=== PATIENT | female | born 1950 | race Caucasian/White ===

== ENCOUNTER 2016-03-10 | Outpatient (CLI) | END 2016-03-10 16:37 | disposition critical access hospital (66) | CPT/HCPCS: A0425; A0427 ==

== ENCOUNTER 2016-03-10 16:52 | Inpatient (IN) | END 2016-03-12 17:11 | disposition home or self-care (01) | DRG 563 ==

== ENCOUNTER 2016-03-27 | Outpatient (CLI) | payer MEDICARE, OTHER | END 2016-03-27 10:39 | disposition critical access hospital (66) | DX: R45.89 Other symptoms and signs involving emotional state (principal) | CPT/HCPCS: A0425; A0429 ==

== ENCOUNTER 2016-03-27 10:45 | Emergency (ER) | payer MEDICARE, OTHER ==
[2016-03-27] MEDS ORDERED: LORazepam 0.5 MG TABLET PO STA (14:26)
[2016-03-27] MEDS ORDERED: LORazepam 0.5 MG TABLET ONE (14:35)
[2016-03-27] MEDS ORDERED: ACETAMINOPHEN 325 MG TABLET PO STA (19:42)
[2016-03-27] MEDS ORDERED: ACETAMINOPHEN 325 MG TABLET PO ONE (19:45)
[2016-03-27] MEDS ORDERED: SUMAtriptan 6 MG/0.5 ML VIAL SUBQ STA (21:10)
[2016-03-27] MEDS ORDERED: SUMAtriptan 6 MG/0.5 ML VIAL SUBQ ONE (21:23)
== END 2016-03-27 21:51 ==
DX: F32.9 Major depressive disorder, single episode, unspecified (principal); F41.0 Panic disorder [episodic paroxysmal anxiety]; D64.9 Anemia, unspecified; I10 Essential (primary) hypertension; J44.9 Chronic obstructive pulmonary disease, unspecified
CPT/HCPCS: 36415; 80048; 80306; 81003; 85025; 93005; 93010; 96372; 99285; A9270; G0480

== ENCOUNTER 2017-05-18 03:41 | Outpatient (CLI) | payer MEDICARE, OTHER | END 2017-05-18 03:42 | disposition critical access hospital (66) | LOC: EMS 03:41 | PROVIDERS: ATTEND Surgery | DX: R06.02 Shortness of breath (principal) | CPT/HCPCS: A0425; A0427 ==

== ENCOUNTER 2017-05-18 03:56 | Inpatient (IN) | payer MEDICARE, OTHER ==
--- NOTE | 2017-05-18 04:50 | XRAY Report ---
EXAM: CHEST RADIOGRAPHY EXAM DATE: 05/18/2017 04:41 AM. CLINICAL HISTORY: Shortness of breath, wheezing. COMPARISON: 03/12/2016. TECHNIQUE: 2 views. FINDINGS: Lungs/Pleura: Scarring at the left costophrenic angle. Mild bilateral atelectasis. No definite alveol ar consolidation or pleural effusion. No pneumothorax. Mediastinum: Heart and mediastinal contours are unremarkable. Other: Osteopenia. Old right rib deformities. Surgical clips are seen bilaterally. IMPRESSION: 1. Mild bilateral atelectasis and left costophrenic angle scarring. 2. Postoperative changes. Old right rib deformities. 3. No acute abnormality seen in the chest. [facility] Referring Provider Line: [phone] SITE ID: [id number]
[2017-05-18 05:28] LABS: BASOPHILS # (AUTO) 0.1 10^3/uL (0.0-0.1); BASOPHILS % (AUTO) 1.1 %; EOSINOPHILS # (AUTO) 0.6 10^3/uL (0.0-0.7); EOSINOPHILS % (AUTO) 8.7 %; LYMPHOCYTES # (AUTO) 2.4 10^3/uL (1.5-3.5); MEAN CORPUSCULAR HEMOGLOBIN 25.8 pg (27.0-31.0); MEAN CORPUSCULAR HGB CONC 31.2 g/dL (32.0-36.0); MEAN CORPUSCULAR VOLUME 82.6 fL (81.0-99.0); MEAN PLATELET VOLUME 8.5 fL (7.9-10.8); MONOCYTES # (AUTO) 0.4 10^3/uL (0.0-1.0); MONOCYTES % (AUTO) 5.7 %; NEUTROPHILS # (AUTO) 3.6 10^3/uL (1.5-6.6); NEUTROPHILS % (AUTO) 50.5 %; PLT - PLATELET COUNT 197 10^3/uL (130-450); RED BLOOD COUNT 5.03 10^6/uL (4.20-5.40); RED CELL DISTRIBUTION WIDTH 14.8 % (12.0-15.0)
[2017-05-18 05:38] LABS: ALBUMIN 3.8 g/dL (3.2-5.5); ALBUMIN/GLOBULIN RATIO 1.3 (1.0-2.2); BILIRUBIN,TOTAL 0.3 mg/dL (0.2-1.0); CALCIUM 8.6 mg/dL (8.5-10.3); CREATININE 0.5 mg/dL (0.4-1.0); TOTAL PROTEIN 6.7 g/dL (6.7-8.2)
--- NOTE | 2017-05-18 06:24 | ED Physician Documentation ---
PD HPI DYSPNEA - Stated complaint Stated Complaint: SOA - Chief complaint Chief Complaint: Resp - History obtained from History obtained from: Patient - History of Present Illness Timing - onset: How many days ago (3-4) Timing - duration: Days Timing - details: Gradual onset Pain level max: 0 Pain level now: 0 Improved by: O2, Rest Worsened by: Exertion, Coughing Associated symptoms: Cough, Wheezing. No: Fever, Hemoptysis, Chest pain / discomfort, Bilateral edema Similar symptoms before: Has not had sx before Recently seen: Not recently seen - Additional information Additional information: c/o 3-4 days of sore throat, gradually becoming associated with coughing which has steadily worsened in intensity and frequency; also c/o increasing shortness of breath, initially with exertion but now even at rest Review of Systems Constitutional: reports: Reviewed and negative Eyes: reports: Reviewed and negative Ears: reports: Reviewed and negative Nose: reports: Reviewed and negative Throat: reports: Sore throat Cardiac: reports: Reviewed and negative Respiratory: reports: Dyspnea, Cough, Wheezing GI: reports: Reviewed and negative : denies: Dysuria, Frequency Skin: reports: Reviewed and negative Musculoskeletal: reports: Reviewed and negative Neurologic: reports: Reviewed and negative PD PAST MEDICAL HISTORY - Past Medical History Cardiovascular: Hypertension Respiratory: COPD Neuro: Headache/migraine Endocrine/Autoimmune: None GI: None : None HEENT: None Psych: Depression, Anxiety, Panic attacks Musculoskeletal: Osteoarthritis Derm: None - Past Surgical History Past Surgical History: Yes General: Cholecystectomy, 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 surgery /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 HEENT: Tonsil/Adenoidectomy - Present Medications Home Medications: Ambulatory Orders Medication Instructions Recorded Confirmed Albuterol Sulfate [Proair Hfa 2 puffs INH Q4H PRN 12/27/15 03/11/16 Inhaler] Carisoprodol [Soma] 350 mg PO QID PRN 12/27/15 03/11/16 Cyanocobalamin [Vitamin B-12] 1,000 mcg SUBQ Q30D 12/27/15 03/11/16 LORazepam [Lorazepam] 2 mg PO TID PRN 12/27/15 03/11/16 Levetiracetam [Keppra] 250 mg PO BID 12/27/15 05/18/17 Loratadine [Claritin] 10 mg PO DAILY 12/27/15 03/11/16 Quetiapine Fumarate [Seroquel] 600,300 mg PO QPM 12/27/15 05/18/17 Sertraline HCl [Zoloft] 100 mg PO DAILY 12/27/15 03/11/16 Sumatriptan Succinate [Imitrex] 50 mg PO .UPTOBID(2HRSAPART) PRN 12/27/15 Tiotropium [place] [Spiriva] 1 inh INH DAILY 12/27/15 03/11/16 Tizanidine HCl [Zanaflex] 2 mg PO QID PRN 12/27/15 03/11/16 Venlafaxine ER [Effexor ER] 150 mg PO DAILY 12/27/15 03/11/16 Zolpidem Tartrate [Ambien Cr] 12.5 mg PO QPM 12/27/15 03/11/16 Aspirin 81 mg PO DAILY 03/11/16 05/18/17 Docusate Sodium [Stool Softener] 100 mg PO QID PRN 03/11/16 03/11/16 Ergocalciferol [Vitamin D2] 50,000 units PO Q7D 03/11/16 03/11/16 Fenofibrate Nanocrystallized 145 mg PO DAILY 03/11/16 03/11/16 [Fenofibrate] Folic Acid 1 mg PO DAILY 03/11/16 03/11/16 amLODIPine [Norvasc] 10 mg PO DAILY 03/11/16 05/18/17 Ferrous Sulfate 325 mg PO BID #60 tablet 03/12/16 Ipratropium/Albuterol [Duoneb] 3 ml INH Q4HR PRN #0 neb 03/12/16 guaiFENesin/CODEINE [Robitussin AC] 5 ml PO Q8H PRN #60 ml 03/12/16 oxyCODONE [Roxicodone] 5 mg PO Q4HR PRN #14 tablet 03/12/16 predniSONE [Deltasone] 2 tab PO DAILY #12 tablet 03/12/16 Cyanocobalamin [Vitamin B-12] 1,000 mcg IM DAILY 05/18/17 05/18/17 Divalproex Sodium [Divalproex 500 mg PO DAILY 05/18/17 05/18/17 Sodium ER] Ginkgo Biloba [place] Extract [Ginkgo 120 mg PO DAILY 05/18/17 05/18/17 Biloba] Tiotropium [place] [Spiriva] 18 mcg IH DAILY 05/18/17 05/18/17 - Allergies Allergies/Adverse Reactions: Allergies Allergy/AdvReac Type Severity Reaction Status Date / Time lidocaine Allergy Mild Itching Verified 05/18/17 04:04 - Social History Does the pt smoke?: No Smoking Status: Never smoker Does the pt drink ETOH?: No Does the pt have substance abuse?: No - Immunizations Immunizations are current?: Yes PD ED PE NORMAL - Vitals Vital signs reviewed: Yes - General General: Alert and oriented X 3, Well developed/nourished, Other (frequent coughing which often interferes with her answers to questions (HPI, ROS)) - HEENT HEENT: Moist mucous membranes, Pharynx benign - Neck Neck: Supple, no meningeal sign - Cardiac Cardiac: RRR, No murmur, No gallop, No rub - Respiratory Respiratory: No respiratory distress, Other (bilateral inspiratory and expiratory wheezing) - Abdomen Abdomen: Soft, Non tender - Derm Derm: Normal color, Warm and dry - Extremities Extremities: No edema - Neuro Neuro: Alert and oriented X 3 Results - Vitals Vitals: Vital Signs - 24 hr 05/18/17 05/18/17 05/18/17 04:03 05:04 06:03 Temperature 36.1 C L Heart Rate 90 77 80 Respiratory 22 18 18 Rate Blood Pressure 137/80 H 137/80 H 130/82 H O2 Saturation 94 90 L 95 05/18/17 07:04 Temperature Heart Rate 92 Respiratory 20 Rate Blood Pressure 111/90 H O2 Saturation 95 Oxygen O2 Source [Without Activity] 1L O2 via NC O2 Source Nasal cannula - EKG (time done) No standard instances Rate: Rate (enter#) (84) Rhythm: NSR [place]: LAD Intervals: Normal [place] QRS: Normal Ischemia: Normal ST segments - Labs Labs: Laboratory Tests 05/18/17 05/18/17 05/18/17 04:09 04:09 04:09 WBC 7.0 RBC 5.03 Hgb 13.0 Hct 41.5 MCV 82.6 MCH 25.8 L MCHC 31.2 L RDW 14.8 Plt Count 197 MPV 8.5 Neut # 3.6 Lymph # 2.4 [place] # 0.4 Eos # 0.6 Baso # 0.1 Absolute Nucleated RBC 0.00 Nucleated RBC % 0.0 Sodium 132 L Potassium 4.4 Chloride 93 L Carbon Dioxide 27 Anion Gap 12.0 BUN 15 Creatinine 0.5 Estimated GFR (MDRD) 123 Glucose 123 H Calcium 8.6 Total Bilirubin 0.3 AST 21 ALT 17 Alkaline Phosphatase 42 Troponin I < 0.04 B-Natriuretic Peptide Total Protein 6.7 Albumin 3.8 Globulin 2.9 Albumin/Globulin Ratio 1.3 Lipase 13 L 05/18/17 04:09 WBC RBC Hgb Hct MCV MCH MCHC RDW Plt Count MPV Neut # Lymph # [place] # Eos # Baso # Absolute Nucleated RBC Nucleated RBC % Sodium Potassium Chloride Carbon Dioxide Anion Gap BUN Creatinine Estimated GFR (MDRD) Glucose Calcium Total Bilirubin AST ALT Alkaline Phosphatase Troponin I B-Natriuretic Peptide 15 Total Protein Albumin Globulin Albumin/Globulin Ratio Lipase - Rads (name of study) chest xray Radiology: Prelim report reviewed, See rad report PD MEDICAL DECISION MAKING - ED course Complexity details: reviewed results, re-evaluated patient, considered differential, d/w patient Departure - Departure Disposition: 66 [facility] DC/Xfer Clinical Impression: COPD with exacerbation Condition: Stable
[2017-05-18] MEDS ORDERED: LEVALBUTEROL 1.25 MG/3 ML NEB INH STA (06:37)
[2017-05-18] MEDS ORDERED: DEXAMETHASONE 10 MG/ML VIAL IVP STA (06:45)
[2017-05-18] MEDS ORDERED: TEMAZEPAM 15 MG CAPSULE PO PRN (07:44)
[2017-05-18] MEDS ORDERED: PROCHLORPERAZINE 10 MG/2 ML VIAL IVP PRN (07:44)
[2017-05-18] MEDS ORDERED: SODIUM CHLORIDE FLUSH 0.9% 10 ML SYRINGE IVP PRN (07:44)
[2017-05-18] MEDS ORDERED: TIZANIDINE HCL 2 MG PO PRN (07:52)
[2017-05-18] MEDS ORDERED: CARISOPRODOL 350 MG PO PRN (07:52)
[2017-05-18] MEDS ORDERED: DOCUSATE SODIUM 100 MG CAPSULE PO PRN (07:52)
[2017-05-18] MEDS ORDERED: IPRATROPIUM/ALBUTEROL 3 ML NEB INH PRN (07:52)
[2017-05-18] MEDS ORDERED: ERGOCALCIFEROL 50,000 UNIT CAPSULE PO SCH (08:00)
--- NOTE | 2017-05-18 08:24 | HISTORY & PHYSICAL EXAMINATION ---
Chief Complaint - Chief Complaint Chief Complaint: Shortness of breath History of Present Illness - Admitted From Admitted From:: [facility] - History Obtained From Records Reviewed: yes History obtained from: patient, Dr. Huddleston, old records Exam Limitations: Pt is confused, very poor historian, possibly confabulates - History of Present Illness HPI Comment/Other: Ms. Lindsey Hutchison is a pleasant 67-year-old female with a history significant for COPD, chronic right shoulder pain, hypertension, seizure disorder, hypertriglyceridemia, allergic rhinitis, anxiety, depression, and possibly schizophrenia who is an extremely poor historian. Unfortunately I have been unable to contact the next of kin noted on the patient's chart, namely James Power and Ortega Cisneros. Ms. Hutchison resides at [facility], and was sent in when she became short of breath and could not catch. She was found to be hypoxic with an oxygen saturation of 92-94% on room air and was wheezing loudly. A chest x-ray was done which did not show any acute exacerbation of CHF or pneumonia and she was given multiple doses of bronchodilators and steroids but still requires 3-1/2 L of oxygen to maintain an oxygen saturation of 95%. She will therefore be admitted to the medical surgical unit for treatment of acute exacerbation of COPD. 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 Living arrangement: Assisted living Living Situation: With caregiver(s) - Substance History Use: Uses substance without health or social issues: Alcohol Abuse: Recurrent use of substance despite neg consequences: NONE Dependence: Experiences withdrawal or developed tolerances: NONE - POLST Patient has POLST: No POLST Status: DNR Meds/Allgy - Home Medications Home Medications: Ambulatory Orders Medication Instructions Recorded Confirmed Albuterol Sulfate [Proair Hfa 2 puffs INH Q4H PRN 12/27/15 03/11/16 Inhaler] Carisoprodol [Soma] 350 mg PO QID PRN 12/27/15 03/11/16 Cyanocobalamin [Vitamin B-12] 1,000 mcg SUBQ Q30D 12/27/15 03/11/16 LORazepam [Lorazepam] 2 mg PO TID PRN 12/27/15 03/11/16 Levetiracetam [Keppra] 250 mg PO BID 12/27/15 05/18/17 Loratadine [Claritin] 10 mg PO DAILY 12/27/15 03/11/16 Quetiapine Fumarate [Seroquel] 600,300 mg PO QPM 12/27/15 05/18/17 Sertraline HCl [Zoloft] 100 mg PO DAILY 12/27/15 03/11/16 Sumatriptan Succinate [Imitrex] 50 mg PO .UPTOBID(2HRSAPART) PRN 12/27/15 Tiotropium [place] [Spiriva] 1 inh INH DAILY 12/27/15 03/11/16 Tizanidine HCl [Zanaflex] 2 mg PO QID PRN 12/27/15 03/11/16 Venlafaxine ER [Effexor ER] 150 mg PO DAILY 12/27/15 03/11/16 Zolpidem Tartrate [Ambien Cr] 12.5 mg PO QPM 12/27/15 03/11/16 Aspirin 81 mg PO DAILY 03/11/16 05/18/17 Docusate Sodium [Stool Softener] 100 mg PO QID PRN 03/11/16 03/11/16 Ergocalciferol [Vitamin D2] 50,000 units PO Q7D 03/11/16 03/11/16 Fenofibrate Nanocrystallized 145 mg PO DAILY 03/11/16 03/11/16 [Fenofibrate] Folic Acid 1 mg PO DAILY 03/11/16 03/11/16 amLODIPine [Norvasc] 10 mg PO DAILY 03/11/16 05/18/17 Ferrous Sulfate 325 mg PO BID #60 tablet 03/12/16 Ipratropium/Albuterol [Duoneb] 3 ml INH Q4HR PRN #0 neb 03/12/16 guaiFENesin/CODEINE [Robitussin AC] 5 ml PO Q8H PRN #60 ml 03/12/16 oxyCODONE [Roxicodone] 5 mg PO Q4HR PRN #14 tablet 03/12/16 predniSONE [Deltasone] 2 tab PO DAILY #12 tablet 03/12/16 Cyanocobalamin [Vitamin B-12] 1,000 mcg IM DAILY 05/18/17 05/18/17 Divalproex Sodium [Divalproex 500 mg PO DAILY 05/18/17 05/18/17 Sodium ER] Ginkgo Biloba [place] Extract [Ginkgo 120 mg PO DAILY 05/18/17 05/18/17 Biloba] Tiotropium [place] [Spiriva] 18 mcg IH DAILY 05/18/17 05/18/17 - Allergies Allergies/Adverse Reactions: Allergies Allergy/AdvReac Type Severity Reaction Status Date / Time lidocaine Allergy Mild Itching Verified 05/18/17 04:04 Review of Systems - Constitutional Constitutional: reports: Weakness, Other (Patient is an extremely poor historian ). denies: Fatigue, Fever, Chills - Eyes Eyes: denies: Pain, Irritation, Blurred vision, Dipolpia - Ears, Nose & Throat Ears, Nose & Throat: reports: Hearing loss. denies: Ear pain, Tinnitus, Vertigo , Nasal pain, Hoarseness - Cardiovascular Cariovascular: denies: Irregular heart rate, Palpitations, Chest pain, Syncope - Respiratory Respiratory: reports: Cough, Wheezing, SOB at rest, SOB with exertion. denies: Sputum production, Snoring, Hemoptysis, Orthopnea - Gastrointestinal Gastrointestinal: denies: Abdominal pain, Abdominal distention, Constipation, Diarrhea, Change in bowel habits, Rectal bleeding - Genitourinary Genitourinary: denies: Dysuria, Frequency, Urgency, Hematuria - Musculoskeletal Musculoskeletal: denies: Muscle pain, Back pain, Muscle aches, Stiffness - Integumentary Integumentary: denies: Rash, Pruritis, Lesions, Dryness - Neurological Neurological: denies: General weakness, Focal weakness, Headache, Dizziness - Psychiatric Psychiatric: reports: Depression, Anxiety, Other (The patient confabulates and does not appear to be a reliable historian. I am unable to obtain any other records at this time.). denies: Suicidal, Hallucinations - Endocrine Endocrine: reports: Polyphagia. denies: Polyuria, Polydypsia - Hematologic/Lymphatic Hematologic/Lymphatic: denies: Anemia, Bruising, Lymphadenopathy - All Other Systems All Other Systems: reports: Reviewed and negative Exam - Vital Signs Reviewed Vital Signs: Yes Vital Signs: Vital Signs x48h Temp Pulse Resp BP Pulse Ox 05/18/17 07:04 92 20 111/90 H 95 05/18/17 06:03 80 18 130/82 H 95 05/18/17 05:04 77 18 137/80 H 90 L 05/18/17 04:03 36.1 C L 90 22 137/80 H 94 - Physical Exam General Appearance: positive: No acute distress, Alert Eyes Bilateral: positive: Normal inspection, PERRL, EOMI, No lid inflammation, Conjunctivae nml, No scleral icterus ENT: positive: ENT inspection nml, Pharynx nml, No signs of dehydration Neck: positive: Nml inspection, Thyroid nml, No JVD, Trachea midline, Thyromegaly Respiratory: positive: Chest non-tender, No respiratory distress, Wheezes. negative: Rales, Rhonchi Cardiovascular: positive: Regular rate & rhythm, No murmur, No gallop. negative : Extrasystoles Peripheral Pulses: positive: 1+ Abdomen: positive: Non-tender, No organomegaly, Nml bowel sounds, No distention. negative: Guarding, Rebound Back: positive: Nml inspection. negative: CVA tenderness (R), CVA tenderness (L ) Skin: positive: Color nml, No rash, Warm, Dry. negative: Cyanosis Extremities: positive: Non-tender. negative: Full ROM (Right shoulder appears to be frozen), Calf tenderness, Joint swelling Neurologic/Psychiatric: positive: Oriented x3, CN's nml (2-12), Motor nml, Sensation nml, Mood/affect nml, Other (Patient confabulates and may have significant memory problems.) Conclusion/Plan - Problem List (1) Acute exacerbation of COPD with asthma Conclusion/Plan: The patient is comfortable at this time on 3-1/2 L of oxygen and saturating at 95%. We will continue with oral and inhaled steroids, bronchodilators around- the-clock, and supplemental oxygen as needed. When the patient is able to comfortably rest on room air she will be discharged back to [facility] on [place]. (2) History of seizure disorder Conclusion/Plan: Continue Depakote and Keppra. It is unknown when the patient's last seizure occurred. When I asked her she started talking about how she got upset when her parents were getting ready to divorce and acted out and pretended to be having a seizure. This seems unlikely to be the reason that the patient is taking Keppra and Depakote. (3) Hypertriglyceridemia Conclusion/Plan: Continue fenofibrate (4) Allergic rhinitis Conclusion/Plan: We will hold loratadine while the patient is inpatient as the steroids and bronchodilators will be much more effective (5) Anxiety and depression Conclusion/Plan: Continue Zoloft and Seroquel. (6) Insomnia Conclusion/Plan: I will place the patient on temazepam and she will continue to receive Seroquel at bedtime. - Lab Results Lab results reviewed: Yes Fish Bones: 05/18/17 04:09 05/18/17 04:09 - Diagnostic Imaging Results Diagnostic Imaging Results: positive: Final report reviewed Diagnostic Imaging Results Comments: EXAM: CHEST RADIOGRAPHY EXAM DATE: 05/18/2017 04:41 AM. CLINICAL HISTORY: Shortness of breath, wheezing. COMPARISON: 03/12/2016. TECHNIQUE: 2 views. FINDINGS: Lungs/Pleura: Scarring at the left costophrenic angle. Mild bilateral atelectasis. No definite alveolar consolidation or pleural effusion. No pneumothorax. Mediastinum: Heart and mediastinal contours are unremarkable. Other: Osteopenia. Old right rib deformities. Surgical clips are seen bilaterally. IMPRESSION: 1. Mild bilateral atelectasis and left costophrenic angle scarring. 2. Postoperative changes. Old right rib deformities. 3. No acute abnormality seen in the chest. - EKG Results EKG Interpreted Independently: Yes EKG Comparison: Old EKG unavailable EKG Findings: Normal sinus rhythm Core Measures - Anticipated LOS I expect patient to be DC'd or transferred within 96 hours.: Yes - DVT/VTE - Prophylaxis VTE/DVT Device ordered at admit?: Yes
[2017-05-18] MEDS ORDERED: VENLAFAXINE ER 75 MG CAPSULE PO SCH (09:00)
[2017-05-18] MEDS ORDERED: NON FORMULARY MED (Sertraline Hcl [Zoloft] 100 MG) PO SCH (09:00)
[2017-05-18] MEDS ORDERED: FOLIC ACID 1 MG TABLET PO SCH (09:00)
[2017-05-18] MEDS ORDERED: predniSONE 20 MG TABLET PO SCH (09:00)
[2017-05-18] MEDS ORDERED: FENOFIBRATE NANOCRYSTALLIZED 145 MG PO SCH (09:00)
[2017-05-18] MEDS ORDERED: TIOTROPIUM INHALER INH SCH ×2 (09:00)
[2017-05-18] MEDS: IPRATROPIUM/ALBUTEROL 3 ML NEB INH SCH ×4 (10:24→21:19)
[2017-05-18] MEDS: BUDESONIDE 0.5 MG/2 ML NEB INH SCH ×2 (10:24→21:18)
[2017-05-18] MEDS: POLYETHYLENE GLYCOL 3350 17 GM PACKET PO SCH (10:24)
[2017-05-18] MEDS: amLODIPine 5 MG TABLET PO SCH (10:30)
[2017-05-18] MEDS: FERROUS SULFATE 325 MG TABLET PO SCH ×2 (10:30→21:46)
[2017-05-18] MEDS: SODIUM CHLORIDE FLUSH 0.9% 10 ML SYRINGE IVP SCH ×2 (10:30→21:48)
[2017-05-18] MEDS: VENLAFAXINE ER 75 MG CAPSULE PO SCH (10:30)
[2017-05-18] MEDS: ASPIRIN CHEW 81 MG TABLET PO SCH (10:30)
[2017-05-18] MEDS: GINKGO BILOBA 120 MG PO SCH (10:46)
[2017-05-18] MEDS ORDERED: SUMAtriptan 25 MG TABLET PO PRN (10:53)
[2017-05-18] MEDS: DIVALPROEX DR 250 MG TABLET PO SCH ×2 (11:11→21:47)
[2017-05-18] MEDS: LORATADINE 10 MG TABLET PO SCH (11:11)
[2017-05-18] MEDS: levETIRAcetam 250 MG TABLET PO SCH ×2 (11:11→21:47)
[2017-05-18] MEDS: guaiFENesin/CODEINE 5 ML UDC PO PRN (12:06)
[2017-05-18] MEDS: predniSONE 20 MG TABLET PO SCH (12:08)
[2017-05-18] MEDS: oxyCODONE 5 MG TABLET PO PRN (19:29)
[2017-05-18] MEDS: QUEtiapine 100 MG TABLET PO SCH (21:46)
[2017-05-19] MEDS: oxyCODONE 5 MG TABLET PO PRN ×5 (00:34→20:05)
[2017-05-19] MEDS: guaiFENesin/CODEINE 5 ML UDC PO PRN (05:34)
[2017-05-19] MEDS: SODIUM CHLORIDE FLUSH 0.9% 10 ML SYRINGE IVP SCH ×3 (05:44→20:15)
[2017-05-19] MEDS: levETIRAcetam 250 MG TABLET PO SCH ×2 (08:38→20:05)
[2017-05-19] MEDS: DIVALPROEX DR 250 MG TABLET PO SCH ×2 (08:38→20:08)
[2017-05-19] MEDS: ASPIRIN CHEW 81 MG TABLET PO SCH (08:38)
[2017-05-19] MEDS: VENLAFAXINE ER 75 MG CAPSULE PO SCH (08:38)
[2017-05-19] MEDS: GINKGO BILOBA 120 MG PO SCH (08:38)
[2017-05-19] MEDS: LORATADINE 10 MG TABLET PO SCH (08:38)
[2017-05-19] MEDS: FERROUS SULFATE 325 MG TABLET PO SCH ×2 (08:38→20:05)
[2017-05-19] MEDS: amLODIPine 5 MG TABLET PO SCH (08:38)
[2017-05-19] MEDS: predniSONE 20 MG TABLET PO SCH (08:38)
[2017-05-19] MEDS: POLYETHYLENE GLYCOL 3350 17 GM PACKET PO SCH (08:38)
[2017-05-19] MEDS ORDERED: LEVALBUTEROL 1.25 MG/3 ML NEB INH PRN (09:25)
[2017-05-19] MEDS: IPRATROPIUM/ALBUTEROL 3 ML NEB INH SCH ×4 (09:26→20:49)
[2017-05-19] MEDS: BUDESONIDE 0.5 MG/2 ML NEB INH SCH ×2 (09:29→20:49)
[2017-05-19] MEDS: guaiFENesin 600 MG TABLET PO SCH ×2 (09:30→20:05)
--- NOTE | 2017-05-19 16:00 | PROVIDER PROGRESS NOTE ---
Subjective - Prog Note Date Prog Note Date: 05/19/17 Prog Note Time: 12:10 - Subjective Pt reports feeling: Improved (The patient is breathing easily on 2 L of oxygen via nasal cannula. She denies any significant shortness of breath at this time. She says she slept well last night and her appetite is good. She last moved her bowels yesterday. She is not having any fevers or chills.) Current Medications - Current Medications Current Medications: Amlodipine, aspirin, budesonide, cyanocobalamin, Depakote, docusate sodium, ferrous sulfate, guaifenesin, DuoNeb, Keppra, Xopenex, loratadine, Keppra, lorazepam, oxycodone, polyethylene glycol, prednisone, Compazine, Seroquel, sodium chloride, Imitrex, temazepam, Effexor Objective - Vital Signs/Intake & Output Reviewed Vital Signs: Yes Vital Signs: Vital Signs x48h Temp Pulse Pulse Resp BP Pulse Ox 05/19/17 12:59 94 20 05/19/17 09:29 135 H 14 05/19/17 08:00 36.4 C L 72 18 137/58 H 95 Intake & Output: Intake & Output 05/16/17 05/17/17 05/18/17 05/19/17 23:59 23:59 23:59 23:59 Intake Total 540 730 Balance 540 730 - Objective General Appearance: positive: No acute distress, Alert, Mild distress Eyes Bilateral: positive: Normal inspection, PERRL, EOMI, No lid inflammation, Conjunctivae nml, No scleral icterus ENT: positive: ENT inspection nml, Pharynx nml, No signs of dehydration Neck: positive: Nml inspection, Thyroid nml, No JVD, Trachea midline. negative : Thyromegaly Respiratory: positive: Chest non-tender, No respiratory distress, Breath sounds nml. negative: Wheezes, Rales, Rhonchi Cardiovascular: positive: Regular rate & rhythm, No murmur, No gallop Abdomen: positive: Non-tender, No organomegaly, Nml bowel sounds, No distention. negative: Guarding, Rebound Back: positive: Nml inspection. negative: CVA tenderness (R), CVA tenderness (L ) Skin: positive: Color nml, No rash, Warm, Dry. negative: Cyanosis Extremities: positive: Non-tender, Full ROM, Nml appearance Neurologic/Psychiatric: positive: Oriented x3, CN's nml (2-12), Motor nml, Sensation nml, Mood/affect nml, Other (The patient is lucid and appropriate today. I do not hear any confabulating or see any signs of any type of delirium.) - Lab Results Fish Bones: 05/18/17 04:09 05/18/17 04:09 Assessment/Plan - Problem List (1) Acute exacerbation of COPD with asthma Impression: The patient is responding well to treatment. She is resting easily on 3 L/min of supplemental oxygen and I will decrease this to 2 L at this time. She still does get dyspneic with exertion but is very comfortable at rest and her mentation has improved significantly. (2) History of seizure disorder Impression: Continue Depakote and Keppra. The patient's last seizure was about 6 years ago. (3) Hypertriglyceridemia Impression: Continue fenofibrate. (4) Allergic rhinitis Impression: We will hold loratadine while the patient is inpatient as the steroids and bronchodilators will be much more effective (5) Anxiety and depression Impression: Continue Zoloft and Seroquel (6) Insomnia Impression: Well-managed, the patient says she slept last night. She is taking temazepam and Seroquel at bedtime.
[2017-05-19] MEDS: QUEtiapine 100 MG TABLET PO SCH (20:05)
[2017-05-20] MEDS: SODIUM CHLORIDE FLUSH 0.9% 10 ML SYRINGE IVP SCH ×3 (00:41→21:06)
[2017-05-20] MEDS: oxyCODONE 5 MG TABLET PO PRN ×4 (00:41→20:12)
[2017-05-20] MEDS: guaiFENesin/CODEINE 5 ML UDC PO PRN (00:42)
[2017-05-20 05:18] LABS: HGB - HEMOGLOBIN 12.5 g/dL (12.0-16.0); MEAN CORPUSCULAR HGB CONC 31.4 g/dL (32.0-36.0); MEAN PLATELET VOLUME 7.7 fL (7.9-10.8); RED BLOOD COUNT 4.8 10^6/uL (4.20-5.40); RED CELL DISTRIBUTION WIDTH 14.9 % (12.0-15.0); WHITE BLOOD COUNT 8.3 x10^3/uL (4.8-10.8)
[2017-05-20 05:26] LABS: CALCIUM 8.6 mg/dL (8.5-10.3); CREATININE 0.6 mg/dL (0.4-1.0)
[2017-05-20] MEDS: IPRATROPIUM/ALBUTEROL 3 ML NEB INH SCH ×4 (07:45→20:44)
[2017-05-20] MEDS: BUDESONIDE 0.5 MG/2 ML NEB INH SCH ×2 (07:45→20:44)
[2017-05-20] MEDS: ASPIRIN CHEW 81 MG TABLET PO SCH (09:45)
[2017-05-20] MEDS: GINKGO BILOBA 120 MG PO SCH (09:45)
[2017-05-20] MEDS: predniSONE 20 MG TABLET PO SCH (09:45)
[2017-05-20] MEDS: DIVALPROEX DR 250 MG TABLET PO SCH ×2 (09:45→20:12)
[2017-05-20] MEDS: amLODIPine 5 MG TABLET PO SCH (09:45)
[2017-05-20] MEDS: POLYETHYLENE GLYCOL 3350 17 GM PACKET PO SCH (09:45)
[2017-05-20] MEDS: FERROUS SULFATE 325 MG TABLET PO SCH ×2 (09:45→20:12)
[2017-05-20] MEDS: guaiFENesin 600 MG TABLET PO SCH ×2 (09:45→20:12)
[2017-05-20] MEDS: VENLAFAXINE ER 75 MG CAPSULE PO SCH (09:45)
[2017-05-20] MEDS: LORATADINE 10 MG TABLET PO SCH (09:45)
[2017-05-20] MEDS: levETIRAcetam 250 MG TABLET PO SCH ×2 (09:45→20:12)
--- NOTE | 2017-05-20 14:03 | PROVIDER PROGRESS NOTE ---
Subjective - Prog Note Date Prog Note Date: 05/20/17 Prog Note Time: 12:25 - Subjective Pt reports feeling: Improved Subjective: The patient's respiratory status continues to improve. She is breathing easily on room air and does get winded when she ambulates. This is markedly better than on admission just 3 days ago when she required 5 L of oxygen. She says she slept well last night she denies any new pain, fever or chills. Current Medications - Current Medications Current Medications: Amlodipine, aspirin, budesonide, cyanocobalamin, Depakote, docusate sodium, ferrous sulfate, guaifenesin, DuoNeb, Keppra, Xopenex, loratadine, Keppra, lorazepam, oxycodone, polyethylene glycol, prednisone, Compazine, Seroquel, sodium chloride, Imitrex, temazepam, Effexor Objective - Vital Signs/Intake & Output Reviewed Vital Signs: Yes Vital Signs: Vital Signs x48h Temp Pulse Pulse Resp BP Pulse Ox 05/20/17 13:00 88 16 05/20/17 11:14 93 05/20/17 08:00 98.5 C H 78 21 140/88 H 98 05/20/17 07:45 79 14 Intake & Output: Intake & Output 05/17/17 05/18/17 05/19/17 05/20/17 23:59 23:59 23:59 23:59 Intake Total 540 1080 700 Balance 540 1080 700 - Objective General Appearance: positive: No acute distress, Alert Eyes Bilateral: positive: Normal inspection, PERRL, EOMI, No lid inflammation, Conjunctivae nml, No scleral icterus ENT: positive: ENT inspection nml, Pharynx nml, No signs of dehydration Neck: positive: Nml inspection, Thyroid nml, No JVD, Trachea midline. negative : Thyromegaly Respiratory: positive: Chest non-tender, No respiratory distress, Breath sounds nml. negative: Wheezes, Rales, Rhonchi Cardiovascular: positive: Regular rate & rhythm, No murmur, No gallop Abdomen: positive: Non-tender, No organomegaly, Nml bowel sounds, No distention. negative: Guarding, Rebound Back: positive: Nml inspection. negative: CVA tenderness (R), CVA tenderness (L ) Skin: positive: Color nml, No rash, Warm, Dry. negative: Cyanosis Extremities: positive: Non-tender, Full ROM, Nml appearance, No pedal edema Neurologic/Psychiatric: positive: Oriented x3, CN's nml (2-12), Motor nml, Sensation nml, Mood/affect nml - Lab Results Fish Bones: 05/20/17 04:58 05/20/17 04:58 Other Labs: Lab Results x24hrs 05/20/17 05/20/17 Range/Units 04:58 04:58 WBC 8.3 (4.8-10.8) x10^3/uL RBC 4.80 (4.20-5.40) 10^6/uL Hgb 12.5 (12.0-16.0) g/dL Hct 39.9 (37.0-47.0) % MCV 83.0 (81.0-99.0) fL MCH 26.0 L (27.0-31.0) pg MCHC 31.4 L (32.0-36.0) g/dL RDW 14.9 (12.0-15.0) % Plt Count 187 (130-450) 10^3/uL MPV 7.7 L (7.9-10.8) fL Sodium 134 L (135-145) mmol/L Potassium 4.0 (3.5-5.0) mmol/L Chloride 92 L (101-111) mmol/L Carbon Dioxide 32 (21-32) mmol/L Anion Gap 10.0 (6-13) BUN 15 (6-20) mg/dL Creatinine 0.6 (0.4-1.0) mg/dL Estimated GFR (MDRD) 100 (>89) Glucose 95 (70-100) mg/dL Calcium 8.6 (8.5-10.3) mg/dL - Diagnostic Imaging Diagnostic Imaging Results: positive: Final report reviewed Diagnostic Imaging Comments: EXAM: CHEST RADIOGRAPHY EXAM DATE: 05/18/2017 04:41 AM. CLINICAL HISTORY: Shortness of breath, wheezing. COMPARISON: 03/12/2016. TECHNIQUE: 2 views. FINDINGS: Lungs/Pleura: Scarring at the left costophrenic angle. Mild bilateral atelectasis. No definite alveolar consolidation or pleural effusion. No pneumothorax. Mediastinum: Heart and mediastinal contours are unremarkable. Other: Osteopenia. Old right rib deformities. Surgical clips are seen bilaterally. IMPRESSION: 1. Mild bilateral atelectasis and left costophrenic angle scarring. 2. Postoperative changes. Old right rib deformities. 3. No acute abnormality seen in the chest. Assessment/Plan - Problem List (1) Acute exacerbation of COPD with asthma Impression: The patient is responding well to treatment. She is resting easily on room air. She still does get dyspneic with exertion but is very comfortable at rest and her mentation has improved significantly. (2) History of seizure disorder Impression: The patient's last seizure was about 6 years ago. Continue Depakote and Keppra. (3) Hypertriglyceridemia Impression: Continue fenofibrate (4) Allergic rhinitis Impression: The patient does not need to be taking her home medication, loratadine, while she is receiving steroids and bronchodilators. Will continue present care. (5) Anxiety and depression Impression: Continue Zoloft and Seroquel. No new complaints of anxiety or depression. (6) Insomnia Impression: Patient says she slept well last night with the use of temazepam and Seroquel. Continue present care.
[2017-05-20] MEDS: LORazepam 0.5 MG TABLET PO PRN (15:55)
[2017-05-20] MEDS: QUEtiapine 100 MG TABLET PO SCH (20:12)
[2017-05-21] MEDS: SODIUM CHLORIDE FLUSH 0.9% 10 ML SYRINGE IVP SCH ×2 (02:24→10:11)
[2017-05-21] MEDS: oxyCODONE 5 MG TABLET PO PRN ×2 (02:24→10:09)
[2017-05-21] MEDS: guaiFENesin/CODEINE 5 ML UDC PO PRN ×2 (02:31→07:43)
[2017-05-21 05:58] LABS: HGB - HEMOGLOBIN 12.6 g/dL (12.0-16.0); MEAN CORPUSCULAR HGB CONC 31.4 g/dL (32.0-36.0); MEAN CORPUSCULAR VOLUME 82.7 fL (81.0-99.0); MEAN PLATELET VOLUME 7.7 fL (7.9-10.8); RED BLOOD COUNT 4.84 10^6/uL (4.20-5.40); RED CELL DISTRIBUTION WIDTH 14.9 % (12.0-15.0); WHITE BLOOD COUNT 7.2 x10^3/uL (4.8-10.8)
[2017-05-21 06:10] LABS: CALCIUM 8.3 mg/dL (8.5-10.3); CREATININE 0.3 mg/dL (0.4-1.0)
[2017-05-21] MEDS: IPRATROPIUM/ALBUTEROL 3 ML NEB INH SCH (07:35)
[2017-05-21] MEDS: BUDESONIDE 0.5 MG/2 ML NEB INH SCH (07:35)
--- NOTE | 2017-05-21 09:07 | Discharge Plan ---
"Discharge Plan for SNF / SANDIP - DC Plan and Transition Orders Disposition: 01 Home, Self Care Condition: Stable SNF Transition Orders: Admit to: [facility] under the care of Ivette Covington Discharge Diagnosis: Acute exacerbation of COPD Medicare Certification: I certify that [facility] long term care is medically necessary on a continuing basis for any of the conditions for which she/he is receiving care during hospitalization. Notify PCP of admission and forward orders to primary provider for signature. Weight on admission and weekly. Call PCP immediately if weight increases by 10 pounds or if patient develops dyspnea, chest pain/tightness or edema. House Bowel Program: yes If no BM after 2 days, nurse may give M.O.M. 30ml PO PRN and /or ducolax Supp 1 WA and /or JEN 250mg P.O., and/or senna 1-2 tabs PO. On day 3 nurse may give repeat above order until residents constipation is resolved. Immunizations: Annual Influenza Vaccine: yes. (between Nov 06 and June 05.) Unless allergy or already given Two-Step PPD: yes per [facility] [id number] or appropriate documentation of approved exceptions Treatments & Other Orders: Douneb nebulizer q6H PRN dyspnea Oxygen Orders: 2L/m PRN dyspnea Medications: PLEASE REFER TO THE DISCHARGE MEDICATION LIST. Allergies and Adverse Reactions: Allergies Allergy/AdvReac Type Severity Reaction Status Date / Time lidocaine Allergy Mild Itching Verified 05/18/17 04:04 - Medications New Prescriptions: guaiFENesin/CODEINE [Robitussin AC] 5 ml PO Q6H PRN #240 ml PRN Reason: cough Ipratropium/Albuterol [Duoneb] 3 ml INH QID #12 amp - Diet Type: Geriatric Texture: Regular Liquids: Thin May have monthly special meal: Yes - Therapies | Activity Rehabilitation Potential: Maintain present ADL Functional Activity: Activity as Tolerated Weight Bearing: Full Weight Follow Up: with primary care provider in next week"
[2017-05-21] MEDS: POLYETHYLENE GLYCOL 3350 17 GM PACKET PO SCH (10:09)
[2017-05-21] MEDS: LORATADINE 10 MG TABLET PO SCH (10:10)
[2017-05-21] MEDS: VENLAFAXINE ER 75 MG CAPSULE PO SCH (10:10)
[2017-05-21] MEDS: DIVALPROEX DR 250 MG TABLET PO SCH (10:10)
[2017-05-21] MEDS: FERROUS SULFATE 325 MG TABLET PO SCH (10:10)
[2017-05-21] MEDS: guaiFENesin 600 MG TABLET PO SCH (10:10)
[2017-05-21] MEDS: levETIRAcetam 250 MG TABLET PO SCH (10:10)
[2017-05-21] MEDS: ASPIRIN CHEW 81 MG TABLET PO SCH (10:10)
[2017-05-21] MEDS: predniSONE 20 MG TABLET PO SCH (10:11)
[2017-05-21] MEDS: GINKGO BILOBA 120 MG PO SCH (10:11)
[2017-05-21] MEDS: amLODIPine 5 MG TABLET PO SCH (10:11)
[2017-05-21] MEDS: LORazepam 0.5 MG TABLET PO PRN (12:56)
[2017-05-21 13:43] VITALS: BP 146/84
--- NOTE | 2017-05-21 13:45 | DISCHARGE SUMMARY ---
Discharge Summary Admit Date: 05/18/17 Discharge Date: 05/21/17 Discharging Provider: Tyesha Castro DO Primary Care Provider: Sumi Covington Code Status: Attempt Resuscitation Condition at Discharge: Stable Discharge Disposition: SNF DC/Xfer Discharge Facility Name: [facility] - DIAGNOSES Admission Diagnoses: 1. Acute exacerbation of COPD with asthma 2. History of seizure disorder 3. Hypertriglyceridemia 4. Allergic rhinitis 5. Anxiety and depression 6. Insomnia Discharge Diagnoses with Status of Each Condition: 1. Acute exacerbation of COPD with asthma -Resolved, unsure of etiology. Patient is breathing easily on room air at this time. 2. History of seizure disorder-No new seizure events during this hospitalization. Continue patient Depakote and Keppra at home. 3. Hypertriglyceridemia - Presumably well-managed. Continue fenofibrate. 4. Allergic [id number]-Bowp-[id number] while inpatient, continue loratadine as an outpatient. 5. Anxiety and depression- Well-managed, continue Zoloft and Seroquel. 6. Insomnia - No new issues during this hospitalization. Continue Seroquel at bedtime. - HPI History of Present Illness: Ms. Lindsey Hutchison is a pleasant 67-year-old female with a history significant for COPD, chronic right shoulder pain, hypertension, seizure disorder, hypertriglyceridemia, allergic rhinitis, anxiety, depression, and possibly schizophrenia who is an extremely poor historian. Unfortunately I have been unable to contact the next of kin noted on the patient's chart, namely James Power and Ortega Cisneros. Ms. Hutchison resides at [facility], and was sent in when she became short of breath and could not catch. She was found to be hypoxic with an oxygen saturation of 92-94% on room air and was wheezing loudly. A chest x-ray was done which did not show any acute exacerbation of CHF or pneumonia and she was given multiple doses of bronchodilators and steroids but still requires 3-1/2 L of oxygen to maintain an oxygen saturation of 95%. She will therefore be admitted to the medical surgical unit for treatment of acute exacerbation of COPD. - HOSPITAL COURSE Hospital Course: The patient was admitted to the hospital and placed in a medical surgical bed. Inhaled steroids and oral steroids were ordered along with bronchodilators and supplemental oxygen. Initially on admission the patient was confused and confabulating however her mentation cleared quickly over the next several days. She has been able to rest comfortably on room air for the last 24 hours. - ALLERGIES Allergies/Adverse Reactions: Allergies Allergy/AdvReac Type Severity Reaction Status Date / Time lidocaine Allergy Mild Itching Verified 05/18/17 04:04 - MEDICATIONS Home Medications: Ambulatory Orders Medication Instructions Recorded Confirmed Albuterol Sulfate [Proair Hfa 2 puffs INH Q4H PRN 12/27/15 05/18/17 Inhaler] Carisoprodol [Soma] 350 mg PO QID PRN 12/27/15 05/18/17 LORazepam [Lorazepam] 1 mg PO Q8H PRN 12/27/15 05/18/17 Levetiracetam [Keppra] 250 mg PO DAILY 12/27/15 05/18/17 Loratadine [Claritin] 10 mg PO DAILY 12/27/15 05/18/17 Quetiapine Fumarate [Seroquel] 300 mg PO QPM 12/27/15 05/18/17 Sumatriptan Succinate [Imitrex] 50 mg PO BID PRN 12/27/15 05/18/17 Venlafaxine ER [Effexor ER] 225 mg PO DAILY 12/27/15 05/18/17 Aspirin 81 mg PO DAILY 03/11/16 05/18/17 Docusate Sodium [Stool Softener] 100 mg PO BID PRN 03/11/16 05/18/17 amLODIPine [Norvasc] 10 mg PO DAILY 03/11/16 05/18/17 Ferrous Sulfate 325 mg PO BID #60 tablet 03/12/16 05/18/17 Cholecalciferol (Vitamin D3) 1,000 unit PO DAILY 05/18/17 05/18/17 [Vitamin D3] Cyanocobalamin [Vitamin B-12] 1,000 mcg IM .QMONTH 05/18/17 05/18/17 Divalproex [Ayad Rivera] 1,000 mg PO QPM 05/18/17 05/18/[address] Kimo Rivera] 250 mg PO DAILY 05/18/17 05/18/17 Ginkgo Biloba [place] Extract [Ginkgo 120 mg PO DAILY 05/18/17 05/18/17 Biloba] Guaifenesin [Mucinex] 600 mg PO BID PRN 05/18/17 05/18/17 Ibuprofen [Motrin] 800 mg PO Q8H PRN 05/18/17 05/18/17 Lysine HCl 400 mg PO DAILY 05/18/17 05/18/17 [place]-3 Fatty Acids/Fish Oil 1,000 mg PO BID 05/18/17 05/18/17 [[place]-3 Fish Oil 1,000 mg Sfgl] Senna [Senokot] 8.6 mg PO BID 05/18/17 05/18/17 Tiotropium [place] [Spiriva] 18 mcg INH DAILY 05/18/17 05/18/17 Zolpidem Tartrate [Ambien] 10 mg PO QPM 05/18/17 05/18/17 levETIRAcetam [Keppra] 500 mg PO QPM 05/18/17 05/18/17 Divalproex [Ayad Rivera] 1,000 mg PO QPM tablet 05/21/17 Divalproex [Ayad Rivera] 250 mg PO DAILY tablet 05/21/17 Ipratropium/Albuterol [Duoneb] 3 ml INH QID #12 amp 05/21/17 guaiFENesin/CODEINE [Robitussin AC] 5 ml PO Q6H PRN #240 ml 05/21/17 - PHYSICAL EXAM AT DISCHARGE General Appearance: positive: No acute distress, Alert Eyes Bilateral: positive: Normal inspection, PERRL, EOMI, No lid inflammation, Conjunctivae nml, No scleral icterus ENT: positive: ENT inspection nml, Pharynx nml, No signs of dehydration Neck: positive: Nml inspection, Thyroid nml, No JVD, Trachea midline. negative : Thyromegaly Respiratory: positive: Chest non-tender, No respiratory distress, Breath sounds nml. negative: Wheezes, Rales, Rhonchi Cardiovascular: positive: Regular rate & rhythm, No murmur, No gallop Peripheral Pulses: positive: 1+ Abdomen: positive: Non-tender, No organomegaly, Nml bowel sounds, No distention. negative: Guarding, Rebound Back: positive: Nml inspection, CVA tenderness (R), CVA tenderness (L) Skin: positive: Color nml, No rash, Warm, Dry. negative: Cyanosis Extremities: positive: Non-tender, Full ROM, Nml appearance Neurologic/Psychiatric: positive: Oriented x3, CN's nml (2-12), Motor nml, Sensation nml, Mood/affect nml - LABS Result Diagrams: 05/21/17 05:38 05/21/17 05:38 - FOLLOW UP Follow Up: With your primary care provider in the next week.
[2017-06-05] MEDS ORDERED: CYANOCOBALAMIN 1,000 MCG/ML VIAL IM SCH (09:00)
== END 2017-05-21 13:30 | disposition home or self-care (01) | DRG 192 ==
LOC: EDUNIT# → ED 03:56 → MS2 07:44
PROVIDERS: ADMIT Hospitalist; ATTEND Hospitalist
DX: J44.1 Chronic obstructive pulmonary disease with (acute) exacerbation (principal); R09.02 Hypoxemia; G40.909 Epilepsy, unspecified, not intractable, without status epilepticus; E78.1 Pure hyperglyceridemia; F41.0 Panic disorder [episodic paroxysmal anxiety]; F32.9 Major depressive disorder, single episode, unspecified; G47.00 Insomnia, unspecified; I10 Essential (primary) hypertension; M25.511 Pain in right shoulder; G89.29 Other chronic pain; Z79.82 Long term (current) use of aspirin
CPT/HCPCS: 36415; 71046; 80048; 80053; 83690; 83880; 84484; 85025; 93005; 94640; 96374; 99284; 99285

== ENCOUNTER 2017-05-28 01:35 | Outpatient (CLI) | payer MEDICARE, OTHER | END 2017-05-28 01:36 | disposition critical access hospital (66) | LOC: EMS 01:35 | PROVIDERS: ATTEND Surgery | DX: R06.00 Dyspnea, unspecified (principal) | CPT/HCPCS: A0425; A0427 ==

== ENCOUNTER 2017-05-28 01:49 | Inpatient (IN) | payer MEDICARE, OTHER ==
[2017-05-28] MEDS ORDERED: IPRATROPIUM/ALBUTEROL 3 ML NEB INH STA (01:54)
[2017-05-28] MEDS ORDERED: methylPREDNISolone SUCCINATE 125 MG/2 ML VIAL IVP STA (01:54)
[2017-05-28 02:12] LABS: BASOPHILS # (AUTO) 0.1 10^3/uL (0.0-0.1); BASOPHILS % (AUTO) 0.8 %; EOSINOPHILS # (AUTO) 0.7 10^3/uL (0.0-0.7); EOSINOPHILS % (AUTO) 9.6 %; HGB - HEMOGLOBIN 13.5 g/dL (12.0-16.0); LYMPHOCYTES # (AUTO) 1.4 10^3/uL (1.5-3.5); LYMPHOCYTES % (AUTO) 18.8 %; MEAN CORPUSCULAR HEMOGLOBIN 27.1 pg (27.0-31.0); MEAN CORPUSCULAR HGB CONC 32.2 g/dL (32.0-36.0); MEAN CORPUSCULAR VOLUME 84.1 fL (81.0-99.0); MEAN PLATELET VOLUME 7.9 fL (7.9-10.8); MONOCYTES # (AUTO) 0.6 10^3/uL (0.0-1.0); NEUTROPHILS # (AUTO) 4.6 10^3/uL (1.5-6.6); NEUTROPHILS % (AUTO) 62.8 %; PLT - PLATELET COUNT 190 10^3/uL (130-450); RED BLOOD COUNT 4.99 10^6/uL (4.20-5.40); RED CELL DISTRIBUTION WIDTH 15.5 % (12.0-15.0); WHITE BLOOD COUNT 7.4 x10^3/uL (4.8-10.8)
[2017-05-28] MEDS ORDERED: TERBUTALINE 1 MG/ML VIAL SUBQ ONE ×2 (02:23→03:06)
[2017-05-28] MEDS ORDERED: MAGNESIUM SULFATE 2 GRAM 2 GM/50 ML BAG IV ONE (02:23)
--- NOTE | 2017-05-28 02:25 | XRAY Report ---
EXAM: CHEST RADIOGRAPHY EXAM DATE: 05/28/2017 02:18 AM. CLINICAL HISTORY: Cough, hypoxia. COMPARISON: 05/18/2017. TECHNIQUE: 1 view. FINDINGS: Lungs/Pleura: Low volumes. No definite pneumonia or edema. No gross pneumothorax or large effusion. Mediastinum: Within exam limitations, cardiomediastinal contour is normal. Other: Old right rib fractures. Prior bilateral chest wall surgery. IMPRESSION: Mildly hypoventilatory single view chest without definite acute process. [facility] Referring Provider Line: [phone] SITE ID: [id number]
[2017-05-28 02:26] LABS: ALBUMIN 3.9 g/dL (3.2-5.5); ALBUMIN/GLOBULIN RATIO 1.3 (1.0-2.2); ALKALINE PHOSPHATASE 41 IU/L (42-121); ALT ALANINE AMINOTRANSFERASE 16 IU/L (10-60); AST ASPARTATE AMINOTRANSFERASE 20 IU/L (10-42); BILIRUBIN,TOTAL 0.3 mg/dL (0.2-1.0); BUN - BLOOD UREA NITROGEN 20 mg/dL (6-20); CALCIUM 8.5 mg/dL (8.5-10.3); CARBON DIOXIDE - CO2 28 mmol/L (21-32); CHLORIDE 101 mmol/L (101-111); CREATININE 0.6 mg/dL (0.4-1.0); GFR - MDRD 100 (>89); GLUCOSE 118 mg/dL (70-100); SODIUM 142 mmol/L (135-145)
--- NOTE | 2017-05-28 02:26 | ED Physician Documentation ---
PD HPI DYSPNEA - Stated complaint Stated Complaint: Difficulty breathing - Chief complaint Chief Complaint: Resp - History obtained from History obtained from: Patient, EMS - History of Present Illness Timing - onset: Today Timing - details: Gradual onset, Still present Improved by: O2, Inhaler/neb, Sitting up Worsened by: Exertion, Laying flat Associated symptoms: Cough Similar symptoms before: Work up / diagnostics, Treatment Recently seen: Admitted - Additional information Additional information: Patient is a 67 year old female with a history of copd who is presenting to the emergency department for worsening shortness of breath. [facility] staff called ems because patient was lying on her back and couldn't breath. When ems arrived they sat the patient up and and her oxygenation was 79% on room air. They started the patient on a duoneb which improved her oxygenation. Review of Systems Constitutional: denies: Fever, Chills Eyes: reports: Reviewed and negative Ears: reports: Reviewed and negative Nose: reports: Reviewed and negative Throat: denies: Sore throat Cardiac: denies: Chest pain / pressure, Palpitations, Calf pain Respiratory: reports: Dyspnea, Cough, Wheezing GI: denies: Nausea, Vomiting : reports: Reviewed and negative Skin: reports: Reviewed and negative Musculoskeletal: denies: Neck pain, Extremity pain, Extremity swelling Neurologic: reports: Reviewed and negative Psychiatric: reports: Reviewed and negative Immunocompromised: denies: Immunocompromised PD PAST MEDICAL HISTORY - Past Medical History Past Medical History: Yes Cardiovascular: Hypertension Respiratory: COPD Neuro: Headache/migraine Endocrine/Autoimmune: None GI: None : None HEENT: None Psych: Depression, Anxiety, Panic attacks Musculoskeletal: Osteoarthritis Derm: None - Past Surgical History Past Surgical History: Yes General: Cholecystectomy, 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 HEENT: Tonsil/Adenoidectomy - Present Medications Home Medications: Ambulatory Orders Medication Instructions Recorded Confirmed Albuterol Sulfate [Proair Hfa 2 puffs INH Q4H PRN 12/27/15 05/18/17 Inhaler] Carisoprodol [Soma] 350 mg PO QID PRN 12/27/15 05/18/17 LORazepam [Lorazepam] 1 mg PO Q8H PRN 12/27/15 05/18/17 Loratadine [Claritin] 10 mg PO DAILY 12/27/15 05/18/17 Quetiapine Fumarate [Seroquel] 300 mg PO QPM 12/27/15 05/18/17 Sumatriptan Succinate [Imitrex] 50 mg PO BID PRN 12/27/15 05/18/17 Venlafaxine ER [Effexor ER] 225 mg PO DAILY 12/27/15 05/18/17 Aspirin 81 mg PO DAILY 03/11/16 05/18/17 Docusate Sodium [Stool Softener] 100 mg PO BID PRN 03/11/16 05/18/17 amLODIPine [Norvasc] 10 mg PO DAILY 03/11/16 05/18/17 Ferrous Sulfate 325 mg PO BID #60 tablet 03/12/16 05/18/17 Cholecalciferol (Vitamin D3) 1,000 unit PO DAILY 05/18/17 05/18/17 [Vitamin D3] Cyanocobalamin [Vitamin B-12] 1,000 mcg IM .QMONTH 05/18/17 05/18/17 Divalproex [Ayad Rivera] 500 mg PO QPM 05/18/17 05/18/17 Ginkgo Biloba [place] Extract [Ginkgo 120 mg PO DAILY 05/18/17 05/18/17 Biloba] Guaifenesin [Mucinex] 600 mg PO BID PRN 05/18/17 05/18/17 Ibuprofen [Motrin] 800 mg PO Q8H PRN 05/18/17 05/18/17 Lysine HCl 400 mg PO DAILY 05/18/17 05/18/17 [place]-3 Fatty Acids/Fish Oil 1,000 mg PO BID 05/18/17 05/18/17 [[place]-3 Fish Oil 1,000 mg Sfgl] Senna [Senokot] 8.6 mg PO BID 05/18/17 05/18/17 Tiotropium [place] [Spiriva] 18 mcg INH DAILY 05/18/17 05/18/17 Zolpidem Tartrate [Ambien] 10 mg PO QPM 05/18/17 05/18/17 levETIRAcetam [Keppra] 500 mg PO BID 05/18/17 05/18/17 Divalproex [Ayad Rivera] 250 mg PO DAILY tablet 05/21/17 Ipratropium/Albuterol [Duoneb] 3 ml INH QID #12 amp 05/21/17 guaiFENesin/CODEINE [Robitussin AC] 5 ml PO Q6H PRN #240 ml 05/21/17 Ipratropium/Albuterol Sulfate 3 ml IH QID 05/28/17 05/28/17 [Iprat-Albut 0.5-3(2.5) mg/3 ml] - Allergies Allergies/Adverse Reactions: Allergies Allergy/AdvReac Type Severity Reaction Status Date / Time lidocaine Allergy Mild Itching Verified 05/28/17 02:24 - Social History Does the pt smoke?: No Smoking Status: Never smoker Does the pt drink ETOH?: No Does the pt have substance abuse?: No - Immunizations Immunizations are current?: Yes - POLST Patient has POLST: Yes POLST Status: DNR PD ED PE NORMAL - Vitals Vital signs reviewed: Yes - General General: Alert and oriented X 3 - HEENT HEENT: Atraumatic - Neck Neck: No JVD - Abdomen Abdomen: Soft, Non distended - Neuro Neuro: Alert and oriented X 3 Eye Opening: To Voice Motor: Obeys Commands Verbal: Oriented GCS Score: 14 - Psych Psych: Normal mood PD ED PE EXPANDED - HEENT HEENT: Dry mucous membranes - Cardiac Cardiac: Tachy - Respiratory Respiratory: Labored, Accessory mm use, Wheezing, Rhonchi, Right upper lobe, Right middle lobe, Right lower lobe, Left upper lobe, Left lower lobe Results - Vitals Vitals: Vital Signs - 24 hr 05/28/17 05/28/17 05/28/17 01:50 02:05 02:18 Temperature 36.5 C Heart Rate 106 H 99 99 Respiratory 21 22 20 Rate Blood Pressure 149/97 H 141/89 H O2 Saturation 99 100 05/28/17 05/28/17 02:35 02:52 Temperature 36.3 C L Heart Rate 96 96 Respiratory 21 20 Rate Blood Pressure 124/55 L 125/76 O2 Saturation 99 95 Oxygen O2 Source [Without Activity] 1L O2 via NC O2 Source Nasal cannula Oxygen Flow Rate 3 - EKG (time done) 0208 Rate: Rate (enter#) (103) Rhythm: Sinus tachycardia [place]: LAD Compare to prior EKG: Unchanged from prior EKG - Labs Labs: Laboratory Tests 05/28/17 05/28/17 05/28/17 02:00 02:00 02:00 WBC 7.4 RBC 4.99 Hgb 13.5 Hct 42.0 MCV 84.1 MCH 27.1 MCHC 32.2 RDW 15.5 H Plt Count 190 MPV 7.9 Neut # 4.6 Lymph # 1.4 L Simpson # 0.6 Eos # 0.7 Baso # 0.1 Absolute Nucleated RBC 0.01 Nucleated RBC % 0.1 Sodium 142 Potassium 4.3 Chloride 101 Carbon Dioxide 28 Anion Gap 13.0 BUN 20 Creatinine 0.6 Estimated GFR (MDRD) 100 Glucose 118 H Lactic Acid Calcium 8.5 Total Bilirubin 0.3 AST 20 ALT 16 Alkaline Phosphatase 41 L Troponin I < 0.04 B-Natriuretic Peptide Total Protein 7.0 Albumin 3.9 Globulin 3.1 Albumin/Globulin Ratio 1.3 Lipase < 10 L Influenza A (Rapid) Influenza B (Rapid) Influenza Types A,B Ag 05/28/17 05/28/17 05/28/17 02:00 02:10 02:27 WBC RBC Hgb Hct MCV MCH MCHC RDW Plt Count MPV Neut # Lymph # Simpson # Eos # Baso # Absolute Nucleated RBC Nucleated RBC % Sodium Potassium Chloride Carbon Dioxide Anion Gap BUN Creatinine Estimated GFR (MDRD) Glucose Lactic Acid 3.7 H* Calcium Total Bilirubin AST ALT Alkaline Phosphatase Troponin I B-Natriuretic Peptide 44 Total Protein Albumin Globulin Albumin/Globulin Ratio Lipase Influenza A (Rapid) Negative Influenza B (Rapid) Negative Influenza Types A,B Ag - - Rads (name of study) chest x-ray Radiology: Final report received (no acute disease process) PD MEDICAL DECISION MAKING - ED course Complexity details: reviewed old records, reviewed results, re-evaluated patient , considered differential, d/w patient, d/w medical cost consultant ED course: Patient was seen and examined at beside. Patient was placed on supplemental oxygen while duoneb was ordered. patient was placed on a monitor, iv access was gained. ekg was performed and showed no acute changes. patient was treated with two additional duonebs, solumedrol. Patient reported that she was feeling better but still had significant diffuse wheezing. Patient was treated with terbutaline and started on magnesium. Patient's chest x-ray showed no acute changes. Patient continued to wheeze and additional albuterol was ordered. Hospitalist was contacted and the case was discussed with her. Patient was admitted for further evaluation and care. Departure - Departure Disposition: [facility] DC/Xfer Clinical Impression: Acute exacerbation of COPD with asthma Condition: Stable
[2017-05-28 02:27] LABS: LIPASE < 10 U/L (22-51)
[2017-05-28] MEDS ORDERED: ALBUTEROL NEB 2.5 MG/3 ML INH STA (03:05)
[2017-05-28 03:12] LABS: BILIRUBIN,URINE NEGATIVE (NEGATIVE); GLUCOSE, URINE (UA) NEGATIVE (NEGATIVE); KETONES,URINE (UA) NEGATIVE (NEGATIVE); LEUKOCYTE ESTERASE, URINE NEGATIVE (NEGATIVE); NITRITE,URINE NEGATIVE (NEGATIVE); OCCULT BLOOD,URINE NEGATIVE (NEGATIVE); PH,URINE 5.5 PH (5.0-7.5); PROTEIN,URINE NEGATIVE (NEGATIVE); UROBILINOGEN,URINE 0.2 (NORMAL) E.U./dL (NORMAL)
[2017-05-28 03:13] LABS: CLARITY,URINE CLEAR (CLEAR)
[2017-05-28] MEDS ORDERED: ONDANSETRON 4 MG/2 ML VIAL IVP PRN (03:38)
[2017-05-28] MEDS ORDERED: ACETAMINOPHEN 325 MG TABLET PO PRN (03:38)
[2017-05-28] MEDS ORDERED: BUDESONIDE/FORMOTEROL 160/4.5 MCG INHALER INH SCH (04:00)
--- NOTE | 2017-05-28 04:23 | XRAY Preliminary Report ---
Exam: XR CHEST 2 VIEW X-RAY IMPRESSION: Hypoventilatory chest without definite acute process. [facility] SITE ID: [id number]
--- NOTE | 2017-05-28 04:24 | XRAY Report ---
EXAM: CHEST RADIOGRAPHY EXAM DATE: 05/28/2017 04:14 AM. CLINICAL HISTORY: Cough, hypoxia earlier same morning. COMPARISON: None. TECHNIQUE: 2 views. FINDINGS: Lungs/Pleura: Low volumes. No definite pneumonia or edema. No gross pneumothorax or large effusion. Mediastinum: Within exam limitations, cardiomediastinal contour is normal. Other: Bilateral chest wall clips. Old right chest wall deformity. IMPRESSION: Hypoventilatory chest without definite acute process. [facility] Referring Provider Line: [phone] SITE ID: [id number]
[2017-05-28] MEDS: SACCHAROMYCES BOULARDII 250 MG CAPSULE PO SCH ×2 (04:44→18:34)
[2017-05-28] MEDS: guaiFENesin/DEXTROMETHORPHAN 10 ML UDC PO PRN ×2 (04:45→23:33)
[2017-05-28] MEDS: methylPREDNISolone SUCCINATE 40 MG/ML VIAL IVP SCH ×3 (05:59→21:57)
[2017-05-28] MEDS: SODIUM CHLORIDE FLUSH 0.9% 10 ML SYRINGE IVP PRN (06:00)
[2017-05-28] MEDS: AMPICILLIN/SULBACTAM 1.5 GM in SODIUM CHLORIDE 0.9% MINIBAG 100 ML IV SCH ×4 (06:00→23:34)
[2017-05-28] MEDS: PANTOPRAZOLE 40 MG TABLET PO SCH (06:07)
[2017-05-28] MEDS ORDERED: SODIUM CHLORIDE 0.9% 500 ML IV SCH (06:18)
--- NOTE | 2017-05-28 06:18 | HISTORY & PHYSICAL EXAMINATION ---
DATE OF SERVICE: 05/28/2017 Physician: Marie Gill MD CHIEF COMPLAINT: Shortness of breath and cough. SOURCE OF HISTORY: History was obtained reviewing medical records, getting sing -outs from the ER. The patient was a poor historian, but she was able to provide basic history as well. HISTORY OF PRESENT ILLNESS: The patient is a 67-year-old, white female with multiple medical problems including [id number] COPD with history of emphysema, status post bullectomy. She was admitted to [facility] multiple times in the past with COPD exacerbation. She required supplemental oxygen during her hospital stays when she had acute exacerbation, but in the past she was always able to discharge without supplemental oxygen. This patient also has extensive psychiatric history and she resides at [facility] on [facility]. 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 Overnight, on May 27 to May 28, the patient was brought to [facility] ER with the chief complaint of cough, dyspnea and hypoxia. Per ER report, the patient arrived using DuoNeb and EMS measured oxygen saturation in the 70s-80s off oxygen. Throughout the ER stay, the patient received [id number] nebulizers. She received supplemental oxygen and remained oxygen dependent. She also received Solu-Medrol, magnesium and terbutaline. Her physical exam was significant for audible wheezes. Chest x-ray was a 1-view study, showed no infiltrate. White blood cell count was normal and laboratories were unremarkable, except for lactic acid of 3.7. Cardiac workup was unremarkable including BNP of 44 and troponin of 0.04. EKG showed no acute ischemic sign. Interviewing the patient, she reported having upper respiratory symptoms including congestion and also having lower respiratory symptoms with cough, sputum production and shortness of breath, which had been ongoing for about a week. She called this "catching a cold". She reported no other trigger for her respiratory symptoms. In particular, she did not report aspiration event; denied having loss of consciousness or seizure-like activity. Notably, the patient takes multiple psychoactive medications, and she does have history of seizure, although in recent medical records the seizure was described not being an active problem. In addition the patient complained of her abdomen and chest hurting due to the constant cough. PAST MEDICAL HISTORY 1. History of COPD/emphysema, status post remote lung resection surgery/ bullectomy. Notably, the patient had never been oxygen dependent except for hospital stays with COPD exacerbation. 2. Hypertension. 3. Osteoarthritis. 4. Bipolar disorder/possible schizophrenia/major depression. 5. History of seizure. 6. Dyslipidemia. 7. Multiple surgeries including cholecystectomy, hysterectomy, breast implant surgery, gastric bypass. OUTPATIENT MEDICATIONS Updated medication list is not yet available. Reviewing the outpatient record, the patient was on: 1. Albuterol inhaler. 2. Amlodipine. 3. Aspirin. 4. Soma. 5. Vitamin D. 6. Vitamin B12. 7. Depakote. 8. Docusate. 9. Ferrous sulfate. 10. Ginkgo biloba. 11. Guaifenesin. 12. Codeine. 13. Ibuprofen 14. DuoNeb. 15. Keppra. 16. Loratadine. 17. Lorazepam. 18. Lysine. 19. Fish oil. 20. Seroquel 21. Senna. 22. Imitrex. 23. Spiriva. 24. Effexor. 25. Ambien. FAMILY HISTORY: Positive for diabetes. SOCIAL HISTORY: The patient is a lifelong nonsmoker. She resides at [facility]. 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 PRIMARY CARE PROVIDER: Denny Soriano and Sumi Quesada. REVIEW OF SYSTEMS: Please see pertinent positives listed above at history of present illness. I completed 12-point review. The patient denied additional complaint. PHYSICAL EXAMINATION VITAL SIGNS: Heart rate between 90 and 100, blood pressure 114/90, respiration rate 22, oxygen saturation 93% on 2 liters nasal cannula. GENERAL: The patient is a well-developed, elderly female who was somnolent, but easily arousable. She appeared with increased work of breathing. NEUROLOGIC: The patient was somnolent, lethargic, but easily arousable, neurologically nonfocal, answered my questions appropriately, had symmetric face and intact speech. PSYCHIATRIC: Somnolent, cooperative. RESPIRATORY: Decreased air entry above all lung zeng with diffuse audible wheezes and increased expiratory/inspiratory ratio. Increased work of breathing with respiratory rate in the mid 20s. CARDIOVASCULAR: S1, S2. Regular tachycardia. I could not hear murmur, rub or gallop in the setting of transmitted airway sounds. ABDOMEN: Obese. No guarding or rebound. Bowel tones hypoactive. LYMPHATIC: No lymphedema. MUSCULOSKELETAL: Truncal obesity, atraumatic. SKIN: No jaundice, no pallor. CODE STATUS: FULL CODE per POLST form sent from [facility] on [facility]. ASSESSMENT/ACTIVE ISSUES/DIAGNOSES 1. Acute hypoxic respiratory failure. 2. Chronic obstructive pulmonary disease exacerbation. 3. Acute bronchitis, possible chronic bronchitis. 4. Encephalopathy/somnolence. The patient is on multiple psychoactive medications, bordering polypharmacy. In the setting of all her medications, considering the sedative effects and her age being above 65, she would have much increased aspiration risk and that could also lead to chronic obstructive pulmonary disease exacerbation. 5. Lactic acidosis in the setting of chronic obstructive pulmonary disease exacerbation and peripheral vasoconstriction. No source of sepsis obvious, but will consider further work up. Blood cultures were sent. 6. Negative cardiac workup, including unremarkable electrocardiogram and negative troponin. 7. Multiple chronic medical issues without acute decompensation. PLAN AND ORDERS 1. Patient is getting admitted as inpatient; she is receiving treatment for COPD exacerbation including IV steroids, bronchodilators, inhaled steroids, proton pump inhibitor , DVT prophylaxis. Regarding bronchitis, I will start antibiotic, given the severity of COPD exacerbation. In addition, we will check 2-view chest x-ray to make sure that there is no developing infiltrate. Regarding aspiration risk, I will request swallow evaluation. In addition, I would probably titrate down psychoactive medications. This is more of an outpatient issue; during this hospital stay initially I will hold all psychoactive medications, given the patient's encephalopathy/somnolence. Some of the medications could be reintroduced depending on the clinical course. Subsequently the psychoactive medications could be appropriately titrated down over a period of time by the primary care physician. 2. Prior to discharge, we will check oxygen saturation on activity. Given the patient's longstanding history of COPD, she might benefit from supplemental oxygen, nightly p.r.n. or as needed after discharge. 3. Regarding the lactic acidosis, we will repeat lactic acid in about 6 hours following the first one, I expect improvement. If does not improve I will order CT abd, considering the patient's complaint of abdominal pain. ATTESTATION: I certify that the reasonable expectation is that this patient will remain hospitalized for more than 48 hours; however, she will likely get discharged back to [facility] or transferred to another facility within 96 hours. Time spent in the care of this patient was 60 minutes. TD: 05/28/2017 06:17 MTDD
[2017-05-28] MEDS: IPRATROPIUM/ALBUTEROL 3 ML NEB INH SCH ×3 (06:25→19:29)
[2017-05-28] MEDS ORDERED: IOPAMIDOL-300 100 ML VIAL ONE (06:42)
[2017-05-28] MEDS ORDERED: IOPAMIDOL-300 100 ML VIAL IVP ONE (07:05)
--- NOTE | 2017-05-28 07:22 | CT Preliminary Report ---
Exam: CT ABDOMEN W/ IMPRESSION: 1. No small bowel or colonic wall thickening or evidence of small bowel obstruction. No mesenteric ed delano. No portal venous gas or pneumatosis. Postsurgical changes involving the proximal stomach. 2. Normal appendix. 3. Status post cholecystectomy. Prominent common bile duct with intra-and extra hepatic ductal dilata tion. No filling defects. 4. Normal CT appearance of the kidneys. No evidence of pyelonephritis. 5. Minimal abdominal aortic atherosclerosis. Patent mesenteric vasculature. [facility] SITE ID: [id number]
--- NOTE | 2017-05-28 07:44 | CT Report ---
EXAM: CT ABDOMEN EXAM DATE: 05/28/2017 07:09 AM. CLINICAL HISTORY: Abdominal pain. Lactic acidosis. COMPARISON: None. TECHNIQUE: Routine helical CT imaging was performed through the abdomen. IV contrast: 100 mL of Isov ue 300 Enteric contrast: No. Reconstruction: Coronal and sagittal. In accordance with CT protocol optimization, one or more of the following dose reduction techniques w ere utilized for this exam: automated exposure control, adjustment of mA and/or KV based on patient s ize, or use of iterative reconstructive technique. FINDINGS: Lung Bases: Linear bibasilar scar/atelectasis. Heart is enlarged. Small hilar hernia containing stoma ch and fat. High-density material is seen within the left upper lobe and lingula and left lower lobe. Contour deformity of the right posterior ribs is evident with adjacent high density foci. Bilateral breast implants are noted. Liver: There is intrahepatic ductal dilatation. No hepatic lesions. Patent portal vein. Patent hepati c veins. Gallbladder/Bile Ducts: Absent gallbladder. Prominent common bile duct with the mid common bile measu ring up to 13-14 mm. No distinct filling defects. Spleen: Normal. Pancreas: Parenchymal volume loss. No peripancreatic edema. Adrenal Glands: Normal. Kidneys: Kidneys enhance symmetrically. No hydronephrosis or nephrolithiasis. No CT evidence of pyelo nephritis. Peritoneal Cavity/Bowel: Stomach is mildly distended with postsurgical changes involving the proximal stomach. Small bowel mildly distended. No small bowel wall thickening. No free air. No portal venous gas or pneumatosis. No focal small bowel wall thickening or dilatation. Small to moderate volume of stool is scattered throughout differing portions of the colon. No diverticulitis. No focal colonic wa ll thickening. No intraabdominal fluid collections. Postsurgical changes with small bowel anastomosis is seen in the midabdomen. There is rectus abdominis musculature is evident particularly on the righ t. Appendix is normal. Vasculature: Calcified plaque. No aneurysm. No aneurysm Patent mesenteric vasculature. No occlusion. No portal venous gas. Bones: Degenerative changes lower thoracic and lumbar spine. Grade one anterolisthesis of L4 on L5. S light levoscoliosis lower lumbar spine. Degenerative changes of both hip joints. No acute osseous abn ormalities. Other: Bladder is mildly distended and unremarkable. Uterus is absent. Left ovary seen in the far lef t lateral pelvis. No pelvic adenopathy. IMPRESSION: 1. No small bowel or colonic wall thickening or evidence of small bowel obstruction. No mesenteric ed delano. No portal venous gas or pneumatosis. Postsurgical changes involving the proximal stomach. 2. Normal appendix. 3. Status post cholecystectomy. Prominent common bile duct with intra- and extrahepatic ductal dilata tion. No filling defects. 4. Normal CT appearance of the kidneys. No evidence of pyelonephritis. 5. Minimal abdominal aortic atherosclerosis. Patent mesenteric vasculature. [facility] Referring Provider Line: [phone] SITE ID: [id number]
[2017-05-28] MEDS: POLYETHYLENE GLYCOL 3350 17 GM PACKET PO SCH (09:28)
[2017-05-28] MEDS: SODIUM CHLORIDE FLUSH 0.9% 10 ML SYRINGE IVP SCH ×3 (09:28→23:38)
[2017-05-28] MEDS: ENOXAPARIN 40 MG/0.4 ML SYRINGE SUBQ SCH (09:28)
[2017-05-28] MEDS ORDERED: CARISOPRODOL 350 MG PO PRN (20:19)
[2017-05-28] MEDS: levETIRAcetam 250 MG TABLET PO SCH (23:00)
[2017-05-29] MEDS: IPRATROPIUM/ALBUTEROL 3 ML NEB INH SCH ×5 (01:38→21:15)
[2017-05-29] MEDS: QUEtiapine 100 MG TABLET PO SCH ×3 (02:02→21:45)
[2017-05-29] MEDS: METHOCARBAMOL 500 MG TABLET PO PRN ×3 (02:06→14:58)
[2017-05-29] MEDS: ZOLPIDEM 5 MG TABLET PO SCH ×2 (02:06→21:46)
[2017-05-29] MEDS: AMPICILLIN/SULBACTAM 1.5 GM in SODIUM CHLORIDE 0.9% MINIBAG 100 ML IV SCH ×3 (05:37→17:46)
[2017-05-29] MEDS: guaiFENesin/DEXTROMETHORPHAN 10 ML UDC PO PRN (05:37)
[2017-05-29] MEDS: SODIUM CHLORIDE FLUSH 0.9% 10 ML SYRINGE IVP PRN ×4 (05:37→18:43)
[2017-05-29] MEDS: PANTOPRAZOLE 40 MG TABLET PO SCH (05:37)
[2017-05-29] MEDS: methylPREDNISolone SUCCINATE 40 MG/ML VIAL IVP SCH ×3 (05:37→21:47)
[2017-05-29 06:41] LABS: BASOPHILS % (AUTO) 0.4 %; EOSINOPHILS % (AUTO) 0.1 %; HGB - HEMOGLOBIN 12.3 g/dL (12.0-16.0); LYMPHOCYTES # (AUTO) 0.7 10^3/uL (1.5-3.5); LYMPHOCYTES % (AUTO) 9.2 %; MEAN CORPUSCULAR HGB CONC 31.4 g/dL (32.0-36.0); MEAN CORPUSCULAR VOLUME 82.7 fL (81.0-99.0); MEAN PLATELET VOLUME 7.8 fL (7.9-10.8); MONOCYTES # (AUTO) 0.3 10^3/uL (0.0-1.0); MONOCYTES % (AUTO) 3.9 %; NEUTROPHILS # (AUTO) 6.3 10^3/uL (1.5-6.6); NEUTROPHILS % (AUTO) 86.4 %; PLT - PLATELET COUNT 189 10^3/uL (130-450); RED BLOOD COUNT 4.74 10^6/uL (4.20-5.40); RED CELL DISTRIBUTION WIDTH 15.2 % (12.0-15.0); WHITE BLOOD COUNT 7.2 x10^3/uL (4.8-10.8)
[2017-05-29 06:54] LABS: CALCIUM 8.6 mg/dL (8.5-10.3); CREATININE 0.4 mg/dL (0.4-1.0)
[2017-05-29] MEDS: ENOXAPARIN 40 MG/0.4 ML SYRINGE SUBQ SCH (08:33)
[2017-05-29] MEDS: levETIRAcetam 250 MG TABLET PO SCH ×2 (08:33→21:47)
[2017-05-29] MEDS: POLYETHYLENE GLYCOL 3350 17 GM PACKET PO SCH (08:34)
[2017-05-29] MEDS: SACCHAROMYCES BOULARDII 250 MG CAPSULE PO SCH ×2 (08:34→18:43)
[2017-05-29] MEDS: SODIUM CHLORIDE FLUSH 0.9% 10 ML SYRINGE IVP SCH ×2 (08:34→18:45)
[2017-05-29] MEDS: VENLAFAXINE ER 75 MG CAPSULE PO SCH (08:39)
[2017-05-29] MEDS: DIVALPROEX DR 250 MG TABLET PO SCH ×2 (08:40→21:57)
--- NOTE | 2017-05-29 14:58 | PROVIDER PROGRESS NOTE ---
Assessment/Plan - Problem List (1) Bronchitis Assessment/Plan: Will stop unasyn, continue methylprednisolone, duonebs. Pt requesting change of cough medicine to one with codeine, will do. (2) COPD with exacerbation Assessment/Plan: Pt denies history of COPD but it is clearly documented throughout the pt's chart. Continue steroids, bronchodilators. (3) Lactic acidosis Assessment/Plan: Resolved, 1.4 today. Still unsure of etiology. - Current Meds Current Meds: Current Medications Generic Name Dose Route Start Last Admin Trade Name Freq PRN Reason Stop Dose Admin Acetaminophen 650 mg 05/28/17 03:38 05/28/17 23:33 Tylenol PO 650 mg Q4HR PRN Administration Pain 1 to 4 Albuterol/Ipratropium 3 ml 05/28/17 06:00 05/29/17 12:51 Duoneb INH 3 ml Q6HR KYLE Administration Divalproex Sodium 250 mg 05/29/17 09:00 05/29/17 08:[address] PO 250 mg DAILY KYLE Administration Enoxaparin Sodium 40 mg 05/28/17 09:00 05/29/17 08:33 Lovenox SUBQ 40 mg DAILY KYLE Administration Ampicillin Sodium/Sulbactam 100 mls @ 200 mls/hr 05/28/17 06:00 05/29/17 12: 58 Sodium 1.5 gm/ Sodium Chloride IV Infused Q6HR KYLE Infusion Levetiracetam 250 mg 05/29/17 09:00 05/29/17 08:33 Keppra PO 250 mg DAILY KYLE Administration Levetiracetam 500 mg 05/28/17 23:00 05/28/17 23:00 Keppra PO 500 mg HS KYLE Administration Methocarbamol 500 mg 05/29/17 01:43 05/29/17 08:40 Robaxin PO 500 mg Q6HR PRN Administration Spasms Methylprednisolone 60 mg 05/28/17 06:00 05/29/17 13:27 Solu-Medrol (40mg Vial) IVP 60 mg Q8HR KYLE Administration Pantoprazole Sodium 40 mg 05/28/17 07:00 05/29/17 05:37 Protonix PO 40 mg QDAC KYLE Administration Polyethylene Glycol 17 gm 05/28/17 09:00 05/29/17 08:34 Miralax PO Not Given DAILY KYLE Quetiapine Fumarate 100 mg 05/29/17 01:43 05/29/17 02:06 Seroquel PO 100 mg QPM KYLE Administration Saccharomyces Boulardii 250 mg 05/28/17 04:00 05/29/17 08:34 Florastor PO 250 mg BIDWM KYLE Administration Sodium Chloride 10 ml 05/28/17 03:38 05/29/17 13:28 Normal Saline Flush 0.9% IVP 10 ml PRN PRN Administration NEEDED PER PROVIDER ORDERS Sodium Chloride 10 ml 05/28/17 09:00 05/29/17 08:34 Normal Saline Flush 0.9% IVP 10 ml 0100,0900,1700 KYLE Administration Venlafaxine HCl 225 mg 05/29/17 09:00 05/29/17 08:39 Effexor Er PO 225 mg DAILY KYLE Administration Zolpidem Tartrate 10 mg 05/29/17 01:42 05/29/17 02:06 Ambien PO 10 mg QPM KYLE Administration - Lab Result Lab results reviewed: Yes Fish Bone Diagrams: 05/29/17 06:27 05/29/17 06:27 - Diagnostic Imaging Results Diagnostic Imaging Results Comments: EXAM: CHEST RADIOGRAPHY EXAM DATE: 05/28/2017 04:14 AM. CLINICAL HISTORY: Cough, hypoxia earlier same morning. COMPARISON: None. TECHNIQUE: 2 views. FINDINGS: Lungs/Pleura: Low volumes. No definite pneumonia or edema. No gross pneumothorax or large effusion. Mediastinum: Within exam limitations, cardiomediastinal contour is normal. Other: Bilateral chest wall clips. Old right chest wall deformity. IMPRESSION: Hypoventilatory chest without definite acute process. - Additional Planning Condition/Complexity: Stable My Orders: My Active Orders 05/29/17 14:49 guaiFENesin/CODEINE [Robitussin AC] 5 ml PO Q6HR PRN 05/29/17 Dinner DIET [Regular Diet] [DIET] Plan Discussed with:: Patient Time Spent: 31-60 minutes Subjective - Subjective Patient Reports: Feeling Better, Cough, Shortness of Breath Nursing Reports: Cough, Shortness of Breath Objective Vital Signs: Vital Signs - 24 hr 05/28/17 05/28/17 05/28/17 16:00 16:21 19:32 Temperature 36.6 C Heart Rate 90 Heart Rate [ 82 Radial] Respiratory 19 20 Rate Blood Pressure 132/66 H [Left Brachial artery] Blood Pressure 149/85 H [Right Brachial artery] Blood Pressure [Right Radial artery] O2 Saturation 95 05/28/17 05/29/17 05/29/17 23:29 01:35 07:36 Temperature 37.4 C Heart Rate 89 70 Heart Rate [ 95 Radial] Respiratory 18 20 20 Rate Blood Pressure [Left Brachial artery] Blood Pressure [Right Brachial artery] Blood Pressure 150/85 H [Right Radial artery] O2 Saturation 95 05/29/17 12:51 Temperature Heart Rate 86 Heart Rate [ Radial] Respiratory 20 Rate Blood Pressure [Left Brachial artery] Blood Pressure [Right Brachial artery] Blood Pressure [Right Radial artery] O2 Saturation Oxygen O2 Source Nasal cannula I&O (Last 24 Hrs): Intake and Output Totals x24h 05/27/17 05/28/17 05/29/17 23:59 23:59 23:59 Intake Total 1790 2000 Output Total 300 Balance 1490 2000 General: Alert, Oriented x3, Cooperative HEENT: Atraumatic, PERRLA, EOMI, Mucous membr. moist/pink Neck: Supple, No JVD, No thyromegaly Lymphatic: no adenopathy Neuro: Alert, CN 2-12 Grossly Intact, Oriented Times 3 Cardiovascular: Regular rate, Normal S1 Respiratory: Chest non-tender, No respiratory distress, Breath sounds nml, Rhonchi Abdomen: Normal bowel sounds, Soft, No tenderness, No hepatospenomegaly, No masses Extremities: No clubbing, No cyanosis, No edema, Normal pulses, No tenderness/ swelling Skin: No rashes, No breakdown, No significant lesion - Results Results: Laboratory Results WBC 7.2 x10^3/uL (4.8-10.8) 05/29/17 06:27 RBC 4.74 10^6/uL (4.20-5.40) 05/29/17 06:27 Hgb 12.3 g/dL (12.0-16.0) 05/29/17 06:27 Hct 39.2 % (37.0-47.0) 05/29/17 06:27 MCV 82.7 fL (81.0-99.0) 05/29/17 06:27 MCH 26.0 pg (27.0-31.0) L 05/29/17 06:27 MCHC 31.4 g/dL (32.0-36.0) L 05/29/17 06:27 RDW 15.2 % (12.0-15.0) H 05/29/17 06:27 Plt Count 189 10^3/uL (130-450) 05/29/17 06:27 MPV 7.8 fL (7.9-10.8) L 05/29/17 06:27 Neut # 6.3 10^3/uL (1.5-6.6) 05/29/17 06:27 Lymph # 0.7 10^3/uL (1.5-3.5) L 05/29/17 06:27 [place] # 0.3 10^3/uL (0.0-1.0) 05/29/17 06: Eos # 0.0 10^3/uL (0.0-0.7) 05/29/17 06:27 Baso # 0.0 10^3/uL (0.0-0.1) 05/29/17 06:27 Absolute Nucleated RBC 0.00 x10^3/uL 05/29/17 06:27 Nucleated RBC % 0.1 /100WBC 05/29/17 06:27 Sodium 136 mmol/L (135-145) 05/29/17 06:27 Potassium 3.8 mmol/L (3.5-5.0) 05/29/17 06: Chloride 99 mmol/L (101-111) L 05/29/17 06:27 Carbon Dioxide 28 mmol/L (21-32) 05/29/17 06:27 Anion Gap 9.0 (6-13) 05/29/17 06:27 BUN 13 mg/dL (6-20) 05/29/17 06:27 Creatinine 0.4 mg/dL (0.4-1.0) 05/29/17 06:27 Estimated GFR (MDRD) 159 (>89) 05/29/17 06:27 Glucose 145 mg/dL (70-100) H 05/29/17 06:27 Lactic Acid 1.4 mmol/L (0.5-2.2) 05/29/17 06:27 Calcium 8.6 mg/dL (8.5-10.3) 05/29/17 06:27 Total Bilirubin 0.3 mg/dL (0.2-1.0) 05/28/17 02:00 AST 20 IU/L (10-42) 05/28/17 02:00 ALT 16 IU/L (10-60) 05/28/17 02:00 Alkaline Phosphatase 41 IU/L (42-121) L 05/28/17 02:00 Troponin I < 0.04 ng/mL (<0.49) 05/28/17 02:00 B-Natriuretic Peptide 44 pg/mL (5-100) 05/28/17 02:00 Total Protein 7.0 g/dL (6.7-8.2) 05/28/17 02:00 Albumin 3.9 g/dL (3.2-5.5) 05/28/17 02:00 Globulin 3.1 g/dL (2.1-4.2) 05/28/17 02:00 Albumin/Globulin Ratio 1.3 (1.0-2.2) 05/28/17 02:00 Lipase < 10 U/L (22-51) L 05/28/17 02:00 Urine Color YELLOW 05/28/17 03:00 Urine Clarity CLEAR (CLEAR) 05/28/17 03:00 Urine pH 5.5 PH (5.0-7.5) 05/28/17 03:00 Ur Specific [place] >=1.030 (1.002-1.030) H 05/28/17 03:00 Urine Protein NEGATIVE mg/dL (NEGATIVE) 05/28/17 03:00 Urine Glucose (UA) NEGATIVE mg/dL (NEGATIVE) 05/28/17 03:00 Urine Ketones NEGATIVE mg/dL (NEGATIVE) 05/28/17 03:00 Urine Occult Blood NEGATIVE (NEGATIVE) 05/28/17 03:00 Urine Nitrite NEGATIVE (NEGATIVE) 05/28/17 03:00 Urine Bilirubin NEGATIVE (NEGATIVE) 05/28/17 03:00 Urine Urobilinogen 0.2 (NORMAL) E.U./dL (NORMAL) 05/28/17 03:00 Ur Leukocyte Esterase NEGATIVE (NEGATIVE) 05/28/17 03:00 Ur Microscopic Review NOT INDICATED 05/28/17 03:00 Urine Culture Comments NOT INDICATED 05/28/17 03:00 Influenza A (Rapid) Negative (Negative) 05/28/17 02:10 Influenza B (Rapid) Negative (Negative) 05/28/17 02:10 Influenza Types A,B Ag - 05/28/17 02:10
[2017-05-29] MEDS: guaiFENesin/CODEINE 5 ML UDC PO PRN ×2 (16:13→21:28)
[2017-05-29] MEDS ORDERED: ZOLPIDEM 5 MG TABLET PO SCH (21:00)
[2017-05-29] MEDS ORDERED: QUEtiapine 100 MG TABLET PO SCH (21:00)
[2017-05-29] MEDS ORDERED: PHENOL THROAT SPRAY 177 ML MM ONE (22:27)
[2017-05-29] MEDS ORDERED: BENZOCAINE/MENTHOL LOZENGE MM ONE (22:27)
[2017-05-30] MEDS: METHOCARBAMOL 500 MG TABLET PO PRN ×3 (00:49→22:43)
[2017-05-30] MEDS: guaiFENesin/CODEINE 5 ML UDC PO PRN ×5 (00:49→20:06)
[2017-05-30] MEDS: ZOLPIDEM 5 MG TABLET PO SCH ×2 (00:54→22:40)
[2017-05-30] MEDS: QUEtiapine 100 MG TABLET PO SCH ×2 (00:54→22:39)
[2017-05-30] MEDS: SODIUM CHLORIDE FLUSH 0.9% 10 ML SYRINGE IVP SCH ×3 (01:02→17:36)
[2017-05-30 05:49] LABS: CALCIUM 8.8 mg/dL (8.5-10.3); CREATININE 0.5 mg/dL (0.4-1.0)
[2017-05-30] MEDS: SODIUM CHLORIDE FLUSH 0.9% 10 ML SYRINGE IVP PRN (06:32)
[2017-05-30] MEDS: PANTOPRAZOLE 40 MG TABLET PO SCH (06:32)
[2017-05-30] MEDS: methylPREDNISolone SUCCINATE 40 MG/ML VIAL IVP SCH ×2 (06:32→14:10)
[2017-05-30] MEDS: IPRATROPIUM/ALBUTEROL 3 ML NEB INH SCH ×4 (07:04→20:31)
[2017-05-30] MEDS: VENLAFAXINE ER 75 MG CAPSULE PO SCH (09:24)
[2017-05-30] MEDS: levETIRAcetam 250 MG TABLET PO SCH ×2 (09:24→20:08)
[2017-05-30] MEDS: SACCHAROMYCES BOULARDII 250 MG CAPSULE PO SCH ×2 (09:24→17:36)
[2017-05-30] MEDS: DIVALPROEX DR 250 MG TABLET PO SCH ×2 (09:24→20:08)
[2017-05-30] MEDS: amLODIPine 5 MG TABLET PO SCH (09:24)
[2017-05-30] MEDS: POLYETHYLENE GLYCOL 3350 17 GM PACKET PO SCH (09:25)
[2017-05-30] MEDS: ENOXAPARIN 40 MG/0.4 ML SYRINGE SUBQ SCH (09:25)
[2017-05-30] MEDS: PHENOL THROAT SPRAY 177 ML MM PRN ×2 (15:54→21:51)
--- NOTE | 2017-05-30 18:30 | PROVIDER PROGRESS NOTE ---
Assessment/Plan - Problem List (1) Acute exacerbation of COPD with asthma Assessment/Plan: With ACUTE HYPOXIA Presents with cough/congestion, dyspnea and sats 70-80s on RA per EMS. CXR without acute pathology. Still hypoxic requring 2.5L -Change solumedrol to prednisone 40mg daily -Duoneb q6 -Robitussin AC prn 0Wean O2 as tolerated (2) Lactic acidosis Assessment/Plan: Lactic acid 3.7-->5.6-->4.3-->1.4. Still no focal cause identified. (3) Bipolar 1 disorder Assessment/Plan: Mood stable, on effexor, seroquel [employer]. -Continue home meds (4) History of seizure disorder Assessment/Plan: Chronic, on keprra & depakote, stable, no recent seizures. -Continue keppra and depakote (5) Hypertension Assessment/Plan: Chronic, normotensive/HTN this AM. On CCB [employer]. -Continue norvasc -Monitor BP routinely and titrate meds as needed - Current Meds Current Meds: Current Medications Generic Name Dose Route Start Last Admin Trade Name Freq PRN Reason Stop Dose Admin Acetaminophen 650 mg 05/28/17 03:38 05/28/17 23:33 Tylenol PO 650 mg Q4HR PRN Administration Pain 1 to 4 Albuterol/Ipratropium 3 ml 05/29/17 17:00 05/30/17 14:35 Duoneb INH 3 ml RTQID KYLE Administration Amlodipine Besylate 10 mg 05/30/17 09:00 05/30/17 09:24 Norvasc PO 10 mg DAILY KYLE Administration Divalproex Sodium 250 mg 05/29/17 09:00 05/30/17 09:[address] PO 250 mg DAILY KYLE Administration Divalproex Sodium 500 mg 05/29/17 21:00 05/29/17 21:[address] PO 500 mg QPM KYLE Administration Enoxaparin Sodium 40 mg 05/28/17 09:00 05/30/17 09:25 Lovenox SUBQ 40 mg DAILY KYLE Administration Guaifenesin/Codeine Phosphate 5 ml 05/30/17 00:01 05/30/17 15:51 Robitussin Ac PO 5 ml Q4H PRN Administration Cough Levetiracetam 250 mg 05/29/17 09:00 05/30/17 09:24 Keppra PO 250 mg DAILY KYLE Administration Levetiracetam 500 mg 05/28/17 23:00 05/29/17 21:47 Keppra PO 500 mg HS KYLE Administration Methocarbamol 500 mg 05/29/17 01:43 05/30/17 06:52 Robaxin PO 500 mg Q6HR PRN Administration Spasms Methylprednisolone 60 mg 05/28/17 06:00 05/30/17 14:10 Solu-Medrol (40mg Vial) IVP 60 mg Q8HR KYLE Administration Pantoprazole Sodium 40 mg 05/28/17 07:00 05/30/17 06:32 Protonix PO 40 mg QDAC KYLE Administration Phenol/Menthol 2 sprays 05/29/17 22:02 05/30/17 15:54 Chloraseptic MM 2 sprays Q2HR PRN Administration Throat Pain Polyethylene Glycol 17 gm 05/28/17 09:00 05/30/17 09:25 Miralax PO Not Given DAILY KYLE Quetiapine Fumarate 100 mg 05/29/17 01:43 05/30/17 00:54 Seroquel PO 100 mg QPM KYLE Administration Saccharomyces Boulardii 250 mg 05/28/17 04:00 05/30/17 17:36 Florastor PO 250 mg BIDWM KYLE Administration Sodium Chloride 10 ml 05/28/17 03:38 05/30/17 06:32 Normal Saline Flush 0.9% IVP 10 ml PRN PRN Administration NEEDED PER PROVIDER ORDERS Sodium Chloride 10 ml 05/28/17 09:00 05/30/17 17:36 Normal Saline Flush 0.9% IVP 10 ml 0100,0900,1700 KYLE Administration Venlafaxine HCl 225 mg 05/29/17 09:00 05/30/17 09:24 Effexor Er PO 225 mg DAILY KYLE Administration Zolpidem Tartrate 10 mg 05/29/17 01:42 05/30/17 00:54 Ambien PO 10 mg QPM KYLE Administration - Lab Result Lab results reviewed: Yes Fish Bone Diagrams: 05/29/17 06:27 05/30/17 05:15 - EKG Results EKG Comparison: Other (EKG obtained for chest pain, reviewed, no ST changes. Troponins negative.) - Diagnostic Imaging Results Diagnostic Imaging Results: Final report reviewed - Additional Planning Condition/Complexity: Guarded My Orders: My Active Orders 05/30/17 22:52 TROPONIN I [IAI] Q6H Plan Discussed with:: Patient Time Spent: 15-30 minutes Subjective - Subjective Patient Reports: Other (Feeling about the same, still very SOB at rest, couging , tight, no fever or chills.) Objective Vital Signs: Vital Signs - 24 hr 05/29/17 05/29/17 05/30/17 21:16 23:46 07:07 Temperature 36.7 C Heart Rate 90 80 Heart Rate [ 94 Radial] Respiratory 20 18 20 Rate Blood Pressure [Left Brachial artery] Blood Pressure 135/98 H [Right Brachial artery] O2 Saturation 94 05/30/17 05/30/17 05/30/17 08:56 10:36 12:00 Temperature 37.1 C Heart Rate 70 Heart Rate [ 88 Radial] Respiratory 19 20 Rate Blood Pressure 152/88 H [Left Brachial artery] Blood Pressure [Right Brachial artery] O2 Saturation 90 L 95 05/30/17 05/30/17 05/30/17 14:34 15:01 15:37 Temperature 37.0 C Heart Rate 80 Heart Rate [ 74 Radial] Respiratory 18 19 Rate Blood Pressure [Left Brachial artery] Blood Pressure 124/83 H [Right Brachial artery] O2 Saturation 92 93 05/30/17 17:42 Temperature Heart Rate Heart Rate [ Radial] Respiratory 16 Rate Blood Pressure [Left Brachial artery] Blood Pressure [Right Brachial artery] O2 Saturation 92 Oxygen O2 Source Room air I&O (Last 24 Hrs): Intake and Output Totals x24h 05/28/17 05/29/17 05/30/17 23:59 23:59 23:59 Intake Total 1790 3190 1250 Output Total 300 600 Balance 1490 3190 650 General: Mild distress (respiratory) HEENT: Atraumatic, PERRLA, EOMI Neck: No JVD Neuro: Alert, Oriented Times 3 Cardiovascular: Regular rate (tachy) Respiratory: Chest non-tender, Wheezes Abdomen: Normal bowel sounds, Soft (obese) Rectal: Other (CT with lots of stool and gas) Extremities: No clubbing, No cyanosis Skin: No rashes Comments/Notes: Trace LE edema - Results Results: Laboratory Results WBC 7.2 x10^3/uL (4.8-10.8) 05/29/17 06: RBC 4.74 10^6/uL (4.20-5.40) 05/29/17 06:27 Hgb 12.3 g/dL (12.0-16.0) 05/29/17 06:27 Hct 39.2 % (37.0-47.0) 05/29/17 06: MCV 82.7 fL (81.0-99.0) 05/29/17 06:27 MCH 26.0 pg (27.0-31.0) L 05/29/17 06: MCHC 31.4 g/dL (32.0-36.0) L 05/29/17 06: RDW 15.2 % (12.0-15.0) H 05/29/17 06:27 Plt Count 189 10^3/uL (130-450) 05/29/17 06:27 MPV 7.8 fL (7.9-10.8) L 05/29/17 06:27 Neut # 6.3 10^3/uL (1.5-6.6) 05/29/17 06:27 Lymph # 0.7 10^3/uL (1.5-3.5) L 05/29/17 06:27 [place] # 0.3 10^3/uL (0.0-1.0) 05/29/17 06: Eos # 0.0 10^3/uL (0.0-0.7) 05/29/17 06: Baso # 0.0 10^3/uL (0.0-0.1) 05/29/17 06:27 Absolute Nucleated RBC 0.00 x10^3/uL 05/29/17 06: Nucleated RBC % 0.1 /100WBC 05/29/17 06:27 Sodium 137 mmol/L (135-145) 05/30/17 05:15 Potassium 3.7 mmol/L (3.5-5.0) 05/30/17 05:15 Chloride 98 mmol/L (101-111) L 05/30/17 05:15 Carbon Dioxide 28 mmol/L (21-32) 05/30/17 05:15 Anion Gap 11.0 (6-13) 05/30/17 05:15 BUN 20 mg/dL (6-20) 05/30/17 05:15 Creatinine 0.5 mg/dL (0.4-1.0) 05/30/17 05:15 Estimated GFR (MDRD) 123 (>89) 05/30/17 05:15 Glucose 128 mg/dL (70-100) H 05/30/17 05:15 Lactic Acid 1.4 mmol/L (0.5-2.2) 05/29/17 06:27 Calcium 8.8 mg/dL (8.5-10.3) 05/30/17 05:15 Total Bilirubin 0.3 mg/dL (0.2-1.0) 05/28/17 02:00 AST 20 IU/L (10-42) 05/28/17 02:00 ALT 16 IU/L (10-60) 05/28/17 02:00 Alkaline Phosphatase 41 IU/L (42-121) L 05/28/17 02:00 Troponin I < 0.04 ng/mL (<0.49) 05/30/17 16:54 B-Natriuretic Peptide 44 pg/mL (5-100) 05/28/17 02:00 Total Protein 7.0 g/dL (6.7-8.2) 05/28/17 02:00 Albumin 3.9 g/dL (3.2-5.5) 05/28/17 02:00 Globulin 3.1 g/dL (2.1-4.2) 05/28/17 02:00 Albumin/Globulin Ratio 1.3 (1.0-2.2) 05/28/17 02:00 Lipase < 10 U/L (22-51) L 05/28/17 02:00 Urine Color YELLOW 05/28/17 03:00 Urine Clarity CLEAR (CLEAR) 05/28/17 03:00 Urine pH 5.5 PH (5.0-7.5) 05/28/17 03:00 Ur Specific [place] >=1.030 (1.002-1.030) H 05/28/17 03:00 Urine Protein NEGATIVE mg/dL (NEGATIVE) 05/28/17 03:00 Urine Glucose (UA) NEGATIVE mg/dL (NEGATIVE) 05/28/17 03:00 Urine Ketones NEGATIVE mg/dL (NEGATIVE) 05/28/17 03:00 Urine Occult Blood NEGATIVE (NEGATIVE) 05/28/17 03:00 Urine Nitrite NEGATIVE (NEGATIVE) 05/28/17 03:00 Urine Bilirubin NEGATIVE (NEGATIVE) 05/28/17 03:00 Urine Urobilinogen 0.2 (NORMAL) E.U./dL (NORMAL) 05/28/17 03:00 Ur Leukocyte Esterase NEGATIVE (NEGATIVE) 05/28/17 03:00 Ur Microscopic Review NOT INDICATED 05/28/17 03:00 Urine Culture Comments NOT INDICATED 05/28/17 03:00 Influenza A (Rapid) Negative (Negative) 05/28/17 02:10 Influenza B (Rapid) Negative (Negative) 05/28/17 02:10 Influenza Types A,B Ag - 05/28/17 02:10
[2017-05-30] MEDS ORDERED: SENNA 8.6 MG TABLET PO PRN (18:36)
[2017-05-30] MEDS: DOCUSATE SODIUM 250 MG CAPSULE PO SCH (20:08)
[2017-05-30] MEDS: BENZOCAINE/MENTHOL LOZENGE MM PRN (21:50)
[2017-05-31] MEDS: guaiFENesin/CODEINE 5 ML UDC PO PRN ×5 (00:19→20:33)
[2017-05-31] MEDS: SODIUM CHLORIDE FLUSH 0.9% 10 ML SYRINGE IVP SCH ×3 (00:20→22:19)
[2017-05-31] MEDS: LORazepam 0.5 MG TABLET PO PRN ×2 (00:24→09:39)
[2017-05-31] MEDS: PANTOPRAZOLE 40 MG TABLET PO SCH (05:55)
[2017-05-31 06:04] LABS: CALCIUM 8.3 mg/dL (8.5-10.3); CREATININE 0.5 mg/dL (0.4-1.0)
[2017-05-31] MEDS: IPRATROPIUM/ALBUTEROL 3 ML NEB INH SCH ×4 (07:30→20:01)
[2017-05-31] MEDS: levETIRAcetam 250 MG TABLET PO SCH ×2 (08:33→20:33)
[2017-05-31] MEDS: DIVALPROEX DR 250 MG TABLET PO SCH ×2 (08:33→20:33)
[2017-05-31] MEDS: DOCUSATE SODIUM 250 MG CAPSULE PO SCH ×2 (08:33→20:33)
[2017-05-31] MEDS: amLODIPine 5 MG TABLET PO SCH (08:34)
[2017-05-31] MEDS: SACCHAROMYCES BOULARDII 250 MG CAPSULE PO SCH ×2 (08:34→16:47)
[2017-05-31] MEDS: predniSONE 20 MG TABLET PO SCH (08:34)
[2017-05-31] MEDS: VENLAFAXINE ER 75 MG CAPSULE PO SCH (08:35)
[2017-05-31] MEDS: POTASSIUM CHLORIDE 20 MEQ TABLET PO SCH ×2 (08:35→16:46)
[2017-05-31] MEDS: POLYETHYLENE GLYCOL 3350 17 GM PACKET PO SCH (08:36)
[2017-05-31] MEDS: ENOXAPARIN 40 MG/0.4 ML SYRINGE SUBQ SCH (08:37)
--- NOTE | 2017-05-31 09:08 | PROVIDER PROGRESS NOTE ---
Assessment/Plan - Problem List (1) Acute exacerbation of COPD with asthma Assessment/Plan: With ACUTE HYPOXIA Presents with cough/congestion, dyspnea and sats 70-80s on RA per EMS. CXR without acute pathology. 05/30 still hypoxic requiring 2.5L, able to wean to RA by 05/31. Still have expiratory wheezing diffusely and having frequent persistent coughing episodes with wet wheezy cough. -Change prednisone 40mg daily -Duoneb q6 -Robitussin AC prn -Add tessalon perles and robitussin DM (still won't max out guaifenesin dose ) (2) Lactic acidosis Assessment/Plan: Lactic acid 3.7-->5.6-->4.3-->1.4. Still no focal cause identified. (3) Bipolar 1 disorder Assessment/Plan: Mood stable, on effexor, seroquel [employer]. -Continue home meds (4) History of seizure disorder Assessment/Plan: Chronic, on keprra & depakote, stable, no recent seizures. -Continue keppra and depakote (5) Hypertension Assessment/Plan: Chronic, normotensive/HTN this AM. On CCB [employer]. -Continue norvasc -Monitor BP routinely and titrate meds as needed (6) Chronic shoulder pain Impression: Takes soma at home which is non-formulary. Pain controlled with codeine in cough syrup. -Heat and ice prn (7) Hypokalemia Impression: Mild, K 3.3 -KCL 40meq PO BID x2 doses DISCHARGE PLAN: I suspect she will continue to have slow improvement, ok to return to [facility] in 1-2d once coughing spells are controlled. Should continue slow pred taper given underlying disease. Will need PCP follow-up in 1 week. - Current Meds Current Meds: Current Medications Generic Name Dose Route Start Last Admin Trade Name Freq PRN Reason Stop Dose Admin Acetaminophen 650 mg 05/28/17 03:38 05/28/17 23:33 Tylenol PO 650 mg Q4HR PRN Administration Pain 1 to 4 Albuterol/Ipratropium 3 ml 05/29/17 17:00 05/31/17 07:30 Duoneb INH 3 ml RTQID KYLE Administration Amlodipine Besylate 10 mg 05/30/17 09:00 05/31/17 08:34 Norvasc PO 10 mg DAILY KYLE Administration Divalproex Sodium 250 mg 05/29/17 09:00 05/31/17 08:[address] PO 250 mg DAILY KYLE Administration Divalproex Sodium 500 mg 05/29/17 21:00 05/30/17 20:[address] PO 500 mg QPM KYLE Administration Docusate Sodium 250 mg 05/30/17 21:00 05/31/17 08:33 Colace 250mg Capsule PO Not Given BID KYLE Enoxaparin Sodium 40 mg 05/28/17 09:00 05/31/17 08:37 Lovenox SUBQ 40 mg DAILY KYLE Administration Guaifenesin/Codeine Phosphate 5 ml 05/30/17 00:01 05/31/17 05:50 Robitussin Ac PO 5 ml Q4H PRN Administration Cough Levetiracetam 250 mg 05/29/17 09:00 05/31/17 08:33 Keppra PO 250 mg DAILY KYLE Administration Levetiracetam 500 mg 05/28/17 23:00 05/30/17 20:08 Keppra PO 500 mg HS KYLE Administration Lorazepam 1 mg 05/28/17 22:06 05/31/17 00:24 Ativan PO 1 mg Q8H PRN Administration Anxiety Methocarbamol 500 mg 05/29/17 01:43 05/30/17 22:43 Robaxin PO 500 mg Q6HR PRN Administration Spasms Pantoprazole Sodium 40 mg 05/28/17 07:00 05/31/17 05:55 Protonix PO 40 mg QDAC KYLE Administration Phenol/Menthol 2 sprays 05/29/17 22:02 05/30/17 21:51 Chloraseptic MM 2 sprays Q2HR PRN Administration Throat Pain Polyethylene Glycol 17 gm 05/28/17 09:00 05/31/17 08:36 Miralax PO Not Given DAILY KYLE Potassium Chloride 40 meq 05/31/17 08:30 05/31/17 08:35 K-Dur PO 05/31/17 17:01 40 meq BIDWM KYLE Administration Prednisone 40 mg 05/31/17 08:00 05/31/17 08:34 Deltasone PO 40 mg DAILYWM KYLE Administration Quetiapine Fumarate 100 mg 05/29/17 01:43 03/25/18 22:39 Seroquel PO 100 mg QPM KYLE Administration Saccharomyces Boulardii 250 mg 05/28/17 04:00 05/31/17 08:34 Florastor PO 250 mg BIDWM KYLE Administration Sodium Chloride 10 ml 05/28/17 03:38 05/30/17 06:32 Normal Saline Flush 0.9% IVP 10 ml PRN PRN Administration NEEDED PER PROVIDER ORDERS Sodium Chloride 10 ml 05/28/17 09:00 05/31/17 08:37 Normal Saline Flush 0.9% IVP 10 ml 0100,0900,1700 KYLE Administration Throat Lozenges 1 lozenge 05/29/17 22:02 05/30/17 21:50 Cepacol MM 1 lozenge Q2HR PRN Administration Throat pain Venlafaxine HCl 225 mg 05/29/17 09:00 05/31/17 08:35 Effexor Er PO 225 mg DAILY KYLE Administration Zolpidem Tartrate 10 mg 05/29/17 01:42 05/30/17 22:40 Ambien PO 10 mg QPM KYLE Administration - Lab Result Lab results reviewed: Yes Fish Bone Diagrams: 05/29/17 06:27 05/31/17 05:39 - Additional Planning My Orders: My Active Orders 05/30/17 18:36 Senna [Senokot] 17.2 mg PO DAILY PRN 05/30/17 21:00 Docusate Sodium 250Mg Capsule [Colace 250Mg Capsule] 250 mg PO BID 05/31/17 08:00 predniSONE [Deltasone] 40 mg PO DAILYWM 05/31/17 08:30 Potassium Chloride [K-Dur] 40 meq PO BIDWM Subjective - Subjective Patient Reports: Feeling Better (but not at baseline, bothered by frequent persistent coughing episodes, difficulty clearing sputum. Coughing triggered by exertion. No SOB at rest.) Objective Vital Signs: Vital Signs - 24 hr 05/30/17 05/30/17 05/30/17 10:36 12:00 14:34 Temperature Heart Rate 70 80 Heart Rate [ Radial] Respiratory 20 18 Rate Blood Pressure [Right Brachial artery] O2 Saturation 95 05/30/17 05/30/17 05/30/17 15:01 15:37 17:42 Temperature 37.0 C Heart Rate Heart Rate [ 74 Radial] Respiratory 19 16 Rate Blood Pressure 124/83 H [Right Brachial artery] O2 Saturation 92 93 92 05/30/17 05/31/17 05/31/17 20:36 00:00 04:30 Temperature 36.7 C Heart Rate 85 Heart Rate [ 112 H 56 L Radial] Respiratory 20 18 18 Rate Blood Pressure 152/98 H 141/81 H [Right Brachial artery] O2 Saturation 93 05/31/17 05/31/17 07:31 08:02 Temperature 36.9 C Heart Rate 67 Heart Rate [ 63 Radial] Respiratory 18 18 Rate Blood Pressure 149/91 H [Right Brachial artery] O2 Saturation 92 Oxygen O2 Source Room air I&O (Last 24 Hrs): Intake and Output Totals x24h 05/29/17 05/30/17 05/31/17 23:59 23:59 23:59 Intake Total 3190 1890 300 Output Total 600 Balance 3190 1290 300 General: Cooperative, Mild distress (respiratory) HEENT: PERRLA, Mucous membr. moist/pink Neck: No JVD Neuro: Alert, Non Focal, Oriented Times 3 Cardiovascular: Regular rate Respiratory: Chest non-tender, Wheezes (diffuse expiratory) Abdomen: Normal bowel sounds, Soft Extremities: No cyanosis, Normal pulses Skin: No rashes - Results Results: Laboratory Results WBC 7.2 x10^3/uL (4.8-10.8) 05/29/17 06:27 RBC 4.74 10^6/uL (4.20-5.40) 05/29/17 06:27 Hgb 12.3 g/dL (12.0-16.0) 05/29/17 06:27 Hct 39.2 % (37.0-47.0) 05/29/17 06:27 MCV 82.7 fL (81.0-99.0) 05/29/17 06:27 MCH 26.0 pg (27.0-31.0) L 05/29/17 06:27 MCHC 31.4 g/dL (32.0-36.0) L 05/29/17 06:27 RDW 15.2 % (12.0-15.0) H 05/29/17 06:27 Plt Count 189 10^3/uL (130-450) 05/29/17 06:27 MPV 7.8 fL (7.9-10.8) L 05/29/17 06: Neut # 6.3 10^3/uL (1.5-6.6) 05/29/17 06:27 Lymph # 0.7 10^3/uL (1.5-3.5) L 05/29/17 06:27 [place] # 0.3 10^3/uL (0.0-1.0) 05/29/17 06: Eos # 0.0 10^3/uL (0.0-0.7) 05/29/17 06: Baso # 0.0 10^3/uL (0.0-0.1) 05/29/17 06:27 Absolute Nucleated RBC 0.00 x10^3/uL 05/29/17 06:27 Nucleated RBC % 0.1 /100WBC 05/29/17 06:27 Sodium 137 mmol/L (135-145) 05/31/17 05:39 Potassium 3.3 mmol/L (3.5-5.0) L 05/31/17 05:39 Chloride 97 mmol/L (101-111) L 05/31/17 05:39 Carbon Dioxide 31 mmol/L (21-32) 05/31/17 05:39 Anion Gap 9.0 (6-13) 05/31/17 05:39 BUN 17 mg/dL (6-20) 05/31/17 05:39 Creatinine 0.5 mg/dL (0.4-1.0) 05/31/17 05:39 Estimated GFR (MDRD) 123 (>89) 05/31/17 05:39 Glucose 91 mg/dL (70-100) 05/31/17 05:39 Lactic Acid 1.4 mmol/L (0.5-2.2) 05/29/17 06:27 Calcium 8.3 mg/dL (8.5-10.3) L 05/31/17 05:39 Total Bilirubin 0.3 mg/dL (0.2-1.0) 05/28/17 02:00 AST 20 IU/L (10-42) 05/28/17 02:00 ALT 16 IU/L (10-60) 05/28/17 02:00 Alkaline Phosphatase 41 IU/L (42-121) L 05/28/17 02:00 Troponin I < 0.04 ng/mL (<0.49) 05/30/17 22:54 B-Natriuretic Peptide 44 pg/mL (5-100) 05/28/17 02:00 Total Protein 7.0 g/dL (6.7-8.2) 05/28/17 02:00 Albumin 3.9 g/dL (3.2-5.5) 05/28/17 02:00 Globulin 3.1 g/dL (2.1-4.2) 05/28/17 02:00 Albumin/Globulin Ratio 1.3 (1.0-2.2) 05/28/17 02:00 Lipase < 10 U/L (22-51) L 05/28/17 02:00 Urine Color YELLOW 05/28/17 03:00 Urine Clarity CLEAR (CLEAR) 05/28/17 03:00 Urine pH 5.5 PH (5.0-7.5) 05/28/17 03:00 Ur Specific [place] >=1.030 (1.002-1.030) H 05/28/17 03:00 Urine Protein NEGATIVE mg/dL (NEGATIVE) 05/28/17 03:00 Urine Glucose (UA) NEGATIVE mg/dL (NEGATIVE) 05/28/17 03:00 Urine Ketones NEGATIVE mg/dL (NEGATIVE) 05/28/17 03:00 Urine Occult Blood NEGATIVE (NEGATIVE) 05/28/17 03:00 Urine Nitrite NEGATIVE (NEGATIVE) 05/28/17 03:00 Urine Bilirubin NEGATIVE (NEGATIVE) 05/28/17 03:00 Urine Urobilinogen 0.2 (NORMAL) E.U./dL (NORMAL) 05/28/17 03:00 Ur Leukocyte Esterase NEGATIVE (NEGATIVE) 05/28/17 03:00 Ur Microscopic Review NOT INDICATED 05/28/17 03:00 Urine Culture Comments NOT INDICATED 05/28/17 03:00 Influenza A (Rapid) Negative (Negative) 05/28/17 02:10 Influenza B (Rapid) Negative (Negative) 05/28/17 02:10 Influenza Types A,B Ag - 05/28/17 02:10
[2017-05-31] MEDS: BENZOCAINE/MENTHOL LOZENGE MM PRN ×2 (09:19→16:46)
[2017-05-31] MEDS: BENZONATATE 100 MG CAPSULE PO PRN ×2 (09:29→16:47)
[2017-05-31] MEDS: guaiFENesin/DEXTROMETHORPHAN 10 ML UDC PO PRN ×2 (09:30→18:21)
[2017-05-31] MEDS: QUEtiapine 100 MG TABLET PO SCH (20:33)
[2017-05-31] MEDS: ZOLPIDEM 5 MG TABLET PO SCH (20:34)
[2017-06-01 05:12] LABS: CALCIUM 8.2 mg/dL (8.5-10.3); CREATININE 0.6 mg/dL (0.4-1.0)
[2017-06-01] MEDS: LORazepam 0.5 MG TABLET PO PRN (06:14)
[2017-06-01] MEDS: guaiFENesin/CODEINE 5 ML UDC PO PRN ×2 (06:14→11:47)
[2017-06-01] MEDS: SODIUM CHLORIDE FLUSH 0.9% 10 ML SYRINGE IVP SCH ×3 (06:21→17:47)
[2017-06-01] MEDS: PANTOPRAZOLE 40 MG TABLET PO SCH (06:25)
[2017-06-01] MEDS: DOCUSATE SODIUM 250 MG CAPSULE PO SCH ×2 (09:05→21:19)
[2017-06-01] MEDS: SACCHAROMYCES BOULARDII 250 MG CAPSULE PO SCH ×2 (09:05→17:47)
[2017-06-01] MEDS: amLODIPine 5 MG TABLET PO SCH (09:05)
[2017-06-01] MEDS: levETIRAcetam 250 MG TABLET PO SCH ×2 (09:05→21:18)
[2017-06-01] MEDS: DIVALPROEX DR 250 MG TABLET PO SCH ×2 (09:06→21:18)
[2017-06-01] MEDS: predniSONE 20 MG TABLET PO SCH (09:06)
[2017-06-01] MEDS: ENOXAPARIN 40 MG/0.4 ML SYRINGE SUBQ SCH (09:06)
[2017-06-01] MEDS: VENLAFAXINE ER 75 MG CAPSULE PO SCH (09:06)
[2017-06-01] MEDS: POLYETHYLENE GLYCOL 3350 17 GM PACKET PO SCH (09:06)
[2017-06-01] MEDS: BENZOCAINE/MENTHOL LOZENGE MM PRN (11:47)
[2017-06-01] MEDS ORDERED: ALBUTEROL NEB 2.5 MG/3 ML INH PRN (12:16)
[2017-06-01] MEDS: IPRATROPIUM/ALBUTEROL 3 ML NEB INH SCH ×4 (14:00→21:37)
--- NOTE | 2017-06-01 14:45 | PROVIDER PROGRESS NOTE ---
Subjective - Prog Note Date Prog Note Date: 06/01/17 - Subjective Pt reports feeling: Improved Subjective: pt state her wheezing and cough is getting better but still present mild to moderate wheezing. No fever, chill, CP. Current Medications - Current Medications Current Medications: Active Medications Acetaminophen (Tylenol) 650 mg PO Q4HR PRN PRN Reason: Pain 1 to 4 Last Admin: 05/28/17 23:33 Dose: 650 mg Albuterol () 2.5 mg INH RTQ4H PRN PRN Reason: Wheezing Albuterol/Ipratropium (Duoneb) 3 ml INH RTQID [facility] Last Admin: 06/01/17 14:00 Dose: 3 ml Amlodipine Besylate (Norvasc) 10 mg PO DAILY [facility] Last Admin: 06/01/17 09:05 Dose: 10 mg Benzonatate (Tessalon) 200 mg PO TID PRN PRN Reason: Cough Last Admin: 05/31/17 16:47 Dose: 200 mg Divalproex Sodium (Depakote Dr) 250 mg PO DAILY [facility] Last Admin: 06/01/17 09:06 Dose: 250 mg Divalproex Sodium (Depakote Dr) 500 mg PO QPM [facility] Last Admin: 05/31/17 20:33 Dose: 500 mg Docusate Sodium (Colace 250mg Capsule) 250 mg PO BID [facility] Last Admin: 06/01/17 09:05 Dose: Not Given Enoxaparin Sodium (Lovenox) 40 mg SUBQ DAILY [facility] Last Admin: 06/01/17 09:06 Dose: 40 mg Guaifenesin (Robitussin Dm) 10 ml PO Q6HR PRN PRN Reason: Cough Last Admin: 05/31/17 18:21 Dose: 10 ml Guaifenesin/Codeine Phosphate (Robitussin Ac) 5 ml PO Q4H PRN PRN Reason: Cough Last Admin: 06/01/17 11:47 Dose: 5 ml Levetiracetam (Keppra) 250 mg PO DAILY [facility] Last Admin: 06/01/17 09:05 Dose: 250 mg Levetiracetam (Keppra) 500 mg PO HS [facility] Last Admin: 05/31/17 20:33 Dose: 500 mg Lorazepam (Ativan) 1 mg PO Q8H PRN PRN Reason: Anxiety Last Admin: 06/01/17 06:14 Dose: 1 mg Methocarbamol (Robaxin) 500 mg PO Q6HR PRN PRN Reason: Spasms Last Admin: 05/30/17 22:43 Dose: 500 mg Methylprednisolone (Solu-Medrol (40mg Vial)) 40 mg IVP TID [facility] Ondansetron HCl (Zofran Inj) 4 mg IVP Q6HR PRN PRN Reason: Nausea / Vomiting Pantoprazole Sodium (Protonix) 40 mg PO QDAC [facility] Last Admin: 06/01/17 06:25 Dose: 40 mg Phenol/Menthol (Chloraseptic) 2 sprays MM Q2HR PRN PRN Reason: Throat Pain Last Admin: 05/30/17 21:51 Dose: 2 sprays Polyethylene Glycol (Miralax) 17 gm PO DAILY [facility] Last Admin: 06/01/17 09:06 Dose: Not Given Quetiapine Fumarate (Seroquel) 100 mg PO QPM [facility] Last Admin: 05/31/17 20:33 Dose: 100 mg Saccharomyces Boulardii (Florastor) 250 mg PO BIDWM [facility] Last Admin: 06/01/17 09:05 Dose: 250 mg Senna (Senokot) 17.2 mg PO DAILY PRN PRN Reason: Constipation Sodium Chloride (Normal Saline Flush 0.9%) 10 ml IVP PRN PRN PRN Reason: NEEDED PER PROVIDER ORDERS Last Admin: 05/30/17 06:32 Dose: 10 ml Sodium Chloride (Normal Saline Flush 0.9%) 10 ml IVP 0100,0900,1700 [facility] Last Admin: 06/01/17 09:06 Dose: 10 ml Throat Lozenges (Cepacol) 1 lozenge MM Q2HR PRN PRN Reason: Throat pain Last Admin: 06/01/17 11:47 Dose: 1 lozenge Venlafaxine HCl (Effexor Er) 225 mg PO DAILY [facility] Last Admin: 06/01/17 09:06 Dose: 225 mg Zolpidem Tartrate (Ambien) 10 mg PO QPM [facility] Last Admin: 05/31/17 20:34 Dose: 10 mg Albuterol Sulfate [Proair Hfa Inhaler] 2 puffs INH Q4H PRN 12/27/15 Carisoprodol [Soma] 350 mg PO QID PRN 12/27/15 LORazepam [Lorazepam] 1 mg PO Q8H PRN 12/27/15 Loratadine [Claritin] 10 mg PO DAILY 12/27/15 Quetiapine Fumarate [Seroquel] 300 mg PO QPM 12/27/15 Sumatriptan Succinate [Imitrex] 50 mg PO BID PRN 12/27/15 Venlafaxine ER [Effexor ER] 225 mg PO DAILY 12/27/15 Aspirin 81 mg PO DAILY 03/11/16 Docusate Sodium [Stool Softener] 100 mg PO BID PRN 03/11/16 amLODIPine [Norvasc] 10 mg PO DAILY 03/11/16 Cholecalciferol (Vitamin D3) [Vitamin D3] 1,000 unit PO DAILY 05/18/17 Cyanocobalamin [Vitamin B-12] 1,000 mcg IM .QMONTH 05/18/[address] [Depakote Dr] 500 mg PO QPM 05/18/17 Ginkgo Biloba [place] Extract [Ginkgo Biloba] 120 mg PO DAILY 05/18/17 Guaifenesin [Mucinex] 600 mg PO BID PRN 05/18/17 Ibuprofen [Motrin] 800 mg PO Q8H PRN 05/18/17 Lysine HCl 400 mg PO DAILY 05/18/17 [place]-3 Fatty Acids/Fish Oil [[place]-3 Fish Oil 1,000 mg Sfgl] 1,000 mg PO BID Senna [Senokot] 8.6 mg PO BID 05/18/17 Tiotropium [place] [Spiriva] 1 puffs INH DAILY 05/18/17 Zolpidem Tartrate [Ambien] 10 mg PO QPM 05/18/17 levETIRAcetam [Keppra] 500 mg PO DAILY PM 05/18/17 Ipratropium/Albuterol Sulfate [Iprat-Albut 0.5-3(2.5) mg/3 ml] 3 ml IH QID 05/28 levETIRAcetam [Keppra] 250 mg PO DAILY 05/28/17 Objective - Vital Signs/Intake & Output Vital Signs: Vital Signs x48h Temp Pulse Pulse Resp BP Pulse Ox 06/01/17 14:00 67 16 06/01/17 09:08 37.1 C 82 20 140/84 H 91 L 06/01/17 07:40 59 L 14 Intake & Output: Intake & Output 05/29/17 05/30/17 05/31/17 06/01/17 23:59 23:59 23:59 23:59 Intake Total 3190 1890 2210 770 Output Total 600 Balance 3190 1290 2210 770 - Objective General Appearance: positive: No acute distress, Alert. negative: Lethargic Eyes Bilateral: positive: Normal inspection, PERRL, No lid inflammation, Conjunctivae nml ENT: positive: ENT inspection nml, Pharynx nml, No signs of dehydration. negative: Purulent nasal drainage, Pharyngeal erythema, Oral lesions Neck: positive: Nml inspection, Thyroid nml, No JVD, Trachea midline. negative : Thyromegaly, Lymphadenopathy (R), Lymphadenopathy (L), Stiff neck, Carotid bruit, Swelling/bruising, Tracheal deviation Respiratory: positive: Chest non-tender, No respiratory distress, Wheezes Cardiovascular: positive: Regular rate & rhythm, No murmur, No gallop. negative : Irregularly irregular, Extrasystoles, Tachycardia, Bradycardia, Systolic murmur, Diastolic murmur Peripheral Pulses: 2+ Radial (R), 2+ Radial (L), 2+ Dorsalis pedis (R), 2+ Dorsalis pedis (L) Abdomen: positive: Non-tender, No organomegaly, Nml bowel sounds. negative: Tenderness, Guarding, Rebound Back: positive: Nml inspection. negative: CVA tenderness (R), CVA tenderness (L ) Skin: positive: Color nml, No rash, Warm, Dry. negative: Cyanosis, Diaphoresis , Pallor Extremities: positive: Non-tender, Full ROM, Nml appearance. negative: Calf tenderness, Joint swelling, Garo's sign/cords Neurologic/Psychiatric: positive: Oriented x3, Motor nml, Sensation nml. negative: Weakness, Sensory loss, Facial droop, Slurred/abnml speech - Lab Results Fish Bones: 05/29/17 06:27 06/01/17 04:48 Other Labs: Lab Results x24hrs 06/01/17 Range/Units 04:48 Sodium 138 (135-145) mmol/L Potassium 3.9 (3.5-5.0) mmol/L Chloride 98 L (101-111) mmol/L Carbon Dioxide 30 (21-32) mmol/L Anion Gap 10.0 (6-13) BUN 19 (6-20) mg/dL Creatinine 0.6 (0.4-1.0) mg/dL Estimated GFR (MDRD) 100 (>89) Glucose 89 (70-100) mg/dL Calcium 8.2 L (8.5-10.3) mg/dL Assessment/Plan - Problem List (1) COPD with exacerbation Impression: (1) Acute exacerbation of COPD with asthma Assessment/Plan: With ACUTE HYPOXIA pt still present mild to moderate wheezing at the rest. pt's Sats of O2 is 91% at room air. pt still has cough but better controlled switch Prednisone to IVP of Solu-medrol add Albuteral PRN Duoneb q6 Robitussin AC prn tessalon perles and robitussin DM Presents with cough/congestion, dyspnea and sats 70-80s on RA per EMS. CXR without acute pathology. 05/30 still hypoxic requiring 2.5L, able to wean to RA by 05/31. Still have expiratory wheezing diffusely and having frequent persistent coughing episodes with wet wheezy cough. -Change prednisone 40mg daily -Duoneb q6 -Robitussin AC prn -Add tessalon perles and robitussin DM (still won't max out guaifenesin dose ) (2) Lactic acidosis Assessment/Plan: stable, will check PRN or ABGs PRN Lactic acid 3.7-->5.6-->4.3-->1.4. Still no focal cause identified. 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 -Continue home meds (4) History of seizure disorder Assessment/Plan: stable, Continue keppra and depakote Ativan PRN Chronic, on keprra & depakote, stable, no recent seizures. -Continue keppra and depakote (5) Hypertension Assessment/Plan: stable, Chronic, normotensive/HTN this AM. On CCB INSPECTOR. -Continue norvasc -Monitor BP routinely and titrate meds as needed (6) Chronic shoulder pain Impression: stable, no new complaints Takes soma at home which is non-formulary. Pain controlled with codeine in cough syrup. -Heat and ice prn (7) Hypokalemia Impression: resolved Mild, K 3.3 -KCL 40meq PO BID x2 doses DISCHARGE PLAN: I suspect she will continue to have slow improvement, ok to return to [facility] in 1-2d once coughing spells are controlled. Should continue slow pred taper given underlying disease. Will need PCP follow-up in 1 week.
[2017-06-01] MEDS: SODIUM CHLORIDE FLUSH 0.9% 10 ML SYRINGE IVP PRN (21:17)
[2017-06-01] MEDS: methylPREDNISolone SUCCINATE 40 MG/ML VIAL IVP SCH (21:18)
[2017-06-01] MEDS: ZOLPIDEM 5 MG TABLET PO SCH (21:18)
[2017-06-01] MEDS: QUEtiapine 100 MG TABLET PO SCH (21:19)
[2017-06-02] MEDS: SODIUM CHLORIDE FLUSH 0.9% 10 ML SYRINGE IVP SCH ×2 (00:31→08:23)
[2017-06-02 04:55] LABS: BASOPHILS % (AUTO) 0.2 %; EOSINOPHILS % (AUTO) 0.1 %; HGB - HEMOGLOBIN 12.8 g/dL (12.0-16.0); LYMPHOCYTES # (AUTO) 1.1 10^3/uL (1.5-3.5); LYMPHOCYTES % (AUTO) 15.5 %; MEAN CORPUSCULAR HEMOGLOBIN 26.1 pg (27.0-31.0); MEAN CORPUSCULAR HGB CONC 31.4 g/dL (32.0-36.0); MEAN PLATELET VOLUME 7.8 fL (7.9-10.8); MONOCYTES # (AUTO) 0.3 10^3/uL (0.0-1.0); MONOCYTES % (AUTO) 3.6 %; NEUTROPHILS # (AUTO) 5.8 10^3/uL (1.5-6.6); NEUTROPHILS % (AUTO) 80.6 %; PLT - PLATELET COUNT 200 10^3/uL (130-450); RED BLOOD COUNT 4.93 10^6/uL (4.20-5.40); RED CELL DISTRIBUTION WIDTH 15.4 % (12.0-15.0); WHITE BLOOD COUNT 7.2 x10^3/uL (4.8-10.8)
[2017-06-02 05:04] LABS: ALBUMIN 3.5 g/dL (3.2-5.5); ALBUMIN/GLOBULIN RATIO 1.3 (1.0-2.2); BILIRUBIN,TOTAL 0.4 mg/dL (0.2-1.0); CALCIUM 8.2 mg/dL (8.5-10.3); CREATININE 0.5 mg/dL (0.4-1.0); TOTAL PROTEIN 6.1 g/dL (6.7-8.2)
[2017-06-02] MEDS: PANTOPRAZOLE 40 MG TABLET PO SCH (06:30)
[2017-06-02] MEDS: IPRATROPIUM/ALBUTEROL 3 ML NEB INH SCH ×2 (07:24→11:49)
[2017-06-02] MEDS: amLODIPine 5 MG TABLET PO SCH (08:22)
[2017-06-02] MEDS: levETIRAcetam 250 MG TABLET PO SCH (08:22)
[2017-06-02] MEDS: DOCUSATE SODIUM 250 MG CAPSULE PO SCH (08:23)
[2017-06-02] MEDS: DIVALPROEX DR 250 MG TABLET PO SCH (08:23)
[2017-06-02] MEDS: POLYETHYLENE GLYCOL 3350 17 GM PACKET PO SCH (08:23)
[2017-06-02] MEDS: ENOXAPARIN 40 MG/0.4 ML SYRINGE SUBQ SCH (08:23)
[2017-06-02] MEDS: SACCHAROMYCES BOULARDII 250 MG CAPSULE PO SCH (08:23)
[2017-06-02] MEDS: VENLAFAXINE ER 75 MG CAPSULE PO SCH (08:23)
[2017-06-02] MEDS: methylPREDNISolone SUCCINATE 40 MG/ML VIAL IVP SCH (09:18)
[2017-06-02] MEDS ORDERED: predniSONE 20 MG TABLET PO SCH (10:00)
--- NOTE | 2017-06-02 15:39 | Discharge Plan ---
Discharge Plan Disposition: Home, Self Care Condition: Stable Prescriptions: guaiFENesin/CODEINE [Robitussin AC] 5 ml PO Q4H PRN #100 udc PRN Reason: Cough predniSONE [Deltasone] 20 mg PO [id number] #21 tab Diet: Regular Activity Restrictions: Activity as Tolerated Shower Restrictions: No Assistance Devices: Walker Weight Bearing: Full Weight Instruction Topics: Prednisone tablets, Codeine Guaifenesin oral solution or syrup, COPD Additional Instructions or Follow Up instructions: May see PCP in 2-3 days. Should symptoms return or worsen, may present ER or call 911 for help. Follow-Up Care: [facility] - Pulmonary No Smoking: If you smoke, Please STOP! Call for help.
[2017-06-02 15:40] VITALS: BP 149/85
--- NOTE | 2017-06-02 16:03 | DISCHARGE SUMMARY ---
Discharge Summary Discharge Date: 06/02/17 Discharging Provider: LYNCH Primary Care Provider: Dr Hansen Condition at Discharge: Stable Discharge Disposition: 01 Home, Self Care Discharge Facility Name: [facility] - DIAGNOSES Admission Diagnoses: (1) Acute exacerbation of COPD with asthma (2) Lactic acidosis (3) Bipolar 1 disorder (4) History of seizure disorder (5) Hypertension Discharge Diagnoses with Status of Each Condition: (1) Acute exacerbation of COPD with asthma pt's wheezing is resolved. 94% of Sats at room air (2) Lactic acidosis resolved (3) Bipolar 1 disorder stable (4) History of seizure disorder stable, no seizure at hospital course (5) Hypertension stable - HPI History of Present Illness: refer from Dr. Gill's HPI on 05/28/17 - HOSPITAL COURSE Hospital Course: pt was admitted for COPD exacerbation. After treatment, pt's wheezing is resolved. 94% Sats at room air. pt state she feel much better and request to be d/c today. There is no fever, chill, chest pain. Pt is prescribed Prednisone Taper and Robitussin. - ALLERGIES Allergies/Adverse Reactions: Allergies Allergy/AdvReac Type Severity Reaction Status Date / Time lidocaine Allergy Mild Itching Verified 05/28/17 02:24 - MEDICATIONS Home Medications: Ambulatory Orders Medication Instructions Recorded Confirmed Albuterol Sulfate [Proair Hfa 2 puffs INH Q4H PRN 12/27/15 05/28/17 Inhaler] Carisoprodol [Soma] 350 mg PO QID PRN 12/27/15 05/28/17 LORazepam [Lorazepam] 1 mg PO Q8H PRN 12/27/15 05/28/17 Loratadine [Claritin] 10 mg PO DAILY 12/27/15 05/28/17 Quetiapine Fumarate [Seroquel] 300 mg PO QPM 12/27/15 05/28/17 Sumatriptan Succinate [Imitrex] 50 mg PO BID PRN 12/27/15 05/28/17 Venlafaxine ER [Effexor ER] 225 mg PO DAILY 12/27/15 05/28/17 Aspirin 81 mg PO DAILY 03/11/16 05/28/17 Docusate Sodium [Stool Softener] 100 mg PO BID PRN 03/11/16 05/28/17 amLODIPine [Norvasc] 10 mg PO DAILY 03/11/16 05/28/17 Ferrous Sulfate 325 mg PO BID #60 tablet 03/12/16 05/28/17 Cholecalciferol (Vitamin D3) 1,000 unit PO DAILY 05/18/17 05/28/17 [Vitamin D3] Cyanocobalamin [Vitamin B-12] 1,000 mcg IM .QMONTH 05/18/17 05/28/17 Jasonproandrey Rivera [Ayad Rivera] 500 mg PO QPM 05/18/17 05/28/17 Ginkgo Biloba [place] Extract [Ginkgo 120 mg PO DAILY 05/18/17 05/28/17 Biloba] Guaifenesin [Mucinex] 600 mg PO BID PRN 05/18/17 05/28/17 Ibuprofen [Motrin] 800 mg PO Q8H PRN 05/18/17 05/28/17 Lysine HCl 400 mg PO DAILY 05/18/17 05/28/17 [place]-3 Fatty Acids/Fish Oil 1,000 mg PO BID 05/18/17 05/28/17 [[place]-3 Fish Oil 1,000 mg Sfgl] Senna [Senokot] 8.6 mg PO BID 05/18/17 05/28/17 Tiotropium [place] [Spiriva] 1 puffs INH DAILY 05/18/17 05/28/17 Zolpidem Tartrate [Ambien] 10 mg PO QPM 05/18/17 05/28/17 levETIRAcetam [Keppra] 500 mg PO DAILY PM 05/18/17 05/28/17 Jasonproandrey Rivera [Ayad Rivera] 250 mg PO DAILY tablet 05/21/17 05/28/17 Ipratropium/Albuterol Sulfate 3 ml IH QID 05/28/17 05/28/17 [Iprat-Albut 0.5-3(2.5) mg/3 ml] levETIRAcetam [Keppra] 250 mg PO DAILY 05/28/17 05/28/17 guaiFENesin/CODEINE [Robitussin AC] 5 ml PO Q4H PRN #100 udc 06/02/17 predniSONE [Deltasone] 20 mg PO [id number] #21 tab 06/02/17 - PHYSICAL EXAM AT DISCHARGE General Appearance: positive: No acute distress, Alert. negative: Lethargic Eyes Bilateral: positive: Normal inspection, PERRL, No lid inflammation, Conjunctivae nml ENT: positive: ENT inspection nml, Pharynx nml, No signs of dehydration. negative: Purulent nasal drainage, Pharyngeal erythema, Oral lesions, Dry mucous membranes Neck: positive: Nml inspection, Thyroid nml, No JVD, Trachea midline. negative : Thyromegaly, Lymphadenopathy (R), Lymphadenopathy (L), Stiff neck, Carotid bruit, Swelling/bruising, Tracheal deviation Respiratory: positive: Chest non-tender, No respiratory distress, Breath sounds nml. negative: Wheezes, Rales, Rhonchi Cardiovascular: positive: Regular rate & rhythm, No murmur, No gallop. negative : Irregularly irregular, Extrasystoles, Tachycardia, Bradycardia, Systolic murmur, Diastolic murmur Peripheral Pulses: positive: 2+ Abdomen: positive: Non-tender, No organomegaly, Nml bowel sounds, No distention. negative: Tenderness, Guarding, Rebound Back: positive: Nml inspection. negative: CVA tenderness (R), CVA tenderness (L ) Skin: positive: Color nml, No rash, Warm, Dry. negative: Cyanosis, Diaphoresis , Pallor Extremities: positive: Non-tender, Full ROM, Nml appearance. negative: Calf tenderness, Joint swelling, Garo's sign/cords Neurologic/Psychiatric: positive: Oriented x3, Motor nml, Sensation nml. negative: Weakness, Sensory loss, Facial droop, Slurred/abnml speech, Depressed mood/affect - LABS Result Diagrams: 06/02/17 04:37 06/02/17 04:37 - FOLLOW UP Follow Up: May see PCP in 2-3 days. Should symptoms return or worsen, may present ER or call 911 for help. - TIME SPENT Time Spent in Discharge (Minutes): 40
== END 2017-06-02 15:50 | disposition home or self-care (01) | DRG 190 ==
LOC: EDUNIT# → ED 01:49 → MS3 03:38
PROVIDERS: ADMIT Internal Medicine; ATTEND Nurse Practitioner Gerontology
DX: J44.0 Chronic obstructive pulmonary disease with (acute) lower respiratory infection (principal); J96.01 Acute respiratory failure with hypoxia; F32.9 Major depressive disorder, single episode, unspecified; F41.0 Panic disorder [episodic paroxysmal anxiety]; G93.40 Encephalopathy, unspecified; E87.2 Acidosis; F31.89 Other bipolar disorder; Z68.41 Body mass index [BMI] 40.0-44.9, adult; J20.9 Acute bronchitis, unspecified; J44.1 Chronic obstructive pulmonary disease with (acute) exacerbation; E87.6 Hypokalemia; I10 Essential (primary) hypertension; G40.909 Epilepsy, unspecified, not intractable, without status epilepticus; E78.5 Hyperlipidemia, unspecified; M19.90 Unspecified osteoarthritis, unspecified site; M25.519 Pain in unspecified shoulder; E66.9 Obesity, unspecified; R40.0 Somnolence; Z66 Do not resuscitate; Z79.51 Long term (current) use of inhaled steroids; Z79.82 Long term (current) use of aspirin; Z79.891 Long term (current) use of opiate analgesic; Z79.899 Other long term (current) drug therapy; Z98.84 Bariatric surgery status; Z90.79 Acquired absence of other genital organ(s); Z90.49 Acquired absence of other specified parts of digestive tract
CPT/HCPCS: 36415; 51701; 71045; 71046; 74160; 80048; 80053; 81001; 81003; 83605; 83690; 83880; 84484; 85025; 87040; 87086; 87275; 87276; 93005; 94640; 96365; 96372; 96375; 99285

== ENCOUNTER 2017-06-12 21:33 | Outpatient (CLI) | payer MEDICARE, OTHER | END 2017-06-12 21:34 | disposition critical access hospital (66) | LOC: EMS 21:33 | PROVIDERS: ATTEND Surgery | DX: R41.0 Disorientation, unspecified (principal); R03.0 Elevated blood-pressure reading, without diagnosis of hypertension | CPT/HCPCS: A0425; A0429 ==

== ENCOUNTER 2017-06-12 21:48 | Emergency (ER) | payer MEDICARE, OTHER ==
--- NOTE | 2017-06-12 22:14 | ED Physician Documentation ---
PD HPI LOWER EXT INJURY - Stated complaint Stated Complaint: Bilat knee pain, increased confusion - Chief complaint Chief Complaint: Ext Problem - History obtained from History obtained from: Patient, EMS - History of Present Illness PD HPI LOW EXT INJURY LOCATION: Right, Knee Type of injury: Twist Where injury occurred: Home Timing - onset: Today Timing - details: Abrupt onset, Still present Improved by: Immobilization Worsened by: Moving Associated symptoms: Weakness Similar symptoms before: Has not had sx before Recently seen: Not recently seen - Additional information Additional information: Patient is a 67 year old female presenting to the emergency department for knee pain and shoulder pain. halfway staff originally called the ambulance because the patient was hypertensive and had knee pain. They stated that the patient seemed altered. Upon initial evaluation in the emergency department patient stated that she twisted her left knee earlier and had generalized weakness in that knee. Patient is also complaining of right shoulder pain, but patient states that has been going on for a long time. patient denies any chest pain or shortness of breath. Review of Systems Constitutional: denies: Fever, Chills Eyes: reports: Reviewed and negative Ears: reports: Reviewed and negative Nose: reports: Reviewed and negative Throat: reports: Reviewed and negative Cardiac: denies: Chest pain / pressure, Palpitations, Calf pain Respiratory: denies: Dyspnea, Cough, Wheezing GI: denies: Nausea, Vomiting : reports: Reviewed and negative Musculoskeletal: reports: Extremity pain, Joint pain. 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 HEENT: Tonsil/Adenoidectomy - Present Medications Home Medications: Ambulatory Orders Medication Instructions Recorded Confirmed Albuterol Sulfate [Proair Hfa 2 puffs INH Q4H PRN 12/27/15 05/28/17 Inhaler] Carisoprodol [Soma] 350 mg PO QID PRN 12/27/15 05/28/17 LORazepam [Lorazepam] 1 mg PO Q8H PRN 12/27/15 05/28/17 Loratadine [Claritin] 10 mg PO DAILY 12/27/15 05/28/17 Quetiapine Fumarate [Seroquel] 300 mg PO QPM 12/27/15 05/28/17 Sumatriptan Succinate [Imitrex] 50 mg PO BID PRN 12/27/15 05/28/17 Venlafaxine ER [Effexor ER] 225 mg PO DAILY 12/27/15 05/28/17 Aspirin 81 mg PO DAILY 03/11/16 05/28/17 Docusate Sodium [Stool Softener] 100 mg PO BID PRN 03/11/16 05/28/17 amLODIPine [Norvasc] 10 mg PO DAILY 03/11/16 05/28/17 Ferrous Sulfate 325 mg PO BID #60 tablet 03/12/16 05/28/17 Cholecalciferol (Vitamin D3) 1,000 unit PO DAILY 05/18/17 05/28/17 [Vitamin D3] Cyanocobalamin [Vitamin B-12] 1,000 mcg IM .QMONTH 05/18/17 05/28/17 Divalproex [Ayad Rivera] 500 mg PO QPM 05/18/17 05/28/17 Ginkgo Biloba [place] Extract [Ginkgo 120 mg PO DAILY 05/18/17 05/28/17 Biloba] Guaifenesin [Mucinex] 600 mg PO BID PRN 05/18/17 05/28/17 Ibuprofen [Motrin] 800 mg PO Q8H PRN 05/18/17 05/28/17 Lysine HCl 400 mg PO DAILY 05/18/17 05/28/17 [place] Fatty Acids/Fish Oil 1,000 mg PO BID 05/18/17 05/28/17 [[place] Fish Oil 1,000 mg Sfgl] Senna [Senokot] 8.6 mg PO BID 05/18/17 05/28/17 Tiotropium [place] [Spiriva] 1 puffs INH DAILY 05/18/17 05/28/17 Zolpidem Tartrate [Ambien] 10 mg PO QPM 05/18/17 05/28/17 levETIRAcetam [Keppra] 500 mg PO DAILY PM 05/18/17 05/28/17 Divalproex [Ayad Rivera] 250 mg PO DAILY tablet 05/21/17 05/28/17 Ipratropium/Albuterol Sulfate 3 ml IH QID 05/28/17 05/28/17 [Iprat-Albut 0.5-3(2.5) mg/3 ml] levETIRAcetam [Keppra] 250 mg PO DAILY 05/28/17 05/28/17 guaiFENesin/CODEINE [Robitussin AC] 5 ml PO Q4H PRN #100 udc 06/02/17 predniSONE [Deltasone] 20 mg PO [id number] #21 tab 06/02/17 - Allergies Allergies/Adverse Reactions: Allergies Allergy/AdvReac Type Severity Reaction Status Date / Time lidocaine Allergy Mild Itching Verified 06/12/17 22:04 diphenhydramine Allergy Unknown Verified 06/12/17 22:05 [From Benadryl] - Social History Does the pt smoke?: No Smoking Status: Never smoker Does the pt drink ETOH?: No Does the pt have substance abuse?: No - Immunizations Immunizations are current?: Yes - POLST Patient has POLST: Yes POLST Status: DNR PD ED PE EXPANDED - Extremities Extremities: Right shoulder (tenderness to palpation of right shoulder), Left knee (mild tenderness to palpation of left knee) Results - Vitals Vitals: Vital Signs - 24 hr 06/12/17 06/12/17 21:50 22:53 Temperature 36.5 C 36.8 C Heart Rate 94 89 Respiratory 18 16 Rate Blood Pressure 149/106 H 147/75 H O2 Saturation 95 93 Oxygen O2 Source [Without Activity] 1L O2 via NC O2 Source Room air - Rads (name of study) right shoulder Radiology: Final report received knee x-ray Radiology: Final report received (no acute fracture or dislocation) PD MEDICAL DECISION MAKING - ED course Complexity details: reviewed old records, reviewed results, re-evaluated patient , considered differential, d/w patient ED course: Patient was seen and examined at bedside. Patient was well appearing and in no distress. imaging was ordered. when patient returned from imaging the results were reviewed. there was no acute fracture or dislocation. Patient's elevated blood pressure resolved without intervention. Patient required no further work up and was stable for discharge with outpatient follow up. Departure - Departure Disposition: 01 Home, Self Care Clinical Impression: Knee pain, left Condition: Good Instructions: Knee Pain Follow-Up: primary,care provider [Other] - As Needed Comments: Your diagnostics today were within normal limits. there is no acute fracture or dislocation. You should follow up with your doctor for further care. You may return to the emergency department at any time for new, worsening or uncontrollable symptoms.
--- NOTE | 2017-06-12 22:45 | XRAY Report ---
EXAM: LEFT KNEE RADIOGRAPHY EXAM DATE: 06/12/2017 10:26 PM. CLINICAL HISTORY: Fall, shoulder and knee pain. COMPARISON: None. TECHNIQUE: 3 views. FINDINGS: Bones: No evidence of acute fracture. There is linear sclerosis through the proximal tibial diaphysis which could represent remote trauma or bone infarct. Joints: No evidence of dislocation. No significant joint effusion. There is moderate tricompartment d egenerative disease. Soft Tissues: No unexpected soft tissue findings. IMPRESSION: No evidence of fracture or dislocation. [facility] Referring Provider Line: [phone] SITE ID: [id number]
--- NOTE | 2017-06-12 22:46 | XRAY Report ---
EXAM: RIGHT SHOULDER RADIOGRAPHY EXAM DATE: 06/12/2017 10:27 PM. CLINICAL HISTORY: Fall, shoulder and knee pain. COMPARISON: None. TECHNIQUE: 3 views. FINDINGS: Bones: No acute fracture or focal bony lesion. There is bony irregularity of the proximal right wilian ral diaphysis which is probably from prior fracture. Joints: No evidence of dislocation. There is moderate acromioclavicular joint degenerative disease. Soft Tissues: No unexpected soft tissue findings. IMPRESSION: No evidence of acute fracture or dislocation. [facility] Referring Provider Line: [phone] SITE ID: [id number]
[2017-06-13 02:11] VITALS: BP 148/94
== END 2017-06-13 02:24 | disposition home or self-care (01) ==
LOC: EDUNIT# → ED 21:48
DX: M25.562 Pain in left knee (principal); I10 Essential (primary) hypertension
CPT/HCPCS: 99283; 99284

== ENCOUNTER 2017-06-17 21:00 | Outpatient (CLI) | payer MEDICARE, OTHER | END 2017-06-17 21:01 | disposition critical access hospital (66) | LOC: EMS 21:00 | PROVIDERS: ATTEND Surgery | DX: R53.83 Other fatigue (principal); R41.0 Disorientation, unspecified | CPT/HCPCS: A0425; A0429 ==

== ENCOUNTER 2017-06-17 21:17 | Observation (INO) | payer MEDICARE, OTHER ==
[2017-06-17] MEDS ORDERED: SODIUM CHLORIDE 0.9% 1,000 ML IV ONE (21:25)
--- NOTE | 2017-06-17 21:29 | ED Physician Documentation ---
History of Present Illness - Stated complaint Stated Complaint: CONFUSION, WEAKNESS - History obtained from History obtained from: Patient, EMS - History of Present Illness Timing: Other (67-year-old woman lives at [facility], I guess she is declining steadily over the last few days, she was diagnosed with UTI and started on Macrobid without improvement. She has been lethargic and confused and not walking normally. History is somewhat limited because of altered mental status. 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: Breast implants HEENT: Tonsil/Adenoidectomy - Present Medications Home Medications: Ambulatory Orders Medication Instructions Recorded Confirmed Albuterol Sulfate [Proair Hfa 2 puffs INH Q4H PRN 12/27/15 05/28/17 Inhaler] Carisoprodol [Soma] 350 mg PO QID PRN 12/27/15 05/28/17 LORazepam [Lorazepam] 2 mg PO Q8H 12/27/15 05/28/17 Loratadine [Claritin] 10 mg PO DAILY 12/27/15 05/28/17 Quetiapine Fumarate [Seroquel] 300 mg PO QPM 12/27/15 05/28/17 Sumatriptan Succinate [Imitrex] 50 mg PO BID PRN 12/27/15 05/28/17 Venlafaxine ER [Effexor ER] 225 mg PO DAILY 12/27/15 05/28/17 Aspirin 81 mg PO DAILY 03/11/16 05/28/17 Docusate Sodium [Stool Softener] 100 mg PO BID PRN 03/11/16 05/28/17 amLODIPine [Norvasc] 10 mg PO DAILY 03/11/16 05/28/17 Ferrous Sulfate 325 mg PO BID #60 tablet 03/12/16 05/28/17 Cholecalciferol (Vitamin D3) 1,000 unit PO DAILY 05/18/17 05/28/17 [Vitamin D3] Cyanocobalamin [Vitamin B-12] 1,000 mcg IM .QMONTH 05/18/17 05/28/17 Divalproandrey Rivera [Ayad Rivera] 500 mg PO QPM 05/18/17 05/28/17 Ginkgo Biloba [place] Extract [Ginkgo 120 mg PO DAILY 05/18/17 05/28/17 Biloba] Guaifenesin [Mucinex] 600 mg PO BID PRN 05/18/17 05/28/17 Ibuprofen [Motrin] 800 mg PO Q8H PRN 05/18/17 05/28/17 Lysine HCl 400 mg PO DAILY 05/18/17 05/28/17 [place]-3 Fatty Acids/Fish Oil 1,000 mg PO BID 05/18/17 05/28/17 [[place]-3 Fish Oil 1,000 mg Sfgl] Senna [Senokot] 8.6 mg PO BID 05/18/17 05/28/17 Tiotropium [place] [Spiriva] 1 puffs INH DAILY 05/18/17 05/28/17 Zolpidem Tartrate [Ambien] 10 mg PO QPM 05/18/17 05/28/17 levETIRAcetam [Keppra] 500 mg PO DAILY PM 05/18/17 05/28/17 Divalproex [Ayad Rivera] 250 mg PO DAILY tablet 05/21/17 05/28/17 Ipratropium/Albuterol Sulfate 3 ml IH QID 05/28/17 05/28/17 [Iprat-Albut 0.5-3(2.5) mg/3 ml] levETIRAcetam [Keppra] 250 mg PO DAILY 05/28/17 05/28/17 guaiFENesin/CODEINE [Robitussin AC] 5 ml PO Q4H PRN #100 udc 06/02/17 Acetylcysteine [Nac] 1,500 mg PO DAILY 06/17/17 06/17/17 Lysine HCl 400 mg PO 06/17/17 Nitrofurantoin [Macrobid] 100 mg PO BID 06/17/17 06/17/17 - Allergies Allergies/Adverse Reactions: Allergies Allergy/AdvReac Type Severity Reaction Status Date / Time lidocaine Allergy Mild Itching Verified 06/12/17 22:04 diphenhydramine Allergy Unknown Verified 06/17/17 21:28 [From Benadryl] - Social History Does the pt smoke?: No Smoking Status: Never smoker Does the pt drink ETOH?: No Does the pt have substance abuse?: No - Immunizations Immunizations are current?: Yes - POLST Patient has POLST: Yes POLST Status: DNR PD ED PE NORMAL - Vitals Vital signs reviewed: Yes - General General: No acute distress, Well developed/nourished, Other (She knows the month but cannot come up with a year) - HEENT HEENT: PERRL, EOMI, Other (She has horizontal nystagmus) - Neck Neck: Supple, no meningeal sign, No bony TTP - Cardiac Cardiac: RRR, No murmur - Respiratory Respiratory: No respiratory distress, Clear bilaterally - Abdomen Abdomen: Normal bowel sounds, Soft, Non tender - Back Back: No CVA TTP, No spinal TTP - Derm Derm: Normal color, Warm and dry - Extremities Extremities: No edema, No calf tenderness / cord - Neuro Neuro: ramp manager 2-12 intact, Normal speech Eye Opening: Spontaneous Motor: Obeys Commands Verbal: Confused GCS Score: 14 - Psych Psych: Normal mood, Normal affect Results - Vitals Vitals: Vital Signs - 24 hr 06/17/17 06/17/17 21:25 22:17 Temperature 36 C L Heart Rate 80 80 Respiratory 16 18 Rate Blood Pressure 126/113 H 155/100 H O2 Saturation 97 96 Oxygen O2 Source [Without Activity] 1L O2 via NC O2 Source Room air - Labs Labs: Laboratory Tests 06/17/17 06/17/17 06/17/17 12:40 21:51 21:51 WBC 7.5 RBC 4.92 Hgb 13.2 Hct 41.5 MCV 84.4 MCH 26.9 L MCHC 31.9 L RDW 16.0 H Plt Count 173 MPV 7.8 L Neut # 5.2 Lymph # 1.6 [place] # 0.5 Eos # 0.2 Baso # 0.0 Absolute Nucleated RBC 0.00 Nucleated RBC % 0.0 Sodium 141 Potassium 4.2 Chloride 102 Carbon Dioxide 31 Anion Gap 8.0 BUN 16 Creatinine 0.6 Estimated GFR (MDRD) 100 Glucose 102 H Lactic Acid Calcium 8.7 Magnesium 2.0 Total Bilirubin 0.5 AST 19 ALT 23 Alkaline Phosphatase 34 L Total Protein 6.5 L Albumin 3.7 Globulin 2.8 Albumin/Globulin Ratio 1.3 Lipase 16 L Urine Color YELLOW Urine Clarity CLEAR Urine pH 7.0 Ur Specific [place] 1.015 Urine Protein NEGATIVE Urine Glucose (UA) NEGATIVE Urine Ketones NEGATIVE Urine Occult Blood NEGATIVE Urine Nitrite NEGATIVE Urine Bilirubin NEGATIVE Urine Urobilinogen 1 (NORMAL) Ur Leukocyte Esterase NEGATIVE Ur Microscopic Review NOT INDICATED Urine Culture Comments NOT INDICATED Last Dose Date 06/16/17 Last Dose Time 1600 Valproic Acid 27.2 Ethyl Alcohol < 5.0 06/17/17 21:51 WBC RBC Hgb Hct MCV MCH MCHC RDW Plt Count MPV Neut # Lymph # [place] # Eos # Baso # Absolute Nucleated RBC Nucleated RBC % Sodium Potassium Chloride Carbon Dioxide Anion Gap BUN Creatinine Estimated GFR (MDRD) Glucose Lactic Acid 1.0 Calcium Magnesium Total Bilirubin AST ALT Alkaline Phosphatase Total Protein Albumin Globulin Albumin/Globulin Ratio Lipase Urine Color Urine Clarity Urine pH Ur Specific [place] Urine Protein Urine Glucose (UA) Urine Ketones Urine Occult Blood Urine Nitrite Urine Bilirubin Urine Urobilinogen Ur Leukocyte Esterase Ur Microscopic Review Urine Culture Comments Last Dose Date Last Dose Time Valproic Acid Ethyl Alcohol PD MEDICAL DECISION MAKING - ED course ED course: 67-year-old woman presents by ambulance with altered mental status, initially billed as being a potential UTI, her urine is clean tonight though. Given everything, I think she is probably altered because of polypharmacy. Looks like her Ativan dose was recently increased and she is still being given it per the MAR despite being fairly altered. She is also on a number of other medications that are sedating, these include: Depakote, Ambien, Seroquel, Soma. I spoke with Sumi Covington on-call for Denny Soriano who knew this patient and says that in the past the patient becomes quite needy when her medications are weaned and she will let Dr. Soriano know that polypharmacy is probably a problem. Spoke with Dr Carlin for obs at 1030pm Departure - Departure Disposition: ED Place in Observation Clinical Impression: Polypharmacy Altered mental status Qualifiers: Altered mental status type: delirium Qualified Code(s): R41.0 - Disorientation , unspecified Condition: Stable
[2017-06-17 21:57] LABS: BILIRUBIN,URINE NEGATIVE (NEGATIVE); GLUCOSE, URINE (UA) NEGATIVE (NEGATIVE); KETONES,URINE (UA) NEGATIVE (NEGATIVE); LEUKOCYTE ESTERASE, URINE NEGATIVE (NEGATIVE); NITRITE,URINE NEGATIVE (NEGATIVE); OCCULT BLOOD,URINE NEGATIVE (NEGATIVE); PROTEIN,URINE NEGATIVE (NEGATIVE); UROBILINOGEN,URINE 1 (NORMAL) E.U./dL (NORMAL)
[2017-06-17 22:02] LABS: CLARITY,URINE CLEAR (CLEAR)
[2017-06-17 22:06] LABS: BASOPHILS % (AUTO) 0.5 %; EOSINOPHILS # (AUTO) 0.2 10^3/uL (0.0-0.7); EOSINOPHILS % (AUTO) 2.3 %; HGB - HEMOGLOBIN 13.2 g/dL (12.0-16.0); LYMPHOCYTES # (AUTO) 1.6 10^3/uL (1.5-3.5); LYMPHOCYTES % (AUTO) 21.4 %; MEAN CORPUSCULAR HEMOGLOBIN 26.9 pg (27.0-31.0); MEAN CORPUSCULAR HGB CONC 31.9 g/dL (32.0-36.0); MEAN CORPUSCULAR VOLUME 84.4 fL (81.0-99.0); MEAN PLATELET VOLUME 7.8 fL (7.9-10.8); MONOCYTES # (AUTO) 0.5 10^3/uL (0.0-1.0); MONOCYTES % (AUTO) 6.4 %; NEUTROPHILS # (AUTO) 5.2 10^3/uL (1.5-6.6); NEUTROPHILS % (AUTO) 69.4 %; PLT - PLATELET COUNT 173 10^3/uL (130-450); RED BLOOD COUNT 4.92 10^6/uL (4.20-5.40); WHITE BLOOD COUNT 7.5 x10^3/uL (4.8-10.8)
[2017-06-17 22:14] LABS: ALBUMIN 3.7 g/dL (3.2-5.5); ALBUMIN/GLOBULIN RATIO 1.3 (1.0-2.2); ALKALINE PHOSPHATASE 34 IU/L (42-121); ALT ALANINE AMINOTRANSFERASE 23 IU/L (10-60); AST ASPARTATE AMINOTRANSFERASE 19 IU/L (10-42); BILIRUBIN,TOTAL 0.5 mg/dL (0.2-1.0); BUN - BLOOD UREA NITROGEN 16 mg/dL (6-20); CALCIUM 8.7 mg/dL (8.5-10.3); CARBON DIOXIDE - CO2 31 mmol/L (21-32); CHLORIDE 102 mmol/L (101-111); CREATININE 0.6 mg/dL (0.4-1.0); GFR - MDRD 100 (>89); GLUCOSE 102 mg/dL (70-100); LIPASE 16 U/L (22-51); SODIUM 141 mmol/L (135-145); TOTAL PROTEIN 6.5 g/dL (6.7-8.2); VALPROIC ACID (DEPAKOTE) 27.2 ug/mL
--- NOTE | 2017-06-17 22:23 | XRAY Report ---
EXAM: CHEST RADIOGRAPHY EXAM DATE: 06/17/2017 10:11 PM. CLINICAL HISTORY: Altered mental status COMPARISON: Chest 05/28/2017. TECHNIQUE: 1 view. FINDINGS: Lungs/Pleura: No focal opacities evident. No pleural effusion. No pneumothorax. Underpenetration of t he bilateral mid and lower lungs at the lateral aspects, appears similar compared to the prior. A lat eral view could further evaluate as clinically indicated. No definite acute findings seen. Mediastinum: Within exam limitations, the cardiomediastinal contour is normal. Other: Bilateral breast surgical clips again noted. IMPRESSION: Underpenetration of the bilateral mid and lower lungs at the lateral aspects, appears sim ilar compared to the prior. A lateral view could further evaluate as clinically indicated. No definit e acute findings seen. [facility] Referring Provider Line: [phone] SITE ID: [id number]
--- NOTE | 2017-06-17 22:23 | XRAY Preliminary Report ---
Exam: XR CHEST 1 VIEW X-RAY IMPRESSION: Underpenetration of the bilateral mid and lower lungs at the lateral aspects, appears sim ilar compared to the prior. A lateral view could further evaluate as clinically indicated. No definit e acute findings seen. [facility] SITE ID: [id number]
--- NOTE | 2017-06-17 22:32 | CT Preliminary Report ---
Exam: CT HEAD W/O IMPRESSION: No acute intra-cranial process. [facility] SITE ID: [id number]
--- NOTE | 2017-06-17 22:33 | CT Report ---
EXAM: CT HEAD EXAM DATE: 06/17/2017 10:11 PM. CLINICAL HISTORY: Decreased mental status COMPARISON: None. TECHNIQUE: Multiaxial CT images were obtained from the foramen magnum to the vertex. Reformats: Coron al. IV contrast: None. In accordance with CT protocol optimization, one or more of the following dose reduction techniques w ere utilized for this exam: automated exposure control, adjustment of mA and/or KV based on patient s ize, or use of iterative reconstructive technique. FINDINGS: Parenchyma: No intraparenchymal hemorrhage. No evidence of mass, midline shift, or CT findings of inf arction. There are several foci of low density involving the white matter bilateral cerebral hemisphe res. Extraaxial Spaces: Normal for age. No subdural or epidural collections identified. Ventricles: Mild enlargement of lateral and third ventricles. No mass effect. No midline shift. Sinuses and Orbits: Imaged paranasal sinuses, orbits, and mastoids show no significant abnormality. Bones: No evidence of fracture or calvarial defect. Other: None. IMPRESSION: No acute intra-cranial process. [facility] Referring Provider Line: [phone] SITE ID: [id number]
[2017-06-17] MEDS ORDERED: SODIUM CHLORIDE FLUSH 0.9% 10 ML SYRINGE IVP PRN (23:18)
[2017-06-17] MEDS ORDERED: IBUPROFEN 800 MG TABLET PO PRN (23:21)
[2017-06-17] MEDS ORDERED: DOCUSATE SODIUM 100 MG CAPSULE PO PRN (23:21)
[2017-06-17] MEDS ORDERED: SUMAtriptan 25 MG TABLET PO PRN (23:21)
[2017-06-17] MEDS ORDERED: ALBUTEROL 6.7 GM INHALER INH PRN (23:21)
[2017-06-17] MEDS ORDERED: levETIRAcetam 250 MG TABLET PO SCH (23:45)
[2017-06-17] MEDS ORDERED: D5NS W/20 MEQ KCL 1,000 ML IV SCH (23:45)
[2017-06-18] MEDS ORDERED: LORazepam 0.5 MG TABLET PO PRN (00:06)
[2017-06-18] MEDS: SODIUM CHLORIDE FLUSH 0.9% 10 ML SYRINGE IVP SCH ×2 (01:31→08:20)
--- NOTE | 2017-06-18 01:43 | HISTORY & PHYSICAL EXAMINATION ---
DATE OF SERVICE: 06/17/2017 Physician: Jessica Mario MD HISTORY OF PRESENT ILLNESS: This is a 67-year-old white female who lives at [facility]. She has a history of COPD, bipolar disorder, headaches, arthritis, seizure disorder and hypertension. The patient was recently here 2 weeks ago for a COPD exacerbation. The patient was recently started on Macrodantin for a UTI. The patient was sent from [facility] by staff because of altered mental status, lethargy and confusion and not walking around normally. In the emergency room, the history was limited, as well as to me, because of her disorientation. In the past, she has also been noted to be a poor historian and maybe even confabulates. The emergency room doctor reached out to her providers who stated that the patient keeps requesting anxiolytics and her doses of Ativan keep getting increased despite prior consultations with her psychiatrist to get her on proper doses in order to prevent oversedation. The patient denies any pain anywhere and does not appear short of breath. PAST MEDICAL HISTORY 1. Hypertension. 2. COPD. 3. Migraines. 4. Bipolar disorder. 5. Seizure disorder. 6. Recent UTI. 7. Breast implants. 8. Cholecystectomy. 9. Prior gastric surgery. ALLERGIES 1. LIDOCAINE. 2. DIPHENHYDRAMINE. MEDICATIONS 1. Soma 350 mg q.i.d. p.r.n. 2. Vitamin D3 1000 units daily. 3. Vitamin B12 1000 mcg IM monthly. 4. Ginkgo biloba leaf orally daily. 5. Mucinex 600 p.o. b.i.d. p.r.n. cough. 6. Robitussin-AC liquid p.r.n. cough. 7. Claritin 10 mg p.o. daily. 8. Lorazepam 2 mg p.o. every 8 hours scheduled, not p.r.n. 9. Lysine unknown dose daily. 10. [place] 3 fish oil 1000 mg b.i.d. 11. Ambien 10 mg every evening. 12. Acetylcysteine 1500 mg orally daily. 13. Albuterol inhaler. 14. Ipratropium/albuterol sulfate inhaler. 15. Amlodipine 5 mg p.o. daily. 16. Aspirin 81 mg p.o. daily. 17. Depakote 250 mg in the a.m. and 500 mg in the p.m. 18. Keppra 250 mg in the a.m. and 500 mg in the p.m. 19. Colace 100 mg b.i.d. 20. Iron 325 mg b.i.d. 21. Motrin 800 mg every 8 hours p.r.n. pain. 22. Nitrofurantoin 100 mg p.o. b.i.d., which was recently started. 23. Seroquel 300 mg p.o. every evening. 24. Senokot b.i.d. 25. Imitrex 50 mg b.i.d. 26. Effexor ER 225 mg daily. FAMILY HISTORY: No inherited diseases (from review of old charts). SOCIAL HISTORY: Ex-smoker. No alcohol use. No illicit drug use. Lives at [facility]. REVIEW OF SYSTEMS: A comprehensive review of systems was attempted and is documented above. PHYSICAL EXAMINATION GENERAL: A white female who is lethargic but awakens and is appropriate, but falls back asleep. VITAL SIGNS: Blood pressure 126/100. Pulse is 80 in sinus rhythm. Afebrile , 97 % on room air saturation. HEENT: Unremarkable with moist oral mucosa. NECK: Without JVD or carotid bruits. CHEST: Clear. HEART: Sounds normal. ABDOMEN: Soft. EXTREMITIES: No clubbing, cyanosis or edema. NEUROLOGIC: Intact except her somnolence and disorientation. HEAD CT: Unremarkable. CHEST X-RAY: No opacities. LABS: Normal electrolytes. Normal BUN and creatinine. Normal lactic acid. Normal liver tests. Normal lipase. Normal CBC. Urine without leukocyte esterase or ketones and toxicology showed a valproic acid level present and no alcohol. IMPRESSION 1. Altered mental status/disorientation, which is possibly from polypharmacy, using sedatives and anxiolytics and seizure medications. 2. Polypharmacy 3. Recent partially treated urinary tract infection. 4. Chronic obstructive pulmonary disease history with recent exacerbation. 5. Bipolar disorder, on treatment. 6. History of seizures, on 2 medications. 7. Hypertension with poor control. PLAN: Place the patient in Observation status. Decrease her frequency of Ativan use, and the other anxiolytics and sedatives. Continue with her seizure medication, UTI medication, bipolar and hypertensive medications. She may be too somnolent to eat, start low dose IV for hydration. DEEP VENOUS THROMBOSIS PROPHYLAXIS: Sequential compression devices. CODE STATUS: FULL CODE. ATTESTATION: The patient is expected to be discharged or transferred to another facility within 96 hours: Yes. TD: 06/18/2017 01:42 MTDMarty
[2017-06-18] MEDS ORDERED: ALBUTEROL NEB 2.5 MG/3 ML INH PRN (07:15)
[2017-06-18] MEDS: IPRATROPIUM/ALBUTEROL 3 ML NEB INH SCH ×2 (07:31→11:15)
[2017-06-18 07:44] VITALS: BP 127/73
[2017-06-18] MEDS ORDERED: SENNA 8.6 MG TABLET PO SCH (09:00)
[2017-06-18] MEDS ORDERED: POLYETHYLENE GLYCOL 3350 17 GM PACKET PO SCH (09:00)
[2017-06-18] MEDS ORDERED: ACETYLCYSTEINE 500 MG PO SCH (09:00)
[2017-06-18] MEDS ORDERED: IPRATROPIUM/ALBUTEROL 3 ML NEB INH SCH (09:00)
[2017-06-18] MEDS ORDERED: ASPIRIN CHEW 81 MG TABLET PO SCH (09:00)
[2017-06-18] MEDS ORDERED: NITROFURANTOIN MACRO 100 MG CAPSULE PO SCH (09:00)
[2017-06-18] MEDS ORDERED: DIVALPROEX DR 250 MG TABLET PO SCH ×2 (09:00→21:00)
[2017-06-18] MEDS ORDERED: levETIRAcetam 250 MG TABLET PO SCH (09:00)
[2017-06-18] MEDS ORDERED: FERROUS SULFATE 325 MG TABLET PO SCH (09:00)
[2017-06-18] MEDS ORDERED: VENLAFAXINE ER 75 MG CAPSULE PO SCH (09:00)
[2017-06-18] MEDS ORDERED: TIOTROPIUM INHALER INH SCH (09:00)
[2017-06-18] MEDS ORDERED: amLODIPine 5 MG TABLET PO SCH (09:00)
--- NOTE | 2017-06-18 10:37 | Discharge Plan ---
"Discharge Plan for SNF / [facility] - DC Plan and Transition Orders Disposition: 01 Home, Self Care Condition: Stable SNF Transition Orders: Admit to: [Facility] under the care of [Doctor Name] Discharge Diagnosis: [] Medicare Certification: I certify that [facility] residential care is medically necessary on a continuing basis for any of the conditions for which she/he is receiving care during hospitalization. Notify PCP of admission and forward orders to primary provider for signature. Weight on admission and [Daily/Weekly/Monthly]. Call PCP immediately if weight increases by [Number] pounds or if patient develops dyspnea, chest pain/ tightness or edema. House Bowel Program: [Yes/No] If no BM after 2 days, nurse may give M.O.M. 30ml PO PRN and /or ducolax Supp 1 [place] and /or JEN 250mg P.O., and/or senna 1-2 tabs PO. On day 3 nurse may give repeat above order until residents constipation is resolved. Immunizations: Annual Influenza Vaccine: [Yes/No]. (between Nov 06 and June 05.) Unless allergy or already given Two-Step PPD: [Yes/No] per [facility] [id number] or appropriate documentation of approved exceptions Treatments & Other Orders: [] Oxygen Orders: [] Lab Tests or X-Rays Orders: [] Orthopedic Orders: [Remove Sutures/Taylor and Comment]. Medications: PLEASE REFER TO THE DISCHARGE MEDICATION LIST. Insulin Orders? [Yes/No] Diagnosis: Diabetes Initiate hypo and hyperglycemia protocols for BG <70 and BG >375. May check BG prn for signs/symptoms of dysglycemia. Frequency of BG checks: [AC/Meal/HS] Basal Insulin: [] Lantus 100 units / ml inject subq as follows: [] [] Other: [] Correction Insulin: - Select the type of insulin below [Choose: Novolog/Humalog]100 units /ml insulin inject subq per orders indicate below [] LOW DOSE [] MODERATE DOSE [] MODERATE/HIGH DOSE [] HIGH DOSE GB UNITS GB UNITS GB UNITS GB UNITS 61-140 0 UNITS 61-140 0 UNITS 61-140 0 UNITS 61-140 0 UNITS 141-175 1 UNITS 141-175 1 UNITS 141-175 2 UNITS 141-175 3 UNITS 176-225 2 UNITS 176-225 3 UNITS 176-225 4 UNITS 176-225 5 UNITS 226-275 3 UNITS 226-275 5 UNITS 226-275 6 UNITS 226-275 7 UNITS 276-325 4 UNITS 276-325 7 UNITS 276-325 8 UNITS 276-325 9 UNITS 326-375 5 UNITS 326-375 9 UNITS 326-375 10 UNITS 326-375 11 UNITS >375 CONTACT MD >375 CONTACT MD >375 CONTACT MD >375 CONTACT MD Custom Dosing: [Choose: None/Novolog/Humalog] 100 units/ml Insulin inject subq as follows: GB Units 61-140 [] Units 141-175 [] Units 176-225 [] Units 226-275 [] Units 276-325 []Units 326-375 [] Units >375 Contact MD Allergies and Adverse Reactions: Allergies Allergy/AdvReac Type Severity Reaction Status Date / Time lidocaine Allergy Mild Itching Verified 06/12/17 22:04 diphenhydramine Allergy Unknown Verified 06/17/17 21:28 [From Benadryl] - Medications New Prescriptions: LORazepam [Ativan] 0.5 mg PO Q6H PRN #20 tablet PRN Reason: Anxiety Nitrofurantoin [Macrobid] 100 mg PO BID 5 Days #10 capsule - Diet Type: Geriatric Texture: Regular Liquids: Thin May have monthly special meal: Yes - Therapies | Activity Rehabilitation Potential: Maximize functional status Activity: Activity as Tolerated Weight Bearing: Full Weight Additional Instructions: The patient was brought to the [facility] emergency department oversedated with polypharmacy. Strongly recommend stopping Soma, and reducing her Lorazepam dose to 0.5 mg every 6 hours as needed only. Follow Up: Follow-up with Dr. Soriano next week."
--- NOTE | 2017-06-18 14:29 | DISCHARGE SUMMARY ---
Discharge Summary Admit Date: 06/17/17 Discharge Date: 06/18/17 Discharging Provider: Tyesha Castro DO Primary Care Provider: Denny Soriano MD Code Status: Attempt Resuscitation Condition at Discharge: Stable Discharge Disposition: 01 Home, Self Care Discharge Facility Name: [facility] diana Betancur - DIAGNOSES Admission Diagnoses: 1. Altered mental status, secondary to polypharmacy and overuse of anxiolytics. 2. Polypharmacy 3. Recent partially treated urinary tract infection 4. Chronic obstructive pulmonary disease with recent exacerbation 5. Bipolar disorder, on medications 6. History of seizures, on medications for control 7. Hypertension with poor control Discharge Diagnoses with Status of Each Condition: 1. Altered mental status, secondary to polypharmacy and overuse of anxiolytics. The patient woke up this morning back to her baseline. I strongly recommend that the patient has her outpatient Ativan dose reduced from 2mg TID to 1/2 mg every 4-6 hours as needed for anxiety. 2. Polypharmacy. Recommend the above-noted charges changes to the patient's Ativan regimen. Recommend patient stop her Soma. 3. Recent partially treated urinary tract infection- No evidence of UTI at this time. 4. Chronic obstructive pulmonary disease with recent exacerbation-The patient is breathing easily and does not appear to be experiencing an exacerbation of her COPD. 5. Bipolar disorder, on medications- Well-managed, continue present care 6. History of seizures, on medications for control -Well-managed, continue present care 7. Hypertension with poor control- Blood pressure is fairly well controlled at this time, most recent reading 127/73 - HPI History of Present Illness: From Dr Hoang's H&P: The patient is a 67-year-old white female who lives at [facility]. She has a history of COPD, bipolar disorder, headaches, arthritis, associated disorder, and hypertension. The patient was recently here 2 weeks ago for a COPD exacerbation. The patient was recently started on Macrodantin for a UTI. Patient was sent from [facility] by staff because of altered mental status, lethargy and confusion, and not walking around normally. The emergency room, the patient was unable to provide a thorough history. In the past she has been able to make some wants and needs known but is always been a poor historian. She has a history of confabulating. She became very lethargic at the facility and so was sent over for evaluation and treatment. - HOSPITAL COURSE Hospital Course: The patient came to the [facility] emergency department last night and was lethargic. It was not felt that she was stable to be discharged due to her lethargy. She was admitted to a telemetry bed and this morning she has "slept it off" she appears to be comfortable she is not lethargic she is able answer simple questions and make her wants and needs known.Since she is back to her baseline she will be discharged home. - ALLERGIES Allergies/Adverse Reactions: Allergies Allergy/AdvReac Type Severity Reaction Status Date / Time lidocaine Allergy Mild Itching Verified 06/12/17 22:04 diphenhydramine Allergy Unknown Verified 06/17/17 21:28 [From Benadryl] - MEDICATIONS Home Medications: Ambulatory Orders Medication Instructions Recorded Confirmed Albuterol Sulfate [Proair Hfa 2 puffs INH Q4H PRN 12/27/15 06/18/17 Inhaler] Carisoprodol [Soma] 350 mg PO Q6H PRN 12/27/15 06/18/17 LORazepam [Lorazepam] 2 mg PO TID 12/27/15 06/18/17 Loratadine [Claritin] 10 mg PO DAILY PRN 12/27/15 06/18/17 Quetiapine Fumarate [Seroquel] 300 mg PO QPM 12/27/15 06/18/17 Sumatriptan Succinate [Imitrex] 50 mg PO BID PRN 12/27/15 06/18/17 Venlafaxine ER [Effexor ER] 225 mg PO DAILY 12/27/15 06/18/17 Aspirin 81 mg PO DAILY 03/11/16 06/18/17 Docusate Sodium [Stool Softener] 100 mg PO BID PRN 03/11/16 06/18/17 amLODIPine [Norvasc] 10 mg PO DAILY 03/11/16 06/18/17 Ferrous Sulfate 325 mg PO BID #60 tablet 03/12/16 06/18/17 Cholecalciferol (Vitamin D3) 1,000 unit PO DAILY 05/18/17 06/18/17 [Vitamin D3] Cyanocobalamin [Vitamin B-12] 1,000 mcg IM Q30D 05/18/17 06/18/17 Divalproex [Ayad Rivera] 500 mg PO QPM 05/18/17 06/18/17 Ginkgo Biloba [place] Extract [Ginkgo 120 mg PO DAILY 05/18/17 06/18/17 Biloba] Guaifenesin [Mucinex] 600 mg PO BID PRN 05/18/17 06/18/17 Ibuprofen [Motrin] 800 mg PO Q8H PRN 05/18/17 06/18/17 Thicket-3 Fatty Acids/Fish Oil 1,000 mg PO BID 05/18/17 06/18/17 [Thicket-3 Fish Oil 1,000 mg Sfgl] Senna [Senokot] 8.6 mg PO BID PRN 05/18/17 06/18/17 Tiotropium [place] [Spiriva] 1 puffs INH DAILY 05/18/17 06/18/17 Zolpidem Tartrate [Ambien] 10 mg PO QPM 05/18/17 06/18/17 levETIRAcetam [Keppra] 500 mg PO DAILY PM 05/18/17 06/18/17 Divalproex [Ayad Rivera] 250 mg PO DAILY tablet 05/21/17 06/18/17 Ipratropium/Albuterol Sulfate 3 ml IH QID 05/28/17 06/18/17 [Iprat-Albut 0.5-3(2.5) mg/3 ml] levETIRAcetam [Keppra] 250 mg PO DAILY 05/28/17 06/18/17 guaiFENesin/CODEINE [Robitussin AC] 5 ml PO Q4H PRN #100 udc 06/02/17 06/18/17 Lysine HCl 400 mg PO DAILY 06/17/17 06/18/17 Acetylcarnitine [Cyto Carn] 1,500 mg PO TID 06/18/17 06/18/17 LORazepam [Ativan] 0.5 mg PO Q6H PRN #20 tablet 06/18/17 Nitrofurantoin [Macrobid] 100 mg PO BID 5 Days #10 capsule 06/18/17 - PHYSICAL EXAM AT DISCHARGE General Appearance: positive: No acute distress, Alert Eyes Bilateral: positive: Normal inspection, PERRL, EOMI, No lid inflammation, Conjunctivae nml, No scleral icterus ENT: positive: ENT inspection nml, Pharynx nml, No signs of dehydration Neck: positive: Nml inspection, Thyroid nml, No JVD, Trachea midline. negative : Thyromegaly Respiratory: positive: Chest non-tender, No respiratory distress, Breath sounds nml. negative: Wheezes, Rales, Rhonchi Cardiovascular: positive: Regular rate & rhythm, No murmur, No gallop Peripheral Pulses: positive: 1+ Abdomen: positive: Non-tender, No organomegaly, Nml bowel sounds, No distention. negative: Guarding, Rebound Back: positive: Nml inspection. negative: CVA tenderness (R), CVA tenderness (L ) Skin: positive: Color nml, No rash, Warm, Dry. negative: Cyanosis Extremities: positive: Non-tender, Full ROM, Nml appearance, No pedal edema Neurologic/Psychiatric: positive: Oriented x3, CN's nml (2-12), Motor nml, Sensation nml, Mood/affect nml - LABS Result Diagrams: 06/17/17 21:51 06/17/17 21:51 - FOLLOW UP Follow Up: With Dr. Soriano next week - TIME SPENT Time Spent in Discharge (Minutes): 40
[2017-06-18] MEDS ORDERED: QUEtiapine 100 MG TABLET PO SCH (21:00)
== END 2017-06-18 12:13 | disposition home or self-care (01) ==
LOC: EDUNIT# → EDBD → ED 21:17 → MS2 23:18
PROVIDERS: ADMIT Internal Medicine; ATTEND Hospitalist
DX: R41.82 Altered mental status, unspecified (principal); T42.4X5A Adverse effect of benzodiazepines, initial encounter; T42.8X5A Adverse effect of antiparkinsonism drugs and other central muscle-tone depressants, initial encounter; N39.0 Urinary tract infection, site not specified; J44.9 Chronic obstructive pulmonary disease, unspecified; F31.9 Bipolar disorder, unspecified; R56.9 Unspecified convulsions; I10 Essential (primary) hypertension; F41.9 Anxiety disorder, unspecified; G43.909 Migraine, unspecified, not intractable, without status migrainosus; M19.90 Unspecified osteoarthritis, unspecified site; Y92.099 Unspecified place in other non-institutional residence as the place of occurrence of the external cause; Z79.51 Long term (current) use of inhaled steroids; Z79.82 Long term (current) use of aspirin; Z79.899 Other long term (current) drug therapy; Z66 Do not resuscitate
CPT/HCPCS: 51701; 70450; 71045; 80053; 80164; 81003; 83605; 83690; 83735; 85025; 87040; 94640; 96361; 99284; 99285; A9270; G0378; G0480; 80320; 81001; 87086; 96365; 96366

== ENCOUNTER 2017-10-14 02:22 | Outpatient (CLI) | payer MEDICARE, OTHER | END 2017-10-14 02:23 | disposition critical access hospital (66) | LOC: EMS 02:22 | PROVIDERS: ATTEND Surgery | DX: S99.911A Unspecified injury of right ankle, initial encounter (principal); W06.XXXA Fall from bed, initial encounter; Y92.092 Bedroom in other non-institutional residence as the place of occurrence of the external cause | CPT/HCPCS: A0425; A0429 ==

== ENCOUNTER 2017-10-14 02:36 | Inpatient (IN) | payer MEDICARE, OTHER ==
--- NOTE | 2017-10-14 02:46 | ED Physician Documentation ---
PD HPI LOWER EXT INJURY - Stated complaint Stated Complaint: ANKLE INJURY - History obtained from History obtained from: Patient, EMS - History of Present Illness PD HPI LOW EXT INJURY LOCATION: Right, Lower leg, Ankle Type of injury: Fall (getting up from chair to go to the bathroom, lost footing and twisted ankle, fell. Denies injury to head/chest/abdomen. Injury is right ankle. 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 No: Weakness, Numbness Contributing factors: No: Anticoagulated Similar symptoms before: Has not had sx before Review of Systems Constitutional: denies: Fever Nose: denies: Rhinorrhea / runny nose, Congestion Throat: denies: Sore throat Cardiac: denies: Chest pain / pressure Respiratory: denies: Dyspnea, Cough GI: denies: Abdominal Pain, Vomiting, Diarrhea Skin: reports: Abrasion (s) (dorsum of foot). denies: Laceration (s) Neurologic: reports: Generalized weakness. 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: Breast implants HEENT: Tonsil/Adenoidectomy - Present Medications Home Medications: Ambulatory Orders Medication Instructions Recorded Confirmed Albuterol Sulfate [Proair Hfa 2 puffs INH Q4H PRN 12/27/15 06/18/17 Inhaler] Carisoprodol [Soma] 350 mg PO Q6H PRN 12/27/15 06/18/17 LORazepam [Lorazepam] 2 mg PO TID 12/27/15 06/18/17 Loratadine [Claritin] 10 mg PO DAILY PRN 12/27/15 06/18/17 Quetiapine Fumarate [Seroquel] 300 mg PO QPM 12/27/15 06/18/17 Sumatriptan Succinate [Imitrex] 50 mg PO BID PRN 12/27/15 06/18/17 Venlafaxine ER [Effexor ER] 225 mg PO DAILY 12/27/15 06/18/17 Aspirin 81 mg PO DAILY 03/11/16 06/18/17 Docusate Sodium [Stool Softener] 100 mg PO BID PRN 03/11/16 06/18/17 amLODIPine [Norvasc] 10 mg PO DAILY 03/11/16 06/18/17 Ferrous Sulfate 325 mg PO BID #60 tablet 03/12/16 06/18/17 Cholecalciferol (Vitamin D3) 1,000 unit PO DAILY 05/18/17 06/18/17 [Vitamin D3] Cyanocobalamin [Vitamin B-12] 1,000 mcg IM Q30D 05/18/17 06/18/17 Divalproandrey Rivera [Ayad Rivera] 500 mg PO QPM 05/18/17 06/18/17 Ginkgo Biloba [place] Extract [Ginkgo 120 mg PO DAILY 05/18/17 06/18/17 Biloba] Guaifenesin [Mucinex] 600 mg PO BID PRN 05/18/17 06/18/17 Ibuprofen [Motrin] 800 mg PO Q8H PRN 05/18/17 06/18/17 [place]ner-3 Fatty Acids/Fish Oil 1,000 mg PO BID 05/18/17 06/18/17 [Tyner-3 Fish Oil 1,000 mg Sfgl] Senna [Senokot] 8.6 mg PO BID PRN 05/18/17 06/18/17 Tiotropium [place] [Spiriva] 1 puffs INH DAILY 05/18/17 06/18/17 Zolpidem Tartrate [Ambien] 10 mg PO QPM 05/18/17 06/18/17 levETIRAcetam [Keppra] 500 mg PO DAILY PM 05/18/17 06/18/17 Divalproex [Ayda Rivera] 250 mg PO DAILY tablet 05/21/17 06/18/17 Ipratropium/Albuterol Sulfate 3 ml IH QID 05/28/17 06/18/17 [Iprat-Albut 0.5-3(2.5) mg/3 ml] levETIRAcetam [Keppra] 250 mg PO DAILY 05/28/17 06/18/17 guaiFENesin/CODEINE [Robitussin AC] 5 ml PO Q4H PRN #100 udc 06/02/17 06/18/17 Lysine HCl 400 mg PO DAILY 06/17/17 06/18/17 Acetylcarnitine [Cyto Carn] 1,500 mg PO TID 06/18/17 06/18/17 LORazepam [Ativan] 0.5 mg PO Q6H PRN #20 tablet 06/18/17 Nitrofurantoin [Macrobid] 100 mg PO BID 5 Days #10 capsule 06/18/17 - Allergies Allergies/Adverse Reactions: Allergies Allergy/AdvReac Type Severity Reaction Status Date / Time lidocaine Allergy Mild Itching Verified 06/12/17 22:04 diphenhydramine Allergy Unknown Verified 06/17/17 21:28 [From Benadryl] - Living Situation Living Situation: reports: Alone Living Arrangement: reports: Assisted living - Social History Does the pt smoke?: No Smoking Status: Never smoker Does the pt drink ETOH?: No Does the pt have substance abuse?: No - Immunizations Immunizations are current?: Yes - POLST Patient has POLST: Yes POLST Status: DNR PD ED PE NORMAL - Vitals Vital signs reviewed: Yes - General General: No acute distress, Well developed/nourished, Other (sleepy/drowsy, but rousable to tactile and verbal. ) - HEENT HEENT: Atraumatic, Moist mucous membranes, Pharynx benign - Neck Neck: Supple, no meningeal sign, No bony TTP, No adenopathy - Cardiac Cardiac: RRR, No murmur - Respiratory Respiratory: Clear bilaterally, Other (no chestwall tenderness) - Abdomen Abdomen: Soft, Non tender - Back Back: No CVA TTP, No spinal TTP - Derm Derm: Normal color, Warm and dry - Extremities Extremities: Other (right knee with slight tenderness but no effusion. Right ankle with mild swelling and tenderness medial and laterally. Pain with ROM even slight. Good color and cap refill distally. ) - Neuro Neuro: No motor deficit, No sensory deficit, Normal speech Eye Opening: To Voice Motor: Obeys Commands Verbal: Oriented GCS Score: 14 Results - Vitals Vitals: Vital Signs - 24 hr 10/14/17 02:45 Temperature 36.2 C L Heart Rate 82 Respiratory 14 Rate Blood Pressure 110/77 O2 Saturation 94 Oxygen O2 Source [Without Activity] 1L O2 via NC O2 Source Room air - Rads (name of study) right ankle Radiology: Prelim report reviewed, EMP read contemporaneously (bimalleolar fracture with partial dislocation. ) right knee Radiology: Prelim report reviewed (no fractures. ) Procedures - Splint (location) right ankle Splint applied by: Physician Type of splint: Fiberglass, Posterior, Stirrup Other: Patient tolerated well (mild traction forward done prior to splint application for better alignment.), No complications, Neurovascular intact, Good alignment PD MEDICAL DECISION MAKING - ED course Complexity details: reviewed results (bimalleolar fracture partial dislocation.) , considered differential, d/w patient, d/w food consultant (Dr. Durand, ortho - who defers to Hospitalist for the admission, but will surgically repair the ankle.) , other (s/w Dr. Villarreal, hospitalist, for admission/care of patient. ) - Sepsis Event Vital Signs: Vital Signs - 24 hr 10/14/17 02:45 Temperature 36.2 C L Heart Rate 82 Respiratory 14 Rate Blood Pressure 110/77 O2 Saturation 94 Oxygen O2 Source [Without Activity] 1L O2 via NC O2 Source Room air Departure - Departure Disposition: 66 [facility] DC/Xfer Clinical Impression: Fall from slip, trip, or stumble Qualifiers: Encounter type: initial encounter Qualified Code(s): W01.0XXA - Fall on same level from slipping, tripping and stumbling without subsequent striking against object, initial encounter Bimalleolar ankle fracture Qualifiers: Encounter type: initial encounter Fracture type: closed Laterality: right Qualified Code(s): S82.841A - Displaced bimalleolar fracture of right lower leg , initial encounter for closed fracture Condition: Stable Record reviewed to determine appropriate education?: Yes
[2017-10-14] MEDS ORDERED: ACETAMINOPHEN 325 MG TABLET PO STA (03:28)
[2017-10-14] MEDS ORDERED: ONDANSETRON 4 MG/2 ML VIAL IVP PRN (04:09)
--- NOTE | 2017-10-14 04:10 | XRAY Report ---
Procedure Date: 10/14/2017 Accession Number: [id number] / [id number] Procedure: XR - Knee 3 View RT CPT Code: FULL RESULT: EXAM: RIGHT KNEE RADIOGRAPHY EXAM DATE: 10/14/2017 03:41 AM. CLINICAL HISTORY: Fall tonight. COMPARISON: KNEE 2 VIEW LT 06/12/2017. TECHNIQUE: 3 views. FINDINGS: Bones: No acute displaced fracture or suspicious lesion demonstrated at this time. Bones are osteopenic. Joints: No dislocation. No significant effusion. There is moderate tricompartmental degenerative change about the knee. Soft Tissues: No significant soft tissue swelling. IMPRESSION: No acute osseous abnormality demonstrated. RADIA
--- NOTE | 2017-10-14 04:12 | XRAY Report ---
Procedure Date: 10/14/2017 Accession Number: [id number] / [id number] Procedure: XR - Ankle 3 View RT CPT Code: FULL RESULT: EXAM: RIGHT ANKLE RADIOGRAPHY EXAM DATE: 10/14/2017 03:40 AM. CLINICAL HISTORY: Fall tonight. COMPARISON: None. TECHNIQUE: 3 views. FINDINGS: Bones: Unstable ankle fracture. There is a transverse medial malleolus fracture with moderate lateral displacement. Subtle nondisplaced posterior malleolus fracture. Comminuted distal fibular shaft fracture is present, just proximal to the tibiofibular syndesmosis, approximately 2 cm proximal. Disruption of the tibiofibular syndesmosis distally is present. Small plantar calcaneal spur present. Equivocal nondisplaced fracture at the base of the fifth metatarsal versus artifact from an old injury. Joints: Disruption of the ankle mortise. Soft Tissues: Moderate localized soft tissue swelling. IMPRESSION: 1. Unstable ankle fracture as described above. 2. Artifact versus a subtle nondisplaced fracture at the base of the fifth metatarsal. Further assessment recommended with a dedicated foot radiograph series. RADIA
[2017-10-14 04:47] LABS: BASOPHILS % (AUTO) 0.6 %; EOSINOPHILS # (AUTO) 0.1 10^3/uL (0.0-0.7); EOSINOPHILS % (AUTO) 1.6 %; HGB - HEMOGLOBIN 13.3 g/dL (12.0-16.0); LYMPHOCYTES # (AUTO) 1.7 10^3/uL (1.5-3.5); LYMPHOCYTES % (AUTO) 28.3 %; MEAN CORPUSCULAR HEMOGLOBIN 27.1 pg (27.0-31.0); MEAN CORPUSCULAR HGB CONC 33.4 g/dL (32.0-36.0); MEAN CORPUSCULAR VOLUME 81.1 fL (81.0-99.0); MEAN PLATELET VOLUME 8.1 fL (7.9-10.8); MONOCYTES # (AUTO) 0.3 10^3/uL (0.0-1.0); MONOCYTES % (AUTO) 4.7 %; NEUTROPHILS # (AUTO) 3.9 10^3/uL (1.5-6.6); NEUTROPHILS % (AUTO) 64.8 %; PLT - PLATELET COUNT 196 10^3/uL (130-450)
[2017-10-14 04:53] LABS: ALBUMIN 3.4 g/dL (3.2-5.5); ALBUMIN/GLOBULIN RATIO 1.1 (1.0-2.2); ALKALINE PHOSPHATASE 43 IU/L (42-121); ALT ALANINE AMINOTRANSFERASE 44 IU/L (10-60); AST ASPARTATE AMINOTRANSFERASE 54 IU/L (10-42); BILIRUBIN,TOTAL 0.3 mg/dL (0.2-1.0); BUN - BLOOD UREA NITROGEN 13 mg/dL (6-20); CALCIUM 8.5 mg/dL (8.5-10.3); CARBON DIOXIDE - CO2 26 mmol/L (21-32); CHLORIDE 97 mmol/L (101-111); CREATININE 0.5 mg/dL (0.4-1.0); GFR - MDRD 123 (>89); GLUCOSE 113 mg/dL (70-100); LIPASE 26 U/L (22-51); MAGNESIUM 1.9 mg/dL (1.7-2.8); SODIUM 137 mmol/L (135-145); TOTAL PROTEIN 6.4 g/dL (6.7-8.2); VALPROIC ACID (DEPAKOTE) 66.4 ug/mL
[2017-10-14 05:08] LABS: INR 1.2 (0.8-1.2); PT - PROTHROMBIN TIME 13.6 secs (9.9-12.6)
--- NOTE | 2017-10-14 05:22 | XRAY Report ---
Procedure Date: 10/14/2017 Accession Number: [id number] / [id number] Procedure: XR - Ankle 2 View RT CPT Code: FULL RESULT: EXAMS: RIGHT FOOT AND ANKLE RADIOGRAPHY EXAM DATE: 10/14/2017 04:57 AM. CLINICAL HISTORY: Postreduction. COMPARISON: ANKLE 3 VIEW RT 10/14/2017, FOOT 2 VIEW RT 10/14/2017 4:44 AM. TECHNIQUE: 2 views each foot and ankle. FINDINGS IMPRESSION: 1. Presence of cast obscures bony detail. 2. Alignment of the unstable ankle fracture is significantly improved, near-anatomic in appearance. 3. There is a suspected subtle abnormality at the base of the fifth metatarsal, possibly an avulsion fracture at the base of the fifth metatarsal. Due to the cast, this is difficult to identify with certainty. 4. At least mild first MTP degenerative joint disease. RADIA
--- NOTE | 2017-10-14 05:22 | XRAY Report ---
Procedure Date: 10/14/2017 Accession Number: [id number] / [id number] Procedure: XR - Foot 2 View RT CPT Code: FULL RESULT: EXAMS: RIGHT FOOT AND ANKLE RADIOGRAPHY EXAM DATE: 10/14/2017 04:57 AM. CLINICAL HISTORY: Postreduction. COMPARISON: ANKLE 3 VIEW RT 10/14/2017, FOOT 2 VIEW RT 10/14/2017 4:44 AM. TECHNIQUE: 2 views each foot and ankle. FINDINGS IMPRESSION: 1. Presence of cast obscures bony detail. 2. Alignment of the unstable ankle fracture is significantly improved, near-anatomic in appearance. 3. There is a suspected subtle abnormality at the base of the fifth metatarsal, possibly an avulsion fracture at the base of the fifth metatarsal. Due to the cast, this is difficult to identify with certainty. 4. At least mild first MTP degenerative joint disease. RADIA
[2017-10-14] MEDS: SODIUM CHLORIDE FLUSH 0.9% 10 ML SYRINGE IVP PRN (05:30)
[2017-10-14] MEDS: SODIUM CHLORIDE 0.9% 1,000 ML IV SCH ×2 (05:30→14:52)
[2017-10-14] MEDS: HYDROmorphone 0.5 MG/0.5 ML SYRINGE IVP PRN ×5 (05:31→20:57)
--- NOTE | 2017-10-14 07:08 | HISTORY & PHYSICAL EXAMINATION ---
DATE OF SERVICE: 10/14/2017 Physician: Radha Villarreal MD PRIMARY CARE PROVIDER: Dr. Soriano ADMITTING PROVIDER: Radha Villarreal MD CHIEF COMPLAINT: Sliding off the bed and falling onto the floor with immediate right ankle pain. HISTORY OF PRESENT ILLNESS: The patient is a pleasant, 67-year-old, morbidly obese female who is a long-term resident of an assisted living facility. Her obesity and psychiatric disorders have led to less mobility and more dependence on care for her activities of daily living. With her last 2 admissions for altered mental status and COPD exacerbation, it has been strongly recommended that some of her psychoactive medications be reduced in dose, if not some of them eliminated completely. She is still on: 1. Soma. 2. Depakote 3. Keppra. 4. Lorazepam 2 mg 3 times a day. 5. Lorazepam at night 6. Venlafaxine. 7. Ambien. 8. Seroquel 300 mg at night. She has not had any recent change in cardiovascular status. Her last hospitalization was 06/25/2012, and she was discharged for altered mental status from polypharmacy. Between June and now there have been no fevers, change in abdominal status, or cardiac status. She got up to go to the bathroom tonight. She says that her bed is "a high bed." Getting out of bed, she missed her footing and slowly slid to the floor, with her ankle twisting from underneath her. She says that she did not trip. There was no loss of consciousness. She just slid out of the bed because it was too high. She was brought to the emergency room, where she was evaluated by Dr. Rouse, and she has a right transverse medial malleolus fracture with moderate lateral displacement. Subtle nondisplaced posterior malleolus fracture. Comminuted distal fibular shaft fracture is present just proximal to the tibiofibular syndesmosis. Disruption of tibiofibular syndesmosis distally is present. Equivocal nondisplaced fracture at the base of the fifth metatarsal. The patient is sleepy, but awake and alert enough to provide me with a review of systems. I told her that I needed to know if there have been any cardiac problems since the last time we saw her. It is important to know this before she undergoes surgery. She states that she has not had a heart attack in the last 6 months. She does not have chest pain or unstable angina. To her knowledge, she does not have valvular heart disease, nor has she ever had atrial fibrillation. She does not have chronic kidney disease, but does have stable COPD. In the past, she has had a bullectomy. Right now, there has been no change in that status. While she does get wheezing, shortness of breath, she is not on oxygen. She denies coughing, chest congestion, fever, URI symptoms. PAST MEDICAL HISTORY 1. COPD/emphysema. Status post remote lung resection surgery with bullectomy. 2. Hypertension. 3. Osteoarthritis. 4. History of seizure disorder. 5. Dyslipidemia. 6. Morbid obesity, status post gastric bypass surgery. 7. Bipolar disorder with possible schizophrenic thought process and history of major depressive episodes. 8. She is G3, P3, status post hysterectomy. 9. Cholelithiasis with a cholecystectomy. 10. Breast implant surgery. 11. Lung nodule seen incidentally on CT of the abdomen, 03/11/2016. She has had subsequent chest x-rays, but no CT of the chest. 10. Migraine headaches. ALLERGIES: BENADRYL. MEDICATIONS 1. Acetylcarnitine 1500 mg p.o. t.i.d. 2. ProAir inhaler 2 puffs every 4 hours as needed. 3. DuoNeb via nebulizer 4 times a day as needed. 4. Norvasc 10 mg daily. 5. Aspirin 81 mg daily. 6. Carisoprodol 350 mg every 6 hours as needed. 7. Vitamin D 1000 units daily. 8. Vitamin B12 1000 IM q. month. 9. Depakote 500 mg in the evening with 250 mg in the morning. 10. Motrin 800 mg every 8 hours as needed. 11. Keppra 750 mg daily. 12. Claritin 10 mg daily. 13. Lorazepam 2 mg p.o. t.i.d. and 0.5 mg p.o. q.6 hours. 14. Seroquel 300 mg nightly. 15. Imitrex 50 mg p.o. b.i.d. p.r.n. migraine headaches. 16. Spiriva inhalation capsule 1 puff daily. 17. Venlafaxine 225 mg daily. 18. Ambien 10 mg at night as needed. SOCIAL HISTORY: She was born and raised in [place]. She moved [facility] at the age of 19. She her first , but is and has had 3 sons. She lives in an assisted living facility at [facility]. 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 She used to smoke, and quit at the time of her lobectomy and bullectomy. She has never had a problem with alcohol abuse. She requires help with dressing, meds, and is sedentary. FAMILY HISTORY 1. Mother in her 70s with coronary artery disease and diabetes. 2. Dad of old age. 3. Sister is alive and well. 4. Brother is alive and well. 5. Two children are healthy. REVIEW OF SYSTEMS CONSTITUTIONAL: Negative for fatigue, fever, sweats, unexpected weight changes or appetite changes. ENT: She denies blurred vision, loss of vision, amaurosis. She has no problems with teeth. She denies problems with swallowing. No facial dysesthesia. PULMONARY: Denies coughing, wheezing. Does get easily short of breath with just trying to walk and move. She attributes that to the fact that she does not do very much, spends most of her time sitting, and does not exercise. She says that there are no URI symptoms. She does not have a sore throat, coughing , sneezing, runny nose. There is no change in sputum. She says that she does not have obstructive sleep apnea. CARDIOVASCULAR: She denies valvular heart disease, angina, orthopnea, new edema. She always has chronic edema around her ankles and legs. GASTROINTESTINAL: She denies any change in bowel habits. No diarrhea. No blood in her stool. GENITOURINARY: She always has urinary incontinence. Denies urgency, frequency , dysuria. No flank pain. SKIN: She has a tendency to get a heat rash in her folds of her belly and groin. Denies any new body lesions, new moles, new rashes. PSYCHIATRIC: She denies suicidal ideation, but she also denies her history of depression, anxiety. ENDOCRINE: She denies polyphagia, polyuria, polydipsia. HEMATOLOGIC: She feels that she bruises too easily, but she says she takes aspirin. She denies any anemia, swollen glands. CENTRAL NERVOUS SYSTEM: She denies memory loss, focal neurological changes, syncope. She cannot remember when her last seizure was. PHYSICAL EXAMINATION VITAL SIGNS: Temperature is 36.8, pulse is 80, blood pressure 113/81, respirations 16 and unlabored. She is 95% on room air. GENERAL: She is a short statured, morbidly obese female, completely dependent on the nursing aides and nurses to move her in the bed and transfer her from [facility] to her bed in the room. She grimaces with pain when you move her right ankle. HEAD AND NECK: No facial asymmetry. She has circles under her eyes. Lips are dry, oral mucosa normal color. Voice is low and hoarse. NECK: Supple. I really cannot assess her for JVD because of the thickness and her obesity. I do not palpate any goiters. LUNGS: Diminished breath sounds at the bases. Poor air movement overall with slightly prolonged end exhalation phase of breathing but really no crackles, rhonchi or wheezing and no increased respiratory effort. HEART: PMI is not palpable. Distant cardiac tones with a regular rate and rhythm. No murmurs, rubs, or gallop. ABDOMEN: Hugely obese, soft, nontender. Hypoactive bowel sounds. No masses palpable, but with such a large pannus it would be difficult to assess for organomegaly completely. She does have resolving christen underneath the intertriginous folds. EXTREMITIES: Large tree trunk legs with trace edema. The right ankle is now in a boot, and fracture has been reduced by Dr. Rouse. Left foot has cankles , trace edema. NEUROLOGIC: She is alert to person and place, just not time. She is able to tell me how she fell out of bed. She spontaneously moves both extremities to rub her nose, help the aides help her transition in bed. Hand grasp strength is not very strong, but intact and symmetrical bilaterally. She is able to lift her left leg off the bed slightly, and plantar and dorsiflex her left foot. I do not ask her to move her right ankle or her right leg. There are no tremors. Right now, there are no hallucinations. She is not voicing any severe abnormal ideations. LABORATORY DATA: Sodium 137, potassium 4.3, BUN 13, creatinine 0.5, GFR 123, random glucose 113. AST is 54, otherwise liver enzymes normal. White cell count 6, hemoglobin 13.3, hematocrit 39.8. INR 1.2. Valproic acid level 66.4. Ankle x-ray as above. Right foot shows the possible avulsion fracture at the base of the fifth metatarsal. Knee x-ray without acute osseous abnormality. ASSESSMENT/PLAN 1. Displaced Right ankle bimalleolar fracture with distal fibula fracture. First encounter. Closed. Due to a mechanical fall. Plan: a. Attestation that this patient will be in the hospital less than 96 hours, but greater than 2 midnights. She is morbidly obese, diminished mobility to begin with, and now with an ankle fracture, I think her mobility will be reduced even further with slow progress with PT. b. Orthopedic consult already called by ER doctor adn the case discussed. Dr. Durand will see the patient tomorrow morning with anticipation of OR in am. c. Post op DVT prophylaxis per Dr. Durand with pain management per Dr. Durand. 2. Preoperative Cardiovascular exam: Revised Cardiovascular index is 0 points with 0.4% risk of major cardiac event. However, her poor performance status predicts a very slow postoperative recovery. U anticipate a postop PT evaluation and that will predict if she can safely return to [facility] or if she will need temporary rehab at a SNF. 2. Chronic obstructive pulmonary disease. No acute exacerbation at this time. Continue inhalers in the form of DuoNeb p.r.n. 3. Hypertension. Continue her usual blood pressure medications without any change at this time. At this time, blood pressure appears controlled. 4. Personality disorder. Multiple types. Would recommend decreasing Ativan dose slowly over time and avoid hypnotics at night. Continue her venlafaxine, seroquel (consider reducing that dose as well). 5. History of seizure disorder. On 2 medications in the form of Depakote and Keppra. Continue in the postoperative setting. 6. FULL CODE status. We are to attempt CPR, with limited interventions. This was signed by Dr. Soriano from 12/10/2016. 7. Deep venous thrombosis prophylaxis. With a lady her size and increased immobility, should most likely be Lovenox. We will leave to the discretion of Orthopedic Surgery of what they would like us to start in the postoperative setting. TD: 10/14/2017 06:15 DHARMESH
--- NOTE | 2017-10-14 09:00 | CONSULTATION NOTE ---
Referring Provider Name of Referring Provider:: Rouse Consult Date: 10/14/17 Chief Complaint - Chief Complaint Chief Complaint: Bimalleolar Ankle fracture right History of Present Illness - Admitted From Admitted From:: ER - History of Present Illness HPI Comment/Other: 67 year old female with a history of mental health disorders fell at the assisted living facility and sustained a bimalleolar ankle fracture. She presented to the ER. She has been placed in a splint and is here for orthopedic evaluation and treatment. History - Past Medical History Cardiovascular: reports: Hypertension Respiratory: reports: Asthma, COPD Neuro: reports: Migraines, Seizure disorder Endocrine/Autoimmune: reports: None GI: reports: None : reports: None HEENT: reports: None Psych: reports: Depression, Anxiety, Bipolar disorder, Schizophrenia Musculoskeletal: reports: Osteoarthritis Derm: reports: None MRSA Hx?: No - Past Surgical History General: reports: Cholecystectomy, Gastric surgery /[employer]: reports: Breast implants HEENT: reports: Tonsil/Adenoidectomy - Family & Social History Living arrangement: Assisted living Living Situation: Alone - Substance History Use: Uses substance without health or social issues: Alcohol - POLST Patient has POLST: Yes POLST Status: DNR Meds/Allgy - Home Medications Home Medications: Ambulatory Orders Medication Instructions Recorded Confirmed Albuterol Sulfate [Proair Hfa 2 puffs INH Q4H PRN 12/27/15 10/14/17 Inhaler] Carisoprodol [Soma] 350 mg PO TID 12/27/15 10/14/17 Loratadine [Claritin] 10 mg PO DAILY PRN 12/27/15 10/14/17 Quetiapine Fumarate [Seroquel] 300 mg PO QPM 12/27/15 10/14/17 Sumatriptan Succinate [Imitrex] 50 mg PO BID PRN 12/27/15 10/14/17 Venlafaxine ER [Effexor ER] 225 mg PO DAILY 12/27/15 10/14/17 Aspirin 81 mg PO DAILY 03/11/16 10/14/17 Docusate Sodium [Stool Softener] 100 mg PO BID PRN 03/11/16 10/14/17 amLODIPine [Norvasc] 10 mg PO DAILY 03/11/16 10/14/17 Ferrous Sulfate 325 mg PO BID #60 tablet 03/12/16 10/14/17 Cholecalciferol (Vitamin D3) 1,000 unit PO DAILY 05/18/17 10/14/17 [Vitamin D3] Cyanocobalamin [Vitamin B-12] 1,000 mcg IM Q30D 05/18/17 10/14/17 Divalproandrey Rivera [Ayad Rivera] 1,000 mg PO QPM 05/18/17 10/14/17 Ginkgo Biloba [place] Extract [Ginkgo 120 mg PO DAILY 05/18/17 10/14/17 Biloba] Guaifenesin [Mucinex] 600 mg PO BID PRN 05/18/17 10/14/17 Ibuprofen [Motrin] 800 mg PO Q8H PRN 05/18/17 10/14/17 [place]-3 Fatty Acids/Fish Oil 1,000 mg PO BID 05/18/17 10/14/17 [[place]-3 Fish Oil 1,000 mg Sfgl] Senna [Senokot] 8.6 mg PO BID PRN 05/18/17 10/14/17 Tiotropium [place] [Spiriva] 18 mcg INH DAILY 05/18/17 10/14/17 Zolpidem Tartrate [Ambien] 10 mg PO QPM 05/18/17 10/14/17 levETIRAcetam [Keppra] 500 mg PO QPM 05/18/17 10/14/17 Danni Rivera [Ayad Rivera] 250 mg PO DAILY tablet 05/21/17 10/14/17 Ipratropium/Albuterol Sulfate 3 ml IH QID 05/28/17 10/14/17 [Iprat-Albut 0.5-3(2.5) mg/3 ml] levETIRAcetam [Keppra] 250 mg PO DAILY 05/28/17 10/14/17 Lysine HCl 400 mg PO DAILY 06/17/17 10/14/17 Acetylcarnitine [Cyto Carn] 1,500 mg PO DAILY 06/18/17 10/14/17 LORazepam [Ativan] 0.5 mg PO Q6H PRN #20 tablet 06/18/17 10/14/17 Buspirone HCl 7.5 mg PO BID 10/14/17 10/14/17 Carisoprodol [Soma] 350 mg PO QPM PRN 10/14/17 10/14/17 Levothyroxine [Synthroid] 100 mcg PO QDAC 10/14/17 10/14/17 - Allergies Allergies/Adverse Reactions: Allergies Allergy/AdvReac Type Severity Reaction Status Date / Time lidocaine Allergy Mild Itching Verified 06/12/17 22:04 diphenhydramine Allergy Unknown Verified 06/17/17 21:28 [facility] Exam - Vital Signs Vital Signs: Vital Signs x48h Temp Pulse Pulse Resp BP BP Pulse Ox 10/14/17 07:40 36.3 C L 76 20 150/82 H 98 10/14/17 05:05 36.8 C 80 16 124/73 96 10/14/17 04:44 80 16 113/81 H 95 - Physical Exam General Appearance: positive: No acute distress Extremities: positive: Other (Splint in place. Toes are pink. Sensation is good. EHL+) Conclusion/Plan - Diagnosis Diagnosis: Bilmalleolar ankle fracture right - Will need an ORIF. The risks involved in the surgery including bleeding, infection and neurovascular damage have been explained and she agrees and wishes to proceed. Will schedule. - Lab Results Fish Bones: 10/14/17 04:20 10/14/17 04:20
[2017-10-14] MEDS: POLYETHYLENE GLYCOL 3350 17 GM PACKET PO SCH (09:02)
[2017-10-14] MEDS: DIVALPROEX DR 250 MG TABLET PO SCH ×2 (09:02→20:55)
[2017-10-14] MEDS: amLODIPine 5 MG TABLET PO SCH (09:02)
[2017-10-14] MEDS: levETIRAcetam 250 MG TABLET PO SCH ×2 (09:02→20:51)
[2017-10-14] MEDS: VENLAFAXINE ER 75 MG CAPSULE PO SCH (09:02)
[2017-10-14] MEDS: SODIUM CHLORIDE FLUSH 0.9% 10 ML SYRINGE IVP SCH ×2 (09:03→17:34)
[2017-10-14 16:37] LABS: BILIRUBIN,URINE NEGATIVE (NEGATIVE); GLUCOSE, URINE (UA) NEGATIVE (NEGATIVE); KETONES,URINE (UA) NEGATIVE (NEGATIVE); LEUKOCYTE ESTERASE, URINE NEGATIVE (NEGATIVE); NITRITE,URINE NEGATIVE (NEGATIVE); OCCULT BLOOD,URINE NEGATIVE (NEGATIVE); PROTEIN,URINE NEGATIVE (NEGATIVE); UROBILINOGEN,URINE 0.2 (NORMAL) E.U./dL (NORMAL)
[2017-10-14 16:45] LABS: CLARITY,URINE CLEAR (CLEAR)
--- NOTE | 2017-10-14 17:32 | PROVIDER PROGRESS NOTE ---
Subjective - Prog Note Date Prog Note Date: 10/14/17 - Subjective Pt reports feeling: No change Subjective: pt report some pain at right ankle. denies fever, chill, CP, SOB, cough Current Medications - Current Medications Current Medications: Active Medications Albuterol/Ipratropium (Duoneb) 3 ml INH Q4HR PRN PRN Reason: Wheezing Amlodipine Besylate (Norvasc) 10 mg PO DAILY [facility] Last Admin: 10/14/17 09:02 Dose: 10 mg Divalproex Sodium (Depakote Dr) 250 mg PO DAILY [facility] Last Admin: 10/14/17 09:02 Dose: 250 mg Divalproex Sodium (Depakote Dr) 500 mg PO QPM [facility] Hydromorphone HCl (Dilaudid Inj Syringe) 0.5 mg IVP Q2H PRN PRN Reason: Pain 8 to 10 Last Admin: 10/14/17 14:52 Dose: 0.5 mg Sodium Chloride (Normal Saline 0.9%) 1,000 mls @ 100 mls/hr IV .Q10H [facility] Last Admin: 10/14/17 14:52 Dose: 100 mls/hr Levetiracetam (Keppra) 250 mg PO DAILY [facility] Last Admin: 10/14/17 09:02 Dose: 250 mg Levetiracetam (Keppra) 500 mg PO QPM [facility] Ondansetron HCl (Zofran Inj) 4 mg IVP Q6HR PRN PRN Reason: Nausea / Vomiting Ondansetron HCl (Zofran Odt) 4 mg TL Q6HR PRN PRN Reason: Nausea / Vomiting Polyethylene Glycol (Miralax) 17 gm PO DAILY [facility] Last Admin: 10/14/17 09:02 Dose: 17 gm Sodium Chloride (Normal Saline Flush 0.9%) 10 ml IVP PRN PRN PRN Reason: NEEDED PER PROVIDER ORDERS Last Admin: 10/14/17 05:30 Dose: 10 ml Sodium Chloride (Normal Saline Flush 0.9%) 10 ml IVP 0100,0900,1700 [facility] Last Admin: 10/14/17 17:34 Dose: Not Given Venlafaxine HCl (Effexor Er) 225 mg PO DAILY [facility] Last Admin: 10/14/17 09:02 Dose: 225 mg Albuterol Sulfate [Proair Hfa Inhaler] 2 puffs INH Q4H PRN 12/27/15 Carisoprodol [Soma] 350 mg PO TID 12/27/15 Loratadine [Claritin] 10 mg PO DAILY PRN 12/27/15 Quetiapine Fumarate [Seroquel] 300 mg PO QPM 12/27/15 Sumatriptan Succinate [Imitrex] 50 mg PO BID PRN 12/27/15 Venlafaxine ER [Effexor ER] 225 mg PO DAILY 12/27/15 Aspirin 81 mg PO DAILY 03/11/16 Docusate Sodium [Stool Softener] 100 mg PO BID PRN 03/11/16 amLODIPine [Norvasc] 10 mg PO DAILY 03/11/16 Cholecalciferol (Vitamin D3) [Vitamin D3] 1,000 unit PO DAILY 05/18/17 Cyanocobalamin [Vitamin B-12] 1,000 mcg IM Q30D 05/18/[address] [Depakote Dr] 1,000 mg PO QPM 05/18/17 Ginkgo Biloba [place] Extract [Ginkgo Biloba] 120 mg PO DAILY 05/18/17 Guaifenesin [Mucinex] 600 mg PO BID PRN 05/18/17 Ibuprofen [Motrin] 800 mg PO Q8H PRN 05/18/17 [place]-3 Fatty Acids/Fish Oil [[place]-3 Fish Oil 1,000 mg Sfgl] 1,000 mg PO BID Senna [Senokot] 8.6 mg PO BID PRN 05/18/17 Tiotropium [place] [Spiriva] 18 mcg INH DAILY 05/18/17 Zolpidem Tartrate [Ambien] 10 mg PO QPM 05/18/17 levETIRAcetam [Keppra] 500 mg PO QPM 05/18/17 Ipratropium/Albuterol Sulfate [Iprat-Albut 0.5-3(2.5) mg/3 ml] 3 ml IH QID 05/28 levETIRAcetam [Keppra] 250 mg PO DAILY 05/28/17 Lysine HCl 400 mg PO DAILY 06/17/17 Acetylcarnitine [Cyto Carn] 1,500 mg PO DAILY 06/18/17 Buspirone HCl 7.5 mg PO BID 10/14/17 Carisoprodol [Soma] 350 mg PO QPM PRN 10/14/17 Levothyroxine [Synthroid] 100 mcg PO QDAC 10/14/17 Objective - Vital Signs/Intake & Output Reviewed Vital Signs: Yes Vital Signs: Vital Signs x48h Temp Pulse Resp BP Pulse Ox 10/14/17 15:43 37.1 C 92 20 147/85 H 93 Intake & Output: Intake & Output 10/11/17 10/12/17 10/13/17 10/14/17 23:59 23:59 23:59 23:59 Intake Total 1380 Balance 1380 - Objective General Appearance: positive: No acute distress, Alert. negative: Lethargic Eyes Bilateral: positive: Normal inspection, PERRL, No lid inflammation, Conjunctivae nml ENT: positive: ENT inspection nml, Pharynx nml, No signs of dehydration. negative: Purulent nasal drainage, Pharyngeal erythema, Oral lesions Neck: positive: Nml inspection, Thyroid nml, No JVD, Trachea midline. negative : Thyromegaly, Lymphadenopathy (R), Lymphadenopathy (L), Stiff neck, Swelling/ bruising, Tracheal deviation Respiratory: positive: Chest non-tender, No respiratory distress, Breath sounds nml. negative: Wheezes Cardiovascular: positive: Regular rate & rhythm, No murmur, No gallop. negative : Irregularly irregular, Extrasystoles, Tachycardia, Bradycardia, JVD present, Systolic murmur, Diastolic murmur Peripheral Pulses: 2+ Radial (R), 2+ Radial (L), 2+ Dorsalis pedis (R), 2+ Dorsalis pedis (L) Abdomen: positive: Non-tender, No organomegaly, Nml bowel sounds, No distention. negative: Tenderness, Guarding, Rebound Back: positive: Nml inspection. negative: CVA tenderness (R), CVA tenderness (L ) Skin: positive: Color nml, No rash, Warm, Dry. negative: Cyanosis, Diaphoresis , Pallor Extremities: positive: Non-tender, Full ROM, Nml appearance. negative: Calf tenderness, Joint swelling, Garo's sign/cords Neurologic/Psychiatric: positive: Sensation nml, Mood/affect nml. negative: Weakness, Sensory loss, Facial droop, Slurred/abnml speech, Depressed mood/ affect - Lab Results Fish Bones: 10/14/17 04:20 10/14/17 04:20 Other Labs: Lab Results x24hrs 10/14/17 10/14/17 10/14/17 Range/Units 16:20 04:40 04:20 WBC (4.8-10.8) x10^3/uL RBC (4.20-5.40) 10^6/uL Hgb (12.0-16.0) g/dL Hct (37.0-47.0) % MCV (81.0-99.0) fL MCH (27.0-31.0) pg MCHC (32.0-36.0) g/dL RDW (12.0-15.0) % Plt Count (130-450) 10^3/uL MPV (7.9-10.8) fL Neut # (Auto) (1.5-6.6) 10^3/uL Lymph # (Auto) (1.5-3.5) 10^3/uL [place] # (Auto) (0.0-1.0) 10^3/uL Eos # (Auto) (0.0-0.7) 10^3/uL Baso # (Auto) (0.0-0.1) 10^3/uL Absolute Nucleated RBC x10^3/uL Nucleated RBC % /100WBC PT 13.6 H (9.9-12.6) secs INR 1.2 (0.8-1.2) APTT 26.4 (24.9-33.3) secs Sodium 137 (135-145) mmol/L Potassium 4.3 (3.5-5.0) mmol/L Chloride 97 L (101-111) mmol/L Carbon Dioxide 26 (21-32) mmol/L Anion Gap 14.0 H (6-13) BUN 13 (6-20) mg/dL Creatinine 0.5 (0.4-1.0) mg/dL Estimated GFR (MDRD) 123 (>89) Glucose 113 H (70-100) mg/dL Calcium 8.5 (8.5-10.3) mg/dL Magnesium 1.9 (1.7-2.8) mg/dL Total Bilirubin 0.3 (0.2-1.0) mg/dL AST 54 H (10-42) IU/L ALT 44 (10-60) IU/L Alkaline Phosphatase 43 (42-121) IU/L Total Protein 6.4 L (6.7-8.2) g/dL Albumin 3.4 (3.2-5.5) g/dL Globulin 3.0 (2.1-4.2) g/dL Albumin/Globulin Ratio 1.1 (1.0-2.2) Lipase 26 (22-51) U/L Urine Color YELLOW Urine Clarity CLEAR (CLEAR) Urine pH 6.0 (5.0-7.5) PH Ur Specific [place] 1.025 (1.002-1.030) Urine Protein NEGATIVE (NEGATIVE) mg/dL Urine Glucose (UA) NEGATIVE (NEGATIVE) mg/dL Urine Ketones NEGATIVE (NEGATIVE) mg/dL Urine Occult Blood NEGATIVE (NEGATIVE) Urine Nitrite NEGATIVE (NEGATIVE) Urine Bilirubin NEGATIVE (NEGATIVE) Urine Urobilinogen 0.2 (NORMAL) (NORMAL) E.U./dL Ur Leukocyte Esterase NEGATIVE (NEGATIVE) Ur Microscopic Review NOT INDICATED Urine Culture Comments NOT INDICATED Last Dose Date UNKNOWN Last Dose Time UNKNOWN Valproic Acid 66.4 ug/mL 10/14/17 Range/Units 04:20 WBC 6.0 (4.8-10.8) x10^3/uL RBC 4.90 (4.20-5.40) 10^6/uL Hgb 13.3 (12.0-16.0) g/dL Hct 39.8 (37.0-47.0) % MCV 81.1 (81.0-99.0) fL MCH 27.1 (27.0-31.0) pg MCHC 33.4 (32.0-36.0) g/dL RDW 15.0 (12.0-15.0) % Plt Count 196 (130-450) 10^3/uL MPV 8.1 (7.9-10.8) fL Neut # (Auto) 3.9 (1.5-6.6) 10^3/uL Lymph # (Auto) 1.7 (1.5-3.5) 10^3/uL [place] # (Auto) 0.3 (0.0-1.0) 10^3/uL Eos # (Auto) 0.1 (0.0-0.7) 10^3/uL Baso # (Auto) 0.0 (0.0-0.1) 10^3/uL Absolute Nucleated RBC 0.01 x10^3/uL Nucleated RBC % 0.1 /100WBC PT (9.9-12.6) secs INR (0.8-1.2) APTT (24.9-33.3) secs Sodium (135-145) mmol/L Potassium (3.5-5.0) mmol/L Chloride (101-111) mmol/L Carbon Dioxide (21-32) mmol/L Anion Gap (6-13) BUN (6-20) mg/dL Creatinine (0.4-1.0) mg/dL Estimated GFR (MDRD) (>89) Glucose (70-100) mg/dL Calcium (8.5-10.3) mg/dL Magnesium (1.7-2.8) mg/dL Total Bilirubin (0.2-1.0) mg/dL AST (10-42) IU/L ALT (10-60) IU/L Alkaline Phosphatase (42-121) IU/L Total Protein (6.7-8.2) g/dL Albumin (3.2-5.5) g/dL Globulin (2.1-4.2) g/dL Albumin/Globulin Ratio (1.0-2.2) Lipase (22-51) U/L Urine Color Urine Clarity (CLEAR) Urine pH (5.0-7.5) PH Ur Specific [place] (1.002-1.030) Urine Protein (NEGATIVE) mg/dL Urine Glucose (UA) (NEGATIVE) mg/dL Urine Ketones (NEGATIVE) mg/dL Urine Occult Blood (NEGATIVE) Urine Nitrite (NEGATIVE) Urine Bilirubin (NEGATIVE) Urine Urobilinogen (NORMAL) E.U./dL Ur Leukocyte Esterase (NEGATIVE) Ur Microscopic Review Urine Culture Comments Last Dose Date Last Dose Time Valproic Acid ug/mL ABX Reporting Has patient been on IV antibiotics over the past 48 hours?: No Assessment/Plan - Problem List (1) Bimalleolar ankle fracture Impression: pt will have operation, per orthopedics pain control Qualifiers: Encounter type: initial encounter Fracture type: closed Laterality: right Qualified Code(s): S82.841A - Displaced bimalleolar fracture of right lower leg, initial encounter for closed fracture (2) Chronic obstructive pulmonary disease (COPD) Impression: stable, continue home meds (3) HTN (hypertension) Impression: stable, continue home meds (4) Hx of seizure disorder Impression: stable, continue home meds (5) Depression Impression: stable, continue home meds
[2017-10-14] MEDS ORDERED: CALAMINE/ZINC OXIDE 118 ML BOTTLE TOP PRN (23:42)
[2017-10-15] MEDS: HYDROmorphone 0.5 MG/0.5 ML SYRINGE IVP PRN ×5 (00:43→20:49)
[2017-10-15] MEDS: SODIUM CHLORIDE 0.9% 1,000 ML IV SCH ×2 (00:43→14:38)
[2017-10-15] MEDS: SODIUM CHLORIDE FLUSH 0.9% 10 ML SYRINGE IVP SCH ×3 (01:17→16:25)
[2017-10-15 05:55] LABS: BASOPHILS % (AUTO) 0.5 %; EOSINOPHILS # (AUTO) 0.2 10^3/uL (0.0-0.7); EOSINOPHILS % (AUTO) 2.8 %; HGB - HEMOGLOBIN 12.5 g/dL (12.0-16.0); LYMPHOCYTES # (AUTO) 1.6 10^3/uL (1.5-3.5); LYMPHOCYTES % (AUTO) 23.8 %; MEAN CORPUSCULAR HEMOGLOBIN 27.1 pg (27.0-31.0); MEAN CORPUSCULAR VOLUME 82.2 fL (81.0-99.0); MEAN PLATELET VOLUME 8.2 fL (7.9-10.8); MONOCYTES # (AUTO) 0.7 10^3/uL (0.0-1.0); MONOCYTES % (AUTO) 10.3 %; NEUTROPHILS # (AUTO) 4.3 10^3/uL (1.5-6.6); NEUTROPHILS % (AUTO) 62.6 %; PLT - PLATELET COUNT 190 10^3/uL (130-450); RED BLOOD COUNT 4.63 10^6/uL (4.20-5.40); WHITE BLOOD COUNT 6.9 x10^3/uL (4.8-10.8)
[2017-10-15 06:00] LABS: CREATININE 0.5 mg/dL (0.4-1.0)
[2017-10-15] MEDS ORDERED: ceFAZolin 2 GM/50 ML 2 GM/50 ML BAG IV ONE (08:15)
[2017-10-15] MEDS ORDERED: BUPIVACAINE 0.25% PF 30 ML VIAL ONE (08:40)
--- NOTE | 2017-10-15 09:32 | PROVIDER PROGRESS NOTE ---
Subjective - Prog Note Date Prog Note Date: 10/15/17 Prog Note Time: 09:30 - Subjective Pt reports feeling: No change Objective - Vital Signs/Intake & Output Vital Signs: Vital Signs x48h Temp Pulse Resp BP Pulse Ox 10/15/17 07:33 36.8 C 95 16 152/95 H 92 Intake & Output: Intake & Output 10/12/17 10/13/17 10/14/17 10/15/17 23:59 23:59 23:59 23:59 Intake Total 1580 1535 Output Total 875 625 Balance 705 910 - Lab Results Fish Bones: 10/15/17 05:30 10/15/17 05:30 Other Labs: Lab Results x24hrs 10/15/17 10/15/17 10/14/17 Range/Units 05:30 05:30 16:20 WBC 6.9 (4.8-10.8) x10^3/uL RBC 4.63 (4.20-5.40) 10^6/uL Hgb 12.5 (12.0-16.0) g/dL Hct 38.0 (37.0-47.0) % MCV 82.2 (81.0-99.0) fL MCH 27.1 (27.0-31.0) pg MCHC 33.0 (32.0-36.0) g/dL RDW 15.0 (12.0-15.0) % Plt Count 190 (130-450) 10^3/uL MPV 8.2 (7.9-10.8) fL Neut # (Auto) 4.3 (1.5-6.6) 10^3/uL Lymph # (Auto) 1.6 (1.5-3.5) 10^3/uL [place] # (Auto) 0.7 (0.0-1.0) 10^3/uL Eos # (Auto) 0.2 (0.0-0.7) 10^3/uL Baso # (Auto) 0.0 (0.0-0.1) 10^3/uL Absolute Nucleated RBC 0.01 x10^3/uL Nucleated RBC % 0.1 /100WBC Sodium 139 (135-145) mmol/L Potassium 3.8 (3.5-5.0) mmol/L Chloride 102 (101-111) mmol/L Carbon Dioxide 29 (21-32) mmol/L Anion Gap 8.0 (6-13) BUN 13 (6-20) mg/dL Creatinine 0.5 (0.4-1.0) mg/dL Estimated GFR (MDRD) 123 (>89) Glucose 123 H (70-100) mg/dL Calcium 8.0 L (8.5-10.3) mg/dL Urine Color YELLOW Urine Clarity CLEAR (CLEAR) Urine pH 6.0 (5.0-7.5) PH Ur Specific [place] 1.025 (1.002-1.030) Urine Protein NEGATIVE (NEGATIVE) mg/dL Urine Glucose (UA) NEGATIVE (NEGATIVE) mg/dL Urine Ketones NEGATIVE (NEGATIVE) mg/dL Urine Occult Blood NEGATIVE (NEGATIVE) Urine Nitrite NEGATIVE (NEGATIVE) Urine Bilirubin NEGATIVE (NEGATIVE) Urine Urobilinogen 0.2 (NORMAL) (NORMAL) E.U./dL Ur Leukocyte Esterase NEGATIVE (NEGATIVE) Ur Microscopic Review NOT INDICATED Urine Culture Comments NOT INDICATED - Diagnostic Imaging Diagnostic Imaging Comments: XR show bimalleolar ankle fracture - Other Results/Comments Other Results/Comments: EXAM: Short leg splint in place. Moving toes well. Sensation intact. Good cap filling Assessment/Plan - Problem List (1) Bimalleolar ankle fracture Impression: Closed unstable bimalleolar ankle fracture PLAN: To OR for ORIF of ankle fracture this AM. Complications discussed and questrions answered for patient and her son, James. They wish to proceed. Consent signed. Leg marked. Qualifiers: Encounter type: initial encounter Fracture type: closed Laterality: right Qualified Code(s): S82.841A - Displaced bimalleolar fracture of right lower leg, initial encounter for closed fracture
[2017-10-15] MEDS ORDERED: LACTATED RINGERS 1,000 ML IV ONE ×2 (09:37→12:18)
[2017-10-15] MEDS: amLODIPine 5 MG TABLET PO SCH (09:45)
[2017-10-15] MEDS: POLYETHYLENE GLYCOL 3350 17 GM PACKET PO SCH (09:46)
[2017-10-15] MEDS: levETIRAcetam 250 MG TABLET PO SCH ×2 (09:46→20:52)
[2017-10-15] MEDS: VENLAFAXINE ER 75 MG CAPSULE PO SCH (09:46)
[2017-10-15] MEDS: DIVALPROEX DR 250 MG TABLET PO SCH ×2 (09:46→20:52)
[2017-10-15] MEDS ORDERED: ACETAMINOPHEN 1,000 MG/100 ML 100 ML IV ONE (10:30)
[2017-10-15] MEDS ORDERED: ceFAZolin 1 GM VIAL IV ONE (10:30)
[2017-10-15] MEDS ORDERED: fentaNYL 250 MCG/5 ML VIAL IVP ONE (10:30)
[2017-10-15] MEDS ORDERED: MORPHINE 10 MG/ML VIAL IVP ONE (10:30)
[2017-10-15] MEDS ORDERED: ONDANSETRON 4 MG/2 ML VIAL IVP ONE (10:30)
[2017-10-15] MEDS ORDERED: PROPOFOL 200 MG/20 ML VIAL IVP ONE (10:30)
[2017-10-15] MEDS ORDERED: ROCURONIUM 50 MG/5 ML VIAL IVP ONE (10:30)
--- NOTE | 2017-10-15 10:37 | CONSULTATION NOTE ---
DATE OF SERVICE: 10/15/2017 Physician: Naveed Juarez MD ORTHOPEDIC CONSULTATION CHIEF COMPLAINT: "My right ankle hurts." HISTORY OF PRESENT ILLNESS: Patient is a 67-year-old, female who previously was living in an assisted living facility locally who also has a history of a mental health disorder. She apparent ly had a fall yesterday at her care facility and sustained a closed displaced right bimalleolar ankle fracture. She was ambulatory at her care center. No other associated injuries. She had a closed r eduction and splinting performed in the emergency room. She is essentially waiting for surgical fixa tion of her fracture. PHYSICAL EXAMINATION: Patient's right ankle is in a short leg posterior splint. She is able to move her toes well. Sensation intact in the exposed portion of her toes. Good capillary filling noted a t the digits as well. X-RAYS: Show a reduced right bimalleolar ankle fracture. The reduction shows much improved position compared to her injury x-rays. Her fracture involves the distal fibula and medial malleolar ankle c omponents. ASSESSMENT 1. Closed unstable right bimalleolar ankle fracture. 2. History of a mental health disorder--currently is living in an assisted living facility. 3. History of chronic obstructive pulmonary disease. 4. History of hypertension. PLAN: I have discussed with the patient the need for surgical intervention. This also was discussed in the past by Dr. Durand, who I am covering. Consent has been signed. Questions were answered inc luding possible complications such as anesthesia risks, infection, blood loss, malunion, nonunion, bl ood clots, etc. Patient's questions have been answered, and she understands the complications and wh at the procedure should allow her to do in the future. She has consented for surgery. Leg has been marked. TD: 10/15/2017 08:49
[2017-10-15] MEDS ORDERED: SODIUM CHLORIDE FLUSH 0.9% 10 ML SYRINGE IVP PRN (11:39)
[2017-10-15] MEDS ORDERED: ONDANSETRON 4 MG/2 ML VIAL IVP PRN (11:39)
[2017-10-15] MEDS ORDERED: MORPHINE 2 MG/ML SYRINGE IVP PRN (11:39)
[2017-10-15] MEDS ORDERED: DOCUSATE SODIUM 100 MG CAPSULE PO PRN (11:39)
[2017-10-15] MEDS ORDERED: PROCHLORPERAZINE 10 MG/2 ML VIAL IVP PRN (11:39)
[2017-10-15] MEDS ORDERED: ACETAMINOPHEN 1,000 MG/100 ML 100 ML IV PRN (11:39)
--- NOTE | 2017-10-15 11:44 | OPERATIVE REPORT ---
Operative Report - General Admit Date: 10/14/17 Procedure Date: 10/15/17 Planned Procedure: ORIF of right ankle fracture Pre-Op Diagnosis: Closed right bimalleolar ankle fracture Procedure Performed: ORIF of right ankle fracture Post Op Diagnosis: Same - Procedure Note Primary Surgeon: Fariha Juarez MD Anesthesia Provider: Dr. Dhaliwal Anesthesia Technique: General ET tube IV Fluids (mL): 800 Estimated Blood Loss (mL): 100 Complications: None
[2017-10-15] MEDS: HYDROmorphone 1 MG/ML CARPUJECT ONE ×2 (11:59→12:06)
[2017-10-15] MEDS ORDERED: SODIUM CHLORIDE 0.9% 1,000 ML IV SCH (12:00)
[2017-10-15] MEDS ORDERED: SODIUM CHLORIDE FLUSH 0.9% 10 ML SYRINGE ONE (12:03)
[2017-10-15] MEDS ORDERED: HYDROmorphone 0.5 MG/0.5 ML SYRINGE ONE (12:13)
--- NOTE | 2017-10-15 12:54 | PROVIDER PROGRESS NOTE ---
Subjective - Prog Note Date Prog Note Date: 10/15/17 - Subjective Pt reports feeling: No change Subjective: pt report she had pain when she move her leg. No fever, chill, cough, SOB, CP. pt will have ortho operation today morning. Current Medications - Current Medications Current Medications: Active Medications Acetaminophen (Tylenol) 650 - 975 mg PO Q4HR PRN PRN Reason: PAIN Albuterol/Ipratropium (Duoneb) 3 ml INH Q4HR PRN PRN Reason: Wheezing Amlodipine Besylate (Norvasc) 10 mg PO DAILY [facility] Last Admin: 10/15/17 09:45 Dose: Not Given Aspirin (Sergei) 325 mg PO BIDWM [facility] Calamine (Calamine) 0 applic TOP PRN PRN PRN Reason: ITCHING Divalproex Sodium (Depakote Dr) 250 mg PO DAILY [facility] Last Admin: 10/15/17 09:46 Dose: Not Given Divalproex Sodium (Depakote Dr) 500 mg PO QPM [facility] Last Admin: 10/14/17 20:55 Dose: 500 mg Docusate Sodium (Colace 100mg Capsule) 100 mg PO BID PRN PRN Reason: Constipation Hydromorphone HCl (Dilaudid Inj Syringe) 0.5 mg IVP Q2H PRN PRN Reason: Pain 8 to 10 Last Admin: 10/15/17 05:43 Dose: 0.5 mg Hydroxyzine HCl (Vistaril Inj) 25 mg IM Q6HR PRN PRN Reason: ITCHING Sodium Chloride (Normal Saline 0.9%) 1,000 mls @ 100 mls/hr IV .Q10H [facility] Last Infusion: 10/15/17 06:04 Dose: 100 mls/hr Acetaminophen (Ofirmev) 100 mls @ 400 mls/hr IV Q6HR PRN PRN Reason: PAIN Cefazolin Sodium/Dextrose (Ancef 2 Gm/50 Ml) 2 gm in 50 mls @ 100 mls/hr IV Q8H [facility] Stop: 10/16/17 02:29 Levetiracetam (Keppra) 250 mg PO DAILY [facility] Last Admin: 10/15/17 09:46 Dose: Not Given Levetiracetam (Keppra) 500 mg PO QPM [facility] Last Admin: 10/14/17 20:51 Dose: 500 mg Morphine Sulfate (Morphine) 2 mg IVP Q2HR PRN PRN Reason: PAIN Ondansetron HCl (Zofran Inj) 4 mg IVP Q6HR PRN PRN Reason: Nausea / Vomiting Ondansetron HCl (Zofran Odt) 4 mg TL Q6HR PRN PRN Reason: Nausea / Vomiting Oxycodone HCl (Roxicodone) 5 mg PO Q4HR PRN PRN Reason: PAIN Polyethylene Glycol (Miralax) 17 gm PO DAILY [facility] Last Admin: 10/15/17 09:46 Dose: Not Given Prochlorperazine Edisylate (Compazine Inj) 10 mg IVP Q6HR PRN PRN Reason: Nausea / Vomiting Senna (Senokot) 17.2 mg PO Q12H PRN PRN Reason: Constipation Sodium Chloride (Normal Saline Flush 0.9%) 10 ml IVP PRN PRN PRN Reason: NEEDED PER PROVIDER ORDERS Last Admin: 10/14/17 05:30 Dose: 10 ml Sodium Chloride (Normal Saline Flush 0.9%) 10 ml IVP 0100,0900,1700 [facility] Last Admin: 10/15/17 09:46 Dose: Not Given Venlafaxine HCl (Effexor Er) 225 mg PO DAILY [facility] Last Admin: 10/15/17 09:46 Dose: Not Given Albuterol Sulfate [Proair Hfa Inhaler] 2 puffs INH Q4H PRN 12/27/15 Carisoprodol [Soma] 350 mg PO TID 12/27/15 Loratadine [Claritin] 10 mg PO DAILY PRN 12/27/15 Quetiapine Fumarate [Seroquel] 300 mg PO QPM 12/27/15 Sumatriptan Succinate [Imitrex] 50 mg PO BID PRN 12/27/15 Venlafaxine ER [Effexor ER] 225 mg PO DAILY 12/27/15 Aspirin 81 mg PO DAILY 03/11/16 Docusate Sodium [Stool Softener] 100 mg PO BID PRN 03/11/16 amLODIPine [Norvasc] 10 mg PO DAILY 03/11/16 Cholecalciferol (Vitamin D3) [Vitamin D3] 1,000 unit PO DAILY 05/18/17 Cyanocobalamin [Vitamin B-12] 1,000 mcg IM Q30D 05/18/17 Divalproex [Deprigoberto Rivera] 1,000 mg PO QPM 05/18/17 Ginkgo Biloba [place] Extract [Ginkgo Biloba] 120 mg PO DAILY 05/18/17 Guaifenesin [Mucinex] 600 mg PO BID PRN 05/18/17 Ibuprofen [Motrin] 800 mg PO Q8H PRN 05/18/17 [place]-3 Fatty Acids/Fish Oil [[place]-3 Fish Oil 1,000 mg Sfgl] 1,000 mg PO BID Senna [Senokot] 8.6 mg PO BID PRN 05/18/17 Tiotropium [place] [Spiriva] 18 mcg INH DAILY 05/18/17 Zolpidem Tartrate [Ambien] 10 mg PO QPM 05/18/17 levETIRAcetam [Keppra] 500 mg PO QPM 05/18/17 Ipratropium/Albuterol Sulfate [Iprat-Albut 0.5-3(2.5) mg/3 ml] 3 ml IH QID 05/28 levETIRAcetam [Keppra] 250 mg PO DAILY 05/28/17 Lysine HCl 400 mg PO DAILY 06/17/17 Acetylcarnitine [Cyto Carn] 1,500 mg PO DAILY 06/18/17 Buspirone HCl 7.5 mg PO BID 10/14/17 Carisoprodol [Soma] 350 mg PO QPM PRN 10/14/17 Levothyroxine [Synthroid] 100 mcg PO QDAC 10/14/17 Objective - Vital Signs/Intake & Output Reviewed Vital Signs: Yes Vital Signs: Vital Signs x48h Temp Pulse Pulse Resp BP BP Pulse Ox 10/15/17 12:41 36.5 C 103 H 14 135/89 H 93 10/15/17 12:24 37.4 C 14 156/68 H 95 10/15/17 12:20 13 151/84 H 93 10/15/17 12:15 12 152/75 H 92 10/15/17 12:10 12 149/82 H 92 10/15/17 12:04 37.6 C H 12 155/70 H 94 10/15/17 12:00 14 160/73 H 10/15/17 11:55 14 161/76 H 99 08/10/18 11:50 12 168/76 H 99 10/15/17 11:45 13 164/75 H 99 10/15/17 11:40 37.7 C H 14 161/85 H 99 10/15/17 07:33 36.8 C 95 16 152/95 H 92 10/15/17 07:30 95 16 Intake & Output: Intake & Output 10/12/17 10/13/17 10/14/17 10/15/17 23:59 23:59 23:59 23:59 Intake Total 1580 1585 Output Total 875 625 Balance 705 960 - Objective General Appearance: positive: No acute distress, Alert. negative: Lethargic Eyes Bilateral: positive: Normal inspection, PERRL, No lid inflammation, Conjunctivae nml ENT: positive: ENT inspection nml, Pharynx nml, No signs of dehydration. negative: Purulent nasal drainage, Pharyngeal erythema, Oral lesions Neck: positive: Nml inspection, Thyroid nml, No JVD, Trachea midline. negative : Thyromegaly, Lymphadenopathy (R), Lymphadenopathy (L), Stiff neck, Swelling/ bruising, Tracheal deviation Respiratory: positive: Chest non-tender, No respiratory distress, Breath sounds nml. negative: Wheezes, Rales, Rhonchi Cardiovascular: positive: Regular rate & rhythm, No murmur, No gallop. negative : Irregularly irregular, Extrasystoles, Tachycardia, Bradycardia, JVD present, Systolic murmur, Diastolic murmur Peripheral Pulses: 2+ Radial (R), 2+ Radial (L), 2+ Dorsalis pedis (R), 2+ Dorsalis pedis (L) Abdomen: positive: Non-tender, No organomegaly, Nml bowel sounds, No distention. negative: Tenderness, Guarding, Rebound Back: positive: Nml inspection. negative: CVA tenderness (R), CVA tenderness (L ) Skin: positive: Color nml, No rash, Warm, Dry. negative: Cyanosis, Diaphoresis , Pallor Extremities: positive: Nml appearance. negative: Calf tenderness, Joint swelling, Garo's sign/cords Neurologic/Psychiatric: positive: Oriented x3, Sensation nml, Mood/affect nml. negative: Weakness, Sensory loss, Facial droop, Slurred/abnml speech, Depressed mood/affect - Lab Results Fish Bones: 10/15/17 05:30 10/15/17 05:30 Other Labs: Lab Results x24hrs 10/15/17 10/15/17 10/14/17 Range/Units 05:30 05:30 16:20 WBC 6.9 (4.8-10.8) x10^3/uL RBC 4.63 (4.20-5.40) 10^6/uL Hgb 12.5 (12.0-16.0) g/dL Hct 38.0 (37.0-47.0) % MCV 82.2 (81.0-99.0) fL MCH 27.1 (27.0-31.0) pg MCHC 33.0 (32.0-36.0) g/dL RDW 15.0 (12.0-15.0) % Plt Count 190 (130-450) 10^3/uL MPV 8.2 (7.9-10.8) fL Neut # (Auto) 4.3 (1.5-6.6) 10^3/uL Lymph # (Auto) 1.6 (1.5-3.5) 10^3/uL [place] # (Auto) 0.7 (0.0-1.0) 10^3/uL Eos # (Auto) 0.2 (0.0-0.7) 10^3/uL Baso # (Auto) 0.0 (0.0-0.1) 10^3/uL Absolute Nucleated RBC 0.01 x10^3/uL Nucleated RBC % 0.1 /100WBC Sodium 139 (135-145) mmol/L Potassium 3.8 (3.5-5.0) mmol/L Chloride 102 (101-111) mmol/L Carbon Dioxide 29 (21-32) mmol/L Anion Gap 8.0 (6-13) BUN 13 (6-20) mg/dL Creatinine 0.5 (0.4-1.0) mg/dL Estimated GFR (MDRD) 123 (>89) Glucose 123 H (70-100) mg/dL Calcium 8.0 L (8.5-10.3) mg/dL Urine Color YELLOW Urine Clarity CLEAR (CLEAR) Urine pH 6.0 (5.0-7.5) PH Ur Specific Rew 1.025 (1.002-1.030) Urine Protein NEGATIVE (NEGATIVE) mg/dL Urine Glucose (UA) NEGATIVE (NEGATIVE) mg/dL Urine Ketones NEGATIVE (NEGATIVE) mg/dL Urine Occult Blood NEGATIVE (NEGATIVE) Urine Nitrite NEGATIVE (NEGATIVE) Urine Bilirubin NEGATIVE (NEGATIVE) Urine Urobilinogen 0.2 (NORMAL) (NORMAL) E.U./dL Ur Leukocyte Esterase NEGATIVE (NEGATIVE) Ur Microscopic Review NOT INDICATED Urine Culture Comments NOT INDICATED ABX Reporting Has patient been on IV antibiotics over the past 48 hours?: Yes Assessment/Plan - Problem List (1) Bimalleolar ankle fracture Impression: Impression: 10/15 pt will have operation on today morning, will follow up pain control PT/OT H&H pt will have operation, per orthopedics pain control (2) Chronic obstructive pulmonary disease (COPD) Impression: 10/15 stable, continue home meds INH treatment as needed O2 supplement as needed (3) HTN (hypertension) Impression: stable, continue home meds (4) Hx of seizure disorder Impression: stable, continue home meds (5) Depression Impression: stable, continue home meds Qualifiers: Encounter type: initial encounter Fracture type: closed Laterality: right Qualified Code(s): S82.841A - Displaced bimalleolar fracture of right lower leg, initial encounter for closed fracture
--- NOTE | 2017-10-15 13:23 | OPERATIVE REPORT ---
DATE OF SERVICE: 10/15/2017 Physician: Naveed Juarez MD PREOPERATIVE DIAGNOSIS: Closed right bimalleolar ankle fracture. POSTOPERATIVE DIAGNOSIS: Closed right bimalleolar ankle fracture. PROCEDURE PERFORMED: Open reduction internal fixation of right bimalleolar ankle fracture utilizing a 6 hole, 1/3 tubular lateral buttress plate of the fibula; two 36 mm cannulated cancellous screws fo r fixation of the medial malleolar fragment. SURGEON: Naveed Juarez MD ANESTHESIA: General. OPERATIVE NOTE: The patient was taken to the operating room in the morning of 10/15/2017, where she was placed under a general anesthetic in the supine position without any complications. We apply th e thigh pneumatic tourniquet to the right lower extremity, but this was not inflated during the proce dure. We also placed a sandbag under the right hip to help with the positioning of her ankle. We th en prepped and draped the ankle free in the usual fashion for our procedure. Through a lateral skin incision, we approached the lateral distal fibula fracture. The fracture was essentially reduced, required minimal manipulation, was out to length. After freeing the periosteum off of the distal fibula, we were able to apply a 6 hole, 1/3 tubular buttress plate over the lateral portion of the distal fibula. Holding this in place with two lobster claw clamps to the plate, fluo roscopic views showed good reduction of our fracture. The fracture appeared to be out to length. With standard protocol, we then proceeded to fill the screws and our 6 hole, 1/3 tubular plate with t he appropriate length, 3.5 mm cortical screws. After our plate fixation, fluoroscopic views of the a nkle showed again the fracture to be out to length, and with a good reduction of the fibular fracture . The ankle mortise appeared to be reestablished as well. Next, our attention was directed medially where a curvilinear longitudinal skin incision was made ove r the lateral malleolar fragment. We attempted to avoid entering the fracture blister medially, thou gh it did rupture during the course of our procedure. We dissected down to the medial malleolar frag ment. A periosteal elevator was used to strip the periosteum about the fracture edge both proximally and distally. With towel clip reduction clamps, we were able to reduce the fracture and hold it in place. Fluoroscopic views showed a good reduction of our medial malleolar fragment, and also showed christianity of the ankle mortise as well. We then proceeded to drill threaded tipped guidewires from the 4.0 cannulated screw set up in an oblique fashion, crossing our medial malleolar fragment. Dire ct measuring guide determined a 36 mm length. 4.0 cannulated cancellous screws would be utilized. We perforated the medial cortical surface with our cannulated 3.5 mm drill. This was then followed by the two selected 4.0 cannulated cancellous screws. We obtained reasonable purchase in view of the os teoporotic bone the patient had. We then removed our guidewires. Final fluoroscopic views were then obtained of the ankle, showing satisfactory placement of all the hardware. Ankle mortise was reesta blished. No gross instability noted when using a bone hook to attempt to sublux the distal fibular l aterally. Satisfied with this, we then irrigated both wounds out thoroughly with saline. We then closed the wo und in layers using buried simple stitches of 2-0 Vicryl to approximate the subcutaneous tissues, fol lowed by skin shivani to approximate the skin edge. We then washed the ankle and the wounds, and germaine lied Vaseline gauze, 4 x 4s, sterile Webril, and a short-leg posterior splint with stirrups was appli ed to the lower extremity with the ankle in essentially neutral position. The patient was then trans ported off the operating room table, to the recovery room in satisfactory condition. ESTIMATED BLOOD LOSS: 100 mL. REPLACEMENT: 100 mL crystalloid. INTRAOPERATIVE COMPLICATIONS: None. PLAN: The patient will be nonweightbearing in her splint in the extremity using a walker as needed. Once stable, will be discharged from the hospital, and will follow up in Orthopedic Clinic in 10-14 days. TD: 10/15/2017 12:01
[2017-10-15] MEDS: ASPIRIN 325 MG TABLET PO SCH (16:24)
[2017-10-15] MEDS ORDERED: SODIUM CHLORIDE FLUSH 0.9% 10 ML SYRINGE IVP SCH (17:00)
[2017-10-15] MEDS: ceFAZolin 2 GM/50 ML 2 GM/50 ML BAG IV SCH (20:51)
[2017-10-16] MEDS: SODIUM CHLORIDE FLUSH 0.9% 10 ML SYRINGE IVP SCH ×4 (00:09→16:27)
[2017-10-16] MEDS: HYDROmorphone 0.5 MG/0.5 ML SYRINGE IVP PRN ×3 (00:45→21:55)
[2017-10-16] MEDS: SODIUM CHLORIDE 0.9% 1,000 ML IV SCH ×3 (00:46→21:47)
[2017-10-16] MEDS: oxyCODONE 5 MG TABLET PO PRN ×3 (01:58→18:06)
[2017-10-16] MEDS: ACETAMINOPHEN 1,000 MG/100 ML 100 ML IV PRN ×3 (01:59→23:37)
[2017-10-16] MEDS: ceFAZolin 2 GM/50 ML 2 GM/50 ML BAG IV SCH (02:41)
[2017-10-16] MEDS: ONDANSETRON ODT 4 MG TABLET TL PRN (04:15)
[2017-10-16 05:32] LABS: BASOPHILS % (AUTO) 0.7 %; EOSINOPHILS # (AUTO) 0.1 10^3/uL (0.0-0.7); EOSINOPHILS % (AUTO) 1.5 %; HGB - HEMOGLOBIN 11.1 g/dL (12.0-16.0); LYMPHOCYTES # (AUTO) 1.8 10^3/uL (1.5-3.5); LYMPHOCYTES % (AUTO) 25.5 %; MEAN CORPUSCULAR HEMOGLOBIN 26.7 pg (27.0-31.0); MEAN CORPUSCULAR HGB CONC 31.9 g/dL (32.0-36.0); MEAN CORPUSCULAR VOLUME 83.7 fL (81.0-99.0); MEAN PLATELET VOLUME 8.1 fL (7.9-10.8); MONOCYTES # (AUTO) 0.6 10^3/uL (0.0-1.0); MONOCYTES % (AUTO) 8.6 %; NEUTROPHILS # (AUTO) 4.5 10^3/uL (1.5-6.6); NEUTROPHILS % (AUTO) 63.7 %; PLT - PLATELET COUNT 162 10^3/uL (130-450); RED BLOOD COUNT 4.15 10^6/uL (4.20-5.40); RED CELL DISTRIBUTION WIDTH 14.8 % (12.0-15.0); WHITE BLOOD COUNT 7.1 x10^3/uL (4.8-10.8)
[2017-10-16 05:41] LABS: ALBUMIN 2.8 g/dL (3.2-5.5); ALBUMIN/GLOBULIN RATIO 0.9 (1.0-2.2); BILIRUBIN,TOTAL 0.9 mg/dL (0.2-1.0); CALCIUM 7.6 mg/dL (8.5-10.3); CREATININE 0.5 mg/dL (0.4-1.0); TOTAL PROTEIN 5.9 g/dL (6.7-8.2)
[2017-10-16] MEDS ORDERED: CALCIUM GLUCONATE 1,000 MG in SODIUM CHLORIDE 0.9% 50 ML IV ONE (07:24)
[2017-10-16] MEDS: VENLAFAXINE ER 75 MG CAPSULE PO SCH (08:23)
[2017-10-16] MEDS: ASPIRIN 325 MG TABLET PO SCH ×2 (08:24→16:58)
[2017-10-16] MEDS: DIVALPROEX DR 250 MG TABLET PO SCH ×2 (08:26→21:05)
[2017-10-16] MEDS: amLODIPine 5 MG TABLET PO SCH (08:27)
[2017-10-16] MEDS: FERROUS SULFATE 325 MG TABLET PO SCH (08:27)
[2017-10-16] MEDS: POLYETHYLENE GLYCOL 3350 17 GM PACKET PO SCH (08:28)
[2017-10-16] MEDS: levETIRAcetam 250 MG TABLET PO SCH ×2 (08:31→21:05)
[2017-10-16] MEDS: IPRATROPIUM/ALBUTEROL 3 ML NEB INH PRN (09:19)
[2017-10-16] MEDS: SODIUM CHLORIDE FLUSH 0.9% 10 ML SYRINGE IVP PRN ×3 (09:56→21:55)
[2017-10-16] MEDS: ACETAMINOPHEN 325 MG TABLET PO PRN (10:39)
--- NOTE | 2017-10-16 11:19 | PROVIDER PROGRESS NOTE ---
Subjective - Prog Note Date Prog Note Date: 10/16/17 - Subjective Pt reports feeling: Improved Subjective: pt report her ankle pain is better. pt denies fever, chill, cough, no chest pain. Current Medications - Current Medications Current Medications: Active Medications Acetaminophen (Tylenol) 650 - 975 mg PO Q4HR PRN PRN Reason: PAIN Last Admin: 10/16/17 10:39 Dose: 650 mg Albuterol/Ipratropium (Duoneb) 3 ml INH Q4HR PRN PRN Reason: Wheezing Last Admin: 10/16/17 09:19 Dose: 3 ml Amlodipine Besylate (Norvasc) 10 mg PO DAILY [facility] Last Admin: 10/16/17 08:27 Dose: 10 mg Aspirin (Sergei) 325 mg PO BIDWM [facility] Last Admin: 10/16/17 08:24 Dose: 325 mg Calamine (Calamine) 0 applic TOP PRN PRN PRN Reason: ITCHING Last Admin: 10/15/17 20:59 Dose: 1 applic Calcium Citrate () 250 mg PO 1200 [facility] Divalproex Sodium (Depakote Dr) 250 mg PO DAILY [facility] Last Admin: 10/16/17 08:26 Dose: 250 mg Divalproex Sodium (Depakote Dr) 500 mg PO QPM [facility] Last Admin: 10/15/17 20:52 Dose: 500 mg Docusate Sodium (Colace 100mg Capsule) 100 mg PO BID PRN PRN Reason: Constipation Ferrous Sulfate (Feosol) 325 mg PO DAILYWM [facility] Last Admin: 10/16/17 08:27 Dose: 325 mg Hydromorphone HCl (Dilaudid Inj Syringe) 0.5 mg IVP Q2H PRN PRN Reason: Pain 8 to 10 Last Admin: 10/16/17 00:45 Dose: 0.5 mg Hydroxyzine HCl (Vistaril Inj) 25 mg IM Q6HR PRN PRN Reason: ITCHING Sodium Chloride (Normal Saline 0.9%) 1,000 mls @ 100 mls/hr IV .Q10H [facility] Last Admin: 10/16/17 00:46 Dose: 100 mls/hr Acetaminophen (Ofirmev) 100 mls @ 400 mls/hr IV Q6HR PRN PRN Reason: PAIN Last Infusion: 10/16/17 02:40 Dose: Infused Levetiracetam (Keppra) 250 mg PO DAILY [facility] Last Admin: 10/16/17 08:31 Dose: 250 mg Levetiracetam (Keppra) 500 mg PO QPM [facility] Last Admin: 10/15/17 20:52 Dose: 500 mg Morphine Sulfate (Morphine) 2 mg IVP Q2HR PRN PRN Reason: PAIN Ondansetron HCl (Zofran Inj) 4 mg IVP Q6HR PRN PRN Reason: Nausea / Vomiting Last Admin: 10/16/17 09:56 Dose: 4 mg Ondansetron HCl (Zofran Odt) 4 mg TL Q6HR PRN PRN Reason: Nausea / Vomiting Last Admin: 10/16/17 04:15 Dose: 4 mg Oxycodone HCl (Roxicodone) 5 mg PO Q4HR PRN PRN Reason: PAIN Last Admin: 10/16/17 08:21 Dose: 5 mg Polyethylene Glycol (Miralax) 17 gm PO DAILY [facility] Last Admin: 10/16/17 08:28 Dose: 17 gm Prochlorperazine Edisylate (Compazine Inj) 10 mg IVP Q6HR PRN PRN Reason: Nausea / Vomiting Senna (Senokot) 17.2 mg PO Q12H PRN PRN Reason: Constipation Sodium Chloride (Normal Saline Flush 0.9%) 10 ml IVP PRN PRN PRN Reason: NEEDED PER PROVIDER ORDERS Last Admin: 10/16/17 10:00 Dose: 10 ml Sodium Chloride (Normal Saline Flush 0.9%) 10 ml IVP 0100,0900,1700 [facility] Last Admin: 10/16/17 08:38 Dose: Not Given Venlafaxine HCl (Effexor Er) 225 mg PO DAILY [facility] Last Admin: 10/16/17 08:23 Dose: 225 mg Albuterol Sulfate [Proair Hfa Inhaler] 2 puffs INH Q4H PRN 12/27/15 Carisoprodol [Soma] 350 mg PO TID 12/27/15 Loratadine [Claritin] 10 mg PO DAILY PRN 12/27/15 Quetiapine Fumarate [Seroquel] 300 mg PO QPM 12/27/15 Sumatriptan Succinate [Imitrex] 50 mg PO BID PRN 12/27/15 Venlafaxine ER [Effexor ER] 225 mg PO DAILY 12/27/15 Aspirin 81 mg PO DAILY 03/11/16 Docusate Sodium [Stool Softener] 100 mg PO BID PRN 03/11/16 amLODIPine [Norvasc] 10 mg PO DAILY 03/11/16 Cholecalciferol (Vitamin D3) [Vitamin D3] 1,000 unit PO DAILY 05/18/17 Cyanocobalamin [Vitamin B-12] 1,000 mcg IM Q30D 05/18/[address] [Depakote Dr] 1,000 mg PO QPM 05/18/17 Ginkgo Biloba Bray Extract [Ginkgo Biloba] 120 mg PO DAILY 05/18/17 Guaifenesin [Mucinex] 600 mg PO BID PRN 05/18/17 Ibuprofen [Motrin] 800 mg PO Q8H PRN 05/18/17 [place]-3 Fatty Acids/Fish Oil [[place]-3 Fish Oil 1,000 mg Sfgl] 1,000 mg PO BID Senna [Senokot] 8.6 mg PO BID PRN 05/18/17 Tiotropium [place] [Spiriva] 18 mcg INH DAILY 05/18/17 Zolpidem Tartrate [Ambien] 10 mg PO QPM 05/18/17 levETIRAcetam [Keppra] 500 mg PO QPM 05/18/17 Ipratropium/Albuterol Sulfate [Iprat-Albut 0.5-3(2.5) mg/3 ml] 3 ml IH QID 05/28 levETIRAcetam [Keppra] 250 mg PO DAILY 05/28/17 Lysine HCl 400 mg PO DAILY 06/17/17 Acetylcarnitine [Cyto Carn] 1,500 mg PO DAILY 06/18/17 Buspirone HCl 7.5 mg PO BID 10/14/17 Carisoprodol [Soma] 350 mg PO QPM PRN 10/14/17 Levothyroxine [Synthroid] 100 mcg PO QDAC 10/14/17 Objective - Vital Signs/Intake & Output Reviewed Vital Signs: Yes Vital Signs: Vital Signs x48h Temp Pulse Pulse Resp BP Pulse Ox 10/16/17 09:21 88 20 10/16/17 08:00 37.1 C 90 18 144/61 H 96 Intake & Output: Intake & Output 10/13/17 10/14/17 10/15/17 10/16/17 23:59 23:59 23:59 23:59 Intake Total 1580 3550 1330 Output Total 875 1050 1100 Balance 705 2500 230 - Objective General Appearance: positive: No acute distress, Alert. negative: Lethargic Eyes Bilateral: positive: Normal inspection, PERRL, No lid inflammation, Conjunctivae nml ENT: positive: ENT inspection nml, Pharynx nml, No signs of dehydration. negative: Purulent nasal drainage, Pharyngeal erythema, Oral lesions Neck: positive: Nml inspection, Thyroid nml, No JVD, Trachea midline. negative : Thyromegaly, Lymphadenopathy (R), Lymphadenopathy (L), Stiff neck, Swelling/ bruising, Tracheal deviation Respiratory: positive: Chest non-tender, No respiratory distress, Breath sounds nml. negative: Wheezes, Rales, Rhonchi Cardiovascular: positive: Regular rate & rhythm, No murmur, No gallop. negative : Irregularly irregular, Extrasystoles, Tachycardia, Bradycardia, JVD present, Systolic murmur, Diastolic murmur Peripheral Pulses: 2+ Radial (R), 2+ Radial (L), 2+ Dorsalis pedis (R), 2+ Dorsalis pedis (L) Abdomen: positive: Non-tender, No organomegaly, Nml bowel sounds, No distention. negative: Tenderness, Guarding, Rebound Back: positive: Nml inspection. negative: CVA tenderness (R), CVA tenderness (L ) Skin: positive: Color nml, No rash, Warm, Dry. negative: Cyanosis, Diaphoresis , Pallor Extremities: positive: Non-tender, Full ROM, Nml appearance. negative: Calf tenderness, Joint swelling, Garo's sign/cords Neurologic/Psychiatric: positive: Oriented x3, Sensation nml, Mood/affect nml. negative: Weakness, Sensory loss, Facial droop, Slurred/abnml speech, Depressed mood/affect - Lab Results Fish Bones: 10/16/17 05:15 10/16/17 05:15 Other Labs: Lab Results x24hrs 10/16/17 10/16/17 10/15/17 Range/Units 05:15 05:15 20:01 WBC 7.1 (4.8-10.8) x10^3/uL RBC 4.15 L (4.20-5.40) 10^6/uL Hgb 11.1 L 12.0 (12.0-16.0) g/dL Hct 34.8 L 37.8 (37.0-47.0) % MCV 83.7 (81.0-99.0) fL MCH 26.7 L (27.0-31.0) pg MCHC 31.9 L (32.0-36.0) g/dL RDW 14.8 (12.0-15.0) % Plt Count 162 (130-450) 10^3/uL MPV 8.1 (7.9-10.8) fL Neut # (Auto) 4.5 (1.5-6.6) 10^3/uL Lymph # (Auto) 1.8 (1.5-3.5) 10^3/uL [place] # (Auto) 0.6 (0.0-1.0) 10^3/uL Eos # (Auto) 0.1 (0.0-0.7) 10^3/uL Baso # (Auto) 0.0 (0.0-0.1) 10^3/uL Absolute Nucleated RBC 0.01 x10^3/uL Nucleated RBC % 0.1 /100WBC Sodium 140 (135-145) mmol/L Potassium 3.6 (3.5-5.0) mmol/L Chloride 102 (101-111) mmol/L Carbon Dioxide 30 (21-32) mmol/L Anion Gap 8.0 (6-13) BUN 10 (6-20) mg/dL Creatinine 0.5 (0.4-1.0) mg/dL Estimated GFR (MDRD) 123 (>89) Glucose 129 H (70-100) mg/dL Calcium 7.6 L (8.5-10.3) mg/dL Total Bilirubin 0.9 (0.2-1.0) mg/dL AST 72 H (10-42) IU/L ALT 80 H (10-60) IU/L Alkaline Phosphatase 81 (42-121) IU/L Total Protein 5.9 L (6.7-8.2) g/dL Albumin 2.8 L (3.2-5.5) g/dL Globulin 3.1 (2.1-4.2) g/dL Albumin/Globulin Ratio 0.9 L (1.0-2.2) ABX Reporting Has patient been on IV antibiotics over the past 48 hours?: No Assessment/Plan - Problem List (1) Bimalleolar ankle fracture Impression: Impression: 10/16, PT report pt get up from bed, and evaluated and treated by PT continue PT/OT continue pain control [id number], will lab monitor 10/15 pt will have operation on today morning, will follow up pain control PT/OT H&H pt will have operation, per orthopedics pain control (2) Chronic obstructive pulmonary disease (COPD) Impression: 10/16, stable 10/15 stable, continue home meds INH treatment as needed O2 supplement as needed (3) HTN (hypertension) Impression: stable, continue home meds (4) Hx of seizure disorder Impression: stable, continue home meds (5) Depression Impression: stable, continue home meds Qualifiers: Encounter type: initial encounter Fracture type: closed Laterality: right Qualified Code(s): S82.841A - Displaced bimalleolar fracture of right lower leg, initial encounter for closed fracture
[2017-10-16] MEDS: CALCIUM CITRATE 250 MG TABLET PO SCH (12:03)
--- NOTE | 2017-10-16 14:15 | PROVIDER PROGRESS NOTE ---
Subjective - Prog Note Date Prog Note Date: 10/16/17 Prog Note Time: 14:13 - Subjective Pt reports feeling: Improved Objective - Vital Signs/Intake & Output Vital Signs: Vital Signs x48h Temp Pulse Pulse Pulse Resp BP BP 10/16/17 12:11 87 147/68 H 10/16/17 10:00 87 147/68 H 10/16/17 09:21 88 20 10/16/17 08:00 37.1 C 90 18 144/61 H Pulse Ox Pulse Ox 10/16/17 12:11 98 10/16/17 10:00 96 10/16/17 09:21 10/16/17 08:00 96 Intake & Output: Intake & Output 10/13/17 10/14/17 10/15/17 10/16/17 23:59 23:59 23:59 23:59 Intake Total 1580 3550 2570 Output Total 875 1050 1100 Balance 705 2500 1470 - Lab Results Fish Bones: 10/16/17 05:15 10/16/17 05:15 Other Labs: Lab Results x24hrs 10/16/17 10/16/17 10/15/17 Range/Units 05:15 05:15 20:01 WBC 7.1 (4.8-10.8) x10^3/uL RBC 4.15 L (4.20-5.40) 10^6/uL Hgb 11.1 L 12.0 (12.0-16.0) g/dL Hct 34.8 L 37.8 (37.0-47.0) % MCV 83.7 (81.0-99.0) fL MCH 26.7 L (27.0-31.0) pg MCHC 31.9 L (32.0-36.0) g/dL RDW 14.8 (12.0-15.0) % Plt Count 162 (130-450) 10^3/uL MPV 8.1 (7.9-10.8) fL Neut # (Auto) 4.5 (1.5-6.6) 10^3/uL Lymph # (Auto) 1.8 (1.5-3.5) 10^3/uL [place] # (Auto) 0.6 (0.0-1.0) 10^3/uL Eos # (Auto) 0.1 (0.0-0.7) 10^3/uL Baso # (Auto) 0.0 (0.0-0.1) 10^3/uL Absolute Nucleated RBC 0.01 x10^3/uL Nucleated RBC % 0.1 /100WBC Sodium 140 (135-145) mmol/L Potassium 3.6 (3.5-5.0) mmol/L Chloride 102 (101-111) mmol/L Carbon Dioxide 30 (21-32) mmol/L Anion Gap 8.0 (6-13) BUN 10 (6-20) mg/dL Creatinine 0.5 (0.4-1.0) mg/dL Estimated GFR (MDRD) 123 (>89) Glucose 129 H (70-100) mg/dL Calcium 7.6 L (8.5-10.3) mg/dL Total Bilirubin 0.9 (0.2-1.0) mg/dL AST 72 H (10-42) IU/L ALT 80 H (10-60) IU/L Alkaline Phosphatase 81 (42-121) IU/L Total Protein 5.9 L (6.7-8.2) g/dL Albumin 2.8 L (3.2-5.5) g/dL Globulin 3.1 (2.1-4.2) g/dL Albumin/Globulin Ratio 0.9 L (1.0-2.2) - Other Results/Comments Other Results/Comments: EXAM: Splint intact. Moving toes well. Sensation intact. Good cap filling. Up in chair without pain Assessment/Plan - Problem List (1) Bimalleolar ankle fracture Impression: Satis post op PLAN: Mobilize as tolerated - NWB on right. When transfered to SNF< continue PT - NWB on right. Follow up in 2 weeks for staple removal and new XR and casting. Qualifiers: Encounter type: initial encounter Fracture type: closed Laterality: right Qualified Code(s): S82.841A - Displaced bimalleolar fracture of right lower leg, initial encounter for closed fracture
[2017-10-17] MEDS: SODIUM CHLORIDE FLUSH 0.9% 10 ML SYRINGE IVP SCH ×3 (00:17→15:34)
[2017-10-17 04:33] LABS: BASOPHILS % (AUTO) 0.7 %; EOSINOPHILS # (AUTO) 0.2 10^3/uL (0.0-0.7); EOSINOPHILS % (AUTO) 3.9 %; HGB - HEMOGLOBIN 10.1 g/dL (12.0-16.0); LYMPHOCYTES # (AUTO) 1.7 10^3/uL (1.5-3.5); LYMPHOCYTES % (AUTO) 35.1 %; MEAN CORPUSCULAR HEMOGLOBIN 27.2 pg (27.0-31.0); MEAN CORPUSCULAR HGB CONC 32.7 g/dL (32.0-36.0); MEAN CORPUSCULAR VOLUME 83.2 fL (81.0-99.0); MEAN PLATELET VOLUME 8.1 fL (7.9-10.8); MONOCYTES # (AUTO) 0.4 10^3/uL (0.0-1.0); MONOCYTES % (AUTO) 8.4 %; NEUTROPHILS # (AUTO) 2.6 10^3/uL (1.5-6.6); NEUTROPHILS % (AUTO) 51.9 %; PLT - PLATELET COUNT 150 10^3/uL (130-450); RED BLOOD COUNT 3.72 10^6/uL (4.20-5.40); RED CELL DISTRIBUTION WIDTH 14.8 % (12.0-15.0); WHITE BLOOD COUNT 4.9 x10^3/uL (4.8-10.8)
[2017-10-17 05:19] LABS: ALBUMIN 2.6 g/dL (3.2-5.5); ALBUMIN/GLOBULIN RATIO 0.8 (1.0-2.2); ALKALINE PHOSPHATASE 62 IU/L (42-121); ALT ALANINE AMINOTRANSFERASE 47 IU/L (10-60); AST ASPARTATE AMINOTRANSFERASE 30 IU/L (10-42); BILIRUBIN,TOTAL 0.7 mg/dL (0.2-1.0); BUN - BLOOD UREA NITROGEN < 5 mg/dL (6-20); CARBON DIOXIDE - CO2 33 mmol/L (21-32); CHLORIDE 101 mmol/L (101-111); CREATININE 0.4 mg/dL (0.4-1.0); GFR - MDRD 159 (>89); GLUCOSE 117 mg/dL (70-100); SODIUM 141 mmol/L (135-145); TOTAL PROTEIN 5.7 g/dL (6.7-8.2)
[2017-10-17] MEDS: oxyCODONE 5 MG TABLET PO PRN ×2 (05:45→22:39)
[2017-10-17] MEDS: HYDROmorphone 0.5 MG/0.5 ML SYRINGE IVP PRN ×2 (06:19→13:52)
[2017-10-17] MEDS: SODIUM CHLORIDE 0.9% 1,000 ML IV SCH (08:08)
[2017-10-17 08:15] LABS: MEAN RETIC VALUE 114.7; RED BLOOD COUNT 3.71 10^6/uL (4.20-5.40)
[2017-10-17] MEDS: FERROUS SULFATE 325 MG TABLET PO SCH (08:16)
[2017-10-17] MEDS: ASPIRIN 325 MG TABLET PO SCH ×2 (08:16→17:16)
[2017-10-17] MEDS: amLODIPine 5 MG TABLET PO SCH (08:16)
[2017-10-17] MEDS: levETIRAcetam 250 MG TABLET PO SCH ×2 (08:17→20:24)
[2017-10-17] MEDS: VENLAFAXINE ER 75 MG CAPSULE PO SCH (08:17)
[2017-10-17] MEDS: DIVALPROEX DR 250 MG TABLET PO SCH ×2 (08:17→20:24)
[2017-10-17] MEDS: POLYETHYLENE GLYCOL 3350 17 GM PACKET PO SCH (08:20)
[2017-10-17 08:28] LABS: FERRITIN 179.4 ng/mL (11.0-306.8)
[2017-10-17 08:29] LABS: % IRON SATURATION 11 % (20-50); IRON 24 ug/dL (28-170); TOTAL IRON BINDING CAPACITY 228 ug/dL (250-450); TRANSFERRIN 163 mg/dL (192-382)
--- NOTE | 2017-10-17 09:44 | PROVIDER PROGRESS NOTE ---
Subjective - Prog Note Date Prog Note Date: 10/17/17 Prog Note Time: 09:40 - Subjective Pt reports feeling: Improved Objective - Vital Signs/Intake & Output Vital Signs: Vital Signs x48h Temp Pulse Resp BP Pulse Ox 10/17/17 08:00 36.8 C 74 14 108/75 94 Intake & Output: Intake & Output 10/14/17 10/15/17 10/16/17 10/17/17 23:59 23:59 23:59 23:59 Intake Total 1580 3550 4043.333 1460 Output Total 875 1050 2450 125 Balance 705 2500 6087.279 6917 - Lab Results Fish Bones: 10/17/17 04:20 10/17/17 04:20 Other Labs: Lab Results x24hrs 10/17/17 10/17/17 10/17/17 Range/Units 04:20 04:20 04:20 WBC (4.8-10.8) x10^3/uL RBC (4.20-5.40) 10^6/uL Hgb (12.0-16.0) g/dL Hct (37.0-47.0) % MCV (81.0-99.0) fL MCH (27.0-31.0) pg MCHC (32.0-36.0) g/dL RDW (12.0-15.0) % Plt Count (130-450) 10^3/uL MPV (7.9-10.8) fL Reticulocyte % (Auto) (0.5-2.3) % Neut # (Auto) (1.5-6.6) 10^3/uL Lymph # (Auto) (1.5-3.5) 10^3/uL [place] # (Auto) (0.0-1.0) 10^3/uL Eos # (Auto) (0.0-0.7) 10^3/uL Baso # (Auto) (0.0-0.1) 10^3/uL Absolute Nucleated RBC x10^3/uL Nucleated RBC % /100WBC Absolute Retic (0.020-0.110) 10^6/uL Sodium (135-145) mmol/L Potassium (3.5-5.0) mmol/L Chloride (101-111) mmol/L Carbon Dioxide (21-32) mmol/L Anion Gap (6-13) BUN (6-20) mg/dL Creatinine (0.4-1.0) mg/dL Estimated GFR (MDRD) (>89) Glucose (70-100) mg/dL Calcium (8.5-10.3) mg/dL Iron 24 L (28-170) ug/dL TIBC 228 L (250-450) ug/dL % Saturation 11 L (20-50) % Transferrin 163 L (192-382) mg/dL Ferritin 179.4 (11.0-306.8) ng/mL Total Bilirubin (0.2-1.0) mg/dL AST (10-42) IU/L ALT (10-60) IU/L Alkaline Phosphatase (42-121) IU/L Lactate Dehydrogenase 128 (91-225) IU/L Total Protein (6.7-8.2) g/dL Albumin (3.2-5.5) g/dL Globulin (2.1-4.2) g/dL Albumin/Globulin Ratio (1.0-2.2) Vitamin B12 1150 H (180-914) pg/mL 10/17/17 10/17/17 10/17/17 Range/Units 04:20 04:20 04:20 WBC 4.9 (4.8-10.8) x10^3/uL RBC 3.71 L 3.72 L (4.20-5.40) 10^6/uL Hgb 10.1 L (12.0-16.0) g/dL Hct 31.0 L (37.0-47.0) % MCV 83.2 (81.0-99.0) fL MCH 27.2 (27.0-31.0) pg MCHC 32.7 (32.0-36.0) g/dL RDW 14.8 (12.0-15.0) % Plt Count 150 (130-450) 10^3/uL MPV 8.1 (7.9-10.8) fL Reticulocyte % (Auto) 1.74 (0.5-2.3) % Neut # (Auto) 2.6 (1.5-6.6) 10^3/uL Lymph # (Auto) 1.7 (1.5-3.5) 10^3/uL [place] # (Auto) 0.4 (0.0-1.0) 10^3/uL Eos # (Auto) 0.2 (0.0-0.7) 10^3/uL Baso # (Auto) 0.0 (0.0-0.1) 10^3/uL Absolute Nucleated RBC 0.00 x10^3/uL Nucleated RBC % 0.0 /100WBC Absolute Retic 0.065 (0.020-0.110) 10^6/uL Sodium 141 (135-145) mmol/L Potassium 3.8 (3.5-5.0) mmol/L Chloride 101 (101-111) mmol/L Carbon Dioxide 33 H (21-32) mmol/L Anion Gap 7.0 (6-13) BUN < 5 L (6-20) mg/dL Creatinine 0.4 (0.4-1.0) mg/dL Estimated GFR (MDRD) 159 (>89) Glucose 117 H (70-100) mg/dL Calcium 8.0 L (8.5-10.3) mg/dL Iron (28-170) ug/dL TIBC (250-450) ug/dL % Saturation (20-50) % Transferrin (192-382) mg/dL Ferritin (11.0-306.8) ng/mL Total Bilirubin 0.7 (0.2-1.0) mg/dL AST 30 (10-42) IU/L ALT 47 (10-60) IU/L Alkaline Phosphatase 62 (42-121) IU/L Lactate Dehydrogenase (91-225) IU/L Total Protein 5.7 L (6.7-8.2) g/dL Albumin 2.6 L (3.2-5.5) g/dL Globulin 3.1 (2.1-4.2) g/dL Albumin/Globulin Ratio 0.8 L (1.0-2.2) Vitamin B12 (180-914) pg/mL - Other Results/Comments Other Results/Comments: EXAM: Right ankle: In posterior splint - intact. Moves toes well. Sensation intact. Good cap filling. Up in chair without problems Assessment/Plan - Problem List (1) Bimalleolar ankle fracture Impression: Satis post op PLAN: Ready for transfer to SNF, if ok with medicine. Continue PT: NWB on right with transfers and walker ambulation. Follow up in 2 weeks for shivani out, casting, and new XR. Due to osteoportic bone, keep NWB on right for 6-8 weeks. Qualifiers: Encounter type: initial encounter Fracture type: closed Laterality: right Qualified Code(s): S82.841A - Displaced bimalleolar fracture of right lower leg, initial encounter for closed fracture
--- NOTE | 2017-10-17 10:12 | PROVIDER PROGRESS NOTE ---
Subjective - Prog Note Date Prog Note Date: 10/17/17 - Subjective Pt reports feeling: Improved Subjective: pt state her pain is good control, to work with PT, plan to d/c tomorrow. no other complaints Current Medications - Current Medications Current Medications: Active Medications Acetaminophen (Tylenol) 650 - 975 mg PO Q4HR PRN PRN Reason: PAIN Last Admin: 10/16/17 10:39 Dose: 650 mg Albuterol/Ipratropium (Duoneb) 3 ml INH Q4HR PRN PRN Reason: Wheezing Last Admin: 10/16/17 09:19 Dose: 3 ml Amlodipine Besylate (Norvasc) 10 mg PO DAILY [facility] Last Admin: 10/17/17 08:16 Dose: 10 mg Aspirin (Sergei) 325 mg PO BIDWM [facility] Last Admin: 10/17/17 08:16 Dose: 325 mg Calamine (Calamine) 0 applic TOP PRN PRN PRN Reason: ITCHING Last Admin: 10/15/17 20:59 Dose: 1 applic Calcium Citrate () 250 mg PO 1200 [facility] Last Admin: 10/16/17 12:03 Dose: 250 mg Divalproex Sodium (Depakote Dr) 250 mg PO DAILY [facility] Last Admin: 10/17/17 08:17 Dose: 250 mg Divalproex Sodium (Depakote Dr) 500 mg PO QPM [facility] Last Admin: 10/16/17 21:05 Dose: 500 mg Docusate Sodium (Colace 100mg Capsule) 100 mg PO BID PRN PRN Reason: Constipation Ferrous Sulfate (Feosol) 325 mg PO DAILYWM [facility] Last Admin: 10/17/17 08:16 Dose: 325 mg Hydromorphone HCl (Dilaudid Inj Syringe) 0.5 mg IVP Q2H PRN PRN Reason: Pain 8 to 10 Last Admin: 10/17/17 06:19 Dose: 0.5 mg Hydroxyzine HCl (Vistaril Inj) 25 mg IM Q6HR PRN PRN Reason: ITCHING Sodium Chloride (Normal Saline 0.9%) 1,000 mls @ 100 mls/hr IV .Q10H [facility] Last Admin: 10/17/17 08:08 Dose: 100 mls/hr Acetaminophen (Ofirmev) 100 mls @ 400 mls/hr IV Q6HR PRN PRN Reason: PAIN Last Infusion: 10/17/17 00:29 Dose: Infused Levetiracetam (Keppra) 250 mg PO DAILY [facility] Last Admin: 10/17/17 08:17 Dose: 250 mg Levetiracetam (Keppra) 500 mg PO QPM [facility] Last Admin: 10/16/17 21:05 Dose: 500 mg Morphine Sulfate (Morphine) 2 mg IVP Q2HR PRN PRN Reason: PAIN Ondansetron HCl (Zofran Inj) 4 mg IVP Q6HR PRN PRN Reason: Nausea / Vomiting Last Admin: 10/16/17 09:56 Dose: 4 mg Ondansetron HCl (Zofran Odt) 4 mg TL Q6HR PRN PRN Reason: Nausea / Vomiting Last Admin: 10/16/17 04:15 Dose: 4 mg Oxycodone HCl (Roxicodone) 5 mg PO Q4HR PRN PRN Reason: PAIN Last Admin: 10/17/17 05:45 Dose: 5 mg Polyethylene Glycol (Miralax) 17 gm PO DAILY [facility] Last Admin: 10/17/17 08:20 Dose: 17 gm Prochlorperazine Edisylate (Compazine Inj) 10 mg IVP Q6HR PRN PRN Reason: Nausea / Vomiting Senna (Senokot) 17.2 mg PO Q12H PRN PRN Reason: Constipation Sodium Chloride (Normal Saline Flush 0.9%) 10 ml IVP PRN PRN PRN Reason: NEEDED PER PROVIDER ORDERS Last Admin: 10/16/17 21:55 Dose: 10 ml Sodium Chloride (Normal Saline Flush 0.9%) 10 ml IVP 0100,0900,1700 [facility] Last Admin: 10/17/17 08:17 Dose: Not Given Venlafaxine HCl (Effexor Er) 225 mg PO DAILY [facility] Last Admin: 10/17/17 08:17 Dose: 225 mg Albuterol Sulfate [Proair Hfa Inhaler] 2 puffs INH Q4H PRN 12/27/15 Carisoprodol [Soma] 350 mg PO TID 12/27/15 Loratadine [Claritin] 10 mg PO DAILY PRN 12/27/15 Quetiapine Fumarate [Seroquel] 300 mg PO QPM 12/27/15 Sumatriptan Succinate [Imitrex] 50 mg PO BID PRN 12/27/15 Venlafaxine ER [Effexor ER] 225 mg PO DAILY 12/27/15 Aspirin 81 mg PO DAILY 03/11/16 Docusate Sodium [Stool Softener] 100 mg PO BID PRN 03/11/16 amLODIPine [Norvasc] 10 mg PO DAILY 03/11/16 Cholecalciferol (Vitamin D3) [Vitamin D3] 1,000 unit PO DAILY 05/18/17 Cyanocobalamin [Vitamin B-12] 1,000 mcg IM Q30D 05/18/[address] [Depakote Dr] 1,000 mg PO QPM 05/18/17 Ginkgo Biloba [place] Extract [Ginkgo Biloba] 120 mg PO DAILY 05/18/17 Guaifenesin [Mucinex] 600 mg PO BID PRN 05/18/17 Ibuprofen [Motrin] 800 mg PO Q8H PRN 05/18/17 [place]-3 Fatty Acids/Fish Oil [[place]-3 Fish Oil 1,000 mg Sfgl] 1,000 mg PO BID Senna [Senokot] 8.6 mg PO BID PRN 05/18/17 Tiotropium White [Spiriva] 18 mcg INH DAILY 05/18/17 Zolpidem Tartrate [Ambien] 10 mg PO QPM 05/18/17 levETIRAcetam [Keppra] 500 mg PO QPM 05/18/17 Ipratropium/Albuterol Sulfate [Iprat-Albut 0.5-3(2.5) mg/3 ml] 3 ml IH QID 05/28 levETIRAcetam [Keppra] 250 mg PO DAILY 05/28/17 Lysine HCl 400 mg PO DAILY 06/17/17 Acetylcarnitine [Cyto Carn] 1,500 mg PO DAILY 06/18/17 Buspirone HCl 7.5 mg PO BID 10/14/17 Carisoprodol [Soma] 350 mg PO QPM PRN 10/14/17 Levothyroxine [Synthroid] 100 mcg PO QDAC 10/14/17 Objective - Vital Signs/Intake & Output Reviewed Vital Signs: Yes Vital Signs: Vital Signs x48h Temp Pulse Resp BP Pulse Ox 10/17/17 08:00 36.8 C 74 14 108/75 94 Intake & Output: Intake & Output 10/14/17 10/15/17 10/16/17 10/17/17 23:59 23:59 23:59 23:59 Intake Total 1580 3550 4043.333 1460 Output Total 875 1050 2450 125 Balance 705 2500 5213.725 1282 - Objective General Appearance: positive: No acute distress, Alert. negative: Lethargic Eyes Bilateral: positive: Normal inspection, PERRL, No lid inflammation, Conjunctivae nml ENT: positive: ENT inspection nml, Pharynx nml, No signs of dehydration. negative: Purulent nasal drainage, Pharyngeal erythema, Oral lesions Neck: positive: Nml inspection, Thyroid nml, No JVD, Trachea midline. negative : Thyromegaly, Lymphadenopathy (R), Lymphadenopathy (L), Stiff neck, Carotid bruit, Swelling/bruising, Tracheal deviation Respiratory: positive: Chest non-tender, No respiratory distress, Breath sounds nml. negative: Wheezes, Rales, Rhonchi Cardiovascular: positive: Regular rate & rhythm, No murmur, No gallop. negative : Irregularly irregular, Extrasystoles, Tachycardia, Bradycardia, JVD present, Systolic murmur, Diastolic murmur Peripheral Pulses: 2+ Radial (R), 2+ Radial (L), 2+ Dorsalis pedis (R), 2+ Dorsalis pedis (L) Abdomen: positive: Non-tender, No organomegaly, Nml bowel sounds, No distention. negative: Tenderness, Guarding, Rebound Back: positive: Nml inspection. negative: CVA tenderness (R), CVA tenderness (L ) Skin: positive: Color nml, No rash, Warm, Dry. negative: Cyanosis, Diaphoresis , Pallor Extremities: positive: Non-tender. negative: Calf tenderness, Joint swelling, Garo's sign/cords Neurologic/Psychiatric: positive: Oriented x3, Sensation nml, Mood/affect nml. negative: Weakness, Sensory loss, Facial droop, Slurred/abnml speech, Depressed mood/affect - Lab Results Fish Bones: 10/17/17 04:20 10/17/17 04:20 Other Labs: Lab Results x24hrs 10/17/17 10/17/17 10/17/17 Range/Units 04:20 04:20 04:20 WBC (4.8-10.8) x10^3/uL RBC (4.20-5.40) 10^6/uL Hgb (12.0-16.0) g/dL Hct (37.0-47.0) % MCV (81.0-99.0) fL MCH (27.0-31.0) pg MCHC (32.0-36.0) g/dL RDW (12.0-15.0) % Plt Count (130-450) 10^3/uL MPV (7.9-10.8) fL Reticulocyte % (Auto) (0.5-2.3) % Neut # (Auto) (1.5-6.6) 10^3/uL Lymph # (Auto) (1.5-3.5) 10^3/uL [place] # (Auto) (0.0-1.0) 10^3/uL Eos # (Auto) (0.0-0.7) 10^3/uL Baso # (Auto) (0.0-0.1) 10^3/uL Absolute Nucleated RBC x10^3/uL Nucleated RBC % /100WBC Absolute Retic (0.020-0.110) 10^6/uL Sodium (135-145) mmol/L Potassium (3.5-5.0) mmol/L Chloride (101-111) mmol/L Carbon Dioxide (21-32) mmol/L Anion Gap (6-13) BUN (6-20) mg/dL Creatinine (0.4-1.0) mg/dL Estimated GFR (MDRD) (>89) Glucose (70-100) mg/dL Calcium (8.5-10.3) mg/dL Iron 24 L (28-170) ug/dL TIBC 228 L (250-450) ug/dL % Saturation 11 L (20-50) % Transferrin 163 L (192-382) mg/dL Ferritin 179.4 (11.0-306.8) ng/mL Total Bilirubin (0.2-1.0) mg/dL AST (10-42) IU/L ALT (10-60) IU/L Alkaline Phosphatase (42-121) IU/L Lactate Dehydrogenase 128 (91-225) IU/L Total Protein (6.7-8.2) g/dL Albumin (3.2-5.5) g/dL Globulin (2.1-4.2) g/dL Albumin/Globulin Ratio (1.0-2.2) Vitamin B12 1150 H (180-914) pg/mL 10/17/17 10/17/17 10/17/17 Range/Units 04:20 04:20 04:20 WBC 4.9 (4.8-10.8) x10^3/uL RBC 3.71 L 3.72 L (4.20-5.40) 10^6/uL Hgb 10.1 L (12.0-16.0) g/dL Hct 31.0 L (37.0-47.0) % MCV 83.2 (81.0-99.0) fL MCH 27.2 (27.0-31.0) pg MCHC 32.7 (32.0-36.0) g/dL RDW 14.8 (12.0-15.0) % Plt Count 150 (130-450) 10^3/uL MPV 8.1 (7.9-10.8) fL Reticulocyte % (Auto) 1.74 (0.5-2.3) % Neut # (Auto) 2.6 (1.5-6.6) 10^3/uL Lymph # (Auto) 1.7 (1.5-3.5) 10^3/uL [place] # (Auto) 0.4 (0.0-1.0) 10^3/uL Eos # (Auto) 0.2 (0.0-0.7) 10^3/uL Baso # (Auto) 0.0 (0.0-0.1) 10^3/uL Absolute Nucleated RBC 0.00 x10^3/uL Nucleated RBC % 0.0 /100WBC Absolute Retic 0.065 (0.020-0.110) 10^6/uL Sodium 141 (135-145) mmol/L Potassium 3.8 (3.5-5.0) mmol/L Chloride 101 (101-111) mmol/L Carbon Dioxide 33 H (21-32) mmol/L Anion Gap 7.0 (6-13) BUN < 5 L (6-20) mg/dL Creatinine 0.4 (0.4-1.0) mg/dL Estimated GFR (MDRD) 159 (>89) Glucose 117 H (70-100) mg/dL Calcium 8.0 L (8.5-10.3) mg/dL Iron (28-170) ug/dL TIBC (250-450) ug/dL % Saturation (20-50) % Transferrin (192-382) mg/dL Ferritin (11.0-306.8) ng/mL Total Bilirubin 0.7 (0.2-1.0) mg/dL AST 30 (10-42) IU/L ALT 47 (10-60) IU/L Alkaline Phosphatase 62 (42-121) IU/L Lactate Dehydrogenase (91-225) IU/L Total Protein 5.7 L (6.7-8.2) g/dL Albumin 2.6 L (3.2-5.5) g/dL Globulin 3.1 (2.1-4.2) g/dL Albumin/Globulin Ratio 0.8 L (1.0-2.2) Vitamin B12 (180-914) pg/mL ABX Reporting Has patient been on IV antibiotics over the past 48 hours?: No Assessment/Plan - Problem List (1) Bimalleolar ankle fracture Impression: Impression: 10/17, continue PT/OT continue pain control follow up orthopedics 10/16, PT report pt get up from bed, and evaluated and treated by PT continue PT/OT continue pain control [id number], will lab monitor 10/15 pt will have operation on today morning, will follow up pain control PT/OT H&H pt will have operation, per orthopedics pain control (2) Chronic obstructive pulmonary disease (COPD) Impression: 10/16, stable 10/15 stable, continue home meds INH treatment as needed O2 supplement as needed (3) HTN (hypertension) Impression: stable, continue home meds (4) Hx of seizure disorder Impression: stable, continue home meds (5) Depression Impression: stable, continue home meds Qualifiers: Encounter type: initial encounter Fracture type: closed Laterality: right Qualified Code(s): S82.841A - Displaced bimalleolar fracture of right lower leg, initial encounter for closed fracture
[2017-10-17] MEDS: ACETAMINOPHEN 1,000 MG/100 ML 100 ML IV PRN (10:33)
[2017-10-17] MEDS: CALCIUM CITRATE 250 MG TABLET PO SCH (11:54)
[2017-10-18] MEDS ORDERED: TEMAZEPAM 7.5 MG CAPSULE PO PRN (00:03)
[2017-10-18] MEDS: SODIUM CHLORIDE FLUSH 0.9% 10 ML SYRINGE IVP SCH ×3 (00:53→16:38)
[2017-10-18 05:31] LABS: BASOPHILS % (AUTO) 0.6 %; EOSINOPHILS # (AUTO) 0.2 10^3/uL (0.0-0.7); EOSINOPHILS % (AUTO) 4.6 %; HGB - HEMOGLOBIN 9.9 g/dL (12.0-16.0); LYMPHOCYTES # (AUTO) 1.7 10^3/uL (1.5-3.5); LYMPHOCYTES % (AUTO) 34.6 %; MEAN CORPUSCULAR HEMOGLOBIN 26.8 pg (27.0-31.0); MEAN CORPUSCULAR HGB CONC 32.2 g/dL (32.0-36.0); MEAN CORPUSCULAR VOLUME 83.2 fL (81.0-99.0); MEAN PLATELET VOLUME 8.2 fL (7.9-10.8); MONOCYTES # (AUTO) 0.4 10^3/uL (0.0-1.0); MONOCYTES % (AUTO) 8.7 %; NEUTROPHILS # (AUTO) 2.5 10^3/uL (1.5-6.6); NEUTROPHILS % (AUTO) 51.5 %; PLT - PLATELET COUNT 178 10^3/uL (130-450); RED BLOOD COUNT 3.67 10^6/uL (4.20-5.40); RED CELL DISTRIBUTION WIDTH 15.1 % (12.0-15.0); WHITE BLOOD COUNT 4.9 x10^3/uL (4.8-10.8)
[2017-10-18 05:45] LABS: ALBUMIN 2.6 g/dL (3.2-5.5); ALBUMIN/GLOBULIN RATIO 0.9 (1.0-2.2); BILIRUBIN,TOTAL 0.6 mg/dL (0.2-1.0); CALCIUM 8.4 mg/dL (8.5-10.3); CREATININE 0.3 mg/dL (0.4-1.0); TOTAL PROTEIN 5.5 g/dL (6.7-8.2)
[2017-10-18] MEDS: ASPIRIN 325 MG TABLET PO SCH ×2 (08:31→16:38)
[2017-10-18] MEDS: oxyCODONE 5 MG TABLET PO PRN ×3 (08:31→20:50)
[2017-10-18] MEDS: DIVALPROEX DR 250 MG TABLET PO SCH ×2 (08:32→20:54)
[2017-10-18] MEDS: levETIRAcetam 250 MG TABLET PO SCH ×2 (08:32→20:49)
[2017-10-18] MEDS: FERROUS SULFATE 325 MG TABLET PO SCH (08:32)
[2017-10-18] MEDS: amLODIPine 5 MG TABLET PO SCH (08:32)
[2017-10-18] MEDS: VENLAFAXINE ER 75 MG CAPSULE PO SCH (08:32)
--- NOTE | 2017-10-18 11:20 | PROVIDER PROGRESS NOTE ---
Subjective - Prog Note Date Prog Note Date: 10/18/17 - Subjective Pt reports feeling: Improved Subjective: pt's mobility and pain control are better. PT/OT recommend pt go to SNF for further training. I discussed with pt, pt agree to go to SNF. Now insurance authorization is pending for d/c SNF. pt denies other complaints. Current Medications - Current Medications Current Medications: Active Medications Acetaminophen (Tylenol) 650 - 975 mg PO Q4HR PRN PRN Reason: PAIN Last Admin: 10/16/17 10:39 Dose: 650 mg Albuterol/Ipratropium (Duoneb) 3 ml INH Q4HR PRN PRN Reason: Wheezing Last Admin: 10/16/17 09:19 Dose: 3 ml Amlodipine Besylate (Norvasc) 10 mg PO DAILY [facility] Last Admin: 10/18/17 08:32 Dose: 10 mg Aspirin (Sergei) 325 mg PO BIDWM [facility] Last Admin: 10/18/17 08:31 Dose: 325 mg Calamine (Calamine) 0 applic TOP PRN PRN PRN Reason: ITCHING Last Admin: 10/15/17 20:59 Dose: 1 applic Calcium Citrate () 250 mg PO 1200 [facility] Last Admin: 10/17/17 11:54 Dose: 250 mg Divalproex Sodium (Depakote Dr) 250 mg PO DAILY [facility] Last Admin: 10/18/17 08:32 Dose: 250 mg Divalproex Sodium (Depakote Dr) 500 mg PO QPM [facility] Last Admin: 10/17/17 20:24 Dose: 500 mg Docusate Sodium (Colace 100mg Capsule) 100 mg PO BID PRN PRN Reason: Constipation Ferrous Sulfate (Feosol) 325 mg PO DAILYWM [facility] Last Admin: 10/18/17 08:32 Dose: 325 mg Hydromorphone HCl (Dilaudid Inj Syringe) 0.5 mg IVP Q2H PRN PRN Reason: Pain 8 to 10 Last Admin: 10/17/17 13:52 Dose: 0.5 mg Hydroxyzine HCl (Vistaril Inj) 25 mg IM Q6HR PRN PRN Reason: ITCHING Acetaminophen (Ofirmev) 100 mls @ 400 mls/hr IV Q6HR PRN PRN Reason: PAIN Last Infusion: 10/17/17 10:50 Dose: Infused Levetiracetam (Keppra) 250 mg PO DAILY [facility] Last Admin: 10/18/17 08:32 Dose: 250 mg Levetiracetam (Keppra) 500 mg PO QPM [facility] Last Admin: 10/17/17 20:24 Dose: 500 mg Morphine Sulfate (Morphine) 2 mg IVP Q2HR PRN PRN Reason: PAIN Ondansetron HCl (Zofran Inj) 4 mg IVP Q6HR PRN PRN Reason: Nausea / Vomiting Last Admin: 10/16/17 09:56 Dose: 4 mg Ondansetron HCl (Zofran Odt) 4 mg TL Q6HR PRN PRN Reason: Nausea / Vomiting Last Admin: 10/16/17 04:15 Dose: 4 mg Oxycodone HCl (Roxicodone) 5 mg PO Q4HR PRN PRN Reason: PAIN Last Admin: 10/18/17 08:31 Dose: 5 mg Polyethylene Glycol (Miralax) 17 gm PO DAILY [facility] Last Admin: 10/17/17 08:20 Dose: 17 gm Prochlorperazine Edisylate (Compazine Inj) 10 mg IVP Q6HR PRN PRN Reason: Nausea / Vomiting Senna (Senokot) 17.2 mg PO Q12H PRN PRN Reason: Constipation Sodium Chloride (Normal Saline Flush 0.9%) 10 ml IVP PRN PRN PRN Reason: NEEDED PER PROVIDER ORDERS Last Admin: 10/16/17 21:55 Dose: 10 ml Sodium Chloride (Normal Saline Flush 0.9%) 10 ml IVP 0100,0900,1700 [facility] Last Admin: 10/18/17 08:33 Dose: 10 ml Temazepam (Restoril) 7.5 mg PO QPM PRN PRN Reason: Insomnia Last Admin: 10/18/17 00:14 Dose: 7.5 mg Venlafaxine HCl (Effexor Er) 225 mg PO DAILY [facility] Last Admin: 10/18/17 08:32 Dose: 225 mg Albuterol Sulfate [Proair Hfa Inhaler] 2 puffs INH Q4H PRN 12/27/15 Carisoprodol [Soma] 350 mg PO TID 12/27/15 Loratadine [Claritin] 10 mg PO DAILY PRN 12/27/15 Quetiapine Fumarate [Seroquel] 300 mg PO QPM 12/27/15 Sumatriptan Succinate [Imitrex] 50 mg PO BID PRN 12/27/15 Venlafaxine ER [Effexor ER] 225 mg PO DAILY 12/27/15 Aspirin 81 mg PO DAILY 03/11/16 Docusate Sodium [Stool Softener] 100 mg PO BID PRN 03/11/16 amLODIPine [Norvasc] 10 mg PO DAILY 03/11/16 Cholecalciferol (Vitamin D3) [Vitamin D3] 1,000 unit PO DAILY 05/18/17 Cyanocobalamin [Vitamin B-12] 1,000 mcg IM Q30D 05/18/[address] [Depakote Dr] 1,000 mg PO QPM 05/18/17 Ginkgo Biloba [place] Extract [Ginkgo Biloba] 120 mg PO DAILY 05/18/17 Guaifenesin [Mucinex] 600 mg PO BID PRN 05/18/17 Ibuprofen [Motrin] 800 mg PO Q8H PRN 05/18/17 [place]-3 Fatty Acids/Fish Oil [[place] Fish Oil 1,000 mg Sfgl] 1,000 mg PO BID Senna [Senokot] 8.6 mg PO BID PRN 05/18/17 Tiotropium [place] [Spiriva] 18 mcg INH DAILY 05/18/17 Zolpidem Tartrate [Ambien] 10 mg PO QPM 05/18/17 levETIRAcetam [Keppra] 500 mg PO QPM 05/18/17 Ipratropium/Albuterol Sulfate [Iprat-Albut 0.5-3(2.5) mg/3 ml] 3 ml IH QID 05/28 levETIRAcetam [Keppra] 250 mg PO DAILY 05/28/17 Lysine HCl 400 mg PO DAILY 06/17/17 Acetylcarnitine [Cyto Carn] 1,500 mg PO DAILY 06/18/17 Buspirone HCl 7.5 mg PO BID 10/14/17 Carisoprodol [Soma] 350 mg PO QPM PRN 10/14/17 Levothyroxine [Synthroid] 100 mcg PO QDAC 10/14/17 Objective - Vital Signs/Intake & Output Reviewed Vital Signs: Yes Vital Signs: Vital Signs x48h Temp Pulse Resp BP Pulse Ox 10/18/17 08:00 36.6 C 78 14 146/75 H 97 Intake & Output: Intake & Output 10/15/17 10/16/17 10/17/17 10/18/17 23:59 23:59 23:59 23:59 Intake Total 3550 4043.333 3874 360 Output Total 1050 2450 750 700 Balance 2500 4731.914 0623 340 - Objective General Appearance: positive: No acute distress, Alert. negative: Lethargic Eyes Bilateral: positive: Normal inspection, PERRL, No lid inflammation, Conjunctivae nml ENT: positive: ENT inspection nml, Pharynx nml, No signs of dehydration. negative: Purulent nasal drainage, Pharyngeal erythema, Oral lesions Neck: positive: Nml inspection, Thyroid nml, No JVD, Trachea midline. negative : Thyromegaly, Lymphadenopathy (R), Lymphadenopathy (L), Stiff neck, Carotid bruit, Swelling/bruising, Tracheal deviation Respiratory: positive: Chest non-tender, No respiratory distress, Breath sounds nml. negative: Wheezes, Rales, Rhonchi Cardiovascular: positive: Regular rate & rhythm, No murmur, No gallop. negative : Irregularly irregular, Extrasystoles, Tachycardia, Bradycardia, JVD present, Systolic murmur, Diastolic murmur Peripheral Pulses: 2+ Radial (R), 2+ Radial (L), 2+ Dorsalis pedis (R), 2+ Dorsalis pedis (L) Abdomen: positive: Non-tender, No organomegaly, Nml bowel sounds, No distention. negative: Tenderness, Guarding, Rebound Back: positive: Nml inspection. negative: CVA tenderness (R), CVA tenderness (L ) Skin: positive: Color nml, No rash, Warm, Dry. negative: Cyanosis, Diaphoresis , Pallor Extremities: positive: Non-tender. negative: Calf tenderness, Joint swelling, Garo's sign/cords Neurologic/Psychiatric: positive: Oriented x3, Sensation nml, Mood/affect nml. negative: Weakness, Sensory loss, Facial droop, Slurred/abnml speech, Depressed mood/affect - Lab Results Fish Bones: 10/18/17 05:08 10/18/17 05:08 Other Labs: Lab Results x24hrs 10/18/17 10/18/17 Range/Units 05:08 05:08 WBC 4.9 (4.8-10.8) x10^3/uL RBC 3.67 L (4.20-5.40) 10^6/uL Hgb 9.9 L (12.0-16.0) g/dL Hct 30.6 L (37.0-47.0) % MCV 83.2 (81.0-99.0) fL MCH 26.8 L (27.0-31.0) pg MCHC 32.2 (32.0-36.0) g/dL RDW 15.1 H (12.0-15.0) % Plt Count 178 (130-450) 10^3/uL MPV 8.2 (7.9-10.8) fL Neut # (Auto) 2.5 (1.5-6.6) 10^3/uL Lymph # (Auto) 1.7 (1.5-3.5) 10^3/uL [place] # (Auto) 0.4 (0.0-1.0) 10^3/uL Eos # (Auto) 0.2 (0.0-0.7) 10^3/uL Baso # (Auto) 0.0 (0.0-0.1) 10^3/uL Absolute Nucleated RBC 0.00 x10^3/uL Nucleated RBC % 0.1 /100WBC Sodium 140 (135-145) mmol/L Potassium 3.7 (3.5-5.0) mmol/L Chloride 100 L (101-111) mmol/L Carbon Dioxide 35 H (21-32) mmol/L Anion Gap 5.0 L (6-13) BUN 7 (6-20) mg/dL Creatinine 0.3 L (0.4-1.0) mg/dL Estimated GFR (MDRD) 222 (>89) Glucose 100 (70-100) mg/dL Calcium 8.4 L (8.5-10.3) mg/dL Total Bilirubin 0.6 (0.2-1.0) mg/dL AST 23 (10-42) IU/L ALT 35 (10-60) IU/L Alkaline Phosphatase 53 (42-121) IU/L Total Protein 5.5 L (6.7-8.2) g/dL Albumin 2.6 L (3.2-5.5) g/dL Globulin 2.9 (2.1-4.2) g/dL Albumin/Globulin Ratio 0.9 L (1.0-2.2) ABX Reporting Has patient been on IV antibiotics over the past 48 hours?: No Assessment/Plan - Problem List (1) Bimalleolar ankle fracture Impression: Impression: 10/18. pt continue to improve on mobility and pain control. PT/OT recommend pt to go to SNF first. Pt agree to go SNF. Now insurance authorization is pending for d/c to SNF continue PT/OT continue pain control 10/17, continue PT/OT continue pain control follow up orthopedics 10/16, PT report pt get up from bed, and evaluated and treated by PT continue PT/OT continue pain control HGB11.1, will lab monitor 10/15 pt will have operation on today morning, will follow up pain control PT/OT H&H pt will have operation, per orthopedics pain control (2) Chronic obstructive pulmonary disease (COPD) Impression: 10/18, stable 10/16, stable 10/15 stable, continue home meds INH treatment as needed O2 supplement as needed (3) HTN (hypertension) Impression: stable, continue home meds (4) Hx of seizure disorder Impression: stable, continue home meds (5) Depression Impression: stable, continue home meds Qualifiers: Encounter type: initial encounter Fracture type: closed Laterality: right Qualified Code(s): S82.841A - Displaced bimalleolar fracture of right lower leg, initial encounter for closed fracture
[2017-10-18] MEDS: POLYETHYLENE GLYCOL 3350 17 GM PACKET PO SCH (11:59)
[2017-10-18] MEDS: CALCIUM CITRATE 250 MG TABLET PO SCH (11:59)
[2017-10-18] MEDS: ACETAMINOPHEN 1,000 MG/100 ML 100 ML IV PRN (12:21)
[2017-10-18] MEDS: HYDROmorphone 0.5 MG/0.5 ML SYRINGE IVP PRN (18:39)
[2017-10-18] MEDS: SODIUM CHLORIDE FLUSH 0.9% 10 ML SYRINGE IVP PRN (18:40)
[2017-10-18] MEDS: ACETAMINOPHEN 325 MG TABLET PO PRN (20:49)
[2017-10-18] MEDS: SENNA 8.6 MG TABLET PO PRN (20:49)
[2017-10-18] MEDS: DOCUSATE SODIUM 250 MG CAPSULE PO SCH (20:49)
[2017-10-19] MEDS: SODIUM CHLORIDE FLUSH 0.9% 10 ML SYRINGE IVP SCH ×3 (01:41→16:14)
[2017-10-19] MEDS: oxyCODONE 5 MG TABLET PO PRN ×4 (04:47→19:37)
[2017-10-19 06:09] LABS: BASOPHILS % (AUTO) 0.7 %; EOSINOPHILS # (AUTO) 0.2 10^3/uL (0.0-0.7); EOSINOPHILS % (AUTO) 5.3 %; HGB - HEMOGLOBIN 10.7 g/dL (12.0-16.0); LYMPHOCYTES # (AUTO) 1.2 10^3/uL (1.5-3.5); LYMPHOCYTES % (AUTO) 29.3 %; MEAN CORPUSCULAR HGB CONC 32.6 g/dL (32.0-36.0); MEAN CORPUSCULAR VOLUME 82.8 fL (81.0-99.0); MONOCYTES # (AUTO) 0.4 10^3/uL (0.0-1.0); MONOCYTES % (AUTO) 9.5 %; NEUTROPHILS # (AUTO) 2.3 10^3/uL (1.5-6.6); NEUTROPHILS % (AUTO) 55.2 %; PLT - PLATELET COUNT 189 10^3/uL (130-450); RED BLOOD COUNT 3.96 10^6/uL (4.20-5.40); WHITE BLOOD COUNT 4.2 x10^3/uL (4.8-10.8)
[2017-10-19 06:23] LABS: ALBUMIN 2.7 g/dL (3.2-5.5); ALBUMIN/GLOBULIN RATIO 0.8 (1.0-2.2); BILIRUBIN,TOTAL 0.7 mg/dL (0.2-1.0); CALCIUM 8.5 mg/dL (8.5-10.3); CREATININE 0.5 mg/dL (0.4-1.0)
--- NOTE | 2017-10-19 07:22 | Discharge Plan ---
"Discharge Plan for SNF / SANDIP - DC Plan and Transition Orders Disposition: 03 SNF DC/Xfer Condition: Good SNF Transition Orders: Admit to: [facility] under the care of Denny Soriano Discharge Diagnosis: Displaced bimalleolar fracture of right ankle, distal fibula fracture, COPD, essential HTN, personality disorder, epilepsy, and morbid obesity. Medicare Certification: I certify that [facility] care is medically necessary on a continuing basis for any of the conditions for which she/he is receiving care during hospitalization. Notify PCP of admission and forward orders to primary provider for signature. Weight on admission and weekly. Call PCP immediately if weight increases by 10 pounds or if patient develops dyspnea, chest pain/tightness or edema. House Bowel Program: yes; If no BM after 2 days, nurse may give M.O.M. 30ml PO PRN and /or ducolax Supp 1 [place] and /or JEN 250mg P.O., and/or senna 1-2 tabs PO. On day 3 nurse may give repeat above order until residents constipation is resolved. Immunizations: Annual Influenza Vaccine: yes; (between Nov 06 and June 05. ) Unless allergy or already given Two-Step PPD: yes; per [facility] [phone] or appropriate documentation of approved exceptions Treatments & Other Orders: Ongoing physical therapy, and give medications as prescribed. Oxygen Orders: 1-2L via nasal cannula to keep oxygen saturation greater than 92% , PRN. Lab Tests or X-Rays Orders: weekly CMP, CBC. Orthopedic Orders: Continue physical therapy- NWB on right with transfers and walker ambulation. Follow up in 2 weeks for shivani out, casting, and new imaging. Due to osteoportic bone, keep NWB on right for 6-8 weeks. Medications: PLEASE REFER TO THE DISCHARGE MEDICATION LIST. Allergies and Adverse Reactions: Allergies Allergy/AdvReac Type Severity Reaction Status Date / Time lidocaine Allergy Mild Itching Verified 06/12/17 22:04 diphenhydramine Allergy Unknown Verified 06/17/17 21:28 [From Benadryl] - Medications New Prescriptions: oxyCODONE [Roxicodone] 5 mg PO Q4HR PRN #20 tablet PRN Reason: Pain Aspirin [Aspirin EC] 325 mg PO DAILY #30 tablet.dr [place] [Senokot] 17.2 mg PO Q12H PRN #60 tablet PRN Reason: Constipation - Diet Type: Geriatric Texture: Regular Liquids: Thin May have monthly special meal: Yes - Therapies | Activity Therapy: Evaluation | Treat if indicated: Speech, PT, OT Rehabilitation Potential: Maximize functional status Activity: Activity as Tolerated Weight Bearing: Toe Touch Extremities: NWBRLE Assistance Devices: Walker"
[2017-10-19] MEDS: POLYETHYLENE GLYCOL 3350 17 GM PACKET PO SCH (08:10)
[2017-10-19] MEDS: DOCUSATE SODIUM 250 MG CAPSULE PO SCH (08:10)
[2017-10-19] MEDS: ONDANSETRON ODT 4 MG TABLET TL PRN (08:10)
[2017-10-19] MEDS: FERROUS SULFATE 325 MG TABLET PO SCH (08:11)
[2017-10-19] MEDS: ASPIRIN 325 MG TABLET PO SCH ×2 (08:11→16:14)
[2017-10-19] MEDS: amLODIPine 5 MG TABLET PO SCH (08:11)
[2017-10-19] MEDS: VENLAFAXINE ER 75 MG CAPSULE PO SCH (08:12)
[2017-10-19] MEDS: DIVALPROEX DR 250 MG TABLET PO SCH ×2 (08:12→20:22)
--- NOTE | 2017-10-19 08:12 | DISCHARGE SUMMARY ---
Discharge Summary Admit Date: 10/14/17 Discharge Date: 10/21/17 Discharging Provider: ADOLFO De Los Santos Primary Care Provider: Denny Soriano Code Status: Attempt Resuscitation Condition at Discharge: Good Discharge Disposition: 03 SNF DC/Xfer Discharge Facility Name: [facility] - DIAGNOSES Admission Diagnoses: Displaced bimalleolar fracture of unspecified lower leg, initial encounter for closed fracture (S82.843A) Encounter for preprocedural cardiovascular examination (Z01.810) Chronic obstructive pulmonary disease, unspecified (J44.9) Essential (primary) hypertension (I10) Personality disorder, unspecified (F60.9) Epilepsy, unspecified, not intractable, without status epilepticus (G40.909) Discharge Diagnoses with Status of Each Condition: Closed bimalleolar fracture with fracture of distal fibula (S82.843A) new on this admission, stable. SNF rehab. COPD (chronic obstructive pulmonary disease) (J44.9) chronic, stable. HTN (hypertension) (I10) chronic,stable. Depression (F32.9)chronic, stable. Seizure disorder (G40.909) chronic, stable. - HPI History of Present Illness: Lindsey Hutchison is a 67-year old female with a past medical history of COPD, status post lung resection surgery with bullectomy, hypertension, osteoarthritis , seizure disorder, hyperlipidemia, seizure disorder, morbid obesity, status post gastric bypass, bipolar disorder, status post breast implant surgery, lung nodules seen on 03/2016, and migraine headaches. She is a detention resident at an assisted living facility. Her obesity and psychiatric disorders have led to less mobility and more dependence on care for her ADLs. During her last 2 hospital admissions, for AMS and COPD exacerbations, it has been strongly recommended that some of her psychoactive medications be reduced to falls. Prior to presentation to the ED, she had reportedly gotten up from her bed to use the bathroom, lost her footing and fell. This led to her ankle twisting underneath of her. She denies tripping, and slowly lowered to the floor, and did not loose consciousness. Once in the ED imaging confirmed a right transverse medial malleoulus fracture with moderate lateral displacement/subtle nondisplaced posterior malleolus fracture, communicated distal fibular shaft fracture is present just proximal to the tibiofibular syndesmosis. Disruption of the tibiofibular syndesmosis distally is present. Equivical nondisplaced fracture at the base of the fifth metatarsal. She denies any recent cardiac insults including a recent AK, chest pain, nausea, vomiting, a new cough, palpitations, dizziness, high blood pressure, or syncope. Vital signs and Labs reveal no worrisome findings. The admitting hospitalist completed a preoperative cardiovascular exam, putting the patient at a 0.4% risk of major cardiac event. Orthopedic surgery was contacted who will plan for upcoming surgical intervention. - HOSPITAL COURSE Hospital Course: The following diagnoses were prevalent during this hospital stay: (1) Bimalleolar ankle fracture- right, closed The patient suffered from a right ankle fracture on 10/14/17 after a fall and was confirmed on imaging of her right ankle and right knee. Orthopedic surgery was consulted who recommends waiting until the AM to perform this right ankle repair. Surgery was performed by Dr. Juarez on 10/15/17, ORIF of right ankle fracture for a Closed right bimalleolar ankle fracture. The Primary Surgeon was Fariha Juarez MD, Anesthesia Provider was Dr. Dhaliwal. Anesthesia Technique- General ET tube; IV Fluids (mL) 800; Estimated Blood Loss (mL) 100; NO Complications. The patient has been participating in PT/OT therapies. The patient continued to improve, and was medically cleared to be discharged to SNF on 10/18/17, although insurance authorization was pending, and today a lack of accepting facility is the issue. (2) Chronic obstructive pulmonary disease (COPD) The patient has a known history of this and is prescribed ProAir, Spiriva, Duonebs, claritin and mucinex at home. These have been continued while in the hospital and this condition is considered stable. She continues on budesinide, and duo-nebs PRN. I have also resumed her mucinex and claritin. Plan: Continue to monitor respiratory status and provide supplemental oxygen as needed. (3) Depression The patient has a long history of this and has been refused placement due to this, mixed with personality disorders. She is prescribed buspirone-low dose, B12, ativan, soma and seroquel for insomnia and is continued here, with the exception of the soma. Upon exam, she is appropriate, conversational and demonstrates a flat affect. (4) HTN (hypertension) The patient has a known history of this and is prescribed Norvasc at home, and this is continued here. Today she has a charted blood pressure of 142/75. (5) Seizure disorder The patient is prescribed both depekote and Keppra, which continued during her hospital stay. She was not found to have any witnessed seizure activity while in patient and this condition is stable upon discharge. Disposition: The patient's length of stay was extended as there were placement issues due to the patient's insurance. She is medically stable at the time of discharge, and will be transported via wheelchair van. She does not require continuous oxygen, and is coming along nicely with her rehab. - ALLERGIES Allergies/Adverse Reactions: Allergies Allergy/AdvReac Type Severity Reaction Status Date / Time lidocaine Allergy Mild Itching Verified 06/12/17 22:04 diphenhydramine Allergy Unknown Verified 06/17/17 21:28 [From Benadryl] - MEDICATIONS Home Medications: Ambulatory Orders Medication Instructions Recorded Confirmed Carisoprodol [Soma] 350 mg PO TID 12/27/15 10/14/17 Docusate Sodium [Stool Softener] 100 mg PO BID PRN 03/11/16 10/14/17 Ferrous Sulfate 325 mg PO BID #60 tablet 03/12/16 10/14/17 LORazepam [Ativan] 0.5 mg PO Q6H PRN #20 tablet 06/18/17 10/14/17 Acetaminophen [Tylenol] 650 - 975 mg PO Q4HR PRN #90 tablet 10/21/17 Acetylcarnitine [Cyto Carn] 1,500 mg PO DAILY #30 10/21/17 10/14/17 Albuterol Sulfate [Proair Hfa 2 puffs INH Q4H PRN #120 10/21/17 10/14/17 Inhaler] Aspirin [Aspirin EC] 325 mg PO DAILY #30 tablet. 10/21/17 Buspirone HCl 7.5 mg PO BID #60 10/21/17 10/14/17 Carisoprodol [Soma] 350 mg PO QPM PRN #30 10/21/17 10/14/17 Cholecalciferol (Vitamin D3) 1,000 unit PO DAILY #30 10/21/17 10/14/17 [Vitamin D3] Cyanocobalamin [Vitamin B-12] 1,000 mcg IM Q30D #1 10/21/17 10/14/17 Divalproex [Ayad Rivera] 1,000 mg PO QPM #30 10/21/17 10/14/17 Divalproex [Ayad Rivera] 250 mg PO DAILY #30 tablet 10/21/17 10/14/17 Ginkgo Biloba [place] Extract [Ginkgo 120 mg PO DAILY #30 10/21/17 10/14/17 Biloba] Guaifenesin [Mucinex] 600 mg PO BID PRN #60 10/21/17 10/14/17 Ibuprofen [Motrin] 800 mg PO Q8H PRN #60 10/21/17 10/14/17 Ipratropium/Albuterol Sulfate 3 ml IH QID #120 10/21/17 10/14/17 [Iprat-Albut 0.5-3(2.5) mg/3 ml] Levothyroxine [Synthroid] 100 mcg PO QDAC #30 10/21/17 10/14/17 Loratadine [Claritin] 10 mg PO DAILY PRN #30 10/21/17 10/14/17 Lysine HCl 400 mg PO DAILY #30 10/21/17 10/14/17 [place]-3 Fatty Acids/Fish Oil 1,000 mg PO BID #60 10/21/17 10/14/17 [[place]-3 Fish Oil 1,000 mg Sfgl] Quetiapine Fumarate [Seroquel] 300 mg PO QPM #30 10/21/17 10/14/17 Senna [Senokot] 8.6 mg PO BID PRN #60 10/21/17 10/14/17 Senna [Senokot] 17.2 mg PO Q12H PRN #60 tablet 10/21/17 Sumatriptan Succinate [Imitrex] 50 mg PO BID PRN #60 10/21/17 10/14/17 Tiotropium [place] [Spiriva] 18 mcg INH DAILY #30 10/21/17 10/14/17 Venlafaxine ER [Effexor ER] 225 mg PO DAILY #30 10/21/17 10/14/17 Zolpidem Tartrate [Ambien] 10 mg PO QPM #30 10/21/17 10/14/17 amLODIPine [Norvasc] 10 mg PO DAILY #30 10/21/17 10/14/17 levETIRAcetam [Keppra] 250 mg PO DAILY #30 10/21/17 10/14/17 levETIRAcetam [Keppra] 500 mg PO QPM #30 10/21/17 10/14/17 oxyCODONE [Roxicodone] 5 mg PO Q4HR PRN #20 tablet 10/21/17 - PHYSICAL EXAM AT DISCHARGE General Appearance: positive: No acute distress, Alert Eyes Bilateral: positive: Normal inspection, PERRL ENT: positive: ENT inspection nml, Pharynx nml, No signs of dehydration Neck: positive: Nml inspection, Thyroid nml, No JVD, Trachea midline Respiratory: positive: Chest non-tender, No respiratory distress, Other ( diminshed) Cardiovascular: positive: Regular rate & rhythm, No gallop, Systolic murmur Peripheral Pulses: positive: 1+ Abdomen: positive: Non-tender, Nml bowel sounds, Other (rounded, obese, soft) Back: positive: Nml inspection Skin: positive: No rash, Warm, Dry Extremities: positive: Non-tender, Full ROM, Nml appearance Neurologic/Psychiatric: positive: Oriented x3, CN's nml (2-12), Motor nml, Sensation nml, Depressed mood/affect (baseline flat affect due to bipolar disorder) Reflexes: Bicep (R): 3+, Bicep (L): 3+ - LABS Result Diagrams: 10/20/17 05:25 10/20/17 05:25 - DIAGNOSTIC IMAGING Diagnostic Imaging Results: Final report reviewed Diagnostic Imaging Results Comments: EXAM: RIGHT KNEE RADIOGRAPHY EXAM DATE: 10/14/2017 03:41 AM. COMPARISON: KNEE 2 VIEW LT 06/12/2017. IMPRESSION: No acute osseous abnormality demonstrated. EXAM: RIGHT ANKLE RADIOGRAPHY EXAM DATE: 10/14/2017 03:40 AM. IMPRESSION: 1. Unstable ankle fracture as described above. 2. Artifact versus a subtle nondisplaced fracture at the base of the fifth metatarsal. Further assessment recommended with a dedicated foot radiograph series. EXAMS: RIGHT FOOT AND ANKLE RADIOGRAPHY EXAM DATE: 10/14/2017 04:57 AM. IMPRESSION: 1. Presence of cast obscures bony detail. 2. Alignment of the unstable ankle fracture is significantly improved, near-anatomic in appearance. 3. There is a suspected subtle abnormality at the base of the fifth metatarsal, possibly an avulsion fracture at the base of the fifth metatarsal. Due to the cast, this is difficult to identify with certainty. 4. At least mild first MTP degenerative joint disease. EXAMS: RIGHT FOOT AND ANKLE RADIOGRAPHY EXAM DATE: 10/14/2017 04:57 AM. IMPRESSION: 1. Presence of cast obscures bony detail. 2. Alignment of the unstable ankle fracture is significantly improved, near-anatomic in appearance. 3. There is a suspected subtle abnormality at the base of the fifth metatarsal, possibly an avulsion fracture at the base of the fifth metatarsal. Due to the cast, this is difficult to identify with certainty. 4. At least mild first MTP degenerative joint disease. - FOLLOW UP Follow Up: Disposition: 03 [facility] DC/Xfer Condition: Good SNF Transition Orders: Admit to: [facility] under the care of Denny Sroiano Discharge Diagnosis: Displaced bimalleolar fracture of right ankle, distal fibula fracture, COPD, essential HTN, personality disorder, epilepsy, and morbid obesity. - TIME SPENT Time Spent in Discharge (Minutes): 55
[2017-10-19] MEDS: levETIRAcetam 250 MG TABLET PO SCH ×2 (08:13→20:23)
[2017-10-19] MEDS: CALCIUM CITRATE 250 MG TABLET PO SCH (11:40)
--- NOTE | 2017-10-19 19:44 | PROVIDER PROGRESS NOTE ---
Subjective - Prog Note Date Prog Note Date: 10/19/17 Prog Note Time: 12:00 - Subjective Pt reports feeling: No change Subjective: Lindsey has no complaints and is ready for discharge, although there continues to be no accepting facility. She denies any new symptoms such as shortness of breath, nausea, vomiting, chest pain or a new cough. Current Medications - Current Medications Current Medications: Active Medications Acetaminophen (Tylenol) 650 - 975 mg PO Q4HR PRN PRN Reason: PAIN Last Admin: 10/18/17 20:49 Dose: 650 mg Albuterol/Ipratropium (Duoneb) 3 ml INH Q4HR PRN PRN Reason: Wheezing Last Admin: 10/16/17 09:19 Dose: 3 ml Amlodipine Besylate (Norvasc) 10 mg PO DAILY [facility] Last Admin: 10/19/17 08:11 Dose: 10 mg Aspirin (Sergei) 325 mg PO BIDWM [facility] Last Admin: 10/19/17 16:14 Dose: 325 mg Calamine (Calamine) 0 applic TOP PRN PRN PRN Reason: ITCHING Last Admin: 10/15/17 20:59 Dose: 1 applic Calcium Citrate () 250 mg PO 1200 [facility] Last Admin: 10/19/17 11:40 Dose: 250 mg Divalproex Sodium (Depakote Dr) 250 mg PO DAILY [facility] Last Admin: 10/19/17 08:12 Dose: 250 mg Divalproex Sodium (Depakote Dr) 500 mg PO QPM [facility] Last Admin: 10/18/17 20:54 Dose: 500 mg Docusate Sodium (Colace 100mg Capsule) 100 mg PO BID PRN PRN Reason: Constipation Docusate Sodium (Colace 250mg Capsule) 250 - 500 mg PO DAILY [facility] Last Admin: 10/19/17 08:10 Dose: 250 mg Ferrous Sulfate (Feosol) 325 mg PO DAILYWM [facility] Last Admin: 10/19/17 08:11 Dose: 325 mg Hydromorphone HCl (Dilaudid Inj Syringe) 0.5 mg IVP Q2H PRN PRN Reason: Pain 8 to 10 Last Admin: 10/18/17 18:39 Dose: 0.5 mg Hydroxyzine HCl (Vistaril Inj) 25 mg IM Q6HR PRN PRN Reason: ITCHING Acetaminophen (Ofirmev) 100 mls @ 400 mls/hr IV Q6HR PRN PRN Reason: PAIN Last Infusion: 10/18/17 13:18 Dose: Infused Levetiracetam (Keppra) 250 mg PO DAILY [facility] Last Admin: 10/19/17 08:13 Dose: 250 mg Levetiracetam (Keppra) 500 mg PO QPM [facility] Last Admin: 10/18/17 20:49 Dose: 500 mg Morphine Sulfate (Morphine) 2 mg IVP Q2HR PRN PRN Reason: PAIN Ondansetron HCl (Zofran Inj) 4 mg IVP Q6HR PRN PRN Reason: Nausea / Vomiting Last Admin: 10/16/17 09:56 Dose: 4 mg Ondansetron HCl (Zofran Odt) 4 mg TL Q6HR PRN PRN Reason: Nausea / Vomiting Last Admin: 10/19/17 08:10 Dose: 4 mg Oxycodone HCl (Roxicodone) 5 mg PO Q4HR PRN PRN Reason: PAIN Last Admin: 10/19/17 19:37 Dose: 5 mg Polyethylene Glycol (Miralax) 17 gm PO DAILY [facility] Last Admin: 10/19/17 08:10 Dose: 17 gm Prochlorperazine Edisylate (Compazine Inj) 10 mg IVP Q6HR PRN PRN Reason: Nausea / Vomiting Senna (Senokot) 17.2 mg PO Q12H PRN PRN Reason: Constipation Last Admin: 10/18/17 20:49 Dose: 17.2 mg Sodium Chloride (Normal Saline Flush 0.9%) 10 ml IVP PRN PRN PRN Reason: NEEDED PER PROVIDER ORDERS Last Admin: 10/18/17 18:40 Dose: 10 ml Sodium Chloride (Normal Saline Flush 0.9%) 10 ml IVP 0100,0900,1700 [facility] Last Admin: 10/19/17 16:14 Dose: 10 ml Temazepam (Restoril) 7.5 mg PO QPM PRN PRN Reason: Insomnia Last Admin: 10/18/17 00:14 Dose: 7.5 mg Venlafaxine HCl (Effexor Er) 225 mg PO DAILY [facility] Last Admin: 10/19/17 08:12 Dose: 225 mg Albuterol Sulfate [Proair Hfa Inhaler] 2 puffs INH Q4H PRN 12/27/15 Carisoprodol [Soma] 350 mg PO TID 12/27/15 Loratadine [Claritin] 10 mg PO DAILY PRN 12/27/15 Quetiapine Fumarate [Seroquel] 300 mg PO QPM 12/27/15 Sumatriptan Succinate [Imitrex] 50 mg PO BID PRN 12/27/15 Venlafaxine ER [Effexor ER] 225 mg PO DAILY 12/27/15 Aspirin 81 mg PO DAILY 03/11/16 Docusate Sodium [Stool Softener] 100 mg PO BID PRN 03/11/16 amLODIPine [Norvasc] 10 mg PO DAILY 03/11/16 Cholecalciferol (Vitamin D3) [Vitamin D3] 1,000 unit PO DAILY 05/18/17 Cyanocobalamin [Vitamin B-12] 1,000 mcg IM Q30D 05/18/[address] [Depakote Dr] 1,000 mg PO QPM 05/18/17 Ginkgo Biloba [place] Extract [Ginkgo Biloba] 120 mg PO DAILY 05/18/17 Guaifenesin [Mucinex] 600 mg PO BID PRN 05/18/17 Ibuprofen [Motrin] 800 mg PO Q8H PRN 05/18/17 [place]-3 Fatty Acids/Fish Oil [[place]-3 Fish Oil 1,000 mg Sfgl] 1,000 mg PO BID Senna [Senokot] 8.6 mg PO BID PRN 05/18/17 Tiotropium [place] [Spiriva] 18 mcg INH DAILY 05/18/17 Zolpidem Tartrate [Ambien] 10 mg PO QPM 05/18/17 levETIRAcetam [Keppra] 500 mg PO QPM 05/18/17 Ipratropium/Albuterol Sulfate [Iprat-Albut 0.5-3(2.5) mg/3 ml] 3 ml IH QID 05/28 levETIRAcetam [Keppra] 250 mg PO DAILY 05/28/17 Lysine HCl 400 mg PO DAILY 06/17/17 Acetylcarnitine [Cyto Carn] 1,500 mg PO DAILY 06/18/17 Buspirone HCl 7.5 mg PO BID 10/14/17 Carisoprodol [Soma] 350 mg PO QPM PRN 10/14/17 Levothyroxine [Synthroid] 100 mcg PO QDAC 10/14/17 Objective - Vital Signs/Intake & Output Reviewed Vital Signs: Yes Vital Signs: Vital Signs x48h Temp Pulse Resp BP Pulse Ox 10/19/17 15:35 36.6 C 72 20 135/70 H 94 Intake & Output: Intake & Output 10/16/17 10/17/17 10/18/17 10/19/17 23:59 23:59 23:59 23:59 Intake Total 4043.333 3874 1340 1387 Output Total 2450 750 1950 1800 Balance 6822.492 [id number] -533 -791 - Objective General Appearance: positive: No acute distress, Alert, Lethargic Eyes Bilateral: positive: Normal inspection, PERRL ENT: positive: ENT inspection nml, Pharynx nml, No signs of dehydration Neck: positive: Nml inspection, Thyroid nml, No JVD Respiratory: positive: Chest non-tender, No respiratory distress, Other ( diminished) Cardiovascular: positive: Regular rate & rhythm, No gallop, Systolic murmur Peripheral Pulses: 1+ Radial (R), 1+ Radial (L) Abdomen: positive: Non-tender, Nml bowel sounds, Other (rounded, soft) Back: positive: Nml inspection Skin: positive: No rash, Warm, Dry Extremities: positive: Pedal edema, Joint swelling Neurologic/Psychiatric: positive: Disoriented to time, Weakness, Sensory loss, Slurred/abnml speech, Depressed mood/affect Reflexes: Bicep (R): 2+, Bicep (L): 2+ - Lab Results Fish Bones: 10/20/17 05:25 10/20/17 05:25 Other Labs: Lab Results x24hrs 10/19/17 10/19/17 10/16/17 Range/Units 05:47 05:47 11:34 WBC 4.2 L (4.8-10.8) x10^3/uL RBC 3.96 L (4.20-5.40) 10^6/uL Hgb 10.7 L (12.0-16.0) g/dL Hct 32.8 L (37.0-47.0) % MCV 82.8 (81.0-99.0) fL MCH 27.0 (27.0-31.0) pg MCHC 32.6 (32.0-36.0) g/dL RDW 15.0 (12.0-15.0) % Plt Count 189 (130-450) 10^3/uL MPV 8.0 (7.9-10.8) fL Neut # (Auto) 2.3 (1.5-6.6) 10^3/uL Lymph # (Auto) 1.2 L (1.5-3.5) 10^3/uL [place] # (Auto) 0.4 (0.0-1.0) 10^3/uL Eos # (Auto) 0.2 (0.0-0.7) 10^3/uL Baso # (Auto) 0.0 (0.0-0.1) 10^3/uL Absolute Nucleated RBC 0.00 x10^3/uL Nucleated RBC % 0.1 /100WBC Sodium 135 (135-145) mmol/L Potassium 3.6 (3.5-5.0) mmol/L Chloride 95 L (101-111) mmol/L Carbon Dioxide 34 H (21-32) mmol/L Anion Gap 6.0 (6-13) BUN 10 (6-20) mg/dL Creatinine 0.5 (0.4-1.0) mg/dL Estimated GFR (MDRD) 123 (>89) Glucose 103 H (70-100) mg/dL POC Whole Bld Glucose 127 H (70 - 100) mg/dL Calcium 8.5 (8.5-10.3) mg/dL Total Bilirubin 0.7 (0.2-1.0) mg/dL AST 37 (10-42) IU/L ALT 38 (10-60) IU/L Alkaline Phosphatase 61 (42-121) IU/L Total Protein 6.0 L (6.7-8.2) g/dL Albumin 2.7 L (3.2-5.5) g/dL Globulin 3.3 (2.1-4.2) g/dL Albumin/Globulin Ratio 0.8 L (1.0-2.2) - Diagnostic Imaging Diagnostic Imaging Results: positive: Final report reviewed ABX Reporting Has patient been on IV antibiotics over the past 48 hours?: No Assessment/Plan - Problem List (1) Bimalleolar ankle fracture Impression: The patient suffered from a right ankle fracture on 10/14/17 after a fall and was confirmed on imaging of her right ankle and right knee. Orthopedic surgery was consulted who recommends waiting until the AM to perform this right ankle repair. Surgery was performed by Dr. Juarez on 10/15/17, ORIF of right ankle fracture for a Closed right bimalleolar ankle fracture. The Primary Surgeon was Fariha Juarez MD, Anesthesia Provider was Dr. Dhaliwal. Anesthesia Technique- General ET tube; IV Fluids (mL) 800; Estimated Blood Loss (mL) 100; NO Complications. The patient has been participating in PT/OT therapies. The patient continued to improve, and was medically cleared to be discharged to SNF on 10/18/17, although insurance authorization was pending, and today a lack of accepting facility is the issue. Plan: continue therapies, pain control and await placement. Qualifiers: Encounter type: initial encounter Fracture type: closed Laterality: right Qualified Code(s): S82.841A - Displaced bimalleolar fracture of right lower leg, initial encounter for closed fracture (2) Chronic obstructive pulmonary disease (COPD) Impression: The patient has a known history of this and is prescribed ProAir, Spiriva, Duonebs, claritin and mucinex at home. These have been continued while in the hospital and this condition is considered stable. Since we do not carry inhalers, I have ordered budesinide, and duo-nebs PRN. I have also resumed her mucinex and claritin. Plan: Continue to monitor respiratory status and provide supplemental oxygen as needed. (3) Depression Impression: The patient has a long history of this and has been refused placement due to this, mixed with personality disorders. She is prescribed buspirone-low dose, B12, ativan, soma and seroquel for insomnia and is continued here, with the exception of the soma. Upon exam, she is thought to be in fairly good spirits. Plan: Continue to monitor mental status. Qualifiers: Depression Type: major depressive disorder (4) HTN (hypertension) Impression: The patient has a known history of this and is prescribed Norvasc at home, and this is continued here. Today she has a charted blood pressure of 135/70. Plan: continue to monitor and consider a second agent if needed. Qualifiers: Hypertension type: essential hypertension Qualified Code(s): I10 - Essential (primary) hypertension
[2017-10-20] MEDS: SODIUM CHLORIDE FLUSH 0.9% 10 ML SYRINGE IVP SCH ×3 (00:40→17:54)
[2017-10-20] MEDS: oxyCODONE 5 MG TABLET PO PRN ×4 (00:44→14:46)
[2017-10-20 05:59] LABS: BASOPHILS % (AUTO) 0.8 %; EOSINOPHILS # (AUTO) 0.2 10^3/uL (0.0-0.7); EOSINOPHILS % (AUTO) 4.6 %; HGB - HEMOGLOBIN 10.7 g/dL (12.0-16.0); LYMPHOCYTES # (AUTO) 1.9 10^3/uL (1.5-3.5); MEAN CORPUSCULAR HGB CONC 32.9 g/dL (32.0-36.0); MEAN CORPUSCULAR VOLUME 81.9 fL (81.0-99.0); MEAN PLATELET VOLUME 7.9 fL (7.9-10.8); MONOCYTES # (AUTO) 0.5 10^3/uL (0.0-1.0); MONOCYTES % (AUTO) 8.3 %; NEUTROPHILS # (AUTO) 2.9 10^3/uL (1.5-6.6); NEUTROPHILS % (AUTO) 52.3 %; PLT - PLATELET COUNT 250 10^3/uL (130-450); RED BLOOD COUNT 3.98 10^6/uL (4.20-5.40); RED CELL DISTRIBUTION WIDTH 15.2 % (12.0-15.0); WHITE BLOOD COUNT 5.4 x10^3/uL (4.8-10.8)
[2017-10-20 06:22] LABS: ALBUMIN 2.8 g/dL (3.2-5.5); ALBUMIN/GLOBULIN RATIO 0.8 (1.0-2.2); BILIRUBIN,TOTAL 0.4 mg/dL (0.2-1.0); CALCIUM 8.3 mg/dL (8.5-10.3); CREATININE 0.4 mg/dL (0.4-1.0); TOTAL PROTEIN 6.1 g/dL (6.7-8.2)
[2017-10-20] MEDS ORDERED: LORATADINE 10 MG TABLET PO PRN (09:00)
[2017-10-20] MEDS ORDERED: SENNA 8.6 MG TABLET PO PRN (09:09)
[2017-10-20] MEDS ORDERED: LORazepam 0.5 MG TABLET PO PRN (09:09)
[2017-10-20] MEDS ORDERED: guaiFENesin 600 MG TABLET PO PRN (09:09)
[2017-10-20] MEDS ORDERED: DOCUSATE SODIUM 100 MG CAPSULE PO PRN (09:09)
[2017-10-20] MEDS: ASPIRIN 325 MG TABLET PO SCH ×2 (09:18→17:54)
[2017-10-20] MEDS: FERROUS SULFATE 325 MG TABLET PO SCH ×3 (09:18→21:52)
[2017-10-20] MEDS: amLODIPine 5 MG TABLET PO SCH (09:18)
[2017-10-20] MEDS: DOCUSATE SODIUM 250 MG CAPSULE PO SCH (09:19)
[2017-10-20] MEDS: levETIRAcetam 250 MG TABLET PO SCH ×2 (09:19→21:52)
[2017-10-20] MEDS: DIVALPROEX DR 250 MG TABLET PO SCH ×2 (09:19→21:52)
[2017-10-20] MEDS: POLYETHYLENE GLYCOL 3350 17 GM PACKET PO SCH (09:19)
[2017-10-20] MEDS: VENLAFAXINE ER 75 MG CAPSULE PO SCH (09:20)
[2017-10-20] MEDS ORDERED: CYANOCOBALAMIN 1,000 MCG/ML VIAL IM SCH (10:00)
[2017-10-20] MEDS: IPRATROPIUM/ALBUTEROL 3 ML NEB INH PRN ×2 (10:04→19:16)
[2017-10-20] MEDS: BUDESONIDE 0.5 MG/2 ML NEB INH SCH ×2 (10:04→19:16)
[2017-10-20] MEDS ORDERED: SUMAtriptan 25 MG TABLET PO PRN (10:23)
[2017-10-20] MEDS: busPIRone 5 MG TABLET PO SCH ×2 (10:39→21:52)
[2017-10-20] MEDS: CHOLECALCIFEROL 1,000 UNIT TABLET PO SCH (10:39)
[2017-10-20] MEDS: OMEGA-3 ACID ETHYL ESTERS 1 GM CAPSULE PO SCH ×2 (10:39→21:52)
[2017-10-20] MEDS: LEVOTHYROXINE 100 MCG TABLET PO SCH (10:39)
[2017-10-20] MEDS: CALCIUM CITRATE 250 MG TABLET PO SCH (11:02)
[2017-10-20] MEDS: SODIUM CHLORIDE FLUSH 0.9% 10 ML SYRINGE IVP PRN (11:03)
[2017-10-20] MEDS: HYDROmorphone 0.5 MG/0.5 ML SYRINGE IVP PRN (11:03)
[2017-10-20] MEDS ORDERED: QUEtiapine 100 MG TABLET PO SCH (21:00)
[2017-10-20] MEDS: SENNA 8.6 MG TABLET PO PRN (21:52)
[2017-10-21] MEDS: SODIUM CHLORIDE FLUSH 0.9% 10 ML SYRINGE IVP SCH ×2 (00:05→09:25)
[2017-10-21] MEDS: oxyCODONE 5 MG TABLET PO PRN ×3 (00:05→14:42)
[2017-10-21] MEDS: LEVOTHYROXINE 100 MCG TABLET PO SCH (06:08)
[2017-10-21] MEDS ORDERED: LACTULOSE 10 GM /15 ML UDC PO ONE (06:20)
--- NOTE | 2017-10-21 07:49 | PROVIDER PROGRESS NOTE ---
Subjective - Prog Note Date Prog Note Date: 10/20/17 Prog Note Time: 08:00 - Subjective Pt reports feeling: Improved Subjective: Lindsey offers no complaints and notes that her pain is well controlled. She denies any new symptoms. Current Medications - Current Medications Current Medications: Active Medications Acetaminophen (Tylenol) 650 - 975 mg PO Q4HR PRN PRN Reason: PAIN Last Admin: 10/18/17 20:49 Dose: 650 mg Albuterol/Ipratropium (Duoneb) 3 ml INH Q4HR PRN PRN Reason: Wheezing Last Admin: 10/20/17 19:16 Dose: 3 ml Albuterol/Ipratropium (Duoneb) 3 ml INH RTQID PRN PRN Reason: Cough Last Admin: 10/20/17 10:04 Dose: 3 ml Amlodipine Besylate (Norvasc) 10 mg PO DAILY [facility] Last Admin: 10/20/17 09:18 Dose: 10 mg Aspirin (Sergei) 325 mg PO BIDWM [facility] Last Admin: 10/20/17 17:54 Dose: 325 mg Budesonide (Pulmicort) 0.5 mg INH RTBID [facility] Last Admin: 10/20/17 19:16 Dose: 0.5 mg Buspirone HCl (Buspar) 7.5 mg PO BID [facility] Last Admin: 10/20/17 21:52 Dose: 7.5 mg Calamine (Calamine) 0 applic TOP PRN PRN PRN Reason: ITCHING Last Admin: 10/15/17 20:59 Dose: 1 applic Calcium Citrate () 250 mg PO 1200 [facility] Last Admin: 10/20/17 11:02 Dose: 250 mg Cholecalciferol (Vitamin D3) 1,000 unit PO DAILY [facility] Last Admin: 10/20/17 10:39 Dose: 1,000 unit Cyanocobalamin (Vitamin B-12) 1,000 mcg IM Q30D [facility] Last Admin: 10/20/17 09:30 Dose: Not Given Divalproex Sodium (Depakote Dr) 250 mg PO DAILY [facility] Last Admin: 10/20/17 09:19 Dose: 250 mg Divalproex Sodium (Depakote Dr) 500 mg PO QPM [facility] Last Admin: 10/20/17 21:52 Dose: 500 mg Docusate Sodium (Colace 100mg Capsule) 100 mg PO BID PRN PRN Reason: Constipation Docusate Sodium (Colace 250mg Capsule) 250 - 500 mg PO DAILY [facility] Last Admin: 10/20/17 09:19 Dose: 250 mg Docusate Sodium (Colace 100mg Capsule) 100 mg PO BID PRN PRN Reason: Constipation Ferrous Sulfate (Feosol) 325 mg PO DAILYWM [facility] Last Admin: 10/20/17 09:18 Dose: 325 mg Ferrous Sulfate (Feosol) 325 mg PO BID [facility] Last Admin: 10/20/17 21:52 Dose: 325 mg Guaifenesin (Mucinex) 600 mg PO BID PRN PRN Reason: CONGESTION Hydromorphone HCl (Dilaudid Inj Syringe) 0.5 mg IVP Q2H PRN PRN Reason: Pain 8 to 10 Last Admin: 10/20/17 11:03 Dose: 0.5 mg Hydroxyzine HCl (Vistaril Inj) 25 mg IM Q6HR PRN PRN Reason: ITCHING Acetaminophen (Ofirmev) 100 mls @ 400 mls/hr IV Q6HR PRN PRN Reason: PAIN Last Infusion: 10/18/17 13:18 Dose: Infused Levetiracetam (Keppra) 250 mg PO DAILY [facility] Last Admin: 10/20/17 09:19 Dose: 250 mg Levetiracetam (Keppra) 500 mg PO QPM [facility] Last Admin: 10/20/17 21:52 Dose: 500 mg Levothyroxine Sodium (Synthroid) 100 mcg PO QDAC [facility] Last Admin: 10/21/17 06:08 Dose: 100 mcg Loratadine (Claritin) 10 mg PO DAILY PRN PRN Reason: ALLERGY SYMPTOMS Lorazepam (Ativan) 0.5 mg PO Q6H PRN PRN Reason: Anxiety Morphine Sulfate (Morphine) 2 mg IVP Q2HR PRN PRN Reason: PAIN [id number] Ethyl Esters (Lovaza) 1 gm PO BID [facility] Last Admin: 10/20/17 21:52 Dose: 1 gm Ondansetron HCl (Zofran Inj) 4 mg IVP Q6HR PRN PRN Reason: Nausea / Vomiting Last Admin: 10/16/17 09:56 Dose: 4 mg Ondansetron HCl (Zofran Odt) 4 mg TL Q6HR PRN PRN Reason: Nausea / Vomiting Last Admin: 10/19/17 08:10 Dose: 4 mg Oxycodone HCl (Roxicodone) 5 mg PO Q4HR PRN PRN Reason: PAIN Last Admin: 10/21/17 00:05 Dose: 5 mg (Lysine Hcl [Lysine (Hcl] 400 Mg) Tab) 1 each PO DAILY [facility] Polyethylene Glycol (Miralax) 17 gm PO DAILY [facility] Last Admin: 10/20/17 09:19 Dose: 17 gm Prochlorperazine Edisylate (Compazine Inj) 10 mg IVP Q6HR PRN PRN Reason: Nausea / Vomiting Quetiapine Fumarate (Seroquel) 300 mg PO QPM [facility] Last Admin: 10/20/17 21:52 Dose: 300 mg Senna (Senokot) 17.2 mg PO Q12H PRN PRN Reason: Constipation Last Admin: 10/20/17 21:52 Dose: 17.2 mg Senna (Senokot) 8.6 mg PO BID PRN PRN Reason: Constipation Last Admin: 10/20/17 10:39 Dose: 8.6 mg Sodium Chloride (Normal Saline Flush 0.9%) 10 ml IVP PRN PRN PRN Reason: NEEDED PER PROVIDER ORDERS Last Admin: 10/20/17 11:03 Dose: 10 ml Sodium Chloride (Normal Saline Flush 0.9%) 10 ml IVP 0100,0900,1700 [facility] Last Admin: 10/21/17 00:05 Dose: 10 ml Sumatriptan Succinate (Imitrex) 50 mg PO BID PRN PRN Reason: MIGRAINE Temazepam (Restoril) 7.5 mg PO QPM PRN PRN Reason: Insomnia Last Admin: 10/18/17 00:14 Dose: 7.5 mg Venlafaxine HCl (Effexor Er) 225 mg PO DAILY [facility] Last Admin: 10/20/17 09:20 Dose: 225 mg Albuterol Sulfate [Proair Hfa Inhaler] 2 puffs INH Q4H PRN 12/27/15 Carisoprodol [Soma] 350 mg PO TID 12/27/15 Loratadine [Claritin] 10 mg PO DAILY PRN 12/27/15 Quetiapine Fumarate [Seroquel] 300 mg PO QPM 12/27/15 Sumatriptan Succinate [Imitrex] 50 mg PO BID PRN 12/27/15 Venlafaxine ER [Effexor ER] 225 mg PO DAILY 12/27/15 Aspirin 81 mg PO DAILY 03/11/16 Docusate Sodium [Stool Softener] 100 mg PO BID PRN 03/11/16 amLODIPine [Norvasc] 10 mg PO DAILY 03/11/16 Cholecalciferol (Vitamin D3) [Vitamin D3] 1,000 unit PO DAILY 05/18/17 Cyanocobalamin [Vitamin B-12] 1,000 mcg IM Q30D 05/18/[address] [Depakote Dr] 1,000 mg PO QPM 05/18/17 Ginkgo Biloba [place] Extract [Ginkgo Biloba] 120 mg PO DAILY 05/18/17 Guaifenesin [Mucinex] 600 mg PO BID PRN 05/18/17 Ibuprofen [Motrin] 800 mg PO Q8H PRN 05/18/17 [place]-3 Fatty Acids/Fish Oil [[place]-3 Fish Oil 1,000 mg Sfgl] 1,000 mg PO BID Senna [Senokot] 8.6 mg PO BID PRN 05/18/17 Tiotropium [place] [Spiriva] 18 mcg INH DAILY 05/18/17 Zolpidem Tartrate [Ambien] 10 mg PO QPM 05/18/17 levETIRAcetam [Keppra] 500 mg PO QPM 05/18/17 Ipratropium/Albuterol Sulfate [Iprat-Albut 0.5-3(2.5) mg/3 ml] 3 ml IH QID 05/28 levETIRAcetam [Keppra] 250 mg PO DAILY 05/28/17 Lysine HCl 400 mg PO DAILY 06/17/17 Acetylcarnitine [Cyto Carn] 1,500 mg PO DAILY 06/18/17 Buspirone HCl 7.5 mg PO BID 10/14/17 Carisoprodol [Soma] 350 mg PO QPM PRN 10/14/17 Levothyroxine [Synthroid] 100 mcg PO QDAC 10/14/17 Objective - Vital Signs/Intake & Output Reviewed Vital Signs: Yes Vital Signs: Vital Signs x48h Temp Pulse Resp BP Pulse Ox 10/21/17 07:41 36.6 C 75 16 140/76 H 93 10/21/17 01:01 82 94 Intake & Output: Intake & Output 10/18/17 10/19/17 10/20/17 10/21/17 23:59 23:59 23:59 23:59 Intake Total 1340 1837 1456 Output Total 1950 2100 1375 Balance -610 -263 81 - Objective General Appearance: positive: No acute distress, Alert Eyes Bilateral: positive: Normal inspection, PERRL ENT: positive: ENT inspection nml, Pharynx nml, No signs of dehydration Neck: positive: Nml inspection, Thyroid nml, No JVD, Trachea midline Respiratory: positive: Chest non-tender, No respiratory distress, Breath sounds nml Cardiovascular: positive: Regular rate & rhythm, No gallop, Systolic murmur Peripheral Pulses: 1+ Radial (R), 1+ Radial (L) Abdomen: positive: Non-tender, Nml bowel sounds Back: positive: Nml inspection Skin: positive: No rash, Warm, Dry Extremities: positive: Pedal edema, Joint swelling (right ankle swelling) Neurologic/Psychiatric: positive: CN's nml (2-12), Disoriented to time, Weakness , Sensory loss, Slurred/abnml speech, Depressed mood/affect Reflexes: Bicep (R): 3+, Bicep (L): 3+ - Lab Results Fish Bones: 10/20/17 05:25 10/20/17 05:25 ABX Reporting Has patient been on IV antibiotics over the past 48 hours?: No Assessment/Plan - Problem List (1) Bimalleolar ankle fracture Impression: The patient suffered from a right ankle fracture on 10/14/17 after a fall and was confirmed on imaging of her right ankle and right knee. Orthopedic surgery was consulted who recommends waiting until the AM to perform this right ankle repair. Surgery was performed by Dr. Juarez on 10/15/17, ORIF of right ankle fracture for a Closed right bimalleolar ankle fracture. The Primary Surgeon was Fariha Juarez MD, Anesthesia Provider was Dr. Dhaliwal. Anesthesia Technique- General ET tube; IV Fluids (mL) 800; Estimated Blood Loss (mL) 100; NO Complications. The patient has been participating in PT/OT therapies. The patient continued to improve, and was medically cleared to be discharged to SNF on 10/18/17, although insurance authorization was pending, and today a lack of accepting facility is the issue. Plan: continue therapies, pain control and await placement. The patient is beyond her expected length of stay due to a lack of an accepting facility. Qualifiers: Encounter type: initial encounter Fracture type: closed Laterality: right Qualified Code(s): S82.841A - Displaced bimalleolar fracture of right lower leg, initial encounter for closed fracture (2) Chronic obstructive pulmonary disease (COPD) Impression: The patient has a known history of this and is prescribed ProAir, Spiriva, Duonebs, claritin and mucinex at home. These have been continued while in the hospital and this condition is considered stable. She continues on budesinide, and duo-nebs PRN. I have also resumed her mucinex and claritin. Plan: Continue to monitor respiratory status and provide supplemental oxygen as needed. (3) Depression Impression: The patient has a long history of this and has been refused placement due to this, mixed with personality disorders. She is prescribed buspirone-low dose, B12, ativan, soma and seroquel for insomnia and is continued here, with the exception of the soma. Upon exam, she is appropriate, conversational and demonstrates a flat affect. Plan: Continue to monitor mental status. Qualifiers: Depression Type: major depressive disorder (4) HTN (hypertension) Impression: The patient has a known history of this and is prescribed Norvasc at home, and this is continued here. Today she has a charted blood pressure of 142/75. Plan: continue to monitor and consider a second agent if needed. Qualifiers: Hypertension type: essential hypertension Qualified Code(s): I10 - Essential (primary) hypertension
[2017-10-21] MEDS: IPRATROPIUM/ALBUTEROL 3 ML NEB INH PRN (08:47)
[2017-10-21] MEDS: BUDESONIDE 0.5 MG/2 ML NEB INH SCH (08:48)
[2017-10-21] MEDS ORDERED: LYSINE HCL PO SCH (09:00)
[2017-10-21] MEDS: busPIRone 5 MG TABLET PO SCH (09:26)
[2017-10-21] MEDS: VENLAFAXINE ER 75 MG CAPSULE PO SCH (09:26)
[2017-10-21] MEDS: FERROUS SULFATE 325 MG TABLET PO SCH ×2 (09:27→09:30)
[2017-10-21] MEDS: DOCUSATE SODIUM 250 MG CAPSULE PO SCH (09:27)
[2017-10-21] MEDS: amLODIPine 5 MG TABLET PO SCH (09:27)
[2017-10-21] MEDS: OMEGA-3 ACID ETHYL ESTERS 1 GM CAPSULE PO SCH (09:27)
[2017-10-21] MEDS: ASPIRIN 325 MG TABLET PO SCH (09:28)
[2017-10-21] MEDS: levETIRAcetam 250 MG TABLET PO SCH (09:28)
[2017-10-21] MEDS: CHOLECALCIFEROL 1,000 UNIT TABLET PO SCH (09:28)
[2017-10-21] MEDS: DIVALPROEX DR 250 MG TABLET PO SCH (09:28)
[2017-10-21] MEDS: POLYETHYLENE GLYCOL 3350 17 GM PACKET PO SCH (09:30)
[2017-10-21] MEDS: HYDROmorphone 0.5 MG/0.5 ML SYRINGE IVP PRN (10:15)
[2017-10-21] MEDS: SODIUM CHLORIDE FLUSH 0.9% 10 ML SYRINGE IVP PRN (10:16)
[2017-10-21] MEDS: SENNA 8.6 MG TABLET PO PRN (14:42)
[2017-10-21] MEDS: CALCIUM CITRATE 250 MG TABLET PO SCH (14:42)
[2017-10-21 15:32] VITALS: BP 158/84
== END 2017-10-21 16:08 | DRG 493 ==
LOC: EDUNIT# → ED 02:36 → MS2 04:09
PROVIDERS: ADMIT Specialist; ATTEND Nurse Practitioner
PROC: 0QSG04Z Reposition Right Tibia with Internal Fixation Device, Open Approach (ICD-10-PCS; 2017-10-15)
PROC: 0QSJ04Z Reposition Right Fibula with Internal Fixation Device, Open Approach (ICD-10-PCS; principal; 2017-10-15 09:00)
DX: S82.841A Displaced bimalleolar fracture of right lower leg, initial encounter for closed fracture (principal); W01.0XXA Fall on same level from slipping, tripping and stumbling without subsequent striking against object, initial encounter; Z68.41 Body mass index [BMI] 40.0-44.9, adult; W08.XXXA Fall from other furniture, initial encounter; E66.01 Morbid (severe) obesity due to excess calories; Z98.84 Bariatric surgery status; J44.9 Chronic obstructive pulmonary disease, unspecified; I10 Essential (primary) hypertension; E78.5 Hyperlipidemia, unspecified; F60.9 Personality disorder, unspecified; G40.909 Epilepsy, unspecified, not intractable, without status epilepticus
CPT/HCPCS: 29505; 36415; 80048; 80053; 80164; 81001; 81003; 82607; 82728; 83540; 83615; 83690; 83735; 84466; 85014; 85018; 85025; 85044; 85610; 85730; 87086; 94640; 99284

== ENCOUNTER 2018-04-05 14:29 | Outpatient (CLI) | payer MEDICARE, OTHER ==
--- NOTE | 2018-04-06 10:23 | DEXA Report ---
Reason: POST MENOPAUSAL, ANKLE FRACTURE Procedure Date: 04/05/2018 Accession Number: [id number] / [id number] Procedure: DEX - Dexa Spine and/or Hip CPT Code: FULL RESULT: EXAM: Dexa Spine and/or Hip DATE: 04/05/2018 3:48 PM CLINICAL HISTORY: POST MENOPAUSAL, ANKLE FRACTURE TECHNIQUE: Dual energy x-ray absorptiometry (DXA) was performed on a [employer] System. Regions measured are the AP Spine, femoral neck, and if needed forearm. COMPARISON: None. In accordance with the International Society for Clinical Densitometry (ISCD) guidelines, data from previous exams may be reanalyzed using current recommendations and techniques. This is done to allow a more accurate basis for comparison with the current study. FINDINGS: The data for the lumbar spine is as follows: BMD (g/cm/cm) T-SCORE Z-SCORE REGION L1 0.973 -1.3 -0.5 L2 1.083 -1.0 -0.2 L3 0.935 -2.2 -1.4 L4 1.079 -1.0 -0.2 TOTAL 1.021 -1.3 -0.5 NOTE: All evaluable vertebrae are used for classification The data for the hip is as follows: BMD (g/cm/cm) T-SCORE Z-SCORE REGION Neck 0.700 -2.4 -1.4 TOTAL 0.740 -2.1 -1.4 NOTE: The femoral neck or total proximal femur, whichever is lowest, is used for classification. IMPRESSION: THE WHO CLASSIFICATION BASED ON THE INTERNATIONAL REFERENCE STANDARD IS OSTEOPENIA. THE FRACTURE RISK IS INCREASED. RECOMMENDATION: Patients with diagnosis of osteoporosis or osteopenia should have regular bone mineral density assessment. For those eligible for Medicare, routine testing is allowed once every 2 years. Testing frequency can be increased for patients who have rapidly progressing disease or for those who are receiving medical therapy to restore bone mass. COMMENT: World Health Organization (WHO) definitions for osteoporosis and osteopenia: NORMAL BMD: T-score at -1.0 or higher, fracture risk is low OSTEOPENIA BMD: T-score between -1.0 and -2.5, fracture risk is increased. OSTEOPOROSIS BMD: T-score at -2.5 or lower, fracture risk is high. National Osteoporosis Foundation recommends: 1. Obtain adequate dietary calcium (at least 1200 mg per day) and vitamin D (400-800 international units per day). 2. Participate, as appropriate, in regular weightbearing and muscle-strengthening exercise. 3. Avoid tobacco use and reduce alcohol and caffeine intake. 4. For more detailed information see the website at www.NOF.org.
== END 2018-04-05 14:30 | disposition home or self-care (01) ==
LOC: DI 14:29
PROVIDERS: ATTEND Family Medicine
DX: Z13.820 Encounter for screening for osteoporosis (principal); M85.89 Other specified disorders of bone density and structure, multiple sites; Z78.0 Asymptomatic menopausal state; S82.844D Nondisplaced bimalleolar fracture of right lower leg, subsequent encounter for closed fracture with routine healing
CPT/HCPCS: 77080

== ENCOUNTER 2018-06-06 13:04 | Outpatient (CLI) | payer MEDICARE, OTHER | END 2018-06-06 13:05 | disposition critical access hospital (66) | LOC: EMS 13:04 | PROVIDERS: ATTEND Surgery | DX: R41.82 Altered mental status, unspecified (principal) | CPT/HCPCS: A0425; A0429 ==

== ENCOUNTER 2018-06-06 13:20 | Emergency (ER) | payer MEDICARE, OTHER ==
--- NOTE | 2018-06-06 13:39 | ED Physician Documentation ---
History of Present Illness - Stated complaint Stated Complaint: ALOC - Chief complaint Chief Complaint: General - History obtained from History obtained from: Patient - History of Present Illness Timing: Prior to arrival - Additonal information Additional information: Patient is a 68-year-old female with history of bipolar disorder, hypertension, COPD and previous visits for altered mental status that were determined to likely be from polypharmacy presenting with altered mental status. Patient is unaccompanied and otherwise only complains of feeling sleepy and having a hard time staying awake. Patient denies fall, trauma, or other inciting incident. Patient reports she has been taking medications appropriately. Patient also denies fever, nausea, vomiting, chest pain, abdominal pain, difficulty breathing or cough, urinary or stool changes. Currently, patient has no pain complaints. There are no particular improving or worsening factors noted. Of note, prescription drug report shows multiple medications such as lorazepam, zolpidem, oxycodone, which could be contributing to today's issues. Review of Systems Ten Systems: 10 systems reviewed and negative Constitutional: reports: Fatigue. denies: Fever PD PAST MEDICAL HISTORY - Past Medical History Cardiovascular: Hypertension Respiratory: Asthma, COPD Neuro: Migraines, Seizure disorder Endocrine/Autoimmune: None GI: None : None HEENT: None Psych: Depression, Anxiety, Bipolar disorder, Schizophrenia Musculoskeletal: Osteoarthritis Derm: None - Past Surgical History Past Surgical History: Yes General: Cholecystectomy, Gastric surgery /NEUROLOGY EPILEPSY PHYSICIAN: Breast implants HEENT: Tonsil/Adenoidectomy - Present Medications Home Medications: Ambulatory Orders Medication Instructions Recorded Confirmed Docusate Sodium [Stool Softener] 100 mg PO BID PRN 03/11/16 06/06/18 LORazepam [Ativan] 0.5 mg PO Q6H PRN #20 tablet 06/18/17 06/06/18 Acetaminophen [Tylenol] 650 - 975 mg PO Q4HR PRN #90 tablet 10/21/17 06/06/18 Albuterol Sulfate [Proair Hfa 2 puffs INH Q4H PRN #120 10/21/17 06/06/18 Inhaler] Buspirone HCl 7.5 mg PO BID #60 10/21/17 06/06/18 Cholecalciferol (Vitamin D3) 1,000 unit PO DAILY #30 10/21/17 06/06/18 [Vitamin D3] Cyanocobalamin [Vitamin B-12] 1,000 mcg IM Q30D #1 10/21/17 06/06/18 Divalproex [Ayad Rivera] 1,000 mg PO QPM #30 10/21/17 06/06/18 Divalproex [Ayad Rivera] 250 mg PO DAILY #30 tablet 10/21/17 06/06/18 Ibuprofen [Motrin] 800 mg PO Q8H PRN #60 10/21/17 06/06/18 Levothyroxine [Synthroid] 100 mcg PO QDAC #30 10/21/17 06/06/18 Quetiapine Fumarate [Seroquel] 300 mg PO QPM #30 10/21/17 06/06/18 Senna [Senokot] 17.2 mg PO Q12H PRN #60 tablet 10/21/17 06/06/18 Sumatriptan Succinate [Imitrex] 50 mg PO BID PRN #60 10/21/17 06/06/18 Tiotropium [place] [Spiriva] 18 mcg INH DAILY #30 10/21/17 06/06/18 Venlafaxine ER [Effexor ER] 225 mg PO DAILY #30 10/21/17 06/06/18 Zolpidem Tartrate [Ambien] 10 mg PO QPM #30 10/21/17 06/06/18 amLODIPine [Norvasc] 10 mg PO DAILY #30 10/21/17 10/14/17 levETIRAcetam [Keppra] 250 mg PO DAILY #30 10/21/17 06/06/18 levETIRAcetam [Keppra] 500 mg PO QPM #30 10/21/17 06/06/18 oxyCODONE [Roxicodone] 5 mg PO Q4HR PRN #20 tablet 10/21/17 06/06/18 Cephalexin [Keflex] 500 mg PO BID #14 capsule 06/06/18 Gabapentin [Neurontin] 1 tab PO TID 06/06/18 06/06/18 Loperamide [Imodium] 1 tab PO TID PRN 06/06/18 06/06/18 Melatonin 2 tab PO QPM PRN 06/06/18 06/06/18 Ondansetron Odt [Zofran Odt] 1 tab PO TID PRN 06/06/18 06/06/18 - Allergies Allergies/Adverse Reactions: Allergies Allergy/AdvReac Type Severity Reaction Status Date / Time lidocaine Allergy Mild Itching Verified 06/06/18 13:35 diphenhydramine Allergy Unknown Verified 06/06/18 13:35 [From Benadryl] - Social History Does the pt smoke?: No Smoking Status: Never smoker Does the pt drink ETOH?: No Does the pt have substance abuse?: No - Immunizations Immunizations are current?: Yes - POLST Patient has POLST: Yes POLST Status: DNR PD ED PE NORMAL - General General: No acute distress, Well developed/nourished, Other (Sleeping and otherwise drowsy, but awakens with verbal cues. Resting comfortably in bed.) - HEENT HEENT: Atraumatic, Moist mucous membranes, Pharynx benign. No: PERRL (Pupils myotic and minimally reactive bilaterally. Gross visual acuity intact. No nystagmus.) - Cardiac Cardiac: RRR, No murmur - Respiratory Respiratory: No respiratory distress, Clear bilaterally - Abdomen Abdomen: Normal bowel sounds, Soft, Non tender, Non distended - Derm Derm: Normal color, Warm and dry, No rash - Extremities Extremities: No: No edema (Nonpitting pedal edema bilaterally, appears chronic.) - Neuro Neuro: Alert and oriented X 3, No motor deficit, No sensory deficit (No gross motor or sensory deficits noted. Patient oriented x3, but drowsy and has difficulty moving in bed given fatigue.) Results - Vitals Vitals: Vital Signs - 24 hr 06/06/18 06/06/18 13:29 15:00 Temperature 36.2 C L Heart Rate 104 H 96 Respiratory 14 20 Rate Blood Pressure 154/88 H 132/85 H O2 Saturation 94 96 Oxygen O2 Source [] Room air O2 Source Nasal cannula - EKG (time done) 1403 Rate: Rate (enter#) (88) Rhythm: NSR QRS: Low voltage Ischemia: Non specific changes - Labs Labs: Laboratory Tests 06/06/18 06/06/18 06/06/18 13:59 13:59 13:59 WBC 8.2 RBC 5.25 Hgb 13.7 Hct 43.6 MCV 83.1 MCH 26.0 L MCHC 31.3 L RDW 15.5 H Plt Count 243 MPV 8.2 Neut # (Auto) 5.5 Lymph # (Auto) 1.8 P[place] # (Auto) 0.7 Eos # (Auto) 0.1 Baso # (Auto) 0.1 Absolute Nucleated RBC 0.00 Nucleated RBC % 0.0 Sodium 139 Potassium 4.0 Chloride 101 Carbon Dioxide 28 Anion Gap 10.0 BUN 20 Creatinine 0.8 Estimated GFR (MDRD) 71 L Glucose 93 Calcium 9.2 Total Bilirubin 0.6 AST 29 ALT 24 Alkaline Phosphatase 42 Troponin I < 0.04 Total Protein 6.9 Albumin 3.3 Globulin 3.6 Albumin/Globulin Ratio 0.9 L Lipase 25 Urine Color Urine Clarity Urine pH Ur Specific [place] Urine Protein Urine Glucose (UA) Urine Ketones Urine Occult Blood Urine Nitrite Urine Bilirubin Urine Urobilinogen Ur Leukocyte Esterase Urine RBC Urine WBC Ur Squamous Epith Cells Urine Bacteria Urine Casts Ur Microscopic Review Urine Culture Comments 06/06/18 14:50 WBC RBC Hgb Hct MCV MCH MCHC RDW Plt Count MPV Neut # (Auto) Lymph # (Auto) [place] # (Auto) Eos # (Auto) Baso # (Auto) Absolute Nucleated RBC Nucleated RBC % Sodium Potassium Chloride Carbon Dioxide Anion Gap BUN Creatinine Estimated GFR (MDRD) Glucose Calcium Total Bilirubin AST ALT Alkaline Phosphatase Troponin I Total Protein Albumin Globulin Albumin/Globulin Ratio Lipase Urine Color YELLOW Urine Clarity CLEAR Urine pH 5.5 Ur Specific [place] >=1.030 H Urine Protein NEGATIVE Urine Glucose (UA) NEGATIVE Urine Ketones TRACE Urine Occult Blood NEGATIVE Urine Nitrite NEGATIVE Urine Bilirubin NEGATIVE Urine Urobilinogen 2 H Ur Leukocyte Esterase TRACE H Urine RBC None Seen Urine WBC 6-10 H Ur Squamous Epith Cells NONE SEEN Urine Bacteria None Seen Urine Casts 11-25 Hyaline Casts Ur Microscopic Review INDICATED Urine Culture Comments INDICATED PD MEDICAL DECISION MAKING - ED course Complexity details: reviewed old records, reviewed results, re-evaluated patient, considered differential, d/w patient ED course: Most concerning for narcosis and polypharmacy causing altered mental status as opposed to meningitis, stroke, [place], unstable angina, ACS, PE, pneumonia, intra- abdominal pathology, trauma or other acute issue, although considered. Physical exam does not reveal any evidence of trauma, new neurological deficit, or systemic illness. Per chart review, patient has been seen before for altered mental status due to polypharmacy. Patient's only complaint is being sleepy and has pinpoint pupils. Feel appropriate to give a small dose of Narcan given her chronic use of sedatives and narcotics. However, will also obtain screening lab work, urinalysis, and EKG. EKG did not show evidence of acute ischemia and again have low suspicion for cardiac causes. Screening lab work, including troponin, returned relatively unremarkable. Urinalysis questionable for infection and given age and symptomatology, feel appropriate to treat. Do not feel patient requires CT head at this time as have low suspicion for intracranial source of mental status changes. Following small Narcan dose, patient was still arousable, but not significantly changed and therefore gave full dose. Following fullness, patient much more alert, awake, interactive, and requesting discharge home. Patient able to go to the bedside commode. At this time, do not feel patient requires hospitalization as feel that her lethargy is likely related to overuse of narcotics and sedatives which have been addressed with Narcan and can otherwise be addressed with limiting her use of these medications at home, as well as possible UTI, which is addressed by antibiotics. Feel these all can be done as an outpatient. Provided prescription for antibiotics, as well as documentation of supportive cares, return precautions, and follow-up suggestions. Departure - Departure Disposition: 01 Home, Self Care Clinical Impression: Narcosis Urinary tract infection Qualifiers: Urinary tract infection type: site unspecified Hematuria presence: without hematuria Qualified Code(s): N39.0 - Urinary tract infection, site not specified Condition: Good Instructions: ED UTI Cystitis Female Follow-Up: Denny Soriano DO [Primary Care Provider] - Tomorrow Prescriptions: Cephalexin [Keflex] 500 mg PO BID #14 capsule Comments: Recommend use of antibiotic as prescribed for likely urinary tract infection. Please continue all other home medications as previously instructed with exception of decreasing and otherwise stopping, although likely needing to titrate down in order to stop, your sedatives and narcotic medications as these are contributing to your confusion and sleepiness.Please contact her primary care physician tomorrow to discuss this ED visit and for reevaluation, as well as to determine a plan for reducing your use of sedatives and narcotics. Return to ED sooner if experience worsening symptoms or other concerns.
[2018-06-06] MEDS ORDERED: NALOXONE 0.4 MG/ML VIAL IVP STA ×2 (13:45→16:02)
[2018-06-06 14:05] LABS: BASOPHILS # (AUTO) 0.1 10^3/uL (0.0-0.1); BASOPHILS % (AUTO) 0.7 %; EOSINOPHILS # (AUTO) 0.1 10^3/uL (0.0-0.7); EOSINOPHILS % (AUTO) 1.7 %; HGB - HEMOGLOBIN 13.7 g/dL (12.0-16.0); LYMPHOCYTES # (AUTO) 1.8 10^3/uL (1.5-3.5); LYMPHOCYTES % (AUTO) 21.8 %; MEAN CORPUSCULAR HGB CONC 31.3 g/dL (32.0-36.0); MEAN CORPUSCULAR VOLUME 83.1 fL (81.0-99.0); MEAN PLATELET VOLUME 8.2 fL (7.9-10.8); MONOCYTES # (AUTO) 0.7 10^3/uL (0.0-1.0); MONOCYTES % (AUTO) 8.7 %; NEUTROPHILS # (AUTO) 5.5 10^3/uL (1.5-6.6); NEUTROPHILS % (AUTO) 67.1 %; PLT - PLATELET COUNT 243 10^3/uL (130-450); RED BLOOD COUNT 5.25 10^6/uL (4.20-5.40); RED CELL DISTRIBUTION WIDTH 15.5 % (12.0-15.0); WHITE BLOOD COUNT 8.2 x10^3/uL (4.8-10.8)
[2018-06-06 14:26] LABS: ALBUMIN 3.3 g/dL (3.2-5.5); ALBUMIN/GLOBULIN RATIO 0.9 (1.0-2.2); BILIRUBIN,TOTAL 0.6 mg/dL (0.2-1.0); CALCIUM 9.2 mg/dL (8.5-10.3); CREATININE 0.8 mg/dL (0.4-1.0); TOTAL PROTEIN 6.9 g/dL (6.7-8.2)
[2018-06-06 15:01] VITALS: BP 132/85
[2018-06-06 15:03] LABS: GLUCOSE, URINE (UA) NEGATIVE (NEGATIVE); KETONES,URINE (UA) TRACE mg/dL (NEGATIVE); LEUKOCYTE ESTERASE, URINE TRACE (NEGATIVE); NITRITE,URINE NEGATIVE (NEGATIVE); OCCULT BLOOD,URINE NEGATIVE (NEGATIVE); PH,URINE 5.5 PH (5.0-7.5); PROTEIN,URINE NEGATIVE (NEGATIVE); UROBILINOGEN,URINE 2 E.U./dL (NORMAL)
[2018-06-06 15:08] LABS: BILIRUBIN,URINE NEGATIVE (NEGATIVE); CLARITY,URINE CLEAR (CLEAR); ICTOTEST,URINE NEGATIVE
[2018-06-06 15:22] LABS: RBC,URINE None Seen /HPF (0-5); SQUAMOUS EPITHELIAL CELL,UR NONE SEEN (<= Few)
[2018-06-06 15:23] LABS: BACTERIA,URINE None Seen /HPF (None Seen); CASTS, URINE 11-25 Hyaline Casts /LPF
== END 2018-06-06 17:57 | disposition home or self-care (01) ==
LOC: EDUNIT# → ED 13:20
DX: R06.89 Other abnormalities of breathing (principal); R41.82 Altered mental status, unspecified; R53.83 Other fatigue; N39.0 Urinary tract infection, site not specified; R60.0 Localized edema; I10 Essential (primary) hypertension; F31.9 Bipolar disorder, unspecified; J44.9 Chronic obstructive pulmonary disease, unspecified; G40.909 Epilepsy, unspecified, not intractable, without status epilepticus
CPT/HCPCS: 36415; 80053; 81001; 81003; 83690; 84484; 85025; 87086; 93005; 96374; 96376; 99283; 99284

== ENCOUNTER 2020-12-17 13:35 | Outpatient (CLI) | payer MEDICARE, OTHER | END 2020-12-17 13:36 | disposition EMS.NT | LOC: EMS 13:35 | DX: Z04.3 Encounter for examination and observation following other accident (principal); R51.9 Headache, unspecified; M25.562 Pain in left knee ==

== ENCOUNTER 2023-10-20 15:28 | Outpatient (CLI) | payer MEDICARE, OTHER | END 2023-10-20 23:59 | disposition critical access hospital (66) | LOC: EMS 15:28 | DX: R53.1 Weakness (principal); R51.9 Headache, unspecified; R41.0 Disorientation, unspecified; X58.XXXA Exposure to other specified factors, initial encounter; Y92.199 Unspecified place in other specified residential institution as the place of occurrence of the external cause | CPT/HCPCS: A0425; A0429 ==

== ENCOUNTER 2023-10-20 15:49 | Emergency (ER) | payer MEDICARE, OTHER ==
--- NOTE | 2023-10-20 15:53 | ED Physician Documentation ---
PD HPI Fall - Stated complaint Stated Complaint: GLF - History obtained from History obtained from: Patient, EMS, Caregiver ([place] - pt was getting up and using her walker, and she states she lost blance going around a corner, fell striking her head and back. Flt okay prior. NO recent cold/flu symptoms. Pain back of head, left knee and right shoulder (had had prior humerus fx right arm and is still hurting with ROM).) - History of Present Illness Mechanism of injury: Lost balance Fall distance: Standing position Where injury occurred: Other ([facility]. SNF.) Timing - onset: Today Injury(ies) location: Head, Right Upper Extremity. No: Left Lower Extremity Associated symptoms: No: LOC, AMS, Nausea / vomiting Contributing factors: No: Anticoagulated Review of Systems Unable to obtain: Dementia (she is aware of sympotms at the present, but poor memory of earlier.) PD PAST MEDICAL HISTORY - Past Medical History Cardiovascular: Hypertension Respiratory: Asthma, COPD Neuro: Migraines, Seizure disorder Endocrine/Autoimmune: None GI: None : None HEENT: None Psych: Depression, Anxiety, Bipolar disorder, Schizophrenia Musculoskeletal: Osteoarthritis Derm: None - Past Surgical History Past Surgical History: Yes General: Cholecystectomy, Gastric surgery /WAX SPECIALIST: Breast implants HEENT: Tonsil/Adenoidectomy - Present Medications Home Medications: Ambulatory Orders Medication Instructions Recorded Confirmed Docusate Sodium [Stool Softener] 100 mg PO BID PRN 03/11/16 10/21/23 LORazepam [Ativan] 0.5 mg PO Q6H PRN #20 tablet 06/18/17 10/21/23 Acetaminophen [Tylenol] 650 - 975 mg PO Q4HR PRN #90 tablet 10/21/17 10/21/23 Albuterol Sulfate [Proair Hfa 2 puffs INH Q4H PRN #120 10/21/17 10/21/23 Inhaler] Buspirone HCl 7.5 mg PO BID #60 10/21/17 10/21/23 Cholecalciferol (Vitamin D3) 1,000 unit PO DAILY #30 10/21/17 10/21/23 [Vitamin D3] Cyanocobalamin [Vitamin B-12] 1,000 mcg IM Q30D #1 10/21/17 10/21/23 Divalproandrey Rivera [Ayad Rivera] 1,000 mg PO QPM #30 10/21/17 10/21/23 Divalproex [Ayad Rivera] 250 mg PO DAILY #30 tablet 10/21/17 10/21/23 Ibuprofen [Motrin] 800 mg PO Q8H PRN #60 10/21/17 10/21/23 Levothyroxine [Synthroid] 100 mcg PO QDAC #30 10/21/17 10/21/23 Quetiapine Fumarate [Seroquel] 300 mg PO QPM #30 10/21/17 10/21/23 Senna [Senokot] 17.2 mg PO Q12H PRN #60 tablet 10/21/17 10/21/23 Sumatriptan Succinate [Imitrex] 50 mg PO BID PRN #60 10/21/17 10/21/23 Tiotropium [place] [Spiriva 18 mcg INH DAILY #30 10/21/17 10/21/23 Handihaler] Venlafaxine ER [Effexor ER] 225 mg PO DAILY #30 10/21/17 10/21/23 Zolpidem Tartrate [Ambien] 10 mg PO QPM #30 10/21/17 10/21/23 amLODIPine [Norvasc] 10 mg PO DAILY #30 10/21/17 10/21/23 levETIRAcetam [Keppra] 250 mg PO DAILY #30 10/21/17 10/21/23 levETIRAcetam [Keppra] 500 mg PO QPM #30 10/21/17 10/21/23 oxyCODONE [Roxicodone] 5 mg PO Q4HR PRN #20 tablet 10/21/17 10/21/23 Gabapentin [Neurontin] 1 tab PO TID 06/06/18 10/21/23 Loperamide [Imodium] 1 tab PO TID PRN 06/06/18 10/21/23 Melatonin 2 tab PO QPM PRN 06/06/18 10/21/23 Ondansetron Odt [Zofran Odt] 1 tab PO TID PRN 06/06/18 10/21/23 cephALEXin [Keflex] 500 mg PO BID #14 capsule 06/06/18 10/21/23 Ferrous Gluconate [Fergon] 324 mg PO DAILY #30 tablet 10/20/23 10/21/23 Magnesium Oxide [Mag Ox] 400 mg PO DAILY #30 tablet 10/21/23 - Allergies Allergies/Adverse Reactions: Allergies Allergy/AdvReac Type Severity Reaction Status Date / Time lidocaine Allergy Mild Itching Verified 10/21/23 15:16 diphenhydramine Allergy Unknown Verified 10/21/23 15:16 [From Benadryl] - Social History Does the pt smoke?: No Smoking Status: Never smoker Does the pt drink ETOH?: No Does the pt have substance abuse?: No - Immunizations Immunizations are current?: Yes - POLST Patient has POLST: Yes POLST Status: DNR PD ED PE NORMAL - Vitals Vital signs reviewed: Yes - General General: No acute distress, Well developed/nourished. No: Alert and oriented X 3 (person and place. ) - HEENT HEENT: Other (some swelling left parietal area. ) - Neck Neck: Supple, no meningeal sign, No bony TTP, No adenopathy - Respiratory Respiratory: Other (no chestwall tendereness.) - Abdomen Abdomen: Normal bowel sounds, Soft, Non tender - Derm Derm: Normal color, Warm and dry - Extremities Extremities: Other (right arm with some tenderness proximal humerus. No dislocation. Normal clavicle. left knee with tednerness mostly anterior, no effusion. Mild abrasion of skin. ROM full though hurts. ) - Neuro Neuro: No motor deficit, No sensory deficit Results - Vitals Vitals: Oxygen O2 Source [Without Activity] Room air O2 Source Room air - Labs Labs: Laboratory Tests 10/20/23 10/20/23 10/20/23 18:20 18:20 18:20 WBC 10.0 RBC 4.72 Hgb 9.0 L Hct 32.6 L MCV 69.1 L MCH 19.1 L MCHC 27.6 L RDW 22.1 H Plt Count 405 MPV 8.9 Neut # (Auto) 6.9 H Lymph # (Auto) 2.1 [place] # (Auto) 0.8 Eos # (Auto) 0.1 Baso # (Auto) 0.1 Absolute Nucleated RBC 0.00 Nucleated RBC % 0.0 Manual Slide Review Indicated Platelet Estimate NORMAL (130-450,000) Platelet Morphology NORMAL APPEARANCE RBC Morph Micro Appear 1+ TARGET CELLS Sodium 140 Potassium 4.4 Chloride 102 Carbon Dioxide 27 Anion Gap 11.0 BUN 23 H Creatinine 0.9 Estimated GFR (MDRD) 61 L Glucose 79 Calcium 8.6 Phosphorus 5.0 Magnesium 1.6 L Total Bilirubin 0.2 AST 15 ALT 10 Alkaline Phosphatase 55 Total Protein 5.9 L Albumin 2.9 L Globulin 3.0 Albumin/Globulin Ratio 1.0 Lipase < 10 L TSH 0.14 L Thyroxine (T4) 7.8 Total T3 0.90 T3 Uptake 45 - Rads (name of study) head CT Relevant Findings:: Prelim report reviewed, EMP independent interpretation of test (no ICH nor acute findings. ) right humerus Relevant Findings:: Prelim report reviewed, EMP independent interpretation of test (healed prior shaft fracture without new fracture. ) lef knee Relevant Findings:: Prelim report reviewed, EMP independent interpretation of test (arthritic changes, no fractures. ) PD Medical Decision Making - ED course Complexity details: reviewed results (after patient got imaging, the daughter called and asked if wer were doing basic labs as the patient was seeming a little ill the past day or two. I was not initially as main issue was fall and not pass down info from EMS about ill, but then added just basic labs.), considered differential (patient fell while walking with walker. Head injury mainly. I don't know her baseline but seems dementia and perhaps some concussive effect from injury as she had some feeling of dizziness too after injury and still. ), d/w patient Departure - Departure Disposition: 01 Home, Self Care Clinical Impression: Fall, Head contusion, Knee contusion, Shoulder contusion, Confusion, Anemia, iron deficiency Condition: Stable Record reviewed to determine appropriate education?: Yes Instructions: ED Concussion Prescriptions: Ferrous Gluconate [Fergon] 324 mg PO DAILY #30 tablet Comments: We did a CT scan of your head that did not show any signs of bleeding or local swelling. No mass effect. You were sore in your left knee and right shoulder and upper arm. The x-ray of your right arm shows healing from your prior fracture without any signs of new fracture. The left knee shows some arthritic changes but no obvious fractures. We did some basic blood test. You are anemic that looks to be iron deficiency. You could consider adding an iron supplement. It is not low enough to need transfusion at this time. Otherwise your blood sugar and electrolytes kidney function etc. are looking okay. We did do T3 and T4 thyroid hormone levels. The results will be back in a day or so. At believe you are on a thyroid supplement but your TSH was low so were just verifying the actual serum levels of the hormone itself. Otherwise you are demonstrating a little bit of confusion or forgetfulness. I presume that is a mild concussive effect from in your head though consideration would be whether some of that is baseline on forgetfulness. Tylenol every 4-6 hours if needed for pains or headaches or other pains. Discharge Date/Time: 10/20/23 20:25
[2023-10-20] MEDS: HYDROcod/ACETAM 5/325 MG TABLET PO STA (16:35)
--- NOTE | 2023-10-20 17:01 | XRAY Report ---
PROCEDURE: Shoulder 2+V RT INDICATIONS: fall with shoulder increased pain, recent fx TECHNIQUE: 3 views of the shoulder were acquired. COMPARISON: Right shoulder radiograph dated 06/12/2017. FINDINGS: Bones: Old healed fracture involving proximal humeral shaft is seen with chronic-appearing deformity . Severe glenohumeral joint osteoarthritic changes are noted. Moderate to severe acromioclavicular tod int osteoarthritic changes also seen. No acute fracture or dislocation. No suspicious bony lesions. Visualized ribs appear intact. Soft tissues: No suspicious soft tissue calcifications. The visualized lungs are within normal limi ts. IMPRESSION: Healed proximal humeral shaft fracture. Severe glenohumeral joint osteoarthritis and moderate to lj re acromioclavicular joint osteoarthritis. No acute fracture or dislocation. Reviewed by: Zac Gardner MD on 10/20/2023 5:00 PM PDT Approved by: Zac Gardner MD on 10/20/2023 5:00 PM PDT Station ID: [id number]
--- NOTE | 2023-10-20 17:02 | XRAY Report ---
PROCEDURE: Knee 3V LT INDICATIONS: fall with acute pain anterior TECHNIQUE: 3 views of the knee(s) were acquired. COMPARISON: 06/12/2017. FINDINGS: Bones: No fractures or dislocations. Moderate tricompartmental osteoarthritis more notably in medial femoral tibial compartment. No significant patellar subluxation. No suspicious bony lesions. Soft tissues: No knee joint effusion. No suspicious soft tissue calcifications or masses. IMPRESSION: No acute left knee fracture or dislocation. Moderate tricompartmental osteoarthritis. No significant joint effusion. Reviewed by: Zac Gardner MD on 10/20/2023 5:01 PM PDT Approved by: Zac Gardner MD on 10/20/2023 5:01 PM PDT Station ID: [id number]
--- NOTE | 2023-10-20 17:11 | CT Report ---
PROCEDURE: Head WO INDICATIONS: struck head fall, foggy/MUNIZ TECHNIQUE: Noncontrast 4.5 mm thick angled axial sections acquired from the foramen magnum to the vertex. For r adiation dose reduction, the following was used: automated exposure control, adjustment of mA and/or kV according to patient size. COMPARISON: 06/17/2017 FINDINGS: Image quality: Excellent. CSF spaces: Basal cisterns are patent. No extra-axial fluid collections. The ventricles are symmet stephan in size and shape. Brain: No intracranial bleeds or masses. There is cerebral volume loss for age, with resultant vent ricular and sulcal prominence. There are periventricular and deep white matter chronic small vessel ischemic changes. There is intracranial internal carotid artery atherosclerosis. Skull and face: Calvarium and visualized facial bones appear intact, without suspicious lesions. Sinuses: Visualized sinuses and mastoids are clear. IMPRESSION: 1. No acute intracranial pathology. No acute skull fracture. 2. Age related volume loss and mild white matter chronic small vessel ischemic changes. Reviewed by: Zac Saba MD on 10/20/2023 5:09 PM PDT Approved by: Zac Saba MD on 10/20/2023 5:09 PM PDT Station ID: [id number]
[2023-10-20 18:29] LABS: BASOPHILS # (AUTO) 0.1 10^3/uL (0.0-0.1); BASOPHILS % (AUTO) 0.6 %; EOSINOPHILS # (AUTO) 0.1 10^3/uL (0.0-0.7); EOSINOPHILS % (AUTO) 1.3 %; HCT - HEMATOCRIT 32.6 % (37.0-47.0); LYMPHOCYTES # (AUTO) 2.1 10^3/uL (1.5-3.5); MEAN CORPUSCULAR HEMOGLOBIN 19.1 pg (27.0-31.0); MEAN CORPUSCULAR HGB CONC 27.6 g/dL (32.0-36.0); MEAN CORPUSCULAR VOLUME 69.1 fL (81.0-99.0); MEAN PLATELET VOLUME 8.9 fL (7.9-10.8); MONOCYTES # (AUTO) 0.8 10^3/uL (0.0-1.0); MONOCYTES % (AUTO) 8.3 %; NEUTROPHILS # (AUTO) 6.9 10^3/uL (1.5-6.6); NEUTROPHILS % (AUTO) 68.4 %; PLT - PLATELET COUNT 405 10^3/uL (130-450); RED BLOOD COUNT 4.72 10^6/uL (4.20-5.40); RED CELL DISTRIBUTION WIDTH 22.1 % (12.0-15.0)
[2023-10-20 18:36] LABS: SLIDE REVIEW? Indicated
[2023-10-20 18:56] LABS: ALBUMIN 2.9 g/dL (3.2-5.5); ALKALINE PHOSPHATASE 55 IU/L (42-121); ALT ALANINE AMINOTRANSFERASE 10 IU/L (10-60); AST ASPARTATE AMINOTRANSFERASE 15 IU/L (10-42); BILIRUBIN,TOTAL 0.2 mg/dL (0.2-1.0); BUN - BLOOD UREA NITROGEN 23 mg/dL (6-20); CALCIUM 8.6 mg/dL (8.5-10.3); CARBON DIOXIDE - CO2 27 mmol/L (21-32); CHLORIDE 102 mmol/L (101-111); CREATININE 0.9 mg/dL (0.6-1.3); GFR - MDRD 61 (>89); GLUCOSE 79 mg/dL (74-104); LIPASE < 10 U/L (11-82); MAGNESIUM 1.6 mg/dL (1.7-2.3); POTASSIUM 4.4 mmol/L (3.5-4.5); SODIUM 140 mmol/L (135-145); TOTAL PROTEIN 5.9 g/dL (6.4-8.9)
[2023-10-20 18:58] LABS: THYROID STIMULATING HORMONE 0.14 uIU/mL (0.34-5.60)
[2023-10-20 19:08] LABS: PLATELET ESTIMATE, MANUAL NORMAL (130-450,000) (NORMAL); PLATELET MORPHOLOGY NORMAL APPEARANCE (NORMAL)
[2023-10-20 19:09] VITALS: BP 155/83
[2023-10-20 20:41] VITALS: O2SAT 96
== END 2023-10-20 20:25 | disposition home or self-care (01) ==
LOC: EDUNIT# → ED 15:49
DX: S00.03XA Contusion of scalp, initial encounter (principal); S40.011A Contusion of right shoulder, initial encounter; S80.02XA Contusion of left knee, initial encounter; W18.39XA Other fall on same level, initial encounter; D50.9 Iron deficiency anemia, unspecified; I10 Essential (primary) hypertension; J44.9 Chronic obstructive pulmonary disease, unspecified; F03.90 Unspecified dementia, unspecified severity, without behavioral disturbance, psychotic disturbance, mood disturbance, and anxiety; Z98.84 Bariatric surgery status; Z98.82 Breast implant status; Z79.899 Other long term (current) drug therapy
CPT/HCPCS: 36415; 70450; 73030; 73562; 80053; 83690; 83735; 84100; 84436; 84443; 84479; 84480; 85025; 99284; A9270

== ENCOUNTER 2023-10-20 20:34 | Outpatient (CLI) | payer MEDICARE, OTHER | END 2023-10-20 23:59 | disposition home or self-care (01) | LOC: EMS 20:34 | PROVIDERS: ATTEND Emergency Medicine | DX: F03.90 Unspecified dementia, unspecified severity, without behavioral disturbance, psychotic disturbance, mood disturbance, and anxiety (principal); R41.0 Disorientation, unspecified | CPT/HCPCS: A0425; A0428 ==

== ENCOUNTER 2023-10-21 14:49 | Outpatient (CLI) | payer MEDICARE, OTHER | END 2023-10-21 23:59 | disposition critical access hospital (66) | LOC: EMS 14:49 | DX: R53.83 Other fatigue (principal); R53.1 Weakness; Z91.81 History of falling; J44.9 Chronic obstructive pulmonary disease, unspecified; M79.609 Pain in unspecified limb; Z99.81 Dependence on supplemental oxygen; R41.0 Disorientation, unspecified | CPT/HCPCS: A0425; A0429 ==

== ENCOUNTER 2023-10-21 15:08 | Emergency (ER) | payer MEDICARE, OTHER ==
--- NOTE | 2023-10-21 15:56 | ED Physician Documentation ---
PD HPI SYNCOPE - Stated complaint Stated Complaint: GEN WEAKNESS - Chief complaint Chief Complaint: General - History obtained from History obtained from: Patient, EMS - History of Present Illness Witnessed: Unwitnessed Timing - onset: Today (patient told caregivers that she felt lightheaded and was feeling about to pass out. General weakness today. No focal deficit noted.) Preceding symptoms: Light headed, Generalized weakness. No: Headache, Chest pain, Abdominal pain Associated symptoms: Nausea / vomiting (did not vomit but was feeling nauseated.). No: Headache, Abdominal pain Contributing factors: Decreased PO intake (she may have had less intake today as was feeling some nausea and says not hungry.). No: Recent med change, Noxious stimulae Injury occurred: Head injury (yesterday struk head with accidental fall. Still some mild MUNIZ. 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 CLIP ON SUNGLASSES: Breast implants HEENT: Tonsil/Adenoidectomy - Present Medications Home Medications: Ambulatory Orders Medication Instructions Recorded Confirmed Docusate Sodium [Stool Softener] 100 mg PO BID PRN 03/11/16 10/21/23 LORazepam [Ativan] 0.5 mg PO Q6H PRN #20 tablet 06/18/17 10/21/23 Acetaminophen [Tylenol] 650 - 975 mg PO Q4HR PRN #90 tablet 10/21/17 10/21/23 Albuterol Sulfate [Proair Hfa 2 puffs INH Q4H PRN #120 10/21/17 10/21/23 Inhaler] Buspirone HCl 7.5 mg PO BID #60 10/21/17 10/21/23 Cholecalciferol (Vitamin D3) 1,000 unit PO DAILY #30 10/21/17 10/21/23 [Vitamin D3] Cyanocobalamin [Vitamin B-12] 1,000 mcg IM Q30D #1 10/21/17 10/21/23 Divalproex [Ayad Rivera] 1,000 mg PO QPM #30 10/21/17 10/21/23 Divalproex [Ayad Rivera] 250 mg PO DAILY #30 tablet 10/21/17 10/21/23 Ibuprofen [Motrin] 800 mg PO Q8H PRN #60 10/21/17 10/21/23 Levothyroxine [Synthroid] 100 mcg PO QDAC #30 10/21/17 10/21/23 Quetiapine Fumarate [Seroquel] 300 mg PO QPM #30 10/21/17 10/21/23 Senna [Senokot] 17.2 mg PO Q12H PRN #60 tablet 10/21/17 10/21/23 Sumatriptan Succinate [Imitrex] 50 mg PO BID PRN #60 10/21/17 10/21/23 Tiotropium [place] [Spiriva 18 mcg INH DAILY #30 10/21/17 10/21/23 Handihaler] Venlafaxine ER [Effexor ER] 225 mg PO DAILY #30 10/21/17 10/21/23 Zolpidem Tartrate [Ambien] 10 mg PO QPM #30 10/21/17 10/21/23 amLODIPine [Norvasc] 10 mg PO DAILY #30 10/21/17 10/21/23 levETIRAcetam [Keppra] 250 mg PO DAILY #30 10/21/17 10/21/23 levETIRAcetam [Keppra] 500 mg PO QPM #30 10/21/17 10/21/23 oxyCODONE [Roxicodone] 5 mg PO Q4HR PRN #20 tablet 10/21/17 10/21/23 Gabapentin [Neurontin] 1 tab PO TID 06/06/18 10/21/23 Loperamide [Imodium] 1 tab PO TID PRN 06/06/18 10/21/23 Melatonin 2 tab PO QPM PRN 06/06/18 10/21/23 Ondansetron Odt [Zofran Odt] 1 tab PO TID PRN 06/06/18 10/21/23 cephALEXin [Keflex] 500 mg PO BID #14 capsule 06/06/18 10/21/23 Ferrous Gluconate [Fergon] 324 mg PO DAILY #30 tablet 10/20/23 10/21/23 Magnesium Oxide [Mag Ox] 400 mg PO DAILY #30 tablet 10/21/23 - Allergies Allergies/Adverse Reactions: Allergies Allergy/AdvReac Type Severity Reaction Status Date / Time lidocaine Allergy Mild Itching Verified 10/21/23 15:16 diphenhydramine Allergy Unknown Verified 10/21/23 15:16 [From Benadryl] - Social History Does the pt smoke?: No Smoking Status: Never smoker Does the pt drink ETOH?: No Does the pt have substance abuse?: No - Immunizations Immunizations are current?: Yes - POLST Patient has POLST: Yes POLST Status: DNR PD ED PE NORMAL - Vitals Vital signs reviewed: Yes - General General: No acute distress, Well developed/nourished. No: Alert and oriented X 3 (person and place, and she does remember being to ED yesterday. ) - Neck Neck: Supple, no meningeal sign, No bony TTP, No adenopathy - Cardiac Cardiac: RRR, No murmur - Respiratory Respiratory: No respiratory distress, Clear bilaterally - Abdomen Abdomen: Soft, Non tender - Derm Derm: Normal color, Warm and dry - Neuro Neuro: Alert and oriented X 3, No motor deficit, Normal speech Eye Opening: Spontaneous Motor: Obeys Commands Verbal: Oriented GCS Score: 15 Results - Vitals Vitals: Vital Signs - 24 hr 10/21/23 10/21/23 10/21/23 15:16 17:18 18:53 Temperature 36.8 C 36.8 C Heart Rate 77 76 96 Respiratory 18 11 L 11 L Rate Blood Pressure 115/90 H 148/70 H 153/81 H O2 Saturation 98 98 97 Oxygen O2 Source [] Room air O2 Source Room air - EKG (time done) 16:21 EKG releavant findings:: EKG personally interpreted by author of this note. Relevant findings are: Rate: Rate (enter#) (69) Rhythm: Atrial fibrillation QRS: Poor R wave progression Ischemia: Normal ST segments. No: ST elevation c/w ischemia, ST depression - Labs Labs: Microbiology 10/21/23 16:32 Occult Blood - Final Stool Laboratory Tests 10/21/23 10/21/23 10/21/23 16:14 16:14 16:14 WBC 5.4 RBC 4.65 Hgb 8.9 L Hct 32.0 L MCV 68.8 L MCH 19.1 L MCHC 27.8 L RDW 22.2 H Plt Count 366 MPV 8.5 Neut # (Auto) 2.9 Lymph # (Auto) 1.8 [place] # (Auto) 0.5 Eos # (Auto) 0.1 Baso # (Auto) 0.0 Absolute Nucleated RBC 0.00 Nucleated RBC % 0.0 Manual Slide Review Indicated Platelet Estimate NORMAL (130-450,000) Platelet Morphology NORMAL APPEARANCE RBC Morph Micro Appear 1+ MICROCYTOSIS Sodium 142 Potassium 4.0 Chloride 105 Carbon Dioxide 31 Anion Gap 6.0 BUN 20 Creatinine 0.6 Estimated GFR (MDRD) 98 Glucose 93 Lactic Acid Calcium 8.4 L Magnesium 1.5 L Total Bilirubin 0.2 AST 14 ALT 9 L Alkaline Phosphatase 52 B-Natriuretic Peptide 168 H Total Protein 5.5 L Albumin 2.7 L Globulin 2.8 Albumin/Globulin Ratio 1.0 Lipase < 10 L Urine Color Urine Clarity Urine pH Ur Specific [place] Urine Protein Urine Glucose (UA) Urine Ketones Urine Occult Blood Urine Nitrite Urine Bilirubin Urine Urobilinogen Ur Leukocyte Esterase Ur Microscopic Review Urine Culture Comments Nasal Adenovirus (PCR) Nasal B. parapertussis DNA (PCR) Nasal Coronavir 229E PCR Nasal Coronavir HKU1 PCR Nasal Coronavir NL63 PCR Nasal Coronavir OC43 PCR Nasal Enterovir/Rhinovir PCR Nasal Influenza B PCR Nasal Influenza A PCR Nasal Parainfluen 1 PCR Nasal Parainfluen 2 PCR Nasal Parainfluen 3 PCR Nasal Parainfluen 4 PCR Nasal RSV (PCR) Nasal B.pertussis DNA PCR Nasal C.pneumoniae (PCR) [place]ique Human Metapneumo PCR Nasal M.pneumoniae (PCR) Nasal SARS-CoV-2 (PCR) Last Dose Date UNKNOWN Last Dose Time UNKNOWN Valproic Acid 14.6 10/21/23 10/21/23 10/21/23 16:14 16:27 17:14 WBC RBC Hgb Hct MCV MCH MCHC RDW Plt Count MPV Neut # (Auto) Lymph # (Auto) [place] # (Auto) Eos # (Auto) Baso # (Auto) Absolute Nucleated RBC Nucleated RBC % Manual Slide Review Platelet Estimate Platelet Morphology RBC Morph Micro Appear Sodium Potassium Chloride Carbon Dioxide Anion Gap BUN Creatinine Estimated GFR (MDRD) Glucose Lactic Acid 0.9 Calcium Magnesium Total Bilirubin AST ALT Alkaline Phosphatase B-Natriuretic Peptide Total Protein Albumin Globulin Albumin/Globulin Ratio Lipase Urine Color YELLOW Urine Clarity CLEAR Urine pH 5.5 Ur Specific [place] 1.025 Urine Protein NEGATIVE Urine Glucose (UA) NEGATIVE Urine Ketones 15 H Urine Occult Blood NEGATIVE Urine Nitrite NEGATIVE Urine Bilirubin NEGATIVE Urine Urobilinogen 1 (NORMAL) Ur Leukocyte Esterase NEGATIVE Ur Microscopic Review NOT INDICATED Urine Culture Comments NOT INDICATED Nasal Adenovirus (PCR) NOT DETECTED Nasal B. parapertussis DNA (PCR) NOT DETECTED Nasal Coronavir 229E PCR NOT DETECTED Nasal Coronavir HKU1 PCR NOT DETECTED Nasal Coronavir NL63 PCR NOT DETECTED Nasal Coronavir OC43 PCR NOT DETECTED Nasal Enterovir/Rhinovir PCR NOT DETECTED Nasal Influenza B PCR NOT DETECTED Nasal Influenza A PCR NOT DETECTED Nasal Parainfluen 1 PCR NOT DETECTED Nasal Parainfluen 2 PCR NOT DETECTED Nasal Parainfluen 3 PCR NOT DETECTED Nasal Parainfluen 4 PCR NOT DETECTED Nasal RSV (PCR) NOT DETECTED Nasal B.pertussis DNA PCR NOT DETECTED Nasal C.pneumoniae (PCR) NOT DETECTED [place] Human Metapneumo PCR NOT DETECTED Nasal M.pneumoniae (PCR) NOT DETECTED Nasal SARS-CoV-2 (PCR) NOT DETECTED Last Dose Date Last Dose Time Valproic Acid - Rads (name of study) chest xray Relevant Findings:: Prelim report reviewed, EMP independent interpretation of test (no acute process) PD Medical Decision Making - ED course Complexity details: reviewed results (no signs of infectious process acutely. Basic labs are still good with low Mag and anemia noted again. Hgb essentiall the same as yeterday. Not diabetic and EMS noted FSBS 86, which is not really low enough to think the cause of the prcoess. ), considered differential (patient with feeling of general weakness, near syncope, and mild MUNIZ, along with general body acheas (consider from fall yesterday). ), d/w patient ED course: general symptoms of weak, aches, nasuea - consider the effects of falling hard yesterday. Otherwise can check for signs of infections such as flu, COVID, etc with PCR. Also check that basic labs are good. COnsider UTI, pneuomina, sodium levels, etc. The main findings are chroin anemia and low Mag. Departure - Departure Disposition: 01 Home, Self Care Clinical Impression: Generalized weakness Condition: Stable Record reviewed to determine appropriate education?: Yes Prescriptions: Magnesium Oxide [Mag Ox] 400 mg PO DAILY #30 tablet Comments: We did some more blood testing as well as viral no swab and a urine test to look for causes of feeling ill or weak. Similar to yesterday, we did identify that you are anemic and appears iron deficient. Your blood count is the same as yesterday and is in trend with where your anemia has been in the past. I had added a iron supplement prescription yesterday. Your electrolytes are also showing a mildly low magnesium. This could cause a feeling of weakness. I would suggest a magnesium supplement over the next 2 to 3 weeks. Otherwise continue with usual medications. We checked a viral panel test and there was no signs of the major viruses. Your urine test does not show any signs of infection. Chest x-ray is clear without any signs of pneumonia etc. We did check your Depakote level and it is not too high. If anything gets subtherapeutic but that would not give you symptoms per se. Stay well-hydrated. Continue usual medicines. Return if needed. Forms: PCP List Discharge Date/Time: 10/21/23 18:56
[2023-10-21 16:20] LABS: BASOPHILS % (AUTO) 0.4 %; EOSINOPHILS # (AUTO) 0.1 10^3/uL (0.0-0.7); EOSINOPHILS % (AUTO) 2.4 %; HGB - HEMOGLOBIN 8.9 g/dL (12.0-16.0); LYMPHOCYTES # (AUTO) 1.8 10^3/uL (1.5-3.5); MEAN CORPUSCULAR HEMOGLOBIN 19.1 pg (27.0-31.0); MEAN CORPUSCULAR HGB CONC 27.8 g/dL (32.0-36.0); MEAN CORPUSCULAR VOLUME 68.8 fL (81.0-99.0); MEAN PLATELET VOLUME 8.5 fL (7.9-10.8); MONOCYTES # (AUTO) 0.5 10^3/uL (0.0-1.0); MONOCYTES % (AUTO) 9.6 %; NEUTROPHILS # (AUTO) 2.9 10^3/uL (1.5-6.6); PLT - PLATELET COUNT 366 10^3/uL (130-450); RED BLOOD COUNT 4.65 10^6/uL (4.20-5.40); RED CELL DISTRIBUTION WIDTH 22.2 % (12.0-15.0); WHITE BLOOD COUNT 5.4 x10^3/uL (4.8-10.8)
[2023-10-21 16:23] LABS: SLIDE REVIEW? Indicated
[2023-10-21 16:33] LABS: ALBUMIN 2.7 g/dL (3.2-5.5); ALKALINE PHOSPHATASE 52 IU/L (42-121); ALT ALANINE AMINOTRANSFERASE 9 IU/L (10-60); AST ASPARTATE AMINOTRANSFERASE 14 IU/L (10-42); BILIRUBIN,TOTAL 0.2 mg/dL (0.2-1.0); BUN - BLOOD UREA NITROGEN 20 mg/dL (6-20); CALCIUM 8.4 mg/dL (8.5-10.3); CARBON DIOXIDE - CO2 31 mmol/L (21-32); CHLORIDE 105 mmol/L (101-111); CREATININE 0.6 mg/dL (0.6-1.3); GFR - MDRD 98 (>89); GLUCOSE 93 mg/dL (74-104); LIPASE < 10 U/L (11-82); MAGNESIUM 1.5 mg/dL (1.7-2.3); SODIUM 142 mmol/L (135-145); TOTAL PROTEIN 5.5 g/dL (6.4-8.9); VALPROIC ACID (DEPAKOTE) 14.6 ug/mL
[2023-10-21 16:51] LABS: PLATELET ESTIMATE, MANUAL NORMAL (130-450,000) (NORMAL); PLATELET MORPHOLOGY NORMAL APPEARANCE (NORMAL)
[2023-10-21 17:39] LABS: BILIRUBIN,URINE NEGATIVE (NEGATIVE); GLUCOSE, URINE (UA) NEGATIVE (NEGATIVE); KETONES,URINE (UA) 15 mg/dL (NEGATIVE); LEUKOCYTE ESTERASE, URINE NEGATIVE (NEGATIVE); NITRITE,URINE NEGATIVE (NEGATIVE); OCCULT BLOOD,URINE NEGATIVE (NEGATIVE); PH,URINE 5.5 PH (5.0-7.5); PROTEIN,URINE NEGATIVE (NEGATIVE); UROBILINOGEN,URINE 1 (NORMAL) E.U./dL (NORMAL)
[2023-10-21 17:41] LABS: CLARITY,URINE CLEAR (CLEAR)
[2023-10-21 17:41] LABS: B. PARAPERTUSSIS- RESP PCR PAN NOT DETECTED; B. PERTUSSIS- RESP PCR PANEL NOT DETECTED; C. PNEUMONIAE- RESP PCR PANEL NOT DETECTED; CORONAVIRUS 229E-RESP PCR NOT DETECTED; CORONAVIRUS HKU1-RESP PCR NOT DETECTED; CORONAVIRUS NL63-RESP PCR NOT DETECTED; CORONAVIRUS OC43-RESP PCR NOT DETECTED; HUMAN METAPNEUMOVIRUS NOT DETECTED; INFLUENZA A- RESP PCR PANEL NOT DETECTED; INFLUENZA B - RESP PCR PANEL NOT DETECTED; M. PNEUMONIAE- RESP PCR PANEL NOT DETECTED; PARAINFLUENZA VIRUS 1 NOT DETECTED; PARAINFLUENZA VIRUS 2 NOT DETECTED; PARAINFLUENZA VIRUS 3 NOT DETECTED; PARAINFLUENZA VIRUS 4 NOT DETECTED; RHINOVIRUS/ENTEROVIRUS NOT DETECTED; RSV- RESP PCR PANEL NOT DETECTED; SARS-CoV-2 -RESP PCR PANEL NOT DETECTED
[2023-10-21] MEDS: MAGNESIUM OXIDE 400 MG TABLET PO STA (17:53)
[2023-10-21] MEDS: SODIUM CHLORIDE 0.9% 500 ML IV STA (18:01)
[2023-10-21] MEDS: MAGNESIUM SULFATE 2 GRAM 2 GM/50 ML BAG IV ONE (18:01)
--- NOTE | 2023-10-21 18:20 | XRAY Report ---
PROCEDURE: Chest 1V INDICATIONS: weakness TECHNIQUE: One view of the chest was acquired. COMPARISON: 12/27/2015 FINDINGS: Surgical changes and devices: Bilateral breast surgical clips Lungs and pleura: No pleural effusions or pneumothorax. Lungs are clear. Chronic interstitial loya es Mediastinum: Mediastinal contours appear normal. Heart size is normal. Bones and chest wall: No suspicious bony lesions. Overlying soft tissues appear unremarkable. IMPRESSION: No acute cardiopulmonary findings Reviewed by: Jayce Traore MD on 10/21/2023 5:19 PM AKDT Approved by: Jayce Traore MD on 10/21/2023 5:19 PM AKDT Station ID: [id number]
[2023-10-21 19:02] VITALS: BP 153/81; O2SAT 97
== END 2023-10-21 18:56 | disposition home or self-care (01) ==
LOC: EDUNIT# → ED 15:08
DX: R53.1 Weakness (principal); D64.9 Anemia, unspecified; E83.42 Hypomagnesemia; Z66 Do not resuscitate
CPT/HCPCS: 36415; 51701; 71045; 80053; 80164; 81003; 82272; 83605; 83690; 83735; 83880; 85025; 87633; 93005; 99284; A9270; 81001; 87086

== ENCOUNTER 2023-10-21 18:57 | Outpatient (CLI) | payer MEDICARE, OTHER | END 2023-10-21 23:59 | disposition home or self-care (01) | LOC: EMS 18:57 | PROVIDERS: ATTEND Emergency Medicine | DX: F03.90 Unspecified dementia, unspecified severity, without behavioral disturbance, psychotic disturbance, mood disturbance, and anxiety (principal); E66.01 Morbid (severe) obesity due to excess calories; R41.0 Disorientation, unspecified; S06.0XAA Concussion with loss of consciousness status unknown, initial encounter | CPT/HCPCS: A0425; A0428 ==

== ENCOUNTER 2023-11-01 00:19 | Outpatient (CLI) | payer MEDICARE, OTHER | END 2023-11-01 21:40 | disposition EMS.NT | LOC: EMS 00:19 | DX: Z03.89 Encounter for observation for other suspected diseases and conditions ruled out (principal) ==

== ENCOUNTER 2023-11-02 11:57 | Outpatient (CLI) | payer MEDICARE, OTHER | END 2023-11-02 22:00 | disposition short-term general hospital (02) | LOC: EMS 11:57 | DX: R53.83 Other fatigue (principal); R41.82 Altered mental status, unspecified; R63.8 Other symptoms and signs concerning food and fluid intake; R53.1 Weakness | CPT/HCPCS: A0425; A0429; A0888 ==

== ENCOUNTER 2023-11-19 11:20 | Outpatient (CLI) | payer MEDICARE, OTHER | END 2023-11-19 23:59 | disposition short-term general hospital (02) | LOC: EMS 11:20 | DX: R41.82 Altered mental status, unspecified (principal); R53.83 Other fatigue; M79.662 Pain in left lower leg; M79.661 Pain in right lower leg; M25.572 Pain in left ankle and joints of left foot; M25.571 Pain in right ankle and joints of right foot; Z99.81 Dependence on supplemental oxygen; R50.9 Fever, unspecified | CPT/HCPCS: A0425; A0429 ==